=== PATIENT | male | born 1985 | race Caucasian/White ===

== ENCOUNTER 2018-05-18 16:05 | Emergency (ER) | payer OTHER ==
--- NOTE | 2018-05-18 17:23 | ED ---
General Adult HPI - General Chief complaint: Abdominal Pain Stated complaint: Chest Pain Source: patient Mode of arrival: ambulatory Limitations: no limitations - Related Data Home Medications Medication Instructions Recorded Confirmed No Known Home Medications 05/18/18 05/18/18 Allergies Allergy/AdvReac Type Severity Reaction Status Date / Time No Known Allergies Allergy Verified 05/18/18 17:01 Review of Systems ROS Statement: Those systems with pertinent positive or pertinent negative responses have been documented in the HPI. ROS Other: All systems not noted in ROS Statement are negative. Past Medical History Past Medical History: No Reported History History of Any Multi-Drug Resistant Organisms: None Reported Additional Past Surgical History / Comment(s): testicular torsion Past Psychological History: Anxiety, PTSD Smoking Status: Current every day smoker Past Alcohol Use History: Daily, Heavy Past Drug Use History: Marijuana General Exam Limitations: no limitations Course Vital Signs 05/18/18 05/18/18 16:15 16:29 Temperature 98.3 F Pulse Rate 103 H Pulse Rate [ 103 H [employer]endor ] Respiratory 18 20 Rate Blood Pressure 95/53 O2 Sat by Pulse 99 Oximetry Medical Decision Making - Medical Decision Making Dictation was produced using [employer] dictation software. please excuse any grammatical, word or spelling errors. Chief Complaint: 32-year-old male in no significant past medical history presents with abdominal pain 6 months. History of Present Illness: She is 32-year-old male presents with about abdominal pain 6 months. He states that his pain has acutely worsened over the last 2 days. Patient states that he's been evaluated with this same symptom in [place]. Patient was seen at the [facility] they're told that he had some inflammation around his gallbladder. Did not get any surgery. Patient denies any medical problems. Patient states his pain is worse after he eats not during eating. There is any constitutional symptoms. Patient states that he also expresses sharp The ROS documented in this emergency department record has been reviewed and confirmed by me. Those systems with pertinent positive or negative responses have been documented in the HPI. All other systems are other negative and/or noncontributory. PHYSICAL EXAM: General Impression: Alert and oriented x3, not in acute distress HEENT: Normocephalic atraumatic, extra-ocular movements intact, pupils equal and reactive to light bilaterally, mucous membranes moist. Cardiovascular: Heart regular rate and rhythm, S1&S2 audible, no murmurs, rubs or gallops Chest: Lungs clear to auscultation bilaterally, no rhonchi, no wheeze, no rales Abdomen: Bowel sounds present, abdomen soft, diffuse abdominal tenderness non- distended, no organomegaly Musculoskeletal: Pulses present and equal in all extremities, no peripheral edema Motor: Power 5/5 bilaterally, no focal deficits noted Neurological: CN II-XII grossly intact, no focal motor or sensory deficits noted Skin: Intact with no visualized rashes Psych: Normal affect and mood ED course: 32 yo male with diffuse abdominal tenderness. vital signs upon arrival are within acceptable limits. Laboratory evaluation obtained. CBC unremarkable. Metabolic panel shows sodium 136, AST of 92, rest of metabolic panel is unremarkable. Lipase 60. EKG was obtained. EKG interpretation: Ventricular rate 95, normal sinus rhythm, TN interval 140, Q holiness 96, QTC 437. No TN prolongation, no QTC prolongation, no ST or T-wave changes noted. . Overall, this EKG is unremarkable. Patient abated of his results. He is told that his CBC his metabolic panel is unremarkable. Patient also had an acute abdominal x-ray which was also unremarkable. Patient also had a normal chest x-ray. Discussed with patient that he is cleared for discharge. He did become aggressive towards me. He states that he just wants to leave he wants his IV out. An attempt was made to establish insurance preparations for him however he became impatient. Patient otherwise hemodynamically stable. Patient appeared comfortable prior to when he left. He wasn't showing any signs of acute distress. Patient eloped prior to definitive disposition and planning. - Lab Data Result diagrams: 05/18/18 17:13 05/18/18 17:13 Lab Results 05/18/18 05/18/18 Range/Units 17:13 17:13 WBC 6.6 (3.8-10.6) k/uL RBC 5.14 (4.30-5.90) m/uL Hgb 16.4 (13.0-17.5) gm/dL Hct 46.9 (39.0-53.0) % MCV 91.3 (80.0-100.0) fL MCH 31.9 (25.0-35.0) pg MCHC 34.9 (31.0-37.0) g/dL RDW 12.1 (11.5-15.5) % Plt Count 343 (150-450) k/uL Neutrophils % 60 % Lymphocytes % 31 % Monocytes % 5 % Eosinophils % 1 % Basophils % 1 % Neutrophils # 4.0 (1.3-7.7) k/uL Lymphocytes # 2.0 (1.0-4.8) k/uL Monocytes # 0.3 (0-1.0) k/uL Eosinophils # 0.1 (0-0.7) k/uL Basophils # 0.1 (0-0.2) k/uL Sodium 136 L (137-145) mmol/L Potassium 4.7 (3.5-5.1) mmol/L Chloride 100 (98-107) mmol/L Carbon Dioxide 26 (22-30) mmol/L Anion Gap 10 mmol/L BUN 17 (9-20) mg/dL Creatinine 0.88 (0.66-1.25) mg/dL Est GFR (CKD-EPI)AfAm >90 (>60 ml/min/1.73 sqM) Est GFR (CKD-EPI)NonAf >90 (>60 ml/min/1.73 sqM) Glucose 93 (74-99) mg/dL Calcium 9.3 (8.4-10.2) mg/dL Total Bilirubin 1.1 (0.2-1.3) mg/dL AST 92 H (17-59) U/L ALT 63 (21-72) U/L Alkaline Phosphatase 104 (38-126) U/L Total Protein 7.3 (6.3-8.2) g/dL Albumin 4.2 (3.5-5.0) g/dL Lipase 160 (23-300) U/L Disposition Clinical Impression: Abdominal pain Disposition: Left Against Medical Advice Condition: Good Instructions: Chest Pain (ED) Is patient prescribed a controlled substance at d/c from ED?: No Referrals: None,Stated [Primary Care Provider] - 1-2 days Time of Disposition: 19:32
--- NOTE | 2018-05-18 17:39 | XR ---
EXAMINATION TYPE: XR abdomen acute w cxr DATE OF EXAM: 05/18/2018 COMPARISON: NONE HISTORY: Chest pain abdominal pain TECHNIQUE: Chest x-ray with supine and upright abdomen FINDINGS: Heart and mediastinum are normal. Lungs are clear. Diaphragm is normal. Bony thorax appears normal. Bowel gas pattern is normal. There is no sign of intestinal obstruction or pneumoperitoneum. Fecal pa ttern is normal. I see no definite calcifications over the kidneys. IMPRESSION: Nonacute abdomen. Normal chest.
[2018-05-18 17:44] LABS: ALT 63 U/L (21-72); AST 92 U/L (17-59); Albumin 4.2 g/dL (3.5-5.0); Alkaline Phosphatase 104 U/L (38-126); Anion Gap 10 mmol/L; Blood Urea Nitrogen 17 mg/dL (9-20); Calcium 9.3 mg/dL (8.4-10.2); Carbon Dioxide 26 mmol/L (22-30); Chloride 100 mmol/L (98-107); Glucose 93 mg/dL (74-99); Lipase 160 U/L (23-300); Potassium 4.7 mmol/L (3.5-5.1); Sodium 136 mmol/L (137-145); Total Bilirubin 1.1 mg/dL (0.2-1.3); Total Protein 7.3 g/dL (6.3-8.2)
[2018-05-18 18:09] LABS: Basophils # (A) 0.1 k/uL (0-0.2); Basophils % (A) 1 %; Eosinophils # (A) 0.1 k/uL (0-0.7); Eosinophils % (A) 1 %; HCT 46.9 % (39.0-53.0); HGB 16.4 gm/dL (13.0-17.5); Lymphocytes % (A) 31 %; MCH 31.9 pg (25.0-35.0); MCHC 34.9 g/dL (31.0-37.0); MCV 91.3 fL (80.0-100.0); Mean Platelet Volume 6.3; Monocytes # (A) 0.3 k/uL (0-1.0); Monocytes % (A) 5 %; Neutrophils % (A) 60 %; Platelet Count 343 k/uL (150-450); RBC 5.14 m/uL (4.30-5.90); RDW 12.1 % (11.5-15.5); WBC 6.6 k/uL (3.8-10.6)
[2018-05-18 19:32] VITALS: BP 106/70; PULSE 98; RESP 18; TEMP 98.7
== END 2018-05-18 19:34 | disposition left against medical advice (07) ==
LOC: EC 16:05
DX: R10.9 Unspecified abdominal pain (principal); F17.200 Nicotine dependence, unspecified, uncomplicated
CPT/HCPCS: 36415; 74022; 80053; 83690; 85025; 93005; 99284

== ENCOUNTER 2019-10-29 14:04 | Emergency (ER) | payer OTHER ==
[2019-10-29] MEDS ORDERED: MORPHINE SULFATE 4 MG/ML SYRINGE IM STA (14:21)
--- NOTE | 2019-10-29 14:38 | XR ---
EXAMINATION TYPE: XR ankle complete LT, XR foot complete LT DATE OF EXAM: 10/29/2019 CLINICAL HISTORY: Pain after trampoline injury. TECHNIQUE: Frontal, lateral and oblique images of the left ankle and foot are obtained. COMPARISON: None. FINDINGS: [id number] soft tissue swelling over the lateral malleolus extending anteriorly. Seen best on lateral projection there is acute oblique minimally displaced fracture through lateral malle olus. Posterior medial malleoli are intact. Ankle mortise symmetry is preserved. There is no additional acute fracture or dislocation evident in the left foot. Small inferior calcane al spur. The joint spaces in the left foot are preserved. The Pedersen's toe is incidentally noted. Ov erlying soft tissue is unremarkable. IMPRESSION: There is is acute oblique minimally displaced fracture through the lateral malleolus wit h associated soft tissue swelling. (Initial encounter closed type posttraumatic fracture)
--- NOTE | 2019-10-29 15:17 | ED ---
Lower Extremity Injury HPI - General Chief Complaint: Extremity Injury, Lower Stated Complaint: lt leg injury Time Seen by Provider: 10/29/19 14:16 Source: patient Mode of arrival: wheelchair Limitations: no limitations - History of Present Illness Initial Comments: 34-year-old male presenting today for chief complaint of left ankle pain. Patient states she is attempting to do a back flip on a trampoline when he landed a back flip he states that he inverted his left ankle. Patient states his pain over the lateral aspect and swelling. Patient states it significantly increases with weightbearing or any range of motion. Patient states that his ankle feels lax. Patient denies any numbness tingling loss of sensation. Denies any pallor or coolness of the extremity. Patient denies any pain at the knee hip he denies injury to the head neck or back. Remaining review systems negative patient states injury occurred just prior to arrival. - Related Data Previous Rx's Medication Instructions Recorded HYDROcodone/APAP 5-325MG [[place] 1 tab PO Q6HR PRN 3 Days #12 tab 10/29/19 5-325] Allergies Allergy/AdvReac Type Severity Reaction Status Date / Time No Known Allergies Allergy Verified 10/29/19 14:16 Review of Systems ROS Statement: Those systems with pertinent positive or pertinent negative responses have been documented in the HPI. ROS Other: All systems not noted in ROS Statement are negative. Past Medical History Past Medical History: Hypertension History of Any Multi-Drug Resistant Organisms: None Reported Additional Past Surgical History / Comment(s): testicular torsion Past Psychological History: Anxiety, PTSD Smoking Status: Current every day smoker Past Alcohol Use History: Daily, Heavy Past Drug Use History: Marijuana General Exam - General Exam Comments Initial Comments: General: The patient is awake and alert, in no distress Eye: +3 mm pupils are equal, round and reactive to light, extra-ocular movements are intact. No nystagmus. There is normal conjunctiva bilaterally. No signs of icterus. Ears, nose, mouth and throat: There are moist mucous membranes and no oral lesions. Musculoskeletal: Upon inspection of the ankles bilaterally there is significant soft tissue swelling especially at the lateral malleolus of the left ankle. Patient has significant tenderness to palpation of the lateral malleolus. He refuses to fully range at the left ankle secondary to painful range of motion at the right ankle. As well as the left knee and hip. Patient is no tenderness to palpation over the proximal tibia or fibula. No tenderness to palpation over the forefoot/foot. Strength 5/5. Sensation intact of the knee/hip, refuses to fully strength test ankle secondary to pain but appears intact. Some mild laxity of ankle mortise noted. DP pulses equal bilaterally 2+. Capillary refill < 3 seconds. Neurological: A&O x 3. CN II-XII intact grossly, There are no obvious motor or sensory deficits. Coordination appears grossly intact. Speech is normal. Skin: Skin is warm and dry and no rashes or lesions are noted. Psychiatric: Cooperative, appropriate mood & affect, normal judgment. Limitations: no limitations Course Vital Signs 10/29/19 10/29/19 14:14 15:50 Temperature 97.5 F L 98.2 F Pulse Rate 87 84 Respiratory 18 16 Rate Blood Pressure 105/57 115/78 O2 Sat by Pulse 99 98 Oximetry Procedures - Orthopedic Splinting/Casting Injury #1 Side: left Lower Extremity Injury Location: ankle Lower Extremity Immobilizer: posterior splint, stirrup splint, synthetic pre- padded splint Additional Comments: Patient is neurovascularly intact both prior to and after splint placement capillary refill less than 2 seconds before and after able to wiggle toes before and after splint placement. Medical Decision Making - Medical Decision Making 34yo male presenting to the ER today for cc of left ankle pain after injury. XR reveals an oblique fracture isolated nondisplaced lateral malleolus. Patient is neurovascularly intact compartments are soft and compressible. No evidence of other injuries were noted. Patient was given pain medications in the emergency department discharged after discussing appropriate use and wrist associated opioids outpatient. I discussed the importance of nonweightbearing and follow- up with orthopedic surgery return parameters were discussed including any out of proportion pain increasing swelling or pallor noted of the toes. Patient verbalized understanding and was discharged appearing well after discussing case with Dr. Mock. Disposition Clinical Impression: Left fibular fracture, Severe sprain of left ankle Disposition: HOME SELF-CARE Condition: Good Instructions (If sedation given, give patient instructions): Ankle Fracture (ED), Ankle Sprain (ED) Additional Instructions: Please use medication as discussed. Please follow-up with orthopedic surgery in next 2-3 days, please do not weight bear and use crutches for ambulation. Rest, ice leg and elevate left leg. Please return to emergency room if the symptoms increase or worsen or for any other concerns. Prescriptions: HYDROcodone/APAP 5-325MG [[place] 5-325] 1 tab PO Q6HR PRN 3 Days #12 tab PRN Reason: Severe Pain Is patient prescribed a controlled substance at d/c from ED?: Yes When asked, does pt state using other controlled substances?: No If prescribed controlled substance>3 days was MAPS reviewed?: Prescribed <3 Days If opioid is for acute pain is fill amount 7 days or less?: Yes If Rx opioid, was Start Talking consent form obtained?: Yes Referrals: None,Stated [Primary Care Provider] - 1-2 days Juan Steinberg MD [STAFF PHYSICIAN] - 1-2 days Time of Disposition: 15:17
[2019-10-29 15:51] VITALS: BP 115/78; PULSE 84; RESP 16; TEMP 98.2
== END 2019-10-29 15:50 | disposition home or self-care (01) ==
LOC: EC 14:04
DX: S82.435A Nondisplaced oblique fracture of shaft of left fibula, initial encounter for closed fracture (principal); F17.200 Nicotine dependence, unspecified, uncomplicated; W09.8XXA Fall on or from other playground equipment, initial encounter; Y93.44 Activity, trampolining
CPT/HCPCS: 73610; 73630; 99283; 96372; 29515; J2270

== ENCOUNTER 2019-11-18 23:41 | Inpatient (IN) | payer OTHER ==
[2019-11-19] MEDS ORDERED: LORazepam 2 MG/ML INJ IV STA (00:25)
[2019-11-19] MEDS ORDERED: SODIUM CHLORIDE 0.9% 1,000 ML IV STA (00:25)
[2019-11-19 00:45] LABS: Basophils # (A) 0.1 k/uL (0-0.2); Basophils % (A) 1 %; Eosinophils # (A) 0.1 k/uL (0-0.7); Eosinophils % (A) 3 %; HCT 44.3 % (39.0-53.0); HGB 14.2 gm/dL (13.0-17.5); Lymphocytes # (A) 1.3 k/uL (1.0-4.8); Lymphocytes % (A) 30 %; MCH 32.1 pg (25.0-35.0); MCHC 32.1 g/dL (31.0-37.0); MCV 100.1 fL (80.0-100.0); Mean Platelet Volume 7.7; Monocytes # (A) 0.3 k/uL (0-1.0); Monocytes % (A) 6 %; Neutrophils # (A) 2.5 k/uL (1.3-7.7); Neutrophils % (A) 58 %; Platelet Count 141 k/uL (150-450); RBC 4.43 m/uL (4.30-5.90); RDW 12.7 % (11.5-15.5); WBC 4.3 k/uL (3.8-10.6)
[2019-11-19 00:55] LABS: Appearance,Urine Clear (Clear); Bilirubin,Urine Negative (Negative); Blood,Urine Negative (Negative); Color,Urine Light Yellow; Glucose,Urine (UA) Negative (Negative); Ketones,Urine Negative (Negative); Leukocyte Esterase,Urine Negative (Negative); Nitrite,Urine Negative (Negative); PH, Urine 6.5 (5.0-8.0); Protein,Urine Negative (Negative); Specific Gravity,Urine 1.003 (1.001-1.035); Urobilinogen,Urine <2.0 mg/dL (<2.0)
[2019-11-19 00:56] LABS: ALT 320 U/L (4-49); AST 643 U/L (17-59); African American GFR (CKD) >90 (>60 ml/min/1.73 sqM); Albumin 4.4 g/dL (3.5-5.0); Alkaline Phosphatase 113 U/L (38-126); Anion Gap 14 mmol/L; Blood Urea Nitrogen 9 mg/dL (9-20); Calcium 8.9 mg/dL (8.4-10.2); Carbon Dioxide 24 mmol/L (22-30); Chloride 103 mmol/L (98-107); Glucose 94 mg/dL (74-99); Magnesium 1.8 mg/dL (1.6-2.3); Non-African American GFR(CKD) >90 (>60 ml/min/1.73 sqM); Sodium 141 mmol/L (137-145); Total Bilirubin 0.9 mg/dL (0.2-1.3); Total Protein 6.9 g/dL (6.3-8.2)
[2019-11-19 01:10] LABS: Amphetamine Screen,Urine Not Detected (NotDetected); Barbiturate Screen,Urine Not Detected (NotDetected); Benzodiazepines Screen,Urine Not Detected (NotDetected); Cocaine Screen,Urine Not Detected (NotDetected); Methadone Screen, Urine Not Detected (NotDetected); Opiate Screen,Urine Not Detected (NotDetected); Oxycodone Screen, Urine Not Detected (NotDetected); Phencyclidine Screen,Urine Not Detected (NotDetected); Tricyclic Antidepressant,Urine Not Detected (NotDetected); Urn Cannabinoid Scrn Not Detected (NotDetected)
[2019-11-19 01:11] LABS: Alcohol 399 mg/dL
[2019-11-19] MEDS ORDERED: LORazepam 2 MG/ML INJ IV PRN ×3 (02:48)
[2019-11-19] MEDS ORDERED: ONDANSETRON 4 MG/2 ML VIAL IVP PRN (02:49)
[2019-11-19] MEDS ORDERED: NALOXONE 0.4 MG/ML 1 ML VIAL IV PRN (02:49)
[2019-11-19] MEDS ORDERED: SODIUM CHLORIDE 0.9% 1,000 ML IV SCH (03:00)
[2019-11-19] MEDS ORDERED: THIAMINE 100 MG/ML 2 ML VIAL IM ONE (03:00)
--- NOTE | 2019-11-19 04:09 | ED ---
Alcohol HPI - General Chief Complaint: Alcohol Stated Complaint: ETOH Time Seen by Provider: 11/18/19 23:52 Source: patient, EMS Mode of arrival: EMS Limitations: altered mental status (Appears intoxicated) - History of Present Illness Initial Comments: This patient is a 34-year-old man who states that he drinks between 1-2 fifths of alcohol per day. He presents because his family told them that he had a couple of seizures today. Patient states he has previously had withdrawal seizures if he stops drinking. The patient does not recall seizures himself. He states he does not feel like he had any injury. He does feel a little bit anxious and shaky. Denies other complaints MD Complaint: alcohol intoxication Last Drink: unknown Recent Trauma: No Associated Symptoms: seizure Treatments Prior to Arrival: none Chronic Alcohol Use: Yes - Related Data Previous Rx's Medication Instructions Recorded HYDROcodone/APAP 5-325MG [[place] 1 tab PO Q6HR PRN 3 Days #12 tab 10/29/19 5-325] Allergies Allergy/AdvReac Type Severity Reaction Status Date / Time No Known Allergies Allergy Verified 11/19/19 00:23 Review of Systems ROS Statement: Those systems with pertinent positive or pertinent negative responses have been documented in the HPI. ROS Other: All systems not noted in ROS Statement are negative. Limitations: ROS unobtainable due to patients medical condition (Appears intoxicated) Eyes: Denies: vision change Respiratory: Denies: cough, dyspnea Cardiovascular: Denies: chest pain Gastrointestinal: Denies: abdominal pain, vomiting, hematochezia Musculoskeletal: Denies: back pain Neurological: Denies: headache, weakness Past Medical History Past Medical History: Hypertension History of Any Multi-Drug Resistant Organisms: None Reported Additional Past Surgical History / Comment(s): testicular torsion Past Psychological History: Anxiety, PTSD Smoking Status: Current every day smoker Past Alcohol Use History: Daily, Heavy Past Drug Use History: Marijuana General Exam Limitations: no limitations General appearance: alert, in no apparent distress, appears intoxicated, other (Patient is slightly tremulous) Head exam: Present: atraumatic, normocephalic Eye exam: Present: normal appearance, PERRL, EOMI, nystagmus, periorbital swelling (Small left periorbital contusion. No bony tenderness or deformity). Absent: scleral icterus, conjunctival injection ENT exam: Present: mucous membranes dry Neck exam: Present: normal inspection, full ROM. Absent: tenderness Respiratory exam: Present: normal lung sounds bilaterally. Absent: respiratory distress, wheezes, rales, rhonchi, stridor, chest wall tenderness Cardiovascular Exam: Present: normal rhythm, tachycardia (Rate approximately 104 at my exam), normal heart sounds. Absent: systolic murmur, diastolic murmur, rubs, gallop GI/Abdominal exam: Present: soft. Absent: distended, tenderness, guarding, rebound, rigid, pulsatile mass Extremities exam: Present: normal inspection, normal capillary refill. Absent: pedal edema, calf tenderness Back exam: Present: normal inspection. Absent: CVA tenderness (R), CVA tender ness (L), vertebral tenderness Neurological exam: Present: alert, CN II-XII intact, other (Mild ataxia). Absent: oriented X3 (Patient is oriented to person and place but could not state the date.), motor sensory deficit Psychiatric exam: Present: normal affect Skin exam: Present: warm, dry, intact, normal color. Absent: rash Course Vital Signs 11/18/19 11/19/19 11/19/19 23:43 01:06 04:00 Temperature 97.8 F 97.9 F Pulse Rate 107 H 82 Respiratory 19 16 Rate Blood Pressure 144/115 97/54 101/82 O2 Sat by Pulse 93 L 95 Oximetry Medical Decision Making - Medical Decision Making This patient is a 34-year-old man who is a daily drinker presenting after he was reported to have had 2 seizures at home. The patient's alcohol level is 399, he is hypertensive and tachycardic with some tremulousness. Given that he appears to be an early DTs, will admit patients with Ativan protocol - Lab Data Result diagrams: 11/19/19 00:36 11/19/19 00:36 Lab Results 11/19/19 11/19/19 11/19/19 Range/Units 00:26 00:36 00:36 WBC 4.3 (3.8-10.6) k/uL RBC 4.43 (4.30-5.90) m/uL Hgb 14.2 (13.0-17.5) gm/dL Hct 44.3 (39.0-53.0) % MCV 100.1 H (80.0-100.0) fL MCH 32.1 (25.0-35.0) pg MCHC 32.1 (31.0-37.0) g/dL RDW 12.7 (11.5-15.5) % Plt Count 141 L (150-450) k/uL Neutrophils % 58 % Lymphocytes % 30 % Monocytes % 6 % Eosinophils % 3 % Basophils % 1 % Neutrophils # 2.5 (1.3-7.7) k/uL Lymphocytes # 1.3 (1.0-4.8) k/uL Monocytes # 0.3 (0-1.0) k/uL Eosinophils # 0.1 (0-0.7) k/uL Basophils # 0.1 (0-0.2) k/uL Sodium 141 (137-145) mmol/L Potassium 4.0 (3.5-5.1) mmol/L Chloride 103 (98-107) mmol/L Carbon Dioxide 24 (22-30) mmol/L Anion Gap 14 mmol/L BUN 9 (9-20) mg/dL Creatinine 0.79 (0.66-1.25) mg/dL Est GFR (CKD-EPI)AfAm >90 (>60 ml/min/1.73 sqM) Est GFR (CKD-EPI)NonAf >90 (>60 ml/min/1.73 sqM) Glucose 94 (74-99) mg/dL Calcium 8.9 (8.4-10.2) mg/dL Magnesium 1.8 (1.6-2.3) mg/dL Total Bilirubin 0.9 (0.2-1.3) mg/dL AST 643 H (17-59) U/L ALT 320 H (4-49) U/L Alkaline Phosphatase 113 (38-126) U/L Total Protein 6.9 (6.3-8.2) g/dL Albumin 4.4 (3.5-5.0) g/dL Urine Color Light Yellow Urine Appearance Clear (Clear) Urine pH 6.5 (5.0-8.0) Ur Specific [place] 1.003 (1.001-1.035) Urine Protein Negative (Negative) Urine Glucose (UA) Negative (Negative) Urine Ketones Negative (Negative) Urine Blood Negative (Negative) Urine Nitrite Negative (Negative) Urine Bilirubin Negative (Negative) Urine Urobilinogen <2.0 (<2.0) mg/dL Ur Leukocyte Esterase Negative (Negative) Urine Opiates Screen Not Detected (NotDetected) Ur Oxycodone Screen Not Detected (NotDetected) Urine Methadone Screen Not Detected (NotDetected) Ur Propoxyphene Screen Not Detected (NotDetected) Ur Barbiturates Screen Not Detected (NotDetected) U Tricyclic Antidepress Not Detected (NotDetected) Ur Phencyclidine Scrn Not Detected (NotDetected) Ur Amphetamines Screen Not Detected (NotDetected) U Methamphetamines Scrn Not Detected (NotDetected) U Benzodiazepines Scrn Not Detected (NotDetected) Urine Cocaine Screen Not Detected (NotDetected) U Marijuana (THC) Screen Not Detected (NotDetected) Serum Alcohol 399 H* mg/dL Disposition Clinical Impression: Alcoholic intoxication, Alcohol withdrawal syndrome, Alcoholic hepatitis Disposition: [facility] Condition: Serious Is patient prescribed a controlled substance at d/c from ED?: No
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
[2019-11-19 07:49] LABS: ALT 295 U/L (4-49); AST 531 U/L (17-59); African American GFR (CKD) >90 (>60 ml/min/1.73 sqM); Albumin 3.8 g/dL (3.5-5.0); Alkaline Phosphatase 89 U/L (38-126); Anion Gap 12 mmol/L; Blood Urea Nitrogen 9 mg/dL (9-20); Calcium 8.4 mg/dL (8.4-10.2); Carbon Dioxide 24 mmol/L (22-30); Chloride 104 mmol/L (98-107); Glucose 95 mg/dL (74-99); Non-African American GFR(CKD) >90 (>60 ml/min/1.73 sqM); Potassium 3.9 mmol/L (3.5-5.1); Sodium 140 mmol/L (137-145); Total Bilirubin 0.9 mg/dL (0.2-1.3); Total Protein 6.1 g/dL (6.3-8.2)
[2019-11-19 08:11] VITALS: BP 116/70; PULSE 109; RESP 18; TEMP 98.3
[2019-11-19] MEDS ORDERED: FAMOTIDINE 20 MG TAB PO SCH (09:00)
--- NOTE | 2019-11-19 14:05 | P.DS ---
Providers Date of admission: 11/19/19 02:49 Expected date of discharge: 11/19/19 Attending physician: Aysha Oliveros MD Consults: 11/19/19 04:54 Consult Physician Routine Consulting Provider: Hoang Harris Consult Reason/Comments: seizure Do you want consulting provider notified?: Yes, Notify in am Primary care physician: Stated None Hospital Course: Patient is a 34-year-old male with a PMH of alcohol abuse, PTSD, and hypertension who had presented to the ED after an episode of witnessed seizure. The patient had reported 2 episodes of seizures where he had bit his tongue and thereby decided to seek medical attention. He had reported 5 years of alcohol abuse with dependence. The patient was noted to have an alcohol level of 399 in the emergency room with abnormal LFTs. He was admitted for alcohol intoxication with seizure with neurology on consult. On 11/18 at 1:30 PM, notified by the RN that the patient wishes to leave AGAINST MEDICAL ADVICE. The patient was seen and evaluated at the bedside. Discussed in detail regarding the risks of leaving in light of his recent episode of seizure. The patient the risk of possible recurrent seizure, fall, head trauma, and possibly . The patient was alert and oriented and verbalized understanding of the risks and reported that he wishes to leave. The patient subsequently left AMA. Physical Examination General: Non-toxic, in no acute distress, appears older than stated age, normal weight HEENT: NC/AT, anicteric sclerae, moist conjunctiva, no lid-lag, PERRLA Cardiovascular: S1/S2 wnl, no murmurs, rubs, or gallops Lungs: Clear to auscultation, normal respiratory effort, no accessory muscle use Abdominal: Soft, non-tender, non-distended, no guarding, rebound, or rigidity Skin: Warm, dry Extremities: No edema or contractures, left ankle immobilizer Psychiatric: Alert and oriented to person, place and time, appropriate affect Neuro: CN II-XII grossly intact, Strength 5/5 in all 4 extremities, Speech intact, Sensation to light touch grossly intact throughout, normal gait, no outstretched hand tremor, no tongue fasciculations Discharge diagnosis: Alcohol intoxication, seizure, acute alcoholic hepatitis, alcohol dependence, PTSD A total of 35 minutes of time were spent preparing this complex discharge summary. Patient Condition at Discharge: Serious Plan - Discharge Summary New Discharge Prescriptions: No Action No Known Home Medications Discharge Medication List No Known Home Medications 11/19/19 [History] Follow up Appointment(s)/Referral(s): None,Stated [Primary Care Provider] - 1 Week Discharge Disposition: Left Against Medical Advice
[2019-11-19] MEDS ORDERED: THIAMINE 100 MG TAB PO SCH (17:30)
[2019-11-20 10:04] LABS: Hepatitis A Antibody IgM Non-Reactive (Non-Reactive); Hepatitis B Core IgM Non-Reactive (Non-Reactive); Hepatitis B Surface Antigen Non-Reactive (Non-Reactive); Hepatitis C IgG Antibody Non-Reactive (Non-Reactive)
== END 2019-11-19 13:55 | disposition left against medical advice (07) | DRG 894 ==
LOC: EC 23:41 → 4SSUR 11-19 02:49
PROVIDERS: ADMIT Internal Medicine; ATTEND Internal Medicine
DX: F10.229 Alcohol dependence with intoxication, unspecified (principal); I10 Essential (primary) hypertension; F43.10 Post-traumatic stress disorder, unspecified; F17.200 Nicotine dependence, unspecified, uncomplicated; R56.9 Unspecified convulsions; Y90.8 Blood alcohol level of 240 mg/100 ml or more; K70.10 Alcoholic hepatitis without ascites; Z11.59 Encounter for screening for other viral diseases; Z98.890 Other specified postprocedural states
CPT/HCPCS: 36415; 80053; 80074; 80306; 80320; 81003; 82075; 83735; 85025; 96361; 96372; 96374; 99285

== ENCOUNTER 2020-02-11 10:51 | Observation (INO) | payer OTHER ==
[2020-02-11] MEDS ORDERED: SODIUM CHLORIDE 0.9% 1,000 ML IV ONE ×2 (11:20→12:28)
--- NOTE | 2020-02-11 11:23 | ED ---
General Adult HPI - General Chief complaint: Psychiatric Symptoms Stated complaint: EPS eval Time Seen by Provider: 02/11/20 11:00 Source: patient, RN notes reviewed, old records reviewed Mode of arrival: ambulatory Limitations: no limitations - History of Present Illness Initial comments: This is a 34-year-old male who presents emergency department with past medical history significant for suicidal ideations in the past. Patient also still alcohol. Patient comes in today because his sister stated he was hanging suicidal. Patient states he is suicidal he does have a gun at his apartment and he is worried that he will take it. He states that he is upset and depressed about the fact that he has an inability to see his children because in [place] and he has issues because of custody with his ex. Patient denies any physical complaints today. Patient denies headache patient denies numbness weakness. Patient denies chest pain palpitations difficulty breathing first breath. Patient denies any nausea vomiting diarrhea. - Related Data Home Medications Medication Instructions Recorded Confirmed No Known Home Medications 11/19/19 11/19/19 Allergies Allergy/AdvReac Type Severity Reaction Status Date / Time No Known Allergies Allergy Verified 02/11/20 11:03 Review of Systems ROS Statement: Those systems with pertinent positive or pertinent negative responses have been documented in the HPI. ROS Other: All systems not noted in ROS Statement are negative. Past Medical History Past Medical History: Hypertension History of Any Multi-Drug Resistant Organisms: None Reported Additional Past Surgical History / Comment(s): testicular torsion Past Psychological History: Anxiety, PTSD Smoking Status: Current every day smoker Past Alcohol Use History: Daily, Heavy Past Drug Use History: Marijuana - Past Family History Family Family Medical History: No Reported History General Exam - General Exam Comments Initial Comments: GENERAL: Patient is well-developed and well-nourished. Patient is nontoxic and well- hydrated and is in no acute distress. Patient appears intoxicated ENT: Neck is soft and supple. No significant lymphadenopathy is noted. Oropharynx is clear. Moist mucous membranes. Neck has full range of motion without eliciting any pain. EYES: The sclera were anicteric and conjunctiva were pink and moist. Extraocular movements were intact and pupils were equal round and reactive to light. Eyelids were unremarkable. PULMONARY: Unlabored respirations. Good breath sounds bilaterally. No audible rales rhonchi or wheezing was noted. CARDIOVASCULAR: There is a regular rate and rhythm without any murmurs gallops or rubs. ABDOMEN: Soft and nontender with normal bowel sounds. SKIN: Skin is clear with no lesions or rashes and otherwise unremarkable. NEUROLOGIC: Patient is alert and oriented x3. Cranial nerves II through XII are grossly intact. Motor and sensory are also intact. Normal speech, volume and content. Symmetrical smile. MUSCULOSKELETAL: Normal extremities with adequate strength and full range of motion. No lower extremity swelling or edema. No calf tenderness. LYMPHATICS: No significant lymphadenopathy is noted PSYCHIATRIC: Patient states he is suicidal. Limitations: no limitations Course Vital Signs 02/11/20 10:59 Temperature 98.2 F Pulse Rate 109 H Respiratory 18 Rate Blood Pressure 147/86 O2 Sat by Pulse 98 Oximetry Medical Decision Making - Lab Data Result diagrams: 02/11/20 11:38 02/11/20 11:38 Lab Results 02/11/20 02/11/20 02/11/20 Range/Units 11:38 11:38 11:38 WBC 7.7 (3.8-10.6) k/uL RBC 5.32 (4.30-5.90) m/uL Hgb 16.9 (13.0-17.5) gm/dL Hct 51.7 (39.0-53.0) % MCV 97.2 (80.0-100.0) fL MCH 31.8 (25.0-35.0) pg MCHC 32.7 (31.0-37.0) g/dL RDW 12.5 (11.5-15.5) % Plt Count 408 (150-450) k/uL Neutrophils % 85 % Lymphocytes % 11 % Monocytes % 2 % Eosinophils % 1 % Basophils % 1 % Neutrophils # 6.5 (1.3-7.7) k/uL Lymphocytes # 0.9 L (1.0-4.8) k/uL Monocytes # 0.2 (0-1.0) k/uL Eosinophils # 0.0 (0-0.7) k/uL Basophils # 0.1 (0-0.2) k/uL Sodium 138 (137-145) mmol/L Potassium 4.6 (3.5-5.1) mmol/L Chloride 99 (98-107) mmol/L Carbon Dioxide 18 L (22-30) mmol/L Anion Gap 21 mmol/L BUN 16 (9-20) mg/dL Creatinine 0.83 (0.66-1.25) mg/dL Est GFR (CKD-EPI)AfAm >90 (>60 ml/min/1.73 sqM) Est GFR (CKD-EPI)NonAf >90 (>60 ml/min/1.73 sqM) Glucose 160 H (74-99) mg/dL Calcium 9.2 (8.4-10.2) mg/dL Total Bilirubin 0.8 (0.2-1.3) mg/dL AST 65 H (17-59) U/L ALT 42 (4-49) U/L Alkaline Phosphatase 112 (38-126) U/L Total Protein 7.8 (6.3-8.2) g/dL Albumin 4.9 (3.5-5.0) g/dL Urine Opiates Screen Not Detected (NotDetected) Ur Oxycodone Screen Not Detected (NotDetected) Urine Methadone Screen Not Detected (NotDetected) Ur Propoxyphene Screen Not Detected (NotDetected) Ur Barbiturates Screen Not Detected (NotDetected) U Tricyclic Antidepress Not Detected (NotDetected) Ur Phencyclidine Scrn Not Detected (NotDetected) Ur Amphetamines Screen Not Detected (NotDetected) U Methamphetamines Scrn Not Detected (NotDetected) U Benzodiazepines Scrn Not Detected (NotDetected) Urine Cocaine Screen Not Detected (NotDetected) U Marijuana (THC) Screen Detected H (NotDetected) Serum Alcohol 265 H* mg/dL Disposition Clinical Impression: Alcohol intoxication, Suicidal ideations Disposition: ADMITTED IP TO THIS HOSP Referrals: None,Stated [Primary Care Provider] - 1-2 days Time of Disposition: 12:27
[2020-02-11 11:53] LABS: Basophils # (A) 0.1 k/uL (0-0.2); Basophils % (A) 1 %; Eosinophils % (A) 1 %; HCT 51.7 % (39.0-53.0); HGB 16.9 gm/dL (13.0-17.5); Lymphocytes # (A) 0.9 k/uL (1.0-4.8); Lymphocytes % (A) 11 %; MCH 31.8 pg (25.0-35.0); MCHC 32.7 g/dL (31.0-37.0); MCV 97.2 fL (80.0-100.0); Mean Platelet Volume 6.8; Monocytes # (A) 0.2 k/uL (0-1.0); Monocytes % (A) 2 %; Neutrophils # (A) 6.5 k/uL (1.3-7.7); Neutrophils % (A) 85 %; Platelet Count 408 k/uL (150-450); RBC 5.32 m/uL (4.30-5.90); RDW 12.5 % (11.5-15.5); WBC 7.7 k/uL (3.8-10.6)
[2020-02-11 12:04] LABS: ALT 42 U/L (4-49); AST 65 U/L (17-59); African American GFR (CKD) >90 (>60 ml/min/1.73 sqM); Albumin 4.9 g/dL (3.5-5.0); Alkaline Phosphatase 112 U/L (38-126); Anion Gap 21 mmol/L; Blood Urea Nitrogen 16 mg/dL (9-20); Calcium 9.2 mg/dL (8.4-10.2); Carbon Dioxide 18 mmol/L (22-30); Chloride 99 mmol/L (98-107); Glucose 160 mg/dL (74-99); Non-African American GFR(CKD) >90 (>60 ml/min/1.73 sqM); Potassium 4.6 mmol/L (3.5-5.1); Sodium 138 mmol/L (137-145); Total Bilirubin 0.8 mg/dL (0.2-1.3); Total Protein 7.8 g/dL (6.3-8.2)
[2020-02-11 12:06] LABS: Alcohol 265 mg/dL; Amphetamine Screen,Urine Not Detected (NotDetected); Barbiturate Screen,Urine Not Detected (NotDetected); Benzodiazepines Screen,Urine Not Detected (NotDetected); Cocaine Screen,Urine Not Detected (NotDetected); Methadone Screen, Urine Not Detected (NotDetected); Opiate Screen,Urine Not Detected (NotDetected); Oxycodone Screen, Urine Not Detected (NotDetected); Phencyclidine Screen,Urine Not Detected (NotDetected); Tricyclic Antidepressant,Urine Not Detected (NotDetected); Urn Cannabinoid Scrn Detected (NotDetected)
[2020-02-11] MEDS ORDERED: LORazepam 2 MG/ML INJ IV PRN ×3 (12:29)
[2020-02-11] MEDS ORDERED: THIAMINE 100 MG/ML 2 ML VIAL IM STA (12:29)
[2020-02-11] MEDS: THIAMINE 100 MG TAB PO SCH (16:31)
--- NOTE | 2020-02-11 19:41 | P.HPIM ---
History of Present Illness H&P Date: 02/11/20 Chief Complaint: Suicidal ideation Patient is a 34-year-old male with a known history of hypertension currently not on any medications, anxiety/depression, PTSD and currently everyday smoker and heavy alcohol use and marijuana use presents to ER due to suicidal ideation. Raffi rios states that he is suicidal and does have a gun at his apartment and he is worried that he will use it. Patient states that he is upset and depressed about the fact that he is unable to see his children in [place] as he has issues of custody with his ex-. Patient does have past medical history of suicidal ideation in the past. Patient does drink on daily basis to fifth of alcohol. He does smoke and marijuana use. Currently denies any complaints of chest pain or shortness breath. No nausea vomiting abdominal pain or diarrhea. Denies any recent illnesses. Patient is not taking any medications at home. Lab data showed AST 65, ALT 42 and alk phos 112 UDS is positive for marijuana Serum alcohol level is 265 Patient was tachycardic on admission. Review of Systems Constitutional: Patient denies any fever or chills . No generalized weakness or weight loss. Abdomen: Patient denied nausea vomiting and diarrhea and abdominal pain. Cardiovascular: Patient denies any chest pain or short of breath no palpitations. Respiratory: patient denied any cough or sputum production. No shortness of breath Neurologic: Patient denied any numbness or tingling headache. Musculoskeletal: Patient denies any complaints of joint swelling or deformity. Skin: Negative Psychiatric: Depressed and suicidal Endocrine: No heat or cold intolerance. No recent weight gain. Genitourinary: No dysuria or hematuria. All other 14 point ROS negative except the above Past Medical History Past Medical History: Hypertension History of Any Multi-Drug Resistant Organisms: None Reported Additional Past Surgical History / Comment(s): testicular torsion Past Anesthesia/Blood Transfusion Reactions: No Reported Reaction Past Psychological History: Anxiety, Depression, PTSD Smoking Status: Current every day smoker Past Alcohol Use History: Abuse, Daily, Heavy Additional Past Alcohol Use History / Comment(s): STATES HE DRINKS 2 FIFTHS A DAY OF VODKA Past Drug Use History: Marijuana - Past Family History Family Family Medical History: No Reported History Medications and Allergies Home Medications Medication Instructions Recorded Confirmed Type No Known Home Medications 11/19/19 02/11/20 History Allergies Allergy/AdvReac Type Severity Reaction Status Date / Time No Known Allergies Allergy Verified 02/11/20 13:07 Physical Exam Vitals: Vital Signs Temp Pulse Pulse Resp BP BP Pulse Ox 02/11/20 13:30 98.2 F 105 H 16 147/83 98 02/11/20 12:48 98.8 F 87 12 135/95 95 02/11/20 10:59 98.2 F 109 H 18 147/86 98 Intake and Output 02/11/20 02/11/20 02/11/20 06:59 14:59 22:59 Intake Total 580 Balance 580 Intake: Oral 580 Other: Voiding Method Toilet Urinal Weight 77.111 kg PHYSICAL EXAMINATION: Patient is lying in the bed comfortably, no acute distress, awake alert and oriented.. HEENT: Normocephalic. Neck is supple. Pupils reactive. Nostrils clear. Oral cavity is moist. Ears reveal no drainage. Neck reveals no JVD, carotid bruits, or thyromegaly. CHEST EXAMINATION: Trachea is central. Symmetrical expansion. Lung wade clear to auscultation and percussion. CARDIAC: Normal S1, S2 with no gallops. No murmurs ABDOMEN: Soft. Bowel sounds normal. No organomegaly. No abdominal bruits. Extremities: reveal no edema. No clubbing or cyanosis Neurologically awake, alert, oriented x3 with well-coordinated movements. No f ocal deficits noted Skin: No rash or skin lesions. Psychiatric: Coperative. Anxious and depressed. Musculoskeletal: No joint swelling or deformity. Normal range of motion. Results CBC & Chem 7: 02/11/20 11:38 02/11/20 11:38 Labs: Abnormal Lab Results - Last 24 Hours (Table) 02/11/20 02/11/20 02/11/20 Range/Units 11:38 11:38 11:38 Lymphocytes # 0.9 L (1.0-4.8) k/uL Carbon Dioxide 18 L (22-30) mmol/L Glucose 160 H (74-99) mg/dL AST 65 H (17-59) U/L U Marijuana (THC) Screen Detected H (NotDetected) Serum Alcohol 265 H* mg/dL Thrombosis Risk Factor Assmnt - DVT/VTE Prophylaxis DVT/VTE Prophylaxis: Pharmacologic Prophylaxis ordered - Choose All That Apply Any of the Below Risk Factors Present?: Yes Each Factor Represents 1 point: Serious lung disease incl. pneumonia (< 1month) Other Risk Factors: No Other congenital or acquired thrombophilia - If yes, enter type in comment: No Thrombosis Risk Factor Assessment Total Risk Factor Score: 1 Thrombosis Risk Factor Assessment Level: Low Risk Assessment and Plan Assessment: Acute suicidal ideation with plan to use his gun. Acute alcohol intoxication Daily alcohol abuse Ongoing nicotine addiction Marijuana use Prior history of suicidal ideation in the past Anxiety/depression and PTSD Hypertension currently not on any medication at home DVT prophylaxis Plan: Patient will be continued on IV hydration with normal saline and continue to monitor for alcohol withdrawal symptoms. Continue with bedside sitter and psychiatry was consulted. Fall precautions and seizure precautions. Continue with thiamine and multivitamins and follow-up closely. Time with Patient: Greater than 30
[2020-02-11] MEDS: NICOTINE 21MG/24HR PATCH TRANSDERM SCH (19:58)
[2020-02-11] MEDS: SODIUM CHLORIDE 0.9% 1,000 ML IV SCH (20:07)
[2020-02-12] MEDS: SODIUM CHLORIDE 0.9% 1,000 ML IV SCH ×2 (08:32→20:35)
[2020-02-12] MEDS: THIAMINE 100 MG TAB PO SCH ×2 (08:32→17:20)
[2020-02-12] MEDS: NICOTINE 21MG/24HR PATCH TRANSDERM SCH (08:32)
--- NOTE | 2020-02-12 13:56 | P.CN ---
Psychiatric Consult - . Consult date: 02/12/20 Consult:: IDENTIFYING DATA: This patient is a 34-year-old male with significant history of hypertension, anxiety, depression, PTSD who presented with suicidal ideation in the context of alcohol use. HISTORY OF PRESENT ILLNESS: The patient presented to the hospital on 02/11/2020 after expressing suicidal ideation while intoxicated. Patient was brought to the emergency department accompanied by his sister after he has been expressing increasing thoughts of suicide and had a plan to shoot himself. Patient also has access to firearms. Patient expresses that for the last 10 months or so, he has been expressing worsening depression including decreased motivation, feeling overwhelmed, difficulty sleeping, and feeling helpless. He reports his primary stressor is his relationship with his daughters as he has been unable to be in c ontact with them due to a falling out with her mother. His daughters are currently living in [place]. He denies any prior attempts at suicide and is not endorsing any suicidal ideation or intention today. He denies any homicidal ideation, intention, or plan. He does report a significant history of PTSD due to his deployments in [place]. He currently does not endorse any significant symptoms of PTSD other than elevated anxiety and avoidance of social situations. Patient denies any auditory, visual hallucinations and denies any paranoia or delusions. Patients admits to using alcohol heavily. He reports that he has been drinking half a fifth of hard liquor per day. He does report prior treatment in rehab for alcohol use as well as a history of withdrawal symptoms including tremors and sweats. He denies any delirium tremens or seizures. He currently smokes 1 pack per day. He does not endorse any drug use. PAST PSYCHIATRIC HISTORY: Patient has a a history of depression, anxiety, alcohol use disorder and PTSD. Patient reports prior trials with Seroquel. He reports one prior psychiatric hospitalization in [place] 2 years ago for suicidal ideation again in the context of alcohol use. He is [facility] open with [facility]. Patient denies any history of suicide attempts in the past. PAST MEDICAL HISTORY: Hypertension. ALLERGIES: as per EMR. CHEMICAL DEPENDENCY HISTORY: as per HPI. FAMILY PSYCHIATRIC/SUBSTANCE USE HISTORY: denies SOCIAL HISTORY: Patient was honorably discharged by the [employer] on 09/03/2014. 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 He is currently living in [place] and is 40% service connected. He has 3 daughters ages 6, 10, and 11 living in [place] with their mother. He has his own property in [place] but occasionally stays with his sister and [id number]. MENTAL STATUS EXAM: General Appearance: Patient appears to be stated age is alert, pleasant, and cooperative. Patient appears to have fair hygiene and grooming wearing hospital gown with fair eye contact. Behavior: Patient is calmly lying in bed. Psychomotor activity slightly elevated and patient is fidgeting with his hands. Contact is intermittent. Speech: Patient's speech is fluent and nonpressured. Mood/Affect: Patient reports their mood is "very anxious", affect is congruent Suicidality/Homicidality: Patient denies having any suicidal or homicidal ideation intent or plan. Perceptions: Patient denies any visual hallucinations and denies any auditory hallucinations Though content/process: There is no evidence of any delusional thought content and thought process is linear and goal-directed. Memory and concentration: AOX3, grossly intact for the purposes of this session. Can spell "WORLD" backwards Judgment and insight: poor IMPRESSIONS: Major depressive disorder, recurrent, severe Anxiety disorder, unspecified Posttraumatic stress disorder Alcohol use disorder PLAN: -At this time patient DOES meet criteria for inpatient psychiatric admission. -Would recommend the following medication changes/additions: -No psychiatric medications at this time. We will likely initiate Zoloft or Effexor for management of depression/anxiety when patient is medically cleared. -Continue 1:1 sitter for safety -Cannot leave AMA at this time. Patient will need a petition and certification if attempting to leave AMA. -Discussed with the patient's sister with permission granted by the patient. She states that she will fill out a petition. She reports that this was also discussed with the patient's [facility] worker/[facility] liaison who also agrees that the patient would benefit from inpatient psychiatric hospitalization. -Will continue to follow along -When medically stable, patient is eligible for transfer to a psych bed when available. 02/12/20 13:48
--- NOTE | 2020-02-12 14:21 | P.PN ---
Subjective 34-year-old male with a known history of hypertension currently not on any medications, anxiety/depression, PTSD and currently everyday smoker and heavy alcohol use and marijuana use presents to ER due to suicidal ideation. Patient states that he is suicidal and does have a gun at his apartment and he is worried that he will use it. Patient states that he is upset and depressed about the fact that he is unable to see his children in [place] as he has issues of custody with his ex-. Patient does have past medical history of suicidal ideation in the past. Patient does drink on daily basis to fifth of alcohol. He does smoke and marijuana use. Currently denies any complaints of chest pain or shortness breath. No nausea vomiting abdominal pain or diarrhea. Denies any recent illnesses. Patient is not taking any medications at home. Lab data showed AST 65, ALT 42 and alk phos 112 UDS is positive for marijuana Serum alcohol level is 265 Patient was tachycardic on admission. 02/12/2020 Patient does drink about 1/5-2/5 of hard liquor every day, his last alcohol use was 2 days ago, there is a chance patient still had can have withdrawals although patient didn't receive any Ativan today. Patient wanted to go home but the psychiatric be recommended inpatient hospitalization and conditioning the patient aspirated and patient cannot leave AGAINST MEDICAL ADVICE patient evidently was suicidal on admission. Patient will be continued with one-on-one sitter. Patient most probably can go to psychiatric floor tomorrow Constitutional: Denied any fatigue denied any fever. Cardio vascular: denied any chest pain, palpitations Gastrointestinal denied any nausea vomiting Pulmonary: Denied any shortness of breath cough Neurologic denied any new focal deficits All inpatient medications were reviewed and appropriate changes in these medications as dictated in the interval history and assessment and plan. Objective - Vital Signs Vital signs: Vital Signs Temp 98.4 F 02/12/20 07:00 Pulse 89 02/12/20 08:00 Resp 16 02/12/20 08:00 BP 164/102 02/12/20 07:00 Pulse Ox 95 02/12/20 07:00 Intake & Output 02/11/20 02/12/20 02/12/20 18:59 06:59 18:59 Intake Total 580 Balance 580 Weight 77.111 kg Intake: Oral 580 Other: Voiding Method Toilet Toilet Toilet Urinal Urinal Urinal - Exam PHYSICAL EXAMINATION: GENERAL: The patient is alert and oriented x3, not in any acute distress. Well developed, well nourished. HEENT: Pupils are round and equally reacting to light. EOMI. No scleral icterus. No conjunctival pallor. Normocephalic, atraumatic. No pharyngeal erythema. No thyromegaly. CARDIOVASCULAR: S1 and S2 present. No murmurs, rubs, or gallops. PULMONARY: Chest is clear to auscultation, no wheezing or crackles. ABDOMEN: Soft, nontender, nondistended, normoactive bowel sounds. No palpable organomegaly. MUSCULOSKELETAL: No joint swelling or deformity. EXTREMITIES: No cyanosis, clubbing, or pedal edema. NEUROLOGICAL: Gross neurological examination did not reveal any focal deficits. SKIN: No rashes. - Labs CBC & Chem 7: 02/11/20 11:38 02/11/20 11:38 Assessment and Plan Plan: suicidal ideation with plan to use his gun. -alcohol intoxication -Alcohol withdrawals: Patient presently is not requiring any Ativan but it can have significant withdrawals by tonight or tomorrow morning if patient doesn't have any significant withdrawals will be cleared for discharge to psychiatric floor tomorrow patient will be continued on Ativan therapy protocol and IV fluids Daily alcohol abuse Ongoing nicotine addiction Marijuana use Prior history of suicidal ideation in the past Anxiety/depression and PTSD Hypertension currently not on any medication at home DVT prophylaxis
[2020-02-12] MEDS: FAMOTIDINE 20 MG TAB PO SCH (19:53)
[2020-02-13] MEDS: FAMOTIDINE 20 MG TAB PO SCH (08:37)
[2020-02-13] MEDS: THIAMINE 100 MG TAB PO SCH ×2 (08:37→17:01)
[2020-02-13] MEDS: NICOTINE 21MG/24HR PATCH TRANSDERM SCH (08:37)
[2020-02-13] MEDS: ENOXAPARIN 40 MG/0.4 ML SYRINGE SQ SCH (08:38)
--- NOTE | 2020-02-13 14:06 | P.DS ---
Providers Date of admission: 02/11/20 12:28 Attending physician: Jim Simon Consults: 02/11/20 12:28 Consult Physician Urgent Consulting Provider: Mich Tafoya Reason/Comments: Suicidal ideations Do you want consulting provider notified?: Yes Primary care physician: Stated None Hospital Course: 34-year-old male with a known history of hypertension currently not on any medications, anxiety/depression, PTSD and currently everyday smoker and heavy alcohol use and marijuana use presents to ER due to suicidal ideation. Patient states that he is suicidal and does have a gun at his apartment and he is worried that he will use it. Patient states that he is upset and depressed about the fact that he is unable to see his children in [place] as he has issues of custody with his ex-. Patient does have past medical history of suicidal ideation in the past. Patient does drink on daily basis to fifth of alcohol. He does smoke and marijuana use. Currently denies any complaints of chest pain or shortness breath. No nausea vomiting abdominal pain or diarrhea. Denies any recent illnesses. Patient is not taking any medications at home. Lab data showed AST 65, ALT 42 and alk phos 112 UDS is positive for marijuana Serum alcohol level is 265 Patient was tachycardic on admission. 02/12/2020 Patient does drink about 1/5-2/5 of hard liquor every day, his last alcohol use was 2 days ago, there is a chance patient still had can have withdrawals although patient didn't receive any Ativan today. Patient wanted to go home but the psychiatric be recommended inpatient hospitalization and conditioning the patient aspirated and patient cannot leave AGAINST MEDICAL ADVICE patient evidently was suicidal on admission. Patient will be continued with one-on-one sitter. Patient most probably can go to psychiatric floor tomorrow 02/13/2020 Patient didn't have any significant withdrawals since last night patient received Ativan only once even at that time his CIWA score was low. Patient is medically stable to be discharged to psychiatric floor. Patient has minimal withdrawals that can be managed on the psychiatric floor. Patient is well and really willing to go to psychiatric floor PHYSICAL EXAMINATION: GENERAL: The patient is alert and oriented x3, not in any acute distress. Well developed, well nourished. HEENT: Pupils are round and equally reacting to light. EOMI. No scleral icterus. No conjunctival pallor. Normocephalic, atraumatic. No pharyngeal erythema. No thyromegaly. CARDIOVASCULAR: S1 and S2 present. No murmurs, rubs, or gallops. PULMONARY: Chest is clear to auscultation, no wheezing or crackles. ABDOMEN: Soft, nontender, nondistended, normoactive bowel sounds. No palpable organomegaly. MUSCULOSKELETAL: No joint swelling or deformity. EXTREMITIES: No cyanosis, clubbing, or pedal edema. NEUROLOGICAL: Gross neurological examination did not reveal any focal deficits. SKIN: No rashes. Assessment and Plan Plan: suicidal ideation with plan to use his gun. -alcohol intoxication -Alcohol withdrawals: Received Ativan 1 time and last 12 hours Daily alcohol abuse Ongoing nicotine addiction Marijuana use Prior history of suicidal ideation in the past Anxiety/depression and PTSD Plan - Discharge Summary Discharge Rx Participant: No New Discharge Prescriptions: New Nicotine 21Mg/24Hr Patch [Habitrol] 1 patch TRANSDERM DAILY patch Thiamine [Vitamin B-1] 100 mg PO BID-W/MEALS tab Discharge Medication List Nicotine 21Mg/24Hr Patch [Habitrol] 1 patch TRANSDERM DAILY patch 02/13/20 [Rx] Thiamine [Vitamin B-1] 100 mg PO BID-W/MEALS tab 02/13/20 [Rx] Discharge Disposition: TRANSFER TO PSYCH HOSP/UNIT
[2020-02-13] MEDS: SODIUM CHLORIDE 0.9% 1,000 ML IV SCH (19:13)
[2020-02-14] MEDS: FAMOTIDINE 20 MG TAB PO SCH ×3 (01:19→21:17)
[2020-02-14] MEDS: SODIUM CHLORIDE 0.9% 1,000 ML IV SCH ×2 (01:19→16:40)
[2020-02-14] MEDS: THIAMINE 100 MG TAB PO SCH ×2 (10:18→17:54)
[2020-02-14] MEDS: NICOTINE 21MG/24HR PATCH TRANSDERM SCH (10:18)
[2020-02-14] MEDS: ENOXAPARIN 40 MG/0.4 ML SYRINGE SQ SCH (10:18)
--- NOTE | 2020-02-14 11:55 | P.DS ---
Providers Date of admission: 02/11/20 12:28 Attending physician: Jim Simon Consults: 02/11/20 12:28 Consult Physician Urgent Consulting Provider: Mich Tafoya Reason/Comments: Suicidal ideations Do you want consulting provider notified?: Yes Primary care physician: Stated None Hospital Course: 34-year-old male with a known history of hypertension currently not on any medications, anxiety/depression, PTSD and currently everyday smoker and heavy alcohol use and marijuana use presents to ER due to suicidal ideation. Patient states that he is suicidal and does have a gun at his apartment and he is worried that he will use it. Patient states that he is upset and depressed about the fact that he is unable to see his children in [place] as he has issues of custody with his ex-. Patient does have past medical history of suicidal ideation in the past. Patient does drink on daily basis to fifth of alcohol. He does smoke and marijuana use. Currently denies any complaints of chest pain or shortness breath. No nausea vomiting abdominal pain or diarrhea. Denies any recent illnesses. Patient is not taking any medications at home. Lab data showed AST 65, ALT 42 and alk phos 112 UDS is positive for marijuana Serum alcohol level is 265 Patient was tachycardic on admission. 02/12/2020 Patient does drink about 1/5-2/5 of hard liquor every day, his last alcohol use was 2 days ago, there is a chance patient still had can have withdrawals although patient didn't receive any Ativan today. Patient wanted to go home but the psychiatric be recommended inpatient hospitalization and conditioning the patient aspirated and patient cannot leave AGAINST MEDICAL ADVICE patient evidently was suicidal on admission. Patient will be continued with one-on-one sitter. Patient most probably can go to psychiatric floor tomorrow 02/13/2020 Patient didn't have any significant withdrawals since last night patient received Ativan only once even at that time his CIWA score was low. Patient is medically stable to be discharged to psychiatric floor. Patient has minimal withdrawals that can be managed on the psychiatric floor. Patient is well and really willing to go to psychiatric floor 02/14/2020 Patient doesn't have any withdrawals at this time patient is awaiting the disposition to psychiatric floor PHYSICAL EXAMINATION: GENERAL: The patient is alert and oriented x3, not in any acute distress. Well developed, well nourished. HEENT: Pupils are round and equally reacting to light. EOMI. No scleral icterus. No conjunctival pallor. Normocephalic, atraumatic. No pharyngeal erythema. No thyromegaly. CARDIOVASCULAR: S1 and S2 present. No murmurs, rubs, or gallops. PULMONARY: Chest is clear to auscultation, no wheezing or crackles. ABDOMEN: Soft, nontender, nondistended, normoactive bowel sounds. No palpable organomegaly. MUSCULOSKELETAL: No joint swelling or deformity. EXTREMITIES: No cyanosis, clubbing, or pedal edema. NEUROLOGICAL: Gross neurological examination did not reveal any focal deficits. SKIN: No rashes. Assessment and Plan Plan: suicidal ideation with plan to use his gun. -alcohol intoxication -Alcohol withdrawals: Patient was treated for these and no more withdrawals at this time Daily alcohol abuse Ongoing nicotine addiction Marijuana use Prior history of suicidal ideation in the past Anxiety/depression and PTSD Plan - Discharge Summary Discharge Rx Participant: No New Discharge Prescriptions: New Nicotine 21Mg/24Hr Patch [Habitrol] 1 patch TRANSDERM DAILY patch Thiamine [Vitamin B-1] 100 mg PO BID-W/MEALS tab Discharge Medication List Nicotine 21Mg/24Hr Patch [Habitrol] 1 patch TRANSDERM DAILY patch 02/13/20 [Rx] Thiamine [Vitamin B-1] 100 mg PO BID-W/MEALS tab 02/13/20 [Rx] Discharge Disposition: TRANSFER TO PSYCH HOSP/UNIT
[2020-02-15] MEDS: SODIUM CHLORIDE 0.9% 1,000 ML IV SCH ×2 (03:04→20:28)
[2020-02-15] MEDS: NICOTINE 21MG/24HR PATCH TRANSDERM SCH (08:53)
[2020-02-15] MEDS: THIAMINE 100 MG TAB PO SCH ×2 (08:53→17:39)
[2020-02-15] MEDS: FAMOTIDINE 20 MG TAB PO SCH ×2 (08:53→20:29)
--- NOTE | 2020-02-15 10:01 | P.DS ---
Providers Date of admission: 02/11/20 12:28 Attending physician: Jim Simon Consults: 02/11/20 12:28 Consult Physician Urgent Consulting Provider: Mich Tafoya Consult Reason/Comments: Suicidal ideations Do you want consulting provider notified?: Yes Primary care physician: Stated None Hospital Course: Patient was not discharged yesterday, awaiting disposition to psychiatric floor either her are intact [facility]. As patient ended up staying the hospital are did do see and examine the patient. PHYSICAL EXAMINATION: GENERAL: The patient is alert and oriented x3, not in any acute distress. Well developed, well nourished. HEENT: Pupils are round and equally reacting to light. EOMI. No scleral icterus. No conjunctival pallor. Normocephalic, atraumatic. No pharyngeal erythema. No th yromegaly. CARDIOVASCULAR: S1 and S2 present. No murmurs, rubs, or gallops. PULMONARY: Chest is clear to auscultation, no wheezing or crackles. ABDOMEN: Soft, nontender, nondistended, normoactive bowel sounds. No palpable organomegaly. MUSCULOSKELETAL: No joint swelling or deformity. EXTREMITIES: No cyanosis, clubbing, or pedal edema. NEUROLOGICAL: Gross neurological examination did not reveal any focal deficits. SKIN: No rashes. For rest of the hospital course and rest of the discharge please refer to my chest summary from yesterday Plan - Discharge Summary Discharge Rx Participant: No New Discharge Prescriptions: New Nicotine 21Mg/24Hr Patch [Habitrol] 1 patch TRANSDERM DAILY patch Thiamine [Vitamin B-1] 100 mg PO BID-W/MEALS tab Discharge Medication List Nicotine 21Mg/24Hr Patch [Habitrol] 1 patch TRANSDERM DAILY patch 02/13/20 [Rx] Thiamine [Vitamin B-1] 100 mg PO BID-W/MEALS tab 02/13/20 [Rx] Discharge Disposition: TRANSFER TO PSYCH HOSP/UNIT
[2020-02-15] MEDS: ENOXAPARIN 40 MG/0.4 ML SYRINGE SQ SCH (16:11)
[2020-02-16 02:56] VITALS: BP 158/114; PULSE 76; RESP 18; TEMP 98
== END 2020-02-16 04:48 ==
LOC: EC 10:51 → 4SSUR 12:28
PROVIDERS: ADMIT Internal Medicine; ATTEND Internal Medicine
DX: R45.851 Suicidal ideations (principal); F10.229 Alcohol dependence with intoxication, unspecified; F10.239 Alcohol dependence with withdrawal, unspecified; Y90.8 Blood alcohol level of 240 mg/100 ml or more; R00.0 Tachycardia, unspecified; Z20.828 Contact with and (suspected) exposure to other viral communicable diseases; F17.200 Nicotine dependence, unspecified, uncomplicated; I10 Essential (primary) hypertension; F32.9 Major depressive disorder, single episode, unspecified; N44.00 Torsion of testis, unspecified; F41.9 Anxiety disorder, unspecified; F43.10 Post-traumatic stress disorder, unspecified
CPT/HCPCS: 96376; 96372 ×2; 82075; 96361; 96374; 99285; 36415; 80053; 85025; 80306; 80320; G0378 ×6; U0003; S4990 ×5; J2060 ×2; J1650 ×2

== ENCOUNTER 2020-02-16 03:45 | Inpatient (IN) | payer OTHER, MEDICAID ==
[2020-02-16] MEDS ORDERED: MAG HYDROX/AL HYDROX/SIMETH 30 ML CUP PO PRN (05:35)
[2020-02-16] MEDS ORDERED: ZIPRASIDONE 20 MG VIAL IM PRN (05:35)
[2020-02-16] MEDS ORDERED: MAGNESIUM HYDROXIDE 2,400 MG/10 ML CUP PO PRN (05:35)
[2020-02-16] MEDS ORDERED: ACETAMINOPHEN TAB 325 MG TAB PO PRN (05:35)
[2020-02-16] MEDS ORDERED: LORazepam 2 MG/ML INJ IM PRN (05:38)
[2020-02-16] MEDS: LORazepam 1 MG TAB PO PRN ×2 (05:47→23:48)
--- NOTE | 2020-02-16 10:23 | P.HP ---
Psychiatric H&P - . H&P Date: 02/16/20 History & Physical: Allergies Allergy/AdvReac Type Severity Reaction Status Date / Time No Known Allergies Allergy Verified 02/11/20 13:07 Vital Signs Temp 98.7 F 02/16/20 06:45 Pulse 94 02/16/20 05:30 Resp 16 02/16/20 06:45 BP 134/89 02/16/20 06:45 Pulse Ox 98 02/16/20 06:45 Intake & Output 02/15/20 02/16/20 02/16/20 18:59 06:59 18:59 Weight 73.482 kg Laboratory Last Values Triglycerides 120 mg/dL (<150) 02/16/20 08:07 Cholesterol 207 mg/dL (<200) H 02/16/20 08:07 LDL Cholesterol, Calc 112 mg/dL (0-99) H 02/16/20 08:07 HDL Cholesterol 71 mg/dL (40-60) H 02/16/20 08:07 TSH 3.950 mIU/L (0.465-4.680) 02/16/20 08:07 02/16/20 10:17 IDENTIFYING DATA: Patient is a 34-year-old male with significant history of hypertension, anxiety, depression, PTSD who presented with suicidal ideation the context of alcohol use. HPI: Patient presented to the hospital on 02/11/2020 after exposing suicidal ideation while intoxicated. Patient was brought to the emergency department accompanied by sister after he has been expressing thoughts of suicide and had a plan to shoot himself. Patient does have access to firearms. Patient expresses that for the last 10 months, he has been expressing worsening depression including symptoms of decreased motivation, feeling overwhelmed, difficulty sleeping, and feeling helpless. Primary stressor would be his relationship with his daughters as he has been unable to contact them due to a falling out with their mother. His daughters are currently living in [place]. He denies any prior attempts at suicide and is not endorsing any suicidal ideation or intention today. He denies any homicidal ideation, intention, and/or plan. He does report significant history of PTSD due to deployment in [place]. He endorses mild symptoms of hypervigilance as well as nightmares. Patient admits to using alcohol heavily. He reports drinking a fifth of hard liquor per day. He does have history of withdrawal symptoms including tremors and sweats. He reports being in alcohol rehab one year ago. He denies any history of delirium tremens or seizures. He currently smokes 1 pack per day. He does not endorse any drug use aside from occasional marijuana. PAST PSYCHIATRIC HISTORY: Patient has been diagnosed with depression, anxiety, alcohol use disorder, and PTSD. He reports prior trials with Seroquel. One psychiatric hospitalization in [place] 2 years ago for suicidal ideation again in the context of alcohol use. He is currently open with [facility]. He denies any prior attempts at suicide. PMH: Hypertension ALLERGIES: as per EMR CHEMICAL DEPENDENCY HISTORY: as per HPI FAMILY PSYCHIATRIC/SUBSTANCE USE HISTORY: denies SOCIAL HISTORY: Patient was honorably discharged from the [employer] on 09/03/2014. 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 He is currently living in [place]. He is 40[facility]. His 3 daughters ages 6, 10, and 11 living in [place] with her mother. He owns property in [place] and occasionally stays with his sister and and [id number] in [facility]. MENTAL STATUS EXAM: General Appearance: Patient appears to be stated age is alert, directable, and attempts to cooperate. Patient appears to have fair hygiene and grooming. Behavior: Patient is seated without any agitated behavior. Normal psychomotor activity. Speech: Patient's speech is fluent and nonpressured. Mood/Affect: Patient reports their mood is depressed, affect is congruent and constricted. Suicidality/Homicidality: Patient denies having any homicidal ideation intent or plan. Denies any suicidal ideations intent or plan Perceptions: Patient denies any visual hallucinations and denies any auditory hallucinations Though content/process: There is no evidence of any delusional thought content and thought process is linear and goal-directed. Memory and concentration: AOX3, grossly intact for the purposes of this session. Can spell "WORLD" backwards Judgment and insight: Fair STRENGTHS/WEAKNESSES: strength is that patient is resilient, financially stable, and has a supportive family. Weakness is that patient has ongoing issues with alcohol use and poor coping skills INTELLECT: average IMPRESSIONS: Major depressive disorder, recurrent, severe Anxiety disorder, unspecified Posttraumatic stress disorder Alcohol use disorder PLAN: -Patient is admitted under voluntary status to [facility]HU for stabilization of psychiatric symptoms and safety. Patient signed adult voluntary form and medication consent and is placed in patient's chart. -Medications : Will start patient on Zoloft 25 mg by mouth daily for depression/anxiety/PTSD Prazosin 1 mg by mouth at bedtime for nightmares Naltrexone 50 mg by mouth daily for alcohol use disorder -Ativan and Geodon PRN for agitation/aggression -Patient was counselled on substance abuse and desired to cut back on use -Patient was informed of the risks, benefits and side effects of the medication and patient verbally consented to taking the medications. Patient signed med consent form and was placed in chart. -Internal Medicine consult to perform medical evaluation and physical. -NRT - nicotine patch -SW on board for discharge planning. Encourage patient to participate in groups to work on coping skills.
[2020-02-16] MEDS: FAMOTIDINE 20 MG TAB PO SCH ×2 (10:26→20:13)
[2020-02-16] MEDS: NICOTINE 21MG/24HR PATCH TRANSDERM SCH ×2 (10:26→20:37)
[2020-02-16] MEDS: THIAMINE 100 MG TAB PO SCH ×2 (10:26→20:13)
--- NOTE | 2020-02-16 14:52 | P.CONS ---
History of Present Illness - Reason for Consult Medical clearance - History of Present Illness Patient is a pleasant 34-year-old male came in after suicidal ideation and the patient is an alcoholic patient was treated for alcohol withdrawal subsequently transferred to psychiatric floor patient is clinically doing well and doing well did patient denied any fever chills nausea vomiting dysuria. Patient is not having any withdrawals at this time. Review of Systems REVIEW OF SYSTEMS: CONSTITUTIONAL: No fever, no malaise, no fatigue. HEENT: No recent visual problems or hearing problems. Denied any sore throat. CARDIOVASCULAR: No chest pain, orthopnea, PND, no palpitations, no syncope. PULMONARY: No shortness of breath, no cough, no hemoptysis. GASTROINTESTINAL: No diarrhea, no nausea, no vomiting, no abdominal pain. NEUROLOGICAL: No headaches, no weakness, no numbness. HEMATOLOGICAL: Denies any bleeding or petechiae. GENITOURINARY: Denies any burning micturition, frequency, or urgency. MUSCULOSKELETAL/RHEUMATOLOGICAL: Denies any joint pain, swelling, or any muscle pain. ENDOCRINE: Denies any polyuria or polydipsia. The rest of the 14-point review of systems is negative. Past Medical History Past Medical History: Hypertension History of Any Multi-Drug Resistant Organisms: None Reported Additional Past Surgical History / Comment(s): testicular torsion Past Anesthesia/Blood Transfusion Reactions: No Reported Reaction Past Psychological History: Anxiety, Depression, PTSD Smoking Status: Current every day smoker Past Alcohol Use History: Abuse, Daily, Heavy Additional Past Alcohol Use History / Comment(s): STATES HE DRINKS 2 FIFTHS A DAY OF VODKA Past Drug Use History: Marijuana - Past Family History Family Family Medical History: No Reported History Medications and Allergies Home Medications Medication Instructions Recorded Confirmed Type Nicotine 21Mg/24Hr Patch [Habitrol] 1 patch TRANSDERM DAILY patch 02/13/20 Rx Thiamine [Vitamin B-1] 100 mg PO BID-W/MEALS tab 02/13/20 Rx Allergies Allergy/AdvReac Type Severity Reaction Status Date / Time No Known Allergies Allergy Verified 02/11/20 13:07 Physical Exam Vitals: Vital Signs Temp Pulse Resp BP Pulse Ox 02/16/20 06:45 98.7 F 16 134/89 98 02/16/20 05:30 97.9 F 94 18 153/115 99 Intake and Output 02/15/20 02/16/20 02/16/20 22:59 06:59 14:59 Other: Weight 73.482 kg PHYSICAL EXAMINATION: GENERAL: The patient is alert and oriented x3, not in any acute distress. Well developed, well nourished. HEENT: Pupils are round and equally reacting to light. EOMI. No scleral icterus. No conjunctival pallor. Normocephalic, atraumatic. No pharyngeal erythema. No thyromegaly. CARDIOVASCULAR: S1 and S2 present. No murmurs, rubs, or gallops. PULMONARY: Chest is clear to auscultation, no wheezing or crackles. ABDOMEN: Soft, nontender, nondistended, normoactive bowel sounds. No palpable organomegaly. MUSCULOSKELETAL: No joint swelling or deformity. EXTREMITIES: No cyanosis, clubbing, or pedal edema. NEUROLOGICAL: Gross neurological examination did not reveal any focal deficits. SKIN: No rashes. Results Labs: Abnormal Lab Results - Last 24 Hours (Table) 02/16/20 Range/Units 08:07 Cholesterol 207 H (<200) mg/dL LDL Cholesterol, Calc 112 H (0-99) mg/dL HDL Cholesterol 71 H (40-60) mg/dL Assessment and Plan Plan: Major depression, PTSD: Pain management as per primary service -Alcohol abuse disorder and presently doesn't have any withdrawals patient is not requiring any Ativan at this time We will sign off at this time -
[2020-02-16 19:06] LABS: Hemoglobin A1C 4.6 % (4.0-6.0)
[2020-02-16] MEDS: PRAZOSIN 1 MG CAP PO SCH (20:13)
[2020-02-16] MEDS ORDERED: SERTRALINE 25 MG TAB PO SCH (21:00)
--- NOTE | 2020-02-17 08:25 | P.PN ---
Progress Note - Text Progress Note Date: 02/17/20 Interval history: Patient was seen wandering the hallways and was directable and agreeable to speak with creative writer. Patient reports that he is feeling well. He is denying any cravings for alcohol. At this time patient denies any suicidal or homicidal ideations intent or plan. Denies any Auditory or visual hallucinations. Patient denies any side effects from the medications and has been compliant with meds. Mental status exam: General Appearance: Patient appears to be stated age is alert, directable, and cooperative. Behavior: No agitated behavior. Patient is calm and directable Speech: Patient's speech is fluent and nonpressured. Mood/Affect: Mood is improving mildly, affect is congruent and constricted. Suicidality/Homicidality: Patient denies having any suicidal or homicidal ideation intent or plan. Perceptions: Patient denies any auditory or visual hallucinations. Though content/process: There is no evidence of any delusional thought content and thought process is linear and goal-directed. Memory and concentration: AOX3, grossly intact for the purposes of this session Judgment and insight: improving mildly Assessment/Plan: Continue with current diagnosis. Patient continues to meet criteria for inpatient psychiatric admission for symptom stabilization and safety. We'll increase Zoloft to 50 mg. We will continue current medication regimen otherwise. Monitor for medication compliance and for any psychotropic medication side effects. Will continue to monitor ongoing response to treatment. Encouraged participation in milieu.
[2020-02-17] MEDS: FAMOTIDINE 20 MG TAB PO SCH ×2 (09:24→17:00)
[2020-02-17] MEDS: THIAMINE 100 MG TAB PO SCH ×2 (09:24→17:00)
[2020-02-17] MEDS: NICOTINE 21MG/24HR PATCH TRANSDERM SCH (09:25)
[2020-02-17] MEDS: NALTREXONE HCL 50 MG TAB PO SCH (09:26)
[2020-02-17] MEDS: LORazepam 1 MG TAB PO PRN ×2 (09:26→20:42)
[2020-02-17] MEDS: SERTRALINE 50 MG TAB PO SCH (20:42)
[2020-02-17] MEDS: PRAZOSIN 1 MG CAP PO SCH (20:42)
[2020-02-18] MEDS: NICOTINE 21MG/24HR PATCH TRANSDERM SCH ×2 (08:40→21:06)
[2020-02-18] MEDS: NALTREXONE HCL 50 MG TAB PO SCH (08:40)
[2020-02-18] MEDS: THIAMINE 100 MG TAB PO SCH ×2 (08:40→18:37)
[2020-02-18] MEDS: FAMOTIDINE 20 MG TAB PO SCH ×2 (08:40→18:37)
--- NOTE | 2020-02-18 10:58 | P.PN ---
Progress Note - Text Progress Note Date: 02/18/20 Interval history: Patient was seen wandering the hallways and was directable and agreeable to speak with proposal lead writer. Patient reports that he is feeling well and less anxious and has been able to achieve good sleep. At this time patient denies any suicidal or homicidal ideations intent or plan. Denies any Auditory or visual hallucinations. Patient denies any side effects from the medications and has been compliant with meds. Mental status exam: General Appearance: Patient appears to be stated age is alert, directable, and cooperative. Behavior: No agitated behavior. Patient is calm and directable Speech: Patient's speech is fluent and nonpressured. Mood/Affect: Mood is improving mildly, affect is congruent and constricted. Suicidality/Homicidality: Patient denies having any suicidal or homicidal ideation intent or plan. Perceptions: Patient denies any auditory or visual hallucinations. Though content/process: There is no evidence of any delusional thought content and thought process is linear and goal-directed. Memory and concentration: AOX3, grossly intact for the purposes of this session Judgment and insight: improving mildly Assessment/Plan: Continue with current diagnosis. Patient continues to meet criteria for inpatient psychiatric admission for symptom stabilization and safety. Patient will be maintained on current psychotropic medication regimen. Will draw CMP monitor liver function since the addition of naltrexone. Monitor for medication compliance and for any psychotropic medication side effects. Will continue to monitor ongoing response to treatment. Encouraged participation in milieu.
[2020-02-18 11:29] VITALS: RESP 20; TEMP 97.9
[2020-02-18 11:53] LABS: ALT 27 U/L (4-49); AST 27 U/L (17-59); African American GFR (CKD) >90 (>60 ml/min/1.73 sqM); Albumin 4.2 g/dL (3.5-5.0); Alkaline Phosphatase 64 U/L (38-126); Anion Gap 4 mmol/L; Blood Urea Nitrogen 13 mg/dL (9-20); Calcium 9.4 mg/dL (8.4-10.2); Carbon Dioxide 27 mmol/L (22-30); Chloride 106 mmol/L (98-107); Glucose 107 mg/dL (74-99); Non-African American GFR(CKD) >90 (>60 ml/min/1.73 sqM); Potassium 4.4 mmol/L (3.5-5.1); Sodium 137 mmol/L (137-145); Total Bilirubin 0.8 mg/dL (0.2-1.3); Total Protein 6.8 g/dL (6.3-8.2)
[2020-02-18] MEDS: SERTRALINE 50 MG TAB PO SCH (21:06)
[2020-02-18] MEDS: PRAZOSIN 1 MG CAP PO SCH (21:06)
[2020-02-18] MEDS: LORazepam 1 MG TAB PO PRN (21:06)
[2020-02-19 08:53] VITALS: BP 139/93; PULSE 92
[2020-02-19] MEDS: NICOTINE 21MG/24HR PATCH TRANSDERM SCH (08:53)
[2020-02-19] MEDS: NALTREXONE HCL 50 MG TAB PO SCH (08:54)
[2020-02-19] MEDS: THIAMINE 100 MG TAB PO SCH (08:54)
[2020-02-19] MEDS: FAMOTIDINE 20 MG TAB PO SCH (08:54)
--- NOTE | 2020-02-19 08:56 | P.DS ---
Providers Date of admission: 02/16/20 05:12 Expected date of discharge: 02/19/20 Attending physician: Mich Tafoya MD Consults: 02/16/20 05:35 Consult Physician Routine Consulting Provider: [facility] Consult Reason/Comments: Medical management Do you want consulting provider notified?: Yes, Notify in am Primary care physician: Stated None - Discharge Diagnosis(es) (1) Major depressive disorder Current Visit: Yes Status: Acute Priority: High (2) Anxiety disorder, unspecified Current Visit: Yes Status: Chronic Priority: Medium (3) PTSD (post-traumatic stress disorder) Current Visit: Yes Status: Chronic Priority: Medium (4) Alcohol use disorder Current Visit: Yes Status: Acute Priority: Medium (5) Tobacco use Current Visit: Yes Status: Chronic Priority: Medium Hospital Course: Admission HPI: Patient is a 34-year-old male with significant history of hypertension, anxiety, depression, PTSD who presented with suicidal ideation the context of alcohol use. Patient presented to the hospital on 02/11/2020 after exposing suicidal ideation while intoxicated. Patient was brought to the emergency department accompanied by sister after he has been expressing thoughts of suicide and had a plan to shoot himself. Patient does have access to firearms. Patient expresses that for the last 10 months, he has been expressing worsening depression including symptoms of decreased motivation, feeling overwhelmed, difficulty sleeping, and feeling helpless. Primary stressor would be his relationship with his daughters as he has been unable to contact them due to a falling out with their mother. His daughters are currently living in [place]. He denies any prior attempts at suicide and is not endorsing any suicidal ideation or intention today. He denies any homicidal ideation, intention, and/or plan. He does report significant history of PTSD due to deployment in [place]. He endorses mild symptoms of hypervigilance as well as nightmares. Patient admits to using alcohol heavily. He reports drinking a fifth of hard liquor per day. He does have history of withdrawal symptoms including tremors and sweats. He reports being in alcohol rehab one year ago. He denies any history of delirium tremens or seizures. He currently smokes 1 pack per day. He does not endorse any drug use aside from occasional marijuana. Hospital course: Upon admission to the unit patient was initially accepting and depressed. Patient was however directable and agreeable to commence treatment. Patient got along well with other patients on the unit and followed unit protocol. Patient was compliant with the medications and denied any side effects throughout hospital course. Patient was started on Zoloft, prazosin, and naltrexone for management of major depressive disorder, PTSD, and alcohol use disorder. Patient spoke of his stressors and engaged in therapy both group and individual. Patient was also seen by medical team for history and physical exam. Monitoring of the patient's liver function was performed as naltrexone was started and was revealed to be within normal limits. Throughout the course of the hospitalization patient gradually improved with regards to mood, anxiety, and sleep and became future oriented with improved insight and judgment. On the day of discharge patient denied any suicidal or homicidal ideations intent or plan denied any auditory or visual hallucinations. Patient endorsed wanting to live for his daughters and his family. The patient denied any access to guns or weapons. He reports that his sister ensured that he would not have any access at this time. He will also be staying with his sister and her . Patient denied any paranoia and did not endorse any delusions. Patient does have a significant history of substance abuse however was counseled on abstaining from all substances including alcohol and marijuana. Patient was offered however declined inpatient substance-abuse rehab. Patient was also counseled on the medications and need for regular compliance and was encouraged to follow-up with their outpatient appointment for mental health and also for primary care. Prior to discharge a family meeting will be arranged by social work therapist to answer any questions and ensure safety upon discharge. Mental status exam: General Appearance: Patient appears to be stated age is alert, pleasant, and cooperative. Patient is in no acute distress and has fair hygiene and grooming Behavior: Patient is calmly seated without any agitated behavior. Speech: Patient's speech is fluent and nonpressured. Mood/Affect: Patient reports their mood is "much better", affect is congruent and euthymic. Suicidality/Homicidality: Patient denies having any suicidal or homicidal ideation intent or plan. Perceptions: Patient denies any auditory or visual hallucinations. Though content/process: There is no evidence of any delusional thought content and thought process is linear and goal-directed. more future oriented Memory and concentration: AOX3, grossly intact for the purposes of this session. Can spell "WORLD" backwards correctly. Judgment and insight: Improved with guarded prognosis Impression: Major depressive disorder, recurrent, severe Anxiety disorder, unspecified Posttraumatic stress disorder Alcohol use disorder Plan: -Continue with discharge today as patient has improved and stabilized psychiatrically and is not currently an imminent threat to himself and/or others. Patient will remain at chronically elevated risk for harm to self and/or others due to his PTSD and alcohol use. -Continue medications: Zoloft 50 mg by mouth at bedtime Prazosin 1 mg by mouth at bedtime Naltrexone 50 mg by mouth daily Nicotine transdermal patch -Patient was counseled on the need for medication compliance and appropriate follow-up at mental health and also primary care for medical issues. Patient verbalized understanding and agreed. -Social work to arrange for and conduct family meeting to ensure safety upon discharge and answer any questions/concerns. Social work also to arrange for patients follow up appointments with [facility] for psychiatric care along with follow up with primary care provider. -Patient counseled on abstaining from recreational drugs and marijuana and alcohol. Was informed/educated on the adverse effects on their physical and mental health. Patient verbally agreed and understood. Patient was offered substance abuse treatment however declined at this time. -Patient was instructed to return to the hospital or seek immediate medical care if their psychiatric or medical symptoms do worsen or reoccur. Vital Signs Temp 97.9 F 02/18/20 08:35 Pulse 92 02/19/20 08:52 Resp 20 02/18/20 08:35 BP 139/93 02/19/20 08:52 Pulse Ox 97 02/18/20 08:35 Intake & Output 02/18/20 02/19/20 02/19/20 18:59 06:59 18:59 Weight 74.9 kg Laboratory Results Sodium 137 mmol/L (137-145) 02/18/20 11:14 Potassium 4.4 mmol/L (3.5-5.1) 02/18/20 11:14 Chloride 106 mmol/L (98-107) 02/18/20 11:14 Carbon Dioxide 27 mmol/L (22-30) 02/18/20 11:14 Anion Gap 4 mmol/L 02/18/20 11:14 BUN 13 mg/dL (9-20) 02/18/20 11:14 Creatinine 0.82 mg/dL (0.66-1.25) 02/18/20 11:14 Est GFR (CKD-EPI)AfAm >90 (>60 ml/min/1.73 sqM) 02/18/20 11:14 Est GFR (CKD-EPI)NonAf >90 (>60 ml/min/1.73 sqM) 02/18/20 11:14 Glucose 107 mg/dL (74-99) H 02/18/20 11:[address] Glu mg/dL 85 02/16/20 08:07 Hemoglobin A1c 4.6 % (4.0-6.0) 02/16/20 08:07 Calcium 9.4 mg/dL (8.4-10.2) 02/18/20 11:14 Total Bilirubin 0.8 mg/dL (0.2-1.3) 02/18/20 11:14 AST 27 U/L (17-59) 02/18/20 11:14 ALT 27 U/L (4-49) 02/18/20 11:14 Alkaline Phosphatase 64 U/L (38-126) 02/18/20 11:14 Total Protein 6.8 g/dL (6.3-8.2) 02/18/20 11:14 Albumin 4.2 g/dL (3.5-5.0) 02/18/20 11:14 Triglycerides 120 mg/dL (<150) 02/16/20 08:07 Cholesterol 207 mg/dL (<200) H 02/16/20 08:07 LDL Cholesterol, Calc 112 mg/dL (0-99) H 02/16/20 08:07 HDL Cholesterol 71 mg/dL (40-60) H 02/16/20 08:07 TSH 3.950 mIU/L (0.465-4.680) 02/16/20 08:07 Allergies Allergy/AdvReac Type Severity Reaction Status Date / Time No Known Allergies Allergy Verified 02/11/20 13:07 \\ Patient Condition at Discharge: Stable Plan - Discharge Summary New Discharge Prescriptions: New Nicotine 21Mg/24Hr Patch [Habitrol] 1 patch TRANSDERM DAILY 30 Days patch Prazosin [Minipress] 1 mg PO HS 30 Days cap Naltrexone HCl [Revia] 50 mg PO DAILY 30 Days tab Sertraline [Zoloft] 50 mg PO HS 30 Days tab Discontinued Nicotine 21Mg/24Hr Patch [Habitrol] 1 patch TRANSDERM DAILY patch Thiamine [Vitamin B-1] 100 mg PO BID-W/MEALS tab Discharge Medication List Naltrexone HCl [Revia] 50 mg PO DAILY 30 Days tab 02/19/20 [Rx] Nicotine 21Mg/24Hr Patch [Habitrol] 1 patch TRANSDERM DAILY 30 Days patch 02/19/20 [Rx] Prazosin [Minipress] 1 mg PO HS 30 Days cap 02/19/20 [Rx] Sertraline [Zoloft] 50 mg PO HS 30 Days tab 02/19/20 [Rx] Patient Instructions/Handouts: Depression (DC), Post Traumatic Stress Disorder (DC), Generalized Anxiety Disorder (ED) Activity/Diet/Wound Care/Special Instructions: Activity and diet as tolerated. Avoid the use of street drugs and alcohol. Take all medications as prescribed. When you are in need of refills on your medications please contact your medical provider and/or outpatient psychiatrist to have this done. Please go to scheduled outpatient appointment for aftercare treatment. If symptoms return or become worse, call the crisis line at and/or go to the nearest emergency room for evaluation.
== END 2020-02-19 15:34 | disposition home or self-care (01) | DRG 885 ==
LOC: 3MHU 05:12
PROVIDERS: ADMIT Psychiatry & Neurology Psychiatry; ATTEND Psychiatry & Neurology Psychiatry
DX: F33.2 Major depressive disorder, recurrent severe without psychotic features (principal); R45.851 Suicidal ideations; F43.10 Post-traumatic stress disorder, unspecified; F10.20 Alcohol dependence, uncomplicated; F41.9 Anxiety disorder, unspecified; I10 Essential (primary) hypertension; F17.210 Nicotine dependence, cigarettes, uncomplicated; F12.90 Cannabis use, unspecified, uncomplicated; Z79.899 Other long term (current) drug therapy; Z87.438 Personal history of other diseases of male genital organs
CPT/HCPCS: 80053; 80061; 83036; 84443

== ENCOUNTER 2020-03-01 12:22 | Emergency (ER) | payer OTHER ==
[2020-03-01] MEDS ORDERED: LORazepam 2 MG/ML INJ IM STA ×2 (13:13→15:48)
--- NOTE | 2020-03-01 13:28 | ED ---
General Adult HPI - General Source: patient, EMS, RN notes reviewed Mode of arrival: EMS Limitations: altered mental status <Yaya Graves - Last Filed: 03/01/20 18:36> <Brant Man - Last Filed: 03/02/20 03:26> - General Chief complaint: Psychiatric Symptoms Stated complaint: Mental Health Time Seen by Provider: 03/01/20 12:53 - History of Present Illness Initial comments: 34-year-old male with a past medical history of anxiety, depression, PTSD presents to the emergency room for suicidal thoughts. Patient apparently called 911 today and told the police he had suicidal thoughts. The please brought him to the emergency room. Patient reports that he has had suicidal thoughts since 2014 however they have worsened recently. Patient reports that this is the result of losing the custody of his daughters.Patient has no other complaints at this time including shortness of breath, chest pain, abdominal pain, nausea or vomiting, headache, or visual changes. (Yaya Graves) - Related Data Home Medications Medication Instructions Recorded Confirmed Prazosin [Minipress] 5 mg PO HS 03/01/20 03/01/20 QUEtiapine [SEROquel] 100 mg PO HS 03/01/20 03/01/20 Sertraline [Zoloft] 100 mg PO HS 03/01/20 03/01/20 Previous Rx's Medication Instructions Recorded Naltrexone HCl [Revia] 50 mg PO DAILY 30 Days tab 02/19/20 Nicotine 21Mg/24Hr Patch [Habitrol] 1 patch TRANSDERM DAILY 30 Days 02/19/20 patch Allergies Allergy/AdvReac Type Severity Reaction Status Date / Time No Known Allergies Allergy Verified 03/01/20 14:54 Review of Systems ROS Other: All systems not noted in ROS Statement are negative. <Yaya Graves - Last Filed: 03/01/20 18:36> ROS Other: All systems not noted in ROS Statement are negative. <Brant Man - Last Filed: 03/02/20 03:26> ROS Statement: Those systems with pertinent positive or pertinent negative responses have been documented in the HPI. Past Medical History Past Medical History: Hypertension History of Any Multi-Drug Resistant Organisms: None Reported Additional Past Surgical History / Comment(s): testicular torsion Past Anesthesia/Blood Transfusion Reactions: No Reported Reaction Past Psychological History: Anxiety, Depression, PTSD Smoking Status: Current every day smoker Past Alcohol Use History: Abuse, Daily, Heavy Past Drug Use History: Marijuana - Past Family History Family Family Medical History: No Reported History <Yaya Graves - Last Filed: 03/01/20 18:36> General Exam Limitations: altered mental status <Yaya Graves - Last Filed: 03/01/20 18:36> Course <Brant Man - Last Filed: 03/02/20 03:26> Vital Signs 03/01/20 03/01/20 12:25 19:46 Temperature 97.6 F 98.5 F Pulse Rate 115 H 112 H Respiratory 18 18 Rate Blood Pressure 153/99 135/103 O2 Sat by Pulse 94 L 97 Oximetry - Reevaluation(s) Reevaluation #1: 03/02/20 03:25 medical record is reviewed 03/02/20 03:25 medically clear for psychiatric evaluation today (Brant Man) Procedures - Restraint - Face to Face Restraint Occurrence 1 Patient's Immediate Situation: Endangers self safety, Endangers others' safety, Endangers staff safety, Violent behavior Patient's Reaction to the Intervention: Uncooperative, Angry, Hostile, Belligerent, Aggressive, Combative Patient's Medical & Behavioral Condition: Awake, Alert, Suicidal thoughts Need to Continue or Terminate Restraint or Seclusion: Continue Face to Face Eval of Restraint Date: 03/01/20 Face to Face Eval of Restraint Time: 13:16 <Yaya Graves - Last Filed: 03/01/20 18:36> Medical Decision Making <Yaya Graves - Last Filed: 03/01/20 18:36> <Brant Man - Last Filed: 03/02/20 03:26> - Medical Decision Making Upon arrival patient's alcohol was found to be 0.37. Patient will be sober and cleared for evaluation at 1 AM. However during evaluation patient started to try to leave. He was petitioned by [employer]. Patient had to be restrained and sedated because he was threatening to leave with suicidal thoughts and was aggressive to staff. Care was signed out at [address] Randall (Yaya Graves) 4 male came in alcohol intoxication was seen in however psychiatry, patient is stable for discharge home to plan is contracted to (Brant Man) - Lab Data Lab Results 03/01/20 Range/Units 12:50 Urine Opiates Screen Not Detected (NotDetected) Ur Oxycodone Screen Not Detected (NotDetected) Urine Methadone Screen Not Detected (NotDetected) Ur Propoxyphene Screen Not Detected (NotDetected) Ur Barbiturates Screen Not Detected (NotDetected) U Tricyclic Antidepress Not Detected (NotDetected) Ur Phencyclidine Scrn Not Detected (NotDetected) Ur Amphetamines Screen Not Detected (NotDetected) U Methamphetamines Scrn Not Detected (NotDetected) U Benzodiazepines Scrn Not Detected (NotDetected) Urine Cocaine Screen Not Detected (NotDetected) U Marijuana (THC) Screen Not Detected (NotDetected) Disposition <Yaya Graves - Last Filed: 03/01/20 18:36> Is patient prescribed a controlled substance at d/c from ED?: No <Brant Man - Last Filed: 03/02/20 03:26> Clinical Impression: PTSD (post-traumatic stress disorder), Alcohol use disorder, Alcoholic intoxication Disposition: HOME SELF-CARE Condition: Fair Instructions (If sedation given, give patient instructions): Alcohol Intoxication (ED) Referrals: None,Stated [Primary Care Provider] - 1-2 days
[2020-03-01 15:24] LABS: Amphetamine Screen,Urine Not Detected (NotDetected); Barbiturate Screen,Urine Not Detected (NotDetected); Benzodiazepines Screen,Urine Not Detected (NotDetected); Cocaine Screen,Urine Not Detected (NotDetected); Methadone Screen, Urine Not Detected (NotDetected); Opiate Screen,Urine Not Detected (NotDetected); Oxycodone Screen, Urine Not Detected (NotDetected); Phencyclidine Screen,Urine Not Detected (NotDetected); Tricyclic Antidepressant,Urine Not Detected (NotDetected); Urn Cannabinoid Scrn Not Detected (NotDetected)
[2020-03-01] MEDS ORDERED: NICOTINE 21MG/24HR PATCH TRANSDERM STA (15:37)
[2020-03-02 03:57] VITALS: BP 147/97; PULSE 97; RESP 19; TEMP 98.1
== END 2020-03-02 04:05 | disposition home or self-care (01) ==
LOC: EC 12:22
DX: F10.129 Alcohol abuse with intoxication, unspecified (principal); F43.10 Post-traumatic stress disorder, unspecified; F41.9 Anxiety disorder, unspecified; F32.9 Major depressive disorder, single episode, unspecified; F17.200 Nicotine dependence, unspecified, uncomplicated; I10 Essential (primary) hypertension; Z79.899 Other long term (current) drug therapy; Y90.9 Presence of alcohol in blood, level not specified
CPT/HCPCS: 80306; 99285; 96372 ×2; S4990; J2060

== ENCOUNTER 2020-03-12 10:48 | Observation (INO) | payer OTHER ==
[2020-03-12] MEDS ORDERED: LORazepam 2 MG/ML INJ IV STA (11:31)
[2020-03-12] MEDS ORDERED: SODIUM CHLORIDE 0.9% 1,000 ML with MVI, ADULT NO.4 WITH VIT K 10 ML, THIAMINE 100 MG, F... IV ONE ×4 (11:31)
[2020-03-12] MEDS ORDERED: ZIPRASIDONE 20 MG VIAL IM STA (11:32)
[2020-03-12 12:14] LABS: Basophils % (A) 0 %; Eosinophils # (A) 0.1 k/uL (0-0.7); Eosinophils % (A) 1 %; HCT 52.8 % (39.0-53.0); HGB 17.3 gm/dL (13.0-17.5); Lymphocytes # (A) 2.4 k/uL (1.0-4.8); Lymphocytes % (A) 32 %; MCH 32.8 pg (25.0-35.0); MCHC 32.8 g/dL (31.0-37.0); MCV 100.1 fL (80.0-100.0); Mean Platelet Volume 6.7; Monocytes # (A) 0.4 k/uL (0-1.0); Monocytes % (A) 6 %; Neutrophils # (A) 4.5 k/uL (1.3-7.7); Neutrophils % (A) 59 %; Platelet Count 311 k/uL (150-450); RBC 5.27 m/uL (4.30-5.90); RDW 13.2 % (11.5-15.5); WBC 7.7 k/uL (3.8-10.6)
[2020-03-12 12:29] LABS: ALT 29 U/L (4-49); AST 53 U/L (17-59); African American GFR (CKD) >90 (>60 ml/min/1.73 sqM); Albumin 4.6 g/dL (3.5-5.0); Alkaline Phosphatase 131 U/L (38-126); Anion Gap 12 mmol/L; Blood Urea Nitrogen 10 mg/dL (9-20); Calcium 9.1 mg/dL (8.4-10.2); Carbon Dioxide 25 mmol/L (22-30); Chloride 105 mmol/L (98-107); Glucose 111 mg/dL (74-99); Non-African American GFR(CKD) >90 (>60 ml/min/1.73 sqM); Sodium 142 mmol/L (137-145); Total Bilirubin 0.5 mg/dL (0.2-1.3); Total Protein 7.6 g/dL (6.3-8.2)
--- NOTE | 2020-03-12 12:32 | ED ---
General Adult HPI - General Chief complaint: Psychiatric Symptoms Stated complaint: Mental Health ETOH Time Seen by Provider: 03/12/20 11:05 Source: patient, RN notes reviewed, old records reviewed Mode of arrival: wheelchair Limitations: no limitations - History of Present Illness Initial comments: This is a 34-year-old male who presents emergency Department stating that he suicidal. Patient states she's also been drinking heavily today. Patient's brother brought him into the emergency department to be evaluated for suicidal ideations. Aside from the patient would not answer any other questions because he was getting upset because he had taken into account. - Related Data Home Medications Medication Instructions Recorded Confirmed Prazosin [Minipress] 5 mg PO HS 03/01/20 03/01/20 QUEtiapine [SEROquel] 100 mg PO HS 03/01/20 03/01/20 Sertraline [Zoloft] 100 mg PO HS 03/01/20 03/01/20 Previous Rx's Medication Instructions Recorded Naltrexone HCl [Revia] 50 mg PO DAILY 30 Days tab 02/19/20 Nicotine 21Mg/24Hr Patch [Habitrol] 1 patch TRANSDERM DAILY 30 Days 02/19/20 patch Allergies Allergy/AdvReac Type Severity Reaction Status Date / Time No Known Allergies Allergy Verified 03/12/20 11:09 Review of Systems ROS Statement: Those systems with pertinent positive or pertinent negative responses have been documented in the HPI. ROS Other: All systems not noted in ROS Statement are negative. Past Medical History Past Medical History: Hypertension History of Any Multi-Drug Resistant Organisms: None Reported Additional Past Surgical History / Comment(s): testicular torsion Past Anesthesia/Blood Transfusion Reactions: No Reported Reaction Past Psychological History: Anxiety, Depression, PTSD Smoking Status: Current every day smoker Past Alcohol Use History: Abuse, Daily, Heavy Past Drug Use History: Marijuana - Past Family History Family Family Medical History: No Reported History General Exam - General Exam Comments Initial Comments: GENERAL: Patient is well-developed and well-nourished. Patient is nontoxic and well- hydrated and is in no acute distress. Patient does appear intoxicated ENT: Neck is soft and supple. No significant lymphadenopathy is noted. Oropharynx is clear. Moist mucous membranes. Neck has full range of motion without eliciting any pain. EYES: The sclera were anicteric and conjunctiva were pink and moist. Extraocular movements were intact and pupils were equal round and reactive to light. Eyelids were unremarkable. PULMONARY: Unlabored respirations. Good breath sounds bilaterally. No audible rales rhonchi or wheezing was noted. CARDIOVASCULAR: There is a regular rate and rhythm without any murmurs gallops or rubs. ABDOMEN: Soft and nontender with normal bowel sounds. SKIN: Skin is clear with no lesions or rashes and otherwise unremarkable. NEUROLOGIC: Patient is alert and oriented x3. Cranial nerves II through XII are grossly intact. Motor and sensory are also intact. Normal speech, volume and content. Symmetrical smile. MUSCULOSKELETAL: Normal extremities with adequate strength and full range of motion. LYMPHATICS: No significant lymphadenopathy is noted PSYCHIATRIC: Patient states he suicidal Limitations: no limitations Course Vital Signs 03/12/20 11:04 Temperature 98.2 F Pulse Rate 111 H Respiratory 18 Rate Blood Pressure 153/100 O2 Sat by Pulse 99 Oximetry Medical Decision Making - Medical Decision Making I spoke with Dr. coronel he agreed to admit the patient admitted the patient wrote admitting orders Patient had to get Ativan and Geodon because she was extremely aggressive with staff. Patient also got a banana bag at a rate of 250 an hour. Disposition Clinical Impression: Depression, Alcoholic intoxication, Suicidal ideation Disposition: ADMITTED IP TO THIS HOSP Referrals: None,Stated [Primary Care Provider] - 1-2 days Time of Disposition: 13:01
[2020-03-12 12:50] LABS: Alcohol 418 mg/dL
[2020-03-12 13:04] LABS: Amphetamine Screen,Urine Not Detected (NotDetected); Barbiturate Screen,Urine Not Detected (NotDetected); Benzodiazepines Screen,Urine Not Detected (NotDetected); Cocaine Screen,Urine Not Detected (NotDetected); Methadone Screen, Urine Not Detected (NotDetected); Opiate Screen,Urine Not Detected (NotDetected); Oxycodone Screen, Urine Not Detected (NotDetected); Phencyclidine Screen,Urine Not Detected (NotDetected); Tricyclic Antidepressant,Urine Not Detected (NotDetected); Urn Cannabinoid Scrn Detected (NotDetected)
[2020-03-12] MEDS ORDERED: SODIUM CHLORIDE 0.9% 1,000 ML IV ONE (13:06)
[2020-03-12] MEDS ORDERED: NICOTINE 14MG/24HR PATCH TRANSDERM STA (14:04)
[2020-03-12] MEDS ORDERED: THIAMINE 100 MG/ML 2 ML VIAL IM STA (16:04)
[2020-03-12] MEDS ORDERED: LORazepam 2 MG/ML INJ IV PRN (16:04)
[2020-03-12] MEDS: LORazepam 2 MG/ML INJ IV PRN (18:55)
--- NOTE | 2020-03-12 23:39 | P.HPIM ---
History of Present Illness This is a pleasant 34 years old male with past medical history of depression, PTSD. Also he has history of hypertension. Patient states he presents to the emergency room because of suicidal ideation and he was asking for help, patient denies plan or attempt. He looks drowsy due to alcohol intoxication, patient states he drinks 1-2 of 1/5 of liquor/vodka every day. Also he smokes about 1 pack per day or more, he says occasionally he smokes marijuana as well. He denies any chest pain or dyspnea or abdominal pain or nausea vomiting or hallucination currently History of present symptoms get worse after A service and left him last year Vitals and labs were reviewed and stable except for mildly elevated blood pressure Review of Systems CONSTITUTIONAL: No fever, no malaise, no fatigue. HEENT: No recent visual problems or hearing problems. Denied any sore throat. CARDIOVASCULAR: No orthopnea, PND, no palpitations, no syncope. PULMONARY: No shortness of breath, no cough, no hemoptysis. GASTROINTESTINAL: No diarrhea, no nausea, no vomiting, no abdominal pain. Normoactive bowel sounds. NEUROLOGICAL: No headaches, no weakness, no numbness. HEMATOLOGICAL: Denies any bleeding or petechiae. GENITOURINARY: Denies any burning micturition, frequency, or urgency. MUSCULOSKELETAL/RHEUMATOLOGICAL: Denies any joint pain, swelling, or any muscle pain. ENDOCRINE: Denies any polyuria or polydipsia. Past Medical History Past Medical History: Hypertension History of Any Multi-Drug Resistant Organisms: None Reported Additional Past Surgical History / Comment(s): testicular torsion Past Anesthesia/Blood Transfusion Reactions: No Reported Reaction Past Psychological History: Anxiety, Depression, PTSD Smoking Status: Current every day smoker Past Alcohol Use History: Abuse, Daily, Heavy Past Drug Use History: Marijuana - Past Family History Family Family Medical History: No Reported History Medications and Allergies Home Medications Medication Instructions Recorded Confirmed Type Naltrexone HCl [Revia] 50 mg PO DAILY 30 Days tab 02/19/20 03/12/20 Rx Nicotine 21Mg/24Hr Patch [Habitrol] 1 patch TRANSDERM DAILY 30 Days 02/19/20 03/12/20 Rx patch Prazosin [Minipress] 5 mg PO HS 03/01/20 03/12/20 History QUEtiapine [SEROquel] 100 mg PO HS 03/01/20 03/12/20 History Sertraline [Zoloft] 100 mg PO HS 03/01/20 03/12/20 History Allergies Allergy/AdvReac Type Severity Reaction Status Date / Time No Known Allergies Allergy Verified 03/12/20 12:37 Physical Exam Vitals: Vital Signs Temp Pulse Resp BP Pulse Ox 03/12/20 11:04 98.2 F 111 H 18 153/100 99 Intake and Output 03/12/20 03/12/20 03/12/20 06:59 14:59 22:59 Other: Weight 77.111 kg GENERAL: The patient is alert and oriented x3, not in any acute distress. Well developed, well nourished. HEENT: Pupils are round and equally reacting to light. EOMI. No scleral icterus. No conjunctival pallor. Normocephalic, atraumatic. No pharyngeal erythema. No thyromegaly. CARDIOVASCULAR: S1 and S2 present. No murmurs, rubs, or gallops. PULMONARY: Chest is clear to auscultation, no wheezing or crackles. ABDOMEN: Soft, nontender, nondistended, normoactive bowel sounds. No palpable organomegaly. MUSCULOSKELETAL: No joint swelling or deformity. EXTREMITIES: No cyanosis, clubbing, or pedal edema. NEUROLOGICAL: Gross neurological examination did not reveal any focal deficits. SKIN: No rashes. No petechiae Results CBC & Chem 7: 03/12/20 11:39 03/12/20 11:39 Labs: Abnormal Lab Results - Last 24 Hours (Table) 03/12/20 03/12/20 03/12/20 Range/Units 11:39 11:39 11:39 MCV 100.1 H (80.0-100.0) fL Glucose 111 H (74-99) mg/dL Alkaline Phosphatase 131 H (38-126) U/L U Marijuana (THC) Screen Detected H (NotDetected) Serum Alcohol 418 H* mg/dL Assessment and Plan Assessment: Severe depression with suicidal ideation Alcohol intoxication at-risk of alcohol withdrawal Alcohol abuse Nicotine dependence Hypertension Plan: This is a pleasant 34 years old male who presents with depression, suicidal ideation and alcohol intoxication. Continue with sitter at bedside, patient could not leave AMA total cleared by psychiatrist, psychiatric consult. Labs and medication were reviewed.. Continue same treatment. Continue with symptomatic treatment. Resume home medication. Monitor lytes and vitals. DVT and GI prophylaxis. Further recommendations depends on the clinical course of the patient DVT prophylaxis: Subcutaneous heparin GI Prophylaxis: Pepcid Prognosis is guarded
[2020-03-13] MEDS: THIAMINE 100 MG TAB PO SCH ×3 (01:12→18:58)
[2020-03-13] MEDS: NICOTINE 21MG/24HR PATCH TRANSDERM SCH ×2 (01:14→07:56)
[2020-03-13] MEDS: LORazepam 2 MG/ML INJ IV PRN ×3 (05:40→13:27)
[2020-03-13] MEDS ORDERED: FAMOTIDINE 20 MG/2 ML VIAL IV SCH (09:00)
[2020-03-13] MEDS ORDERED: HEPARIN SODIUM,PORCINE 5,000 UNIT/ML 1 ML VIAL SQ SCH (09:00)
--- NOTE | 2020-03-13 13:42 | P.CN ---
Psychiatric Consult - . Consult date: 03/13/20 Consult:: IDENTIFYING DATA: This patient is a 34-year-old male with significant history of hypertension, anxiety, depression, PTSD, and alcohol use disorder who presented to the emergency Department with suicidal ideation in the context of alcohol use. HISTORY OF PRESENT ILLNESS: The patient presented to the hospital on 03/12/2020 brought in by family after endorsing suicidal ideation in the context of alcohol use. Serum alcohol level in the emergency department is 418. Patient reports that he has been drinking alcohol after stepping out with her friends to celebrate. He states that while he was intoxicated he began feeling depressed and suicidal and that he is currently not suicidal or depressed. He does admit that he has been nonadherent with his medications since he was last discharged. He reports that he was taking his Zoloft and his prazosin but not as naltrexone. Collateral information was provided by the patient's sister with permission granted by the patient. She reports that the patient has been nonadherent with his medications and that he has been depressed. She also reports that when he is drunk that he would text suicidal statements to her phone. At this time, the patient is denying any suicidal or homicidal ideation, intention, and/or plan. He is not endorsing any auditory or visualizations. He denies any paranoia or other delusions. PAST PSYCHIATRIC HISTORY: Patient has been diagnosed with depression, anxiety, and alcohol use disorder and PTSD. He has had 2 psychiatric hospitalizations, most recently this past February, and 2 years ago in [place]. He is currently open with [facility]. Denies any prior attempts at suicide but has made multiple suicidal statements in the past. PAST MEDICAL HISTORY: Hypertension. ALLERGIES: as per EMR. CHEMICAL DEPENDENCY HISTORY: as per HPI. FAMILY PSYCHIATRIC/SUBSTANCE USE HISTORY: denies SOCIAL HISTORY: Patient was honorably discharged from the [employer] on 09/03/2014. 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 He is currently living in [place]. He is 40[facility]. He has 3 daughters ages 6, 10, and 11 living in [place] with their mother. He has significant support from his sister and [id number]. He occasionally stays with them but otherwise lives in his own home in [place]. MENTAL STATUS EXAM: General Appearance: Patient appears to be stated age is alert, pleasant, and cooperative. Patient appears to have fair hygiene and grooming wearing hospital gown with fair eye contact. Behavior: Patient is calmly lying in bed without any agitated behavior. Speech: Patient's speech is fluent and nonpressured. Mood/Affect: Patient reports their mood is "okay", affect is congruent, slightly anxious Suicidality/Homicidality: Patient denies having any suicidal or homicidal ideation intent or plan. Perceptions: Patient denies any visual hallucinations and denies any auditory hallucinations Though content/process: There is no evidence of any delusional thought content and thought process is linear and goal-directed. Memory and concentration: AOX3, grossly intact for the purposes of this session. Can spell "WORLD" backwards Judgment and insight: poor IMPRESSIONS: Depressive disorder, recurrent, severe Anxiety disorder, unspecified Posterior med at stress disorder Alcohol use disorder PLAN: -At this time patient DOES meet criteria for inpatient psychiatric admission. Patient as been petitioned by his [id number]. -Would recommend the following medication changes/additions: We will continue his home medications. -Cannot leave AMA at this time. Patient will need a petition and certification if attempting to leave AMA. -Will continue to follow along -When medically stable, patient is eligible for transfer to a psych bed when available. 03/13/20 13:32
[2020-03-13] MEDS ORDERED: PNEUMOCOCCAL VACC-PNEUMOVAX 23 25 MCG/0.5 ML VIAL IM ONE (14:34)
[2020-03-13] MEDS ORDERED: INFLUENZA VACCINE (6 MOS+) 60 MCG/0.5 ML SYRINGE IM ONE (14:34)
[2020-03-13] MEDS ORDERED: ZIPRASIDONE 20 MG VIAL IM PRN (16:31)
[2020-03-13] MEDS: LORazepam 1 MG TAB PO PRN (19:00)
[2020-03-13] MEDS ORDERED: ACETAMINOPHEN TAB 325 MG TAB PO PRN (19:25)
[2020-03-13] MEDS ORDERED: PRAZOSIN 1 MG CAP PO SCH (21:00)
[2020-03-13] MEDS ORDERED: FAMOTIDINE 20 MG TAB PO SCH (21:00)
[2020-03-13] MEDS ORDERED: QUEtiapine 100 MG TAB PO SCH (21:00)
[2020-03-13] MEDS ORDERED: SERTRALINE 100 MG TAB PO SCH (21:00)
--- NOTE | 2020-03-13 22:42 | P.DS ---
Providers Date of admission: 03/13/20 16:19 Attending physician: Mich Tafoya MD Consults: 03/12/20 13:06 Consult Physician Urgent Consulting Provider: Wilder Pena Consult Reason/Comments: H and P Do you want consulting provider notified?: Yes Primary care physician: Stated None Hospital Course: Diagnoses: Severe depression with suicidal ideation Alcohol intoxication at-risk of alcohol withdrawal Alcohol abuse Nicotine dependence Hypertension Hospital course:This is a pleasant 34 years old male with past medical history of depression, PTSD. Also he has history of hypertension. Patient states he presents to the emergency room because of suicidal ideation and he was asking for help, patient denies plan or attempt. He looks drowsy due to alcohol intoxication when I saw him yesterday, patient states he drinks 1 or 2 of 1/5 of liquor/vodka every day. Also he smokes about 1 pack per day or more, he says occasionally he smokes marijuana as well. He denies any chest pain or dyspnea or abdominal pain or nausea vomiting or hallucination currently. Today he was more awake and oriented and sober, he was denying suicidal ideation, however he was evaluated by psychiatrist and recommended the patient be admitted for inpatient mental health unit Patient is medically stable for transfer to psych unit Problems and management plan were discussed with the patient and he verbalized understanding and acceptance Patient was found stable and can be discharged to psych unit however he needs follow-up as an outpatient. Patient was instructed to follow up with PCP within one week and patient agrees Gen: patient is a AAOx3, no distress CVS: S1-S2, RRR, no murmur Lungs: B/L CTA, no wheezing Abdomen: soft, no distention, no tenderness, positive bowel sounds Extremity: no leg edema or induration Time spent more than 35 minutes Plan - Discharge Summary Discharge Rx Participant: No New Discharge Prescriptions: No Action RX: Nicotine 21Mg/24Hr Patch [Habitrol] 1 patch TRANSDERM DAILY 30 Days patch RX: Naltrexone HCl [Revia] 50 mg PO DAILY 30 Days tab Sertraline [Zoloft] 100 mg PO HS Prazosin [Minipress] 5 mg PO HS QUEtiapine [SEROquel] 100 mg PO HS Discharge Medication List RX: Naltrexone HCl [Revia] 50 mg PO DAILY 30 Days tab 02/19/20 [Rx] RX: Nicotine 21Mg/24Hr Patch [Habitrol] 1 patch TRANSDERM DAILY 30 Days patch 02/19/20 [Rx] Prazosin [Minipress] 5 mg PO HS 03/01/20 [History] QUEtiapine [SEROquel] 100 mg PO HS 03/01/20 [History] Sertraline [Zoloft] 100 mg PO HS 03/01/20 [History] Follow up Appointment(s)/Referral(s): None,Stated [Primary Care Provider] - 1-2 days
[2020-03-13] MEDS: PRAZOSIN 1 MG CAP PO SCH (23:28)
[2020-03-14] MEDS: LORazepam 1 MG TAB PO PRN ×3 (04:33→20:26)
[2020-03-14] MEDS: NICOTINE 21MG/24HR PATCH TRANSDERM SCH (10:12)
[2020-03-14] MEDS: SERTRALINE 100 MG TAB PO SCH (10:13)
[2020-03-14] MEDS: NALTREXONE HCL 50 MG TAB PO SCH (10:13)
[2020-03-14] MEDS: THIAMINE 100 MG TAB PO SCH ×2 (10:13→17:43)
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
[2020-03-14 11:18] LABS: Basophils % (A) 1 %; Eosinophils # (A) 0.1 k/uL (0-0.7); Eosinophils % (A) 1 %; HGB 16.9 gm/dL (13.0-17.5); Lymphocytes % (A) 17 %; MCH 32.4 pg (25.0-35.0); MCHC 32.5 g/dL (31.0-37.0); MCV 99.5 fL (80.0-100.0); Mean Platelet Volume 7.4; Monocytes # (A) 0.4 k/uL (0-1.0); Monocytes % (A) 7 %; Neutrophils # (A) 4.3 k/uL (1.3-7.7); Neutrophils % (A) 74 %; Platelet Count 267 k/uL (150-450); RBC 5.22 m/uL (4.30-5.90); RDW 13.1 % (11.5-15.5); WBC 5.8 k/uL (3.8-10.6)
[2020-03-14 11:20] LABS: ALT 24 U/L (4-49); AST 40 U/L (17-59); African American GFR (CKD) >90 (>60 ml/min/1.73 sqM); Albumin 4.5 g/dL (3.5-5.0); Alkaline Phosphatase 136 U/L (38-126); Anion Gap 9 mmol/L; Blood Urea Nitrogen 8 mg/dL (9-20); Calcium 9.9 mg/dL (8.4-10.2); Carbon Dioxide 25 mmol/L (22-30); Chloride 102 mmol/L (98-107); Cholesterol 207 mg/dL (<200); Glucose 99 mg/dL (74-99); Non-African American GFR(CKD) >90 (>60 ml/min/1.73 sqM); Potassium 4.4 mmol/L (3.5-5.1); Sodium 136 mmol/L (137-145); Total Protein 7.6 g/dL (6.3-8.2); Triglycerides 96 mg/dL (<150)
[2020-03-14 11:29] LABS: LDL Cholesterol,Calculated 78 mg/dL (0-99)
[2020-03-14 11:36] LABS: HDL Cholesterol 110 mg/dL (40-60)
[2020-03-14 15:46] LABS: Hemoglobin A1C 4.5 % (4.0-6.0)
[2020-03-14 16:02] VITALS: BMI 22.8
[2020-03-14] MEDS ORDERED: LORazepam 1 MG TAB PO STA (18:10)
[2020-03-14] MEDS: PRAZOSIN 1 MG CAP PO SCH (20:22)
[2020-03-14] MEDS ORDERED: QUEtiapine 50 MG TAB PO SCH (21:00)
--- NOTE | 2020-03-15 07:18 | P.CONS ---
History of Present Illness - History of Present Illness Hospital course:This is a pleasant 34 years old male with past medical history of depression, PTSD. Also he has history of hypertension. Patient states he presents to the emergency room because of suicidal ideation and he was asking for help, patient denies plan or attempt. There were reports that patient had PTSD from and also his noticed him about one year earlier. On the day of presentation patient was monitored for alcohol intoxication however He was more sober and awake and more interactive. At that time psychiatrist to evaluate him and patient was transferred to the mental health unit. Patient did not show overt signs and symptoms of alcohol withdrawal. Transfer. Currently patient looks his stable and the same, no specific complaints. He denies chest pain or dyspnea. No abdominal pain. No change in urine or bowel habits. No nausea vomiting. No fever Vitals and labs are reviewed Review of Systems Review of systems CONSTITUTIONAL: No fever, no malaise, no fatigue. HEENT: No recent visual problems or hearing problems. Denied any sore throat. CARDIOVASCULAR: No orthopnea, PND, no palpitations, no syncope. PULMONARY: No shortness of breath, no cough, no hemoptysis. GASTROINTESTINAL: No diarrhea, no nausea, no vomiting, no abdominal pain. Normoactive bowel sounds. NEUROLOGICAL: No headaches, no weakness, no numbness. HEMATOLOGICAL: Denies any bleeding or petechiae. GENITOURINARY: Denies any burning micturition, frequency, or urgency. MUSCULOSKELETAL/RHEUMATOLOGICAL: Denies any joint pain, swelling, or any muscle pain. ENDOCRINE: Denies any polyuria or polydipsia. Past Medical History Past Medical History: Hypertension Additional Past Medical History / Comment(s): ETOH abuse, past withdrawals- tremors/nausea History of Any Multi-Drug Resistant Organisms: None Reported Additional Past Surgical History / Comment(s): surgery for testicular torsion Past Anesthesia/Blood Transfusion Reactions: No Reported Reaction Smoking Status: Current every day smoker - Past Family History Mother Family Medical History: No Reported History Additional Family Medical History / Comment(s): Mother is healthy Father History Unknown: Yes Family Family Medical History: No Reported History Medications and Allergies Home Medications Medication Instructions Recorded Confirmed Type Naltrexone HCl [Revia] 50 mg PO DAILY 30 Days tab 02/19/20 03/12/20 Rx Nicotine 21Mg/24Hr Patch [Habitrol] 1 patch TRANSDERM DAILY 30 Days 10/12/20 11/03/20 Rx patch Prazosin [Minipress] 5 mg PO HS 03/01/20 03/12/20 History QUEtiapine [SEROquel] 100 mg PO HS 03/01/20 03/12/20 History Sertraline [Zoloft] 100 mg PO HS 03/01/20 03/12/20 History Allergies Allergy/AdvReac Type Severity Reaction Status Date / Time No Known Allergies Allergy Verified 03/12/20 12:37 Physical Exam Vitals: Vital Signs Temp Pulse Pulse Resp BP BP Pulse Ox 03/14/20 20:26 132 H 156/96 03/14/20 17:39 130 H 16 156/107 97 03/14/20 14:03 98.3 F 03/14/20 04:34 97.9 F 120 H 18 165/105 Intake and Output 03/14/20 03/14/20 03/14/20 06:59 14:59 22:59 Other: Weight 74.1 kg GENERAL: The patient is alert and oriented x3, not in any acute distress. Well developed, well nourished. HEENT: Pupils are round and equally reacting to light. EOMI. No scleral icterus. No conjunctival pallor. Normocephalic, atraumatic. No pharyngeal erythema. No thyromegaly. CARDIOVASCULAR: S1 and S2 present. No murmurs, rubs, or gallops. PULMONARY: Chest is clear to auscultation, no wheezing or crackles. ABDOMEN: Soft, nontender, nondistended, normoactive bowel sounds. No palpable organomegaly. MUSCULOSKELETAL: No joint swelling or deformity. EXTREMITIES: No cyanosis, clubbing, or pedal edema. NEUROLOGICAL: Gross neurological examination did not reveal any focal deficits. SKIN: No rashes. no petechiae. Results CBC & Chem 7: 03/14/20 10:32 03/14/20 10:32 Labs: Abnormal Lab Results - Last 24 Hours (Table) 03/14/20 Range/Units 10:32 Sodium 136 L (137-145) mmol/L BUN 8 L (9-20) mg/dL Alkaline Phosphatase 136 H (38-126) U/L Cholesterol 207 H (<200) mg/dL HDL Cholesterol 110 H (40-60) mg/dL Assessment and Plan Assessment: Assessment and plan Severe depression with suicidal ideation: Management as per psychiatrist primary team Alcohol intoxication at-risk of alcohol withdrawal, continue with CIWA protocol, thiamine Alcohol abuse: Patient is counseled Nicotine dependence, patient is counseled, continue with nicotine Hypertension: Continue with Minipress DVT prophylaxis: Low probability, no need for subcu heparin We recommend patient follow up with PCP in one week after discharge, patient was instructed with the same Thank you for consulting us and we will follow the patient on an as-needed basis. Please free to contact us for any further question
[2020-03-15] MEDS: NICOTINE 21MG/24HR PATCH TRANSDERM SCH ×2 (08:36→18:20)
[2020-03-15] MEDS: NALTREXONE HCL 50 MG TAB PO SCH (08:36)
[2020-03-15] MEDS: SERTRALINE 100 MG TAB PO SCH (08:36)
[2020-03-15] MEDS: THIAMINE 100 MG TAB PO SCH ×2 (08:36→18:17)
--- NOTE | 2020-03-15 09:47 | P.PN ---
Progress Note - Text Progress Note Date: 03/15/20 Interval History: Patient was seen in bed and was directable and agreeable to speak with keno writer / runner in the office. Patient reports that he is feeling tired. He otherwise states that he is doing okay. He is currently not reporting any suicidal or homicidal ideation, intention, and/or plan. He is not reporting any auditory or visual hallucinations. He denies any paranoia or delusions. He reports no significant side effects of his medications. He denies any alcohol cravings at this time. He does express strong desire to continue treatment. He expresses some concern about being able to adhere to treatment and therefore wants to ensure that he stays with mental health treatment and feels that by being admitted involuntarily this was the right decision. Mental Status Exam: General Appearance: Patient appears to be stated age is alert, directable, and cooperative. Behavior: Patient is calmly seated without any agitated behavior. Speech: Patient's speech is fluent and nonpressured. Mood/Affect: Mood is improving mildly, affect is congruent and constricted. Suicidality/Homicidality: Patient denies having any suicidal or homicidal ideation intent or plan. Perceptions: Patient denies any visual hallucinations and denies any auditory hallucinations Though content/process: There is no evidence of any delusional thought content and thought process is linear and goal-directed. Memory and concentration: AOX3, grossly intact for the purposes of this session Judgment and insight: Improving mildly Assessment Major depressive disorder, recurrent, severe Anxiety disorder, unspecified Posttraumatic stress disorder Alcohol use disorder Tobacco Use Disorder Plan: -Patient continues to meet criteria for inpatient psychiatric admission for symptom stabilization and safety. Patient is scheduled to meet with the securities attorney for deferral today. -Medications: Increase Zoloft to 150 mg by mouth daily for depression/anxiety/PTSD. We will gradually titrate over the weekend. Continue prazosin 5 mg by mouth at bedtime for PTSD related nightmares Increase Seroquel to 75 mg by mouth at bedtime for augmentation of antidepressants and insomnia. Continue naltrexone 50 mg by mouth daily for alcohol use disorder -Ativan and Geodon PRN for agitation/aggression - thiamine, MVM for etoh use -CIWA protocol with Ativan PRN for ETOH withdrawal -When necessary Ativan and Geodon for agitation/aggression. -NRT - nicotine patch -SW on board for discharge planning. Encouraged the patient to participate in milieu.
[2020-03-15] MEDS: LORazepam 1 MG TAB PO PRN (18:17)
[2020-03-15] MEDS: PRAZOSIN 1 MG CAP PO SCH (21:47)
[2020-03-15] MEDS: QUEtiapine 25 MG TAB PO SCH (21:47)
[2020-03-16] MEDS: NICOTINE 21MG/24HR PATCH TRANSDERM SCH (08:42)
[2020-03-16] MEDS: THIAMINE 100 MG TAB PO SCH ×2 (08:42→18:35)
[2020-03-16] MEDS: SERTRALINE 50 MG TAB PO SCH (08:42)
[2020-03-16] MEDS: NALTREXONE HCL 50 MG TAB PO SCH (08:42)
[2020-03-16] MEDS: LORazepam 1 MG TAB PO PRN (15:35)
[2020-03-16] MEDS ORDERED: LORazepam 2 MG/ML INJ IM ONE (18:50)
[2020-03-16] MEDS: QUEtiapine 25 MG TAB PO SCH (21:06)
[2020-03-16] MEDS: PRAZOSIN 1 MG CAP PO SCH (21:06)
--- NOTE | 2020-03-17 00:11 | PN ---
PROGRESS NOTE DATE OF SERVICE: 03/16/2020. CHIEF COMPLAINT: The patient was admitted in transfer from the medical floor where he had been admitted for an alcohol level of 418. He has long-term alcohol issues along with suicidal ideation. INTERVAL HISTORY: The patient has been doing fair. He had a quiet day yesterday. He comes out on the unit. He tends to keep to himself. He has a reserved manner. He did not attend any groups yesterday. He slept fairly well. Today, he has been up. He did attend 1 group today. Staff documented that he appeared drowsy. He needed redirections multiple times to participate in group activities. He was inconsistently redirectable. Overall, the patient says he is doing better. He feels his mood is improved and he has a somewhat better outlook. He is not reporting any thoughts of self-harm. He has continued to show alcohol withdrawal issues today. Vital signs at 9 pm include BP 149/104, pulse 114 and regular, temperature at 6:00 pm was 97.6. His last CIWA score today at 3:30 pm was 6, previous scores were lower. He received Ativan 2 mg IM at 6:50 pm. He tolerates his psychotropic medications. He seems to have a reasonable understanding of the treatment plan which includes Zoloft being increased today and tomorrow. MENTAL STATUS: Patient sat without restlessness. Eye contact was fair. Psychomotor activity slowed. He answered questions with brief responses. He did not say a lot. His affect was blunted. His mood reserved. He did not appear to be distress. There was no indication of thought disorder. He voiced no thoughts of harm. He was oriented and alert. ASSESSMENT: I will continue the current diagnosis and treatment plan. I will continue psychotropic medications the same. The patient is about at the point of being beyond the risk period for delirium tremens, though still his vital signs are showing indications of acute withdrawal. We will need to monitor closely over the next few days. The patient understands that he is anticipating getting on Vivitrol. I discussed that naltrexone he is on is essentially the same medication in a pill form. I discussed alcohol withdrawal issues. We reviewed the short-term risks of detox. I discussed time course of withdrawal. We will focus on stabilization and discharge planning. MMENOCH / LESTERN: [id number] / [facility]
[2020-03-17] MEDS: SERTRALINE 50 MG TAB PO SCH (08:33)
[2020-03-17] MEDS: SERTRALINE 100 MG TAB PO SCH (08:35)
[2020-03-17] MEDS: NICOTINE 21MG/24HR PATCH TRANSDERM SCH (08:35)
[2020-03-17] MEDS: THIAMINE 100 MG TAB PO SCH ×2 (08:35→18:55)
[2020-03-17] MEDS: NALTREXONE HCL 50 MG TAB PO SCH (08:35)
[2020-03-17] MEDS: LORazepam 1 MG TAB PO PRN ×2 (12:10→20:29)
--- NOTE | 2020-03-17 14:13 | PN ---
PROGRESS NOTE DATE OF SERVICE: 03/17/2020 CHIEF COMPLAINT: The patient was admitted in transfer from the medical floor where he had been admitted for an alcohol level of 418. He has long-term alcohol issues along with suicidal ideation. INTERVAL HISTORY: The patient has been doing fair. He had a quiet day yesterday. He attended groups. At times it seemed that he had some difficulty engaging in the activities. He says that he slept fairly well last night. Today he has been up. He is out in the day area. He attended a group this morning. Overall he says that things have been gradually improving. He feels he is managing early withdrawal issues as best he can anticipate. He said he has a better outlook. It is noted that he continues to are on an elevated pulse. Last evening at 9 pm his pulse was 114, at 6:30 pm yesterday it was 120, this morning it is 99. The rest of his vital signs are stable with blood pressure this morning of 127/71 and a temperature of 98.1. MENTAL STATUS: Patient gave fairly good eye contact. He was somewhat restless. He answered questions appropriately. His thoughts were clear. His affect was a little blunted. He had a pleasant manner. His mood was reserved, though not down or depressed. He did not appear to be significantly distressed. There was no indication of thought disorder. He voiced no thoughts of harm. Cognition was clear. ASSESSMENT: I will continue the current diagnosis and treatment plan. I will continue psychotropic medications the same. Patient appears to be making progress. We will monitor vital signs. His pulse has come down this morning. We will continue to manage early withdrawal issues. I provided him with a detailed sheet on ways to help manage withdrawal over the next few months. We discussed the time course of withdrawal. We will focus on stabilization and discharge planning. MMODL / IJN: [id number] /
[2020-03-17] MEDS: PRAZOSIN 1 MG CAP PO SCH (20:29)
[2020-03-17] MEDS: QUEtiapine 25 MG TAB PO SCH (20:29)
[2020-03-18 07:13] VITALS: RESP 18
[2020-03-18] MEDS: LORazepam 1 MG TAB PO PRN (08:27)
[2020-03-18] MEDS: NALTREXONE HCL 50 MG TAB PO SCH (08:27)
[2020-03-18] MEDS: NICOTINE 21MG/24HR PATCH TRANSDERM SCH (08:27)
[2020-03-18] MEDS: THIAMINE 100 MG TAB PO SCH (08:27)
[2020-03-18] MEDS: SERTRALINE 100 MG TAB PO SCH (08:27)
[2020-03-18 08:31] VITALS: BP 131/94; PULSE 124
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
[2020-03-18 13:44] VITALS: TEMP 98
== END 2020-03-18 16:27 | disposition home or self-care (01) ==
LOC: EC 10:48 → UNDOADMOB 13:06 → 6NMEDSUR 13:06 → UNDOADMOB 03-13 16:10 → 3MHU 03-13 16:10 → 6NMEDSUR 03-13 16:10 → UNDODISOB 03-13 16:18 → 3MHU 03-13 16:19
PROVIDERS: ADMIT Psychiatry & Neurology Psychiatry; ATTEND Psychiatry & Neurology Psychiatry
DX: F10.129 Alcohol abuse with intoxication, unspecified (principal); R45.851 Suicidal ideations; F43.10 Post-traumatic stress disorder, unspecified; F33.2 Major depressive disorder, recurrent severe without psychotic features; F41.9 Anxiety disorder, unspecified; I10 Essential (primary) hypertension; Z79.899 Other long term (current) drug therapy; Z91.14 Patient's other noncompliance with medication regimen; Z98.890 Other specified postprocedural states; F17.210 Nicotine dependence, cigarettes, uncomplicated
CPT/HCPCS: 96376 ×2; 96361 ×2; 96372 ×3; 96375 ×2; 82075; 96365; 96366; 99285; 36415; 80061; 80053 ×2; 84443; 85025 ×2; 80306; 80320; 83036; 90732; 90686; G0378 ×7; G0008; G0009; S4990 ×7; J2060 ×3; J1644; J3411; J3486

== ENCOUNTER 2020-04-26 21:27 | Inpatient (IN) | payer OTHER ==
--- NOTE | 2020-04-26 21:47 | ED ---
General Adult HPI - General Source: patient, family, police Mode of arrival: wheelchair Limitations: no limitations <Nathan Randall - Last Filed: 04/26/20 22:52> <Moy Macdonald - Last Filed: 04/27/20 00:04> - General Chief complaint: Psychiatric Symptoms Stated complaint: Mental Health Time Seen by Provider: 04/26/20 21:38 - History of Present Illness Initial comments: Dictation was produced using Live[employer] dictation software. please excuse any grammatical, word or spelling errors. This patient was cared for during a federal and state declared state of emergency secondary to Covid 19 Chief Complaint: 34-year-old male presents today with alcohol intoxication, posttraumatic stress disorder and depression anxiety and suicidal ideation. History of Present Illness: Patient is a 34-year-old male is past medical history of alcohol abuse. Patient is X and suffers from posterior back stress disorder secondary to . Patient is intoxicated. He is here with his cousin Guero who will petition patient. Patient is being depressed and is suicidal. Patient had significant amounts of alcohol today. Patient is refusing to provide history to me. Unable to obtain secondary to patient uncooperation PHYSICAL EXAM: General Impression: Alert and oriented x3, not in acute distress, inebriated HEENT: Normocephalic atraumatic, extra-ocular movements intact, pupils equal and reactive to light bilaterally, mucous membranes moist. Cardiovascular: Heart regular rate and rhythm Chest: Able to complete full sentences, no retractions, no tachypnea Abdomen: abdomen soft, non-tender, non-distended, no organomegaly Musculoskeletal: Pulses present and equal in all extremities, no peripheral edema Motor: no focal deficits noted Neurological: CN II-XII grossly intact, no focal motor or sensory deficits noted Skin: Intact with no visualized rashes ED course: 34-year-old male presents today with suicidal ideation acute intoxication. Vital signs upon arrival shows heart rate of 112, worse vital signs within acceptable limits. Patient is inebriated at bedside. His breath alcohol test is 330. Patient is signed out to Dr. Macdonald at 11 PM. More history was obtained from patient X a fifth of hard liquor daily. Patient has strong likelihood of having alcohol withdrawals. Alcohol withdrawal precautions ordered. (Nathan Randall) - Related Data Home Medications Medication Instructions Recorded Confirmed Cholecalciferol [Vitamin D3 (25 2,000 unit PO DAILY 04/26/20 04/26/20 Mcg = 1000 Iu)] Folic Acid 0.4 mg PO DAILY 04/26/20 04/26/20 Prazosin [Minipress] 5 mg PO HS 04/26/20 04/26/20 QUEtiapine [SEROquel] 75 mg PO HS 04/26/20 04/26/20 lisinopriL [Zestril] 20 mg PO DAILY 04/26/20 04/26/20 Previous Rx's Medication Instructions Recorded Naltrexone HCl [Revia] 50 mg PO DAILY 30 Days tab 03/18/20 Nicotine 21Mg/24Hr Patch [Habitrol] 1 patch TRANSDERM DAILY 30 Days 03/18/20 patch Sertraline [Zoloft] 200 mg PO DAILY 30 Days tab 03/18/20 Allergies Allergy/AdvReac Type Severity Reaction Status Date / Time No Known Allergies Allergy Verified 04/26/20 22:35 Review of Systems ROS Other: All systems not noted in ROS Statement are negative. <Nathan Randall - Last Filed: 04/26/20 22:52> ROS Other: All systems not noted in ROS Statement are negative. <Moy Macdonald - Last Filed: 04/27/20 00:04> ROS Statement: Those systems with pertinent positive or pertinent negative responses have been documented in the HPI. Past Medical History Past Medical History: Hypertension Additional Past Medical History / Comment(s): ETOH abuse, past withdrawals- tremors/nausea History of Any Multi-Drug Resistant Organisms: None Reported Additional Past Surgical History / Comment(s): surgery for testicular torsion Past Anesthesia/Blood Transfusion Reactions: No Reported Reaction Past Psychological History: Anxiety, Depression, PTSD Smoking Status: Current every day smoker Past Alcohol Use History: Abuse Past Drug Use History: None Reported - Past Family History Mother Family Medical History: No Reported History Additional Family Medical History / Comment(s): Mother is healthy Father History Unknown: Yes Family Family Medical History: No Reported History <Nathan Randall - Last Filed: 04/26/20 22:52> General Exam Limitations: no limitations <Nathan Randall - Last Filed: 04/26/20 22:52> Course Vital Signs 04/26/20 21:30 Temperature 98.6 F Pulse Rate 112 H Respiratory 18 Rate Blood Pressure 142/91 O2 Sat by Pulse 98 Oximetry Medical Decision Making - Lab Data Result diagrams: 04/26/20 22:28 04/26/20 22:28 <RaddominickMoy - Last Filed: 04/27/20 00:04> - Lab Data Lab Results 04/26/20 04/26/20 04/26/20 Range/Units 22:28 22:28 22:33 WBC 14.9 H (3.8-10.6) k/uL RBC 4.83 (4.30-5.90) m/uL Hgb 15.5 (13.0-17.5) gm/dL Hct 45.0 (39.0-53.0) % MCV 93.2 D (80.0-100.0) fL MCH 32.1 (25.0-35.0) pg MCHC 34.5 (31.0-37.0) g/dL RDW 12.9 (11.5-15.5) % Plt Count 206 (150-450) k/uL MPV 7.0 Neutrophils % 80 % Lymphocytes % 15 % Monocytes % 3 % Eosinophils % 1 % Basophils % 1 % Neutrophils # 11.9 H (1.3-7.7) k/uL Lymphocytes # 2.3 (1.0-4.8) k/uL Monocytes # 0.4 (0-1.0) k/uL Eosinophils # 0.1 (0-0.7) k/uL Basophils # 0.1 (0-0.2) k/uL Sodium 141 (137-145) mmol/L Potassium 4.0 (3.5-5.1) mmol/L Chloride 105 (98-107) mmol/L Carbon Dioxide 26 (22-30) mmol/L Anion Gap 10 mmol/L BUN 11 (9-20) mg/dL Creatinine 0.66 (0.66-1.25) mg/dL Est GFR (CKD-EPI)AfAm >90 (>60 ml/min/1.73 sqM) Est GFR (CKD-EPI)NonAf >90 (>60 ml/min/1.73 sqM) Glucose 99 (74-99) mg/dL Calcium 8.8 (8.4-10.2) mg/dL Magnesium 1.9 (1.6-2.3) mg/dL Serum Alcohol 421 H* mg/dL Coronavirus (PCR) Not Detected (Not Detectd) Disposition <Nathan Randall - Last Filed: 04/26/20 22:52> Is patient prescribed a controlled substance at d/c from ED?: No <Moy Macdonald - Last Filed: 04/27/20 00:04> Clinical Impression: Alcohol withdrawal syndrome, Mood disorder Disposition: ADMITTED IP TO THIS HOSP Condition: Fair Referrals: None,Stated [Primary Care Provider] - 1-2 days
[2020-04-26] MEDS ORDERED: LORazepam 2 MG/ML INJ IV PRN ×2 (22:22)
[2020-04-26] MEDS ORDERED: THIAMINE 100 MG/ML 2 ML VIAL IM STA (22:22)
[2020-04-26 22:44] LABS: Basophils # (A) 0.1 k/uL (0-0.2); Basophils % (A) 1 %; Eosinophils # (A) 0.1 k/uL (0-0.7); Eosinophils % (A) 1 %; HGB 15.5 gm/dL (13.0-17.5); Lymphocytes # (A) 2.3 k/uL (1.0-4.8); Lymphocytes % (A) 15 %; MCH 32.1 pg (25.0-35.0); MCHC 34.5 g/dL (31.0-37.0); Monocytes # (A) 0.4 k/uL (0-1.0); Monocytes % (A) 3 %; Neutrophils # (A) 11.9 k/uL (1.3-7.7); Neutrophils % (A) 80 %; Platelet Count 206 k/uL (150-450); RBC 4.83 m/uL (4.30-5.90); RDW 12.9 % (11.5-15.5); WBC 14.9 k/uL (3.8-10.6)
[2020-04-26 22:52] LABS: African American GFR (CKD) >90 (>60 ml/min/1.73 sqM); Anion Gap 10 mmol/L; Blood Urea Nitrogen 11 mg/dL (9-20); Calcium 8.8 mg/dL (8.4-10.2); Carbon Dioxide 26 mmol/L (22-30); Chloride 105 mmol/L (98-107); Glucose 99 mg/dL (74-99); Magnesium 1.9 mg/dL (1.6-2.3); Non-African American GFR(CKD) >90 (>60 ml/min/1.73 sqM); Sodium 141 mmol/L (137-145)
[2020-04-26 23:12] LABS: Alcohol 421 mg/dL
[2020-04-26 23:23] LABS: MCV 93.2 fL (80.0-100.0)
[2020-04-27] MEDS ORDERED: NALOXONE 0.4 MG/ML 1 ML VIAL IV PRN
[2020-04-27] MEDS ORDERED: ONDANSETRON 4 MG/2 ML VIAL IVP PRN
[2020-04-27] MEDS: SODIUM CHLORIDE 0.9% 1,000 ML IV SCH ×2 (02:27→23:45)
[2020-04-27] MEDS: THIAMINE 100 MG TAB PO SCH ×3 (02:27→17:02)
[2020-04-27] MEDS: NICOTINE 21MG/24HR PATCH TRANSDERM SCH (06:26)
[2020-04-27] MEDS: NALTREXONE HCL 50 MG TAB PO SCH (07:29)
[2020-04-27] MEDS: FAMOTIDINE 20 MG TAB PO SCH ×2 (07:29→21:50)
[2020-04-27] MEDS: SERTRALINE 100 MG TAB PO SCH (07:29)
[2020-04-27] MEDS: LORazepam 2 MG/ML INJ IV PRN ×3 (08:50→15:23)
[2020-04-27] MEDS ORDERED: lisinopriL 20 MG TAB PO SCH (09:00)
--- NOTE | 2020-04-27 10:35 | P.HPIM ---
History of Present Illness 34-year-old male came in with alcohol intoxication. Patient does have history of post traumatic stress disorder and depression, he denied any suicidal ideation to me apparently patient told the ER physician that he wants to go to sleep and never wanted to wake up because of which patient was started on a sitter and the psychiatry was consulted. His cousin petitioned him. Patient drinks about 2/5th of hard liquor every day patient in the past was admitted for the alcohol withdrawals. Patient is being monitored for alcohol withdrawals denied any abdominal pain and give me much of the history. Patient's last drink was yesterday and he had alcohol levels above 400. Past Medical History Past Medical History: Hypertension Additional Past Medical History / Comment(s): ETOH abuse, past withdrawals- tremors/nausea History of Any Multi-Drug Resistant Organisms: None Reported Additional Past Surgical History / Comment(s): surgery for testicular torsion Past Anesthesia/Blood Transfusion Reactions: No Reported Reaction Past Psychological History: Anxiety, Depression, PTSD Additional Psychological History / Comment(s): Pt resides alone. He is seen at [facility]. Pt states he has had increased depression and thoughts of suicide. Denies any suicidal plan. Has hx of suicidal plan involving shooting self with gun. Pt states he does not wish himself . Pt can drive. He is currently unemployed. Smoking Status: Current every day smoker Past Alcohol Use History: Abuse Additional Past Alcohol Use History / Comment(s): Pt drinks 2 fifths of vodka a day. He started smoking in 1999 and is a 1.5 ppd smoker. Past Drug Use History: None Reported Additional Drug Use History / Comment(s): Occasional marijuana use. - Past Family History Mother Family Medical History: No Reported History Additional Family Medical History / Comment(s): Mother is healthy Father History Unknown: Yes Family Family Medical History: No Reported History Medications and Allergies Home Medications Medication Instructions Recorded Confirmed Type Naltrexone HCl [Revia] 50 mg PO DAILY 30 Days tab 03/18/20 04/26/20 Rx Nicotine 21Mg/24Hr Patch [Habitrol] 1 patch TRANSDERM DAILY 30 Days 03/18/20 04/26/20 Rx patch Sertraline [Zoloft] 200 mg PO DAILY 30 Days tab 03/18/20 04/26/20 Rx Cholecalciferol [Vitamin D3 (25 2,000 unit PO DAILY 04/26/20 04/26/20 History Mcg = 1000 Iu)] Folic Acid 0.4 mg PO DAILY 04/26/20 04/26/20 History Prazosin [Minipress] 5 mg PO HS 04/26/20 04/26/20 History QUEtiapine [SEROquel] 75 mg PO HS 04/26/20 04/26/20 History lisinopriL [Zestril] 20 mg PO DAILY 04/26/20 04/26/20 History Allergies Allergy/AdvReac Type Severity Reaction Status Date / Time No Known Allergies Allergy Verified 04/26/20 22:35 Physical Exam Vitals: Vital Signs Temp Pulse Pulse Resp BP BP Pulse Ox 04/27/20 07:51 98.4 F 103 H 18 127/87 94 L 04/27/20 02:00 97.6 F 105 H 16 95/59 91 L 04/26/20 21:30 98.6 F 112 H 18 142/91 98 Intake and Output 04/26/20 04/27/20 04/27/20 22:59 06:59 14:59 Other: Weight 83.915 kg 83.915 kg PHYSICAL EXAMINATION: GENERAL: The patient is alert and oriented x3, not in any acute distress. Well developed, well nourished. HEENT: Pupils are round and equally reacting to light. EOMI. No scleral icterus. No conjunctival pallor. Normocephalic, atraumatic. No pharyngeal erythema. No thyromegaly. CARDIOVASCULAR: S1 and S2 present. No murmurs, rubs, or gallops. PULMONARY: Chest is clear to auscultation, no wheezing or crackles. ABDOMEN: Soft, nontender, nondistended, normoactive bowel sounds. No palpable organomegaly. MUSCULOSKELETAL: No joint swelling or deformity. EXTREMITIES: No cyanosis, clubbing, or pedal edema. NEUROLOGICAL: Gross neurological examination did not reveal any focal deficits. SKIN: No rashes. Results CBC & Chem 7: 04/26/20 22:28 04/26/20 22:28 Labs: Abnormal Lab Results - Last 24 Hours (Table) 04/26/20 04/26/20 Range/Units 22:28 22:28 WBC 14.9 H (3.8-10.6) k/uL Neutrophils # 11.9 H (1.3-7.7) k/uL Serum Alcohol 421 H* mg/dL Assessment and Plan Plan: -Alcohol intoxication: Patient is presently alert oriented 3 a week except for mild headache. -Alcohol withdrawal: Patient is on Ativan CIWA protocol which will be continued patient will need GI prophylaxis which we will do with the Pepcid -Depression and possible suicidal ideation: Patient the has a sitter in the psychiatry was consulted -PTSD patient was resumed on his home medication although may not be effective if he continues to drink alcohol -Tachycardia secondary to withdrawal patient will be treated with the metoprolol -Leukocytosis reactive without any evidence of infection -Hypertension: Patient is presently hypotensive hold off on his lisinopril and prazosin. -DVT prophylaxis with Lovenox
[2020-04-27 12:35] VITALS: BMI 25.7
[2020-04-27] MEDS ORDERED: PRAZOSIN 1 MG CAP PO SCH (21:00)
[2020-04-27] MEDS ORDERED: QUEtiapine 50 MG TAB PO SCH (21:00)
[2020-04-27] MEDS: METOPROLOL TARTRATE 25 MG TAB PO SCH (21:50)
[2020-04-28] MEDS: LORazepam 2 MG/ML INJ IV PRN (05:15)
[2020-04-28] MEDS: NICOTINE 21MG/24HR PATCH TRANSDERM SCH (05:15)
[2020-04-28] MEDS: NALTREXONE HCL 50 MG TAB PO SCH (08:23)
[2020-04-28] MEDS: METOPROLOL TARTRATE 25 MG TAB PO SCH (08:23)
[2020-04-28] MEDS: FAMOTIDINE 20 MG TAB PO SCH (08:23)
[2020-04-28] MEDS: SERTRALINE 100 MG TAB PO SCH (08:23)
[2020-04-28] MEDS: THIAMINE 100 MG TAB PO SCH (08:23)
[2020-04-28 08:30] VITALS: BP 144/89; PULSE 93; RESP 17; TEMP 97.7
[2020-04-28] MEDS ORDERED: ENOXAPARIN 40 MG/0.4 ML SYRINGE SQ SCH (09:00)
--- NOTE | 2020-04-28 10:04 | P.DS ---
Providers Date of admission: 04/27/20 00:00 Attending physician: Lucas Membreno Consults: 04/27/20 00:01 Consult Physician Routine Consulting Provider: Chirag Hess Consult Reason/Comments: Mood disorder. Alcohol dependence. Do you want consulting provider notified?: Yes Primary care physician: Stated None Hospital Course: 34-year-old male came in with alcohol intoxication. Patient does have history of post traumatic stress disorder and depression, he denied any suicidal ideation to me apparently patient told the ER physician that he wants to go to sleep and never wanted to wake up because of which patient was started on a sitter and the psychiatry was consulted. His cousin petitioned him. Patient drinks about 2/5th of hard liquor every day patient in the past was admitted for the alcohol withdrawals. Patient is being monitored for alcohol withdrawals denied any abdominal pain and give me much of the history. Patient's last drink was yesterday and he had alcohol levels above 400. 04/28/2020 Patient is clinically doing well received Ativan once patient doesn't believe he'll have withdrawals patient doesn't believe he will need any medications for withdrawals upon discharge patient is willing to quit alcohol. Patient blood pressure is better today started going up patient will be started back on Minipress. Because of tachycardia which I believe it is secondary to alcohol withdrawals patient was started on metoprolol patient will be discharged on metoprolol patient may need to be reevaluated as an outpatient for need of metoprolol. I will continue to hold her lisinopril. He may or may not need this medication patient need to check his blood sugars daily at home take it to PCP patient doesn't have a PCP patient will be referred to a primary care physician Dr. Nayak. PHYSICAL EXAMINATION: GENERAL: The patient is alert and oriented x3, not in any acute distress. Well developed, well nourished. HEENT: Pupils are round and equally reacting to light. EOMI. No scleral icterus. No conjunctival pallor. Normocephalic, atraumatic. No pharyngeal erythema. No thyromegaly. CARDIOVASCULAR: S1 and S2 present. No murmurs, rubs, or gallops. PULMONARY: Chest is clear to auscultation, no wheezing or crackles. ABDOMEN: Soft, nontender, nondistended, normoactive bowel sounds. No palpable organomegaly. MUSCULOSKELETAL: No joint swelling or deformity. EXTREMITIES: No cyanosis, clubbing, or pedal edema. NEUROLOGICAL: Gross neurological examination did not reveal any focal deficits. SKIN: No rashes. Assessment and Plan Plan: -Alcohol intoxication: Patient is presently alert oriented 3 a week except for mild headache. -Alcohol withdrawal: Patient is on Ativan CIWA protocol and withdrawals at this time -Depression and possible suicidal ideation: Patient was evaluated by psychiatry and patient was cleared from their perspective and will not require any inpatient psychiatric hospitalization -PTSD patient was resumed on his home medication although may not be effective if he continues to drink alcohol -Tachycardia secondary to withdrawal , patient is on metoprolol -Leukocytosis reactive without any evidence of infection -Hypertension: Patient Condition at Discharge: Fair Plan - Discharge Summary Discharge Rx Participant: Yes New Discharge Prescriptions: New Metoprolol Tartrate [Lopressor] 25 mg PO BID #30 tab Thiamine [Vitamin B-1] 100 mg PO BID-W/MEALS #30 tab Continue Nicotine 21Mg/24Hr Patch [Habitrol] 1 patch TRANSDERM DAILY 30 Days patch Sertraline [Zoloft] 200 mg PO DAILY 30 Days tab Naltrexone HCl [Revia] 50 mg PO DAILY 30 Days tab QUEtiapine [SEROquel] 75 mg PO HS Prazosin [Minipress] 5 mg PO HS Cholecalciferol [Vitamin D3 (25 Mcg = 1000 Iu)] 2,000 unit PO DAILY Folic Acid 0.4 mg PO DAILY #30 tab Discontinued lisinopriL [Zestril] 20 mg PO DAILY Discharge Medication List Naltrexone HCl [Revia] 50 mg PO DAILY 30 Days tab 03/18/20 [Rx] Nicotine 21Mg/24Hr Patch [Habitrol] 1 patch TRANSDERM DAILY 30 Days patch 03/18/20 [Rx] Sertraline [Zoloft] 200 mg PO DAILY 30 Days tab 03/18/20 [Rx] Cholecalciferol [Vitamin D3 (25 Mcg = 1000 Iu)] 2,000 unit PO DAILY 04/26/20 [History] Prazosin [Minipress] 5 mg PO HS 04/26/20 [History] QUEtiapine [SEROquel] 75 mg PO HS 04/26/20 [History] Folic Acid 0.4 mg PO DAILY #30 tab 04/28/20 [Rx] Metoprolol Tartrate [Lopressor] 25 mg PO BID #30 tab 04/28/20 [Rx] Thiamine [Vitamin B-1] 100 mg PO BID-W/MEALS #30 tab 04/28/20 [Rx] Follow up Appointment(s)/Referral(s): Jacquie Nayak MD [STAFF PHYSICIAN] - 1 Week (Office closed at time of discharge please call WednesdayApril 29 to set up a follow up appointment) Patient Instructions/Handouts: Alcohol Intoxication (DC), Abuse of Alcohol (DC), At-Risk Alcohol Use (DC), Alcohol Withdrawal (DC), Alcohol Use Disorder (DC) Discharge Disposition: HOME SELF-CARE
--- NOTE | 2020-04-28 11:19 | CONS ---
CONSULTATION DATE OF SERVICE: 04/27/2020 PURPOSE FOR CONSULTATION: Evaluate for depression suicidality in the midst of alcohol abuse. HISTORY OF PRESENT ILLNESS: Patient is a 34-year-old male. He lives alone. He presented to the ED intoxicated. A cousin did a petition stating the patient was depressed and making suicidal statements. He has a history of PTSD secondary to service in [place]. He also has a diagnosis of hypertension. His alcohol level on admission was 421. Medications that he takes at home include Seroquel 75 mg at bedtime, Zoloft 200 mg a day and Minipress 5 mg at bedtime. When in the ED, the patient made a statement that he wanted to go to sleep and never wake up. The patient provided history that he has had significant drinking issues in the last year. He said that prior to that, he described himself as a "social drinker." He was somewhat vague as to the reasons he started drinking excessively in the last year, though made reference to daughters who are in [place] and had been "taken away." It apparently was not the case that he lost custody and he did not beyond that, go into details. He lives by himself. He has a girlfriend and spends some time at her house. He is unemployed. He is on disability through the [employer] with PTSD and a history of traumatic brain injury. He had tours in [place] with the last being in 2011. He notes that alcohol use includes drinking 1 to 2/5 a day on a daily basis pretty much throughout the whole last year. He denies use of other street drugs or prescription addictive medications. He says that he may smoke marijuana 3-4 times a year. The patient denied hallucinations or delusional thoughts. He does have significant anxiety and panic symptoms. He will get some flashbacks to war experiences. When I talked to the patient, he acknowledged that he does get suicidal thinking when he his intoxicated. He said it is not something that happens all the time, but he has been aware of some of these thoughts before. He said that he will get thoughts that he would prefer to go to sleep and not wake up. He said he has never had any active thoughts of harming himself. He has not had any past history of self-abusive behavior. He notes that in the last year the longest period he has gone without drinking was for about 1 month that included going into substance use treatment. He went into [facility] for 2 week program about 1 month ago. He got out 2 weeks ago. He said that he continued to remain sober up until his drinking bout that led to his coming to the hospital. He believes that he may have drank 2/5 on the day of admission. When I asked about suicidal statements, he stated other than the sleep issue, he was not fully aware of any other things he may have said when he came to the hospital. He says he only has vague memories of the events that got him hospitalized. Today when I talked to him, he said he does not have suicide thoughts. He does not have any thoughts around the idea of going to sleep and not waking up. He is hopeful that he can find work. He does have some support services through the [place]. MENTAL STATUS EXAM: Patient was lying in bed with his head up. He gave fairly good eye contact. Psychomotor activity was a little restless. He answered questions appropriately. He did not say a lot. His responses were limited. His thoughts were clear and coherent. His affect constricted. His mood dysphoric. He was significantly distressed. There was no indication of thought disorder. He denied thoughts of harm to self or others. On cognitive exam, he was oriented and alert. ASSESSMENT: I will continue diagnosis of alcohol dependence and acute alcohol withdrawal. I had an extensive discussion with the patient regarding withdrawal issues. I will make an effort to contact the petitioner, who is a cousin in regard to safety issues. At this point, I would continue psychotropic medications the same including Zoloft 200 mg a day, Seroquel 75 mg a day and naltrexone which was started during his hospitalization at 50 mg a day. I briefly reviewed issues regarding Vivitrol, which the patient had some awareness of from his recent [facility] admission. I will continue to follow. MMODL / IJN: [id number] /
--- NOTE | 2020-04-28 11:25 | CONS ---
CONSULTATION DATE OF SERVICE: 04/28/2020 PURPOSE FOR CONSULTATION: Evaluate for depression and suicidality in the midst of alcohol abuse. INTERVAL HISTORY: The patient has been doing fair. He had a quiet day yesterday. After I saw him yesterday, we had the one on one sitter relieved. The patient had no problems in the evening time. The patient was hoping to be discharged yesterday but was in agreement with continuing the hospitalization until we clarified issues relating to the petition. I called the petitioner, though did not receive a call back. The patient slept fair last night unit. Unit staff indicates that the petitioner made contact with the unit today and indicated that he was withdrawing the petition. For the patient's part, he continues to have a fairly reasonable outlook. He denies any thoughts of harm. He is focused on making efforts to not relapse to drinking. We had an extensive discussion regarding relapse in the course of treating alcohol dependence issues. The patient does have support through [facility] and says he has a positive relationship with his counselor at [facility]. He also indicated he has an appointment tomorrow with the [facility] counselor. He says the counselor has provided him with a lot of support and guidance in dealing with alcohol issues as well as other matters as well. He denied any thoughts of self-harm today. When I saw him, he had clear thoughts. He still was a little restless, though overall seemed to be appropriate in his mood and function. He voiced fair understanding of issues he needs to deal with to get through early withdrawal and to work on a program of being completely free from alcohol use. ASSESSMENT: The patient is denying any thoughts of suicide. The petitioner withdrew the petition. The patient appears to be stable for outpatient for discharge from the hospital and outpatient followup. He has a followup appointment tomorrow with his therapist at [facility]. I provided him with a handout in regard to details of withdrawal issues which covers time course of withdrawal and range of things the patient can do himself to help manage early withdrawal. We discussed that the critical period of getting through withdrawal is the first 6 or 8 weeks. He likely is somewhere around day 21 in that time course given one day of relapse he had after months of being free of alcohol. I would continue naltrexone and his other psychotropic medications the same. MMODL / IJN: [id number] /
== END 2020-04-28 10:02 | disposition home or self-care (01) | DRG 897 ==
LOC: EC 21:27 → 4SSUR 04-27
PROVIDERS: ADMIT Hospitalist; ATTEND Hospitalist
DX: F10.229 Alcohol dependence with intoxication, unspecified (principal); R45.851 Suicidal ideations; F10.239 Alcohol dependence with withdrawal, unspecified; F43.10 Post-traumatic stress disorder, unspecified; F41.8 Other specified anxiety disorders; Z20.828 Contact with and (suspected) exposure to other viral communicable diseases; F17.200 Nicotine dependence, unspecified, uncomplicated; F12.90 Cannabis use, unspecified, uncomplicated; D72.829 Elevated white blood cell count, unspecified; I10 Essential (primary) hypertension; Y90.8 Blood alcohol level of 240 mg/100 ml or more; Z79.899 Other long term (current) drug therapy; Z87.820 Personal history of traumatic brain injury; Z56.0 Unemployment, unspecified; Z98.890 Other specified postprocedural states
CPT/HCPCS: 36415; 80048; 80320; 82075; 83735; 85025; 87635; 96372; 96374; 99285

== ENCOUNTER 2020-04-30 20:03 | Emergency (ER) | payer OTHER ==
[2020-04-30] MEDS ORDERED: LORazepam 1 MG TAB PO STA (22:28)
--- NOTE | 2020-04-30 22:37 | ED ---
Psych HPI - General Source: police Mode of arrival: ambulatory <Marie Crook - Last Filed: 04/30/20 22:34> <Devin [facility] - Last Filed: 05/01/20 10:57> - General Chief Complaint: Psychiatric Symptoms Stated Complaint: Mental Health Time Seen by Provider: 04/30/20 20:05 - History of Present Illness Initial Comments: The patient is a 34-year-old male history of alcohol abuse who presents to the emergency department on a pickup order. Patient states she is at home when the police attempted to breakdown a store. He doesn't know why they were there. Admits that he was drinking. Denies any drug use. He is not suicidal or homicidal. There is no domestic dispute. She was just recently hospitalized and discharged for alcohol withdrawal. 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 (Marie Crook) - Related Data Home Medications Medication Instructions Recorded Confirmed Cholecalciferol [Vitamin D3 (25 2,000 unit PO DAILY 04/26/20 04/30/20 Mcg = 1000 Iu)] Prazosin [Minipress] 5 mg PO HS 04/26/20 04/30/20 QUEtiapine [SEROquel] 75 mg PO HS 04/26/20 04/30/20 Previous Rx's Medication Instructions Recorded Naltrexone HCl [Revia] 50 mg PO DAILY 30 Days tab 03/18/20 Nicotine 21Mg/24Hr Patch [Habitrol] 1 patch TRANSDERM DAILY 30 Days 03/18/20 patch Sertraline [Zoloft] 200 mg PO DAILY 30 Days tab 03/18/20 Folic Acid 0.4 mg PO DAILY #30 tab 04/28/20 Metoprolol Tartrate [Lopressor] 25 mg PO BID #30 tab 04/28/20 Thiamine [Vitamin B-1] 100 mg PO BID-W/MEALS #30 tab 04/28/20 diazePAM [Valium] 5 mg PO Q8HR PRN 3 Days #9 tab 05/01/20 Allergies Allergy/AdvReac Type Severity Reaction Status Date / Time No Known Allergies Allergy Verified 04/30/20 20:09 Review of Systems ROS Other: All systems not noted in ROS Statement are negative. <Marie Crook - Last Filed: 04/30/20 22:34> ROS Other: All systems not noted in ROS Statement are negative. <Devin [facility] - Last Filed: 05/01/20 10:57> ROS Statement: Those systems with pertinent positive or pertinent negative responses have been documented in the HPI. Past Medical History Past Medical History: Hypertension Additional Past Medical History / Comment(s): ETOH abuse, past withdrawals- tremors/nausea History of Any Multi-Drug Resistant Organisms: None Reported Additional Past Surgical History / Comment(s): surgery for testicular torsion Past Anesthesia/Blood Transfusion Reactions: No Reported Reaction Past Psychological History: Anxiety, Depression, PTSD Smoking Status: Current every day smoker Past Alcohol Use History: Abuse Past Drug Use History: None Reported - Past Family History Mother Family Medical History: No Reported History Additional Family Medical History / Comment(s): Mother is healthy Father History Unknown: Yes Family Family Medical History: No Reported History <Marie Crook - Last Filed: 04/30/20 22:34> General Exam Limitations: no limitations <Marie Crook - Last Filed: 04/30/20 22:34> Course Vital Signs 04/30/20 05/01/20 05/01/20 20:05 02:00 06:55 Temperature 98.7 F 98.3 F 98.0 F Pulse Rate 156 H 99 105 H Respiratory 18 18 18 Rate Blood Pressure 138/98 147/79 155/84 O2 Sat by Pulse 97 95 97 Oximetry 05/01/20 05/01/20 05/01/20 08:00 09:00 10:00 Temperature Pulse Rate Respiratory 18 18 18 Rate Blood Pressure O2 Sat by Pulse Oximetry Medical Decision Making <Marie Crook - Last Filed: 04/30/20 22:34> <Devin [facility] - Last Filed: 05/01/20 10:57> - Medical Decision Making Upon arrival patient was placed into room 13. A thorough history and physical exam was performed. We do call [facility]. They state that the patient was picked up due to declining behavior at home. It was reported by his family that he has become more paranoid. Patient is intoxicated. Upon arrival the patient will be reevaluated and likely admitted (Marie Crook) Patient has been evaluated by EPS after he was sober. He is not suicidal, not homicidal. [place] to be safe for discharge. There was reassurance that the patient would follow up with [facility] as an outpatient. His brother is picking him up. Court order was revised to indicate that the patient can be discharged and will follow up as an outpatient. He is prescribed Valium to prevent alcohol withdrawal. No signs of DT (Devin [facility]) - Lab Data Lab Results 05/01/20 Range/Units 00:43 Urine Opiates Screen Not Detected (NotDetected) Ur Oxycodone Screen Not Detected (NotDetected) Urine Methadone Screen Not Detected (NotDetected) Ur Propoxyphene Screen Not Detected (NotDetected) Ur Barbiturates Screen Not Detected (NotDetected) U Tricyclic Antidepress Not Detected (NotDetected) Ur Phencyclidine Scrn Not Detected (NotDetected) Ur Amphetamines Screen Not Detected (NotDetected) U Methamphetamines Scrn Not Detected (NotDetected) U Benzodiazepines Scrn Detected H (NotDetected) Urine Cocaine Screen Not Detected (NotDetected) U Marijuana (THC) Screen Not Detected (NotDetected) Disposition <Marie Crook - Last Filed: 04/30/20 22:34> Is patient prescribed a controlled substance at d/c from ED?: No Time of Disposition: 10:56 <Devin [facility] - Last Filed: 05/01/20 10:57> Clinical Impression: Alcoholic intoxication Disposition: HOME SELF-CARE Condition: Fair Instructions (If sedation given, give patient instructions): Alcohol Intoxication (ED), Depression (DC), Depression (ED) Additional Instructions: These follow-up with [facility]. Prescriptions: diazePAM [Valium] 5 mg PO Q8HR PRN 3 Days #9 tab PRN Reason: Alcohol Withdrawal Referrals: None,Stated [Primary Care Provider] - 1-2 days Kary Roach MD [REFERRING] - 1-2 days
[2020-05-01] MEDS ORDERED: NICOTINE 21MG/24HR PATCH TRANSDERM STA (00:10)
[2020-05-01 00:15] VITALS: RESP 18
[2020-05-01 01:12] LABS: Amphetamine Screen,Urine Not Detected (NotDetected); Barbiturate Screen,Urine Not Detected (NotDetected); Benzodiazepines Screen,Urine Detected (NotDetected); Cocaine Screen,Urine Not Detected (NotDetected); Methadone Screen, Urine Not Detected (NotDetected); Opiate Screen,Urine Not Detected (NotDetected); Oxycodone Screen, Urine Not Detected (NotDetected); Phencyclidine Screen,Urine Not Detected (NotDetected); Tricyclic Antidepressant,Urine Not Detected (NotDetected); Urn Cannabinoid Scrn Not Detected (NotDetected)
[2020-05-01] MEDS ORDERED: LORazepam 1 MG TAB PO STA (03:15)
[2020-05-01] MEDS ORDERED: METOPROLOL TARTRATE 25 MG TAB PO STA (08:26)
[2020-05-01] MEDS ORDERED: diazePAM 5 MG TAB PO STA (10:09)
[2020-05-01 11:25] VITALS: BP 158/105; PULSE 87; TEMP 98.4
== END 2020-05-01 11:26 | disposition home or self-care (01) ==
LOC: EC 20:03
DX: F10.129 Alcohol abuse with intoxication, unspecified (principal); I10 Essential (primary) hypertension; F41.9 Anxiety disorder, unspecified; F32.9 Major depressive disorder, single episode, unspecified; F17.200 Nicotine dependence, unspecified, uncomplicated; Z79.899 Other long term (current) drug therapy; Y90.9 Presence of alcohol in blood, level not specified
CPT/HCPCS: 82075; 80306; 99284; S4990

== ENCOUNTER 2020-12-19 16:09 | Inpatient (IN) | payer MEDICAID, OTHER ==
[2020-12-19 16:45] LABS: Basophils % (A) 0 %; Eosinophils # (A) 0.1 k/uL (0-0.7); Eosinophils % (A) 1 %; HCT 39.3 % (39.0-53.0); HGB 15.7 gm/dL (13.0-17.5); Lymphocytes # (A) 1.7 k/uL (1.0-4.8); Lymphocytes % (A) 14 %; MCH 37.4 pg (25.0-35.0); MCV 93.7 fL (80.0-100.0); Monocytes # (A) 0.3 k/uL (0-1.0); Monocytes % (A) 2 %; Neutrophils # (A) 10.2 k/uL (1.3-7.7); Neutrophils % (A) 82 %; Platelet Count 250 k/uL (150-450); WBC 12.4 k/uL (3.8-10.6)
--- NOTE | 2020-12-19 16:58 | ED ---
General Adult HPI - General Chief complaint: Alcohol Stated complaint: Abdominal Pain Time Seen by Provider: 12/19/20 16:24 Source: patient Mode of arrival: ambulatory Limitations: no limitations - History of Present Illness Initial comments: Dictation was produced using [employer] dictation software. please excuse any grammatical, word or spelling errors. Chief Complaint: 35-year-old male presents to the emergency department for alcohol withdrawals History of Present Illness: She is a 35-year-old male he has past medical history of alcohol withdrawal. Patient states he drinks 2 fifths of alcohol daily. Last alcohol intake was this morning. Patient had 2 shots of liquor. Patient has had withdrawals in the past. He feels shaky. Patient also has some mild epigastric pain. Denies any nausea. No diarrhea. The ROS documented in this emergency department record has been reviewed and confirmed by me. Those systems with pertinent positive or negative responses have been documented in the HPI. All other systems are other negative and/or noncontributory. PHYSICAL EXAM: General Impression: Alert and oriented x3, tremulous, nondiaphoretic HEENT: Normocephalic atraumatic, extra-ocular movements intact, pupils equal and reactive to light bilaterally, mucous membranes moist. Cardiovascular: Heart regular rate and rhythm Chest: Able to complete full sentences, no retractions, no tachypnea Abdomen: abdomen soft, epigastric abdominal tenderness, non-distended, no organomegaly Musculoskeletal: Pulses present and equal in all extremities, no peripheral edema Motor: no focal deficits noted Neurological: CN II-XII grossly intact, no focal motor or sensory deficits noted Skin: Intact with no visualized rashes Psych: Normal affect and mood ED course: 31-year-old male presents to the emergency department for alcohol withdrawal. He also has epigastric abdominal pain. Vital signs upon arrival are within acceptable limits. Laboratory evaluation obtained. CBC is within acceptable limits. Metabolic panel shows sodium 128, there is mild anion gap acidosis likely alcoholic ketoacidosis. Magnesium 1.5, calcium is 8.1. Serum glucose 116. Case discussed with Dr. Solorio who is willing to accept patient care for admission. EKG interpretation: Ventricular rate 66, normal sinus showed, VT interval 120, QRS 102, QTc 442. No VT prolongation, no QTC prolongation, no ST or T-wave changes noted. Overall, this EKG is unremarkable Pending lipase and abdominal labs. Nonetheless patient started on fluids, CIWA protocol, patient ordered for variable dose Ativan. - Related Data Home Medications Medication Instructions Recorded Confirmed No Known Home Medications 12/19/20 12/19/20 Allergies Allergy/AdvReac Type Severity Reaction Status Date / Time No Known Allergies Allergy Verified 12/19/20 18:45 Review of Systems ROS Statement: Those systems with pertinent positive or pertinent negative responses have been documented in the HPI. ROS Other: All systems not noted in ROS Statement are negative. Past Medical History Past Medical History: Hypertension Additional Past Medical History / Comment(s): ETOH abuse, past withdrawals- tremors/nausea History of Any Multi-Drug Resistant Organisms: None Reported Additional Past Surgical History / Comment(s): surgery for testicular torsion Past Anesthesia/Blood Transfusion Reactions: No Reported Reaction Past Psychological History: Anxiety, Depression, PTSD Smoking Status: Current every day smoker Past Alcohol Use History: Abuse Past Drug Use History: Marijuana - Past Family History Mother Family Medical History: No Reported History Additional Family Medical History / Comment(s): Mother is healthy Father History Unknown: Yes Family Family Medical History: No Reported History General Exam Limitations: no limitations Course Vital Signs 12/19/20 16:19 Temperature 98 F Pulse Rate 99 Respiratory 18 Rate Blood Pressure 153/93 O2 Sat by Pulse 99 Oximetry Medical Decision Making - Lab Data Result diagrams: 12/19/20 16:28 12/19/20 16:28 Lab Results 12/19/20 12/19/20 12/19/20 Range/Units 16:28 16:28 16:28 WBC 12.4 H (3.8-10.6) k/uL RBC 4.20 L (4.30-5.90) m/uL Hgb 15.7 (13.0-17.5) gm/dL Hct 39.3 (39.0-53.0) % MCV 93.7 (80.0-100.0) fL MCH 37.4 H (25.0-35.0) pg MCHC 40.0 H (31.0-37.0) g/dL RDW 14.0 (11.5-15.5) % Plt Count 250 (150-450) k/uL MPV 7.0 Neutrophils % 82 % Lymphocytes % 14 % Monocytes % 2 % Eosinophils % 1 % Basophils % 0 % Neutrophils # 10.2 H (1.3-7.7) k/uL Lymphocytes # 1.7 (1.0-4.8) k/uL Monocytes # 0.3 (0-1.0) k/uL Eosinophils # 0.1 (0-0.7) k/uL Basophils # 0.0 (0-0.2) k/uL Sodium 128 L (137-145) mmol/L Potassium 5.0 (3.5-5.1) mmol/L Chloride 97 L (98-107) mmol/L Carbon Dioxide 19 L (22-30) mmol/L Anion Gap 12 mmol/L BUN 7 L (9-20) mg/dL Creatinine 0.80 (0.66-1.25) mg/dL Est GFR (CKD-EPI)AfAm >90 (>60 ml/min/1.73 sqM) Est GFR (CKD-EPI)NonAf >90 (>60 ml/min/1.73 sqM) Glucose 112 H (74-99) mg/dL Calcium 8.1 L (8.4-10.2) mg/dL Magnesium 1.5 L (1.6-2.3) mg/dL Lipase (23-300) U/L Serum Alcohol 116 mg/dL Disposition Clinical Impression: Alcohol withdrawal, Alcoholic ketoacidosis Disposition: ADMITTED IP TO THIS HOSP Condition: Fair Referrals: None,Stated [Primary Care Provider] - 1-2 days
[2020-12-19 17:00] LABS: African American GFR (CKD) >90 (>60 ml/min/1.73 sqM); Anion Gap 12 mmol/L; Blood Urea Nitrogen 7 mg/dL (9-20); Calcium 8.1 mg/dL (8.4-10.2); Carbon Dioxide 19 mmol/L (22-30); Chloride 97 mmol/L (98-107); Glucose 112 mg/dL (74-99); Magnesium 1.5 mg/dL (1.6-2.3); Non-African American GFR(CKD) >90 (>60 ml/min/1.73 sqM); Sodium 128 mmol/L (137-145)
[2020-12-19 17:10] LABS: Alcohol 116 mg/dL
[2020-12-19] MEDS ORDERED: THIAMINE 100 MG/ML 2 ML VIAL IM STA (18:05)
[2020-12-19] MEDS ORDERED: LORazepam 2 MG/ML INJ IV PRN (18:05)
[2020-12-19] MEDS: LORazepam 2 MG/ML INJ IV PRN (18:45)
[2020-12-19] MEDS: MAGNESIUM SULFATE-D5W PMX 1 GM in DEXTROSE/WATER 1 100ML.BAG IVPB SCH ×2 (18:50→19:54)
[2020-12-19] MEDS ORDERED: SODIUM CHLORIDE 0.9% 1,000 ML IV STA ×2 (19:36)
[2020-12-19 20:03] LABS: ALT 93 U/L (4-49); AST 120 U/L (17-59); Alkaline Phosphatase 145 U/L (38-126)
[2020-12-19] MEDS ORDERED: NALOXONE 0.4 MG/ML 1 ML VIAL IV PRN (21:33)
[2020-12-19] MEDS ORDERED: ONDANSETRON 4 MG/2 ML VIAL IVP STA (22:08)
[2020-12-19] MEDS: MORPHINE SULFATE 4 MG/ML SYRINGE IVP PRN (22:15)
--- NOTE | 2020-12-19 22:34 | CT ---
EXAMINATION TYPE: CT abdomen w con DATE OF EXAM: 12/19/2020 COMPARISON: None HISTORY: Abdominal pain, ETOH abuse. CT DLP: 636.9 mGycm Automated exposure control for dose reduction was used. CONTRAST: Performed with IV Contrast, patient injected with 100 mL of Isovue 300. Images obtained from the diaphragm to the iliac crests with IV contrast. Lung bases are clear. There is no pleural effusion. Heart size is normal. There is no pericardial eff usion. There is some mild fatty infiltration of the liver. Spleen and stomach appear intact. There is no pancreatic mass. Gallbladder appears normal. The stomach is intact. There is no adrenal mass. Kid neys show satisfactory contrast opacification. There is no hydronephrosis. Ureters are not dilated. T here is no retroperitoneal adenopathy. There is wall thickening and fat stranding around the descending duodenum. This measures up to 1.5 cm in thickness. There is some minimal small bowel mesenteric edema at the root of the mesentery. The lumbar vertebra have normal alignment. There is no compression fracture. Posterior elements are i ntact. There is no lumbar paraspinal mass. IMPRESSION: Wall thickening and inflammatory changes of the descending duodenum consistent with a nonspecific inf lammatory process. This is probably duodenitis. No free air. No dilated ducts. No pancreatic mass see n. Fatty infiltration of the liver.
--- NOTE | 2020-12-20 00:11 | P.HPIM ---
History of Present Illness H&P Date: 12/20/20 The patient is a 35-year-old male with a PMH of EtOH abuse and hypertension who presented to the emergency room with complaints of alcohol withdrawal. The patient reports that over the past few days, he has gradually been cutting down his alcohol intake as he wishes to get clean. He reports that he typically drinks 2 fifths of vodka daily, but has been gradually coming down and had only 2 shots this morning at 9 AM. He reports feeling shaky as though he is trying. He also reported epigastric abdominal pain, ongoing for the past 1-2 days, 5 out of 10 in intensity, aching in nature, nonradiating, with no clear alleviating or exacerbating features. He reports a prior history of alcohol withdrawals and having required Ativan infusions. He denied additional complaints. He denied chest discomfort, shortness of breath, fever, chills, cough, nausea, vomiting, diarrhea. In the emergency room, laboratory evaluation was remarkable for leukocytosis of 12.4, sodium 128, chloride 97, CO2 19, magnesium 1.5, AST 120, ALT 93, alk phos 145, and lipase unobtainable due to specimen being highly lipemic. CT abdomen with contrast revealed wall thickening and inflammatory changes of the descending duodenum consistent with nonspecific inflammatory process but otherwise unremarkable. Review of systems: Pertinent positives and negatives as discussed in HPI, a complete review of systems was performed and all other systems are negative. Physical examination: General: non toxic, no distress, appears at stated age, normal weight Derm: no unusual rashes/lesions no unusual ecchymoses, warm, dry Head: atraumatic, normocephalic, symmetric Eyes: EOMI, no lid lag, anicteric sclera, pupils equal round reactive to light ENT: Nose and ears atraumatic,thrush noted, no pharyngeal erythema Neck: No thyromegaly, no cervical lymphadenopathy, trachea midline, supple Mouth: no lip lesion, mucus membranes moist Cardiovascular: S1S2 reg, no murmur, positive posterior tibial pulse bilateral, no edema, capillary refill less than 2 seconds Lungs: CTA bilateral, no rhonchi, no rales , no accessory muscle use Abdominal: soft, mild epigastric tenderness to palpation, no guarding, no appreciable organomegaly, normal bowel sounds Ext: no gross muscle atrophy, muscle strength 5 out of 5 in all 4 extremities grossly, no contractures, Neuro: CN II-XI grossly intact, light touch intact all 4 extremities, mild outstretched hand tremor noted Psych: Alert, oriented, appropriate affect Assessment/plan EtOH abuse, impending withdrawal -[facility] protocol -Fall, aspiration, seizure precautions -Thiamine, multivitamin -IV fluids Epigastric abdominal pain, suspected pancreatitis -Continue with IV fluids -Obtain lipid panel and subsequent lipase -Pain control Leukocytosis with no signs of active infection at this time -Likely secondary to acute distress or Oral thrush -Nystatin orally Hyponatremia -Likely due to poor oral intake -Monitor for now Hypomagnesemia -Replace and monitor Abnormal LFTs -Likely due to EtOH abuse -Monitor for now DVT prophylaxis -Heparin subq The patient is admitted with an anticipated greater than 2 midnight stay for evaluation of EtOH abuse. CODE STATUS:Full Code Discussed with: Patient Anticipated discharge date: 2-[address]: Home Past Medical History Past Medical History: Hypertension Additional Past Medical History / Comment(s): ETOH abuse, past withdrawals-tremors/nausea History of Any Multi-Drug Resistant Organisms: None Reported Additional Past Surgical History / Comment(s): surgery for testicular torsion Past Anesthesia/Blood Transfusion Reactions: No Reported Reaction Past Psychological History: Anxiety, Depression, PTSD Smoking Status: Current every day smoker Past Alcohol Use History: Abuse Past Drug Use History: Marijuana - Past Family History Mother Family Medical History: No Reported History Additional Family Medical History / Comment(s): Mother is healthy Father History Unknown: Yes Family Family Medical History: No Reported History Medications and Allergies Home Medications Medication Instructions Recorded Confirmed Type No Known Home Medications 12/19/20 12/19/20 History Allergies Allergy/AdvReac Type Severity Reaction Status Date / Time No Known Allergies Allergy Verified 12/19/20 18:45 Physical Exam Vitals: Vital Signs Temp Pulse Resp BP Pulse Ox 12/19/20 21:09 100.5 F H 100 18 154/108 98 12/19/20 16:19 98 F 99 18 153/93 99 Intake and Output 12/19/20 12/19/20 12/19/20 06:59 14:59 22:59 Other: Weight 74.843 kg Results CBC & Chem 7: 12/19/20 16:28 12/19/20 16:28 Labs: Abnormal Lab Results - Last 24 Hours (Table) 12/19/20 12/19/20 12/19/20 Range/Units 16:28 16:28 19:13 WBC 12.4 H (3.8-10.6) k/uL RBC 4.20 L (4.30-5.90) m/uL MCH 37.4 H (25.0-35.0) pg MCHC 40.0 H (31.0-37.0) g/dL Neutrophils # 10.2 H (1.3-7.7) k/uL Sodium 128 L (137-145) mmol/L Chloride 97 L (98-107) mmol/L Carbon Dioxide 19 L (22-30) mmol/L BUN 7 L (9-20) mg/dL Glucose 112 H (74-99) mg/dL Calcium 8.1 L (8.4-10.2) mg/dL Magnesium 1.5 L (1.6-2.3) mg/dL AST 120 H (17-59) U/L ALT 93 H (4-49) U/L Alkaline Phosphatase 145 H (38-126) U/L
[2020-12-20] MEDS: LORazepam 2 MG/ML INJ IV PRN ×4 (00:43→19:52)
[2020-12-20] MEDS: SODIUM CHLORIDE 0.9% 1,000 ML IV SCH ×3 (00:46→07:23)
[2020-12-20] MEDS: MORPHINE SULFATE 4 MG/ML SYRINGE IVP PRN ×2 (05:09→21:30)
[2020-12-20 06:29] LABS: HGB 12.8 gm/dL (13.0-17.5); MCH 33.9 pg (25.0-35.0); MCHC 35.7 g/dL (31.0-37.0); MCV 95.2 fL (80.0-100.0); Mean Platelet Volume 7.8; Platelet Count 186 k/uL (150-450); RBC 3.78 m/uL (4.30-5.90); RDW 13.6 % (11.5-15.5); WBC 8.9 k/uL (3.8-10.6)
[2020-12-20 06:45] LABS: ALT 70 U/L (4-49); AST 85 U/L (17-59); African American GFR (CKD) >90 (>60 ml/min/1.73 sqM); Albumin 2.8 g/dL (3.5-5.0); Alkaline Phosphatase 143 U/L (38-126); Anion Gap 4 mmol/L; Blood Urea Nitrogen 3 mg/dL (9-20); Calcium 7.7 mg/dL (8.4-10.2); Carbon Dioxide 23 mmol/L (22-30); Chloride 101 mmol/L (98-107); Globulin 2.8 g/dL; Glucose 105 mg/dL (74-99); Lipase 234 U/L (23-300); Magnesium 1.7 mg/dL (1.6-2.3); Non-African American GFR(CKD) >90 (>60 ml/min/1.73 sqM); Sodium 128 mmol/L (137-145); Total Bilirubin 1.6 mg/dL (0.2-1.3); Total Protein 5.6 g/dL (6.3-8.2)
[2020-12-20] MEDS: THIAMINE 100 MG TAB PO SCH ×2 (07:15→17:24)
[2020-12-20] MEDS: HEPARIN SODIUM,PORCINE/PF 5,000 UNIT/0.5 ML SYRINGE SQ SCH ×2 (07:15→16:21)
[2020-12-20] MEDS: NYSTATIN 100,000 UNIT/ML SUSP 500,000 UNIT/5 ML CUP PO SCH ×3 (07:23→18:02)
[2020-12-20 10:58] LABS: Chol/HDL Ratio 8.35; Cholesterol 434 mg/dL (0-200); Triglycerides >1100.0 mg/dL (0.0-149.0)
[2020-12-20] MEDS ORDERED: PANTOPRAZOLE 40 MG/10 ML VIAL IVP SCH (11:30)
[2020-12-20] MEDS: diazePAM 5 MG TAB PO SCH ×2 (11:45→21:31)
[2020-12-20] MEDS: NICOTINE 21MG/24HR PATCH TRANSDERM SCH (11:45)
--- NOTE | 2020-12-20 12:55 | P.DS ---
Providers Date of admission: 12/19/20 21:33 Expected date of discharge: 12/20/20 Attending physician: Jessika Rose MD Primary care physician: Stated None Hospital Course: Patient is a 35-year-old male for history of alcohol abuse, hypertension, and prior alcohol withdrawal who presented emergency room secondary to alcohol withdrawal. In the ER he underwent an extensive evaluation. CT abdomen and pelvis showed duodenitis. Laboratory analysis was significant for white blood cell, 12.4, sodium 128, carbon dioxide 12, magnesium 1.5, AST 20, and ALT 93. He was started on IV fluids, CIWA protocol, and electrolyte replacements. He was admitted for further monitoring. Patient seen and examined at bedside. He is complaining of significant acid reflux and indigestion. He has been drinking 2/5 daily and not eating almost anything. He reports he has been drinking for one year but was due to start a job and is trying to get his life back together. He does not want to go to inpatient rehab at this time. He reports his headache is better, he continues to have some shaking, nausea, sensation of bugs crawling on his arm. He denies any auditory or visual hallucinations. He denies any chest pain or shortness of breath. General: Disheveled, ill-appearing, appears at stated age Derm: Multiple tattoos, warm, dry Head: atraumatic, normocephalic, symmetric Eyes: EOMI, no lid lag, anicteric sclera, conjunctival erythema Mouth: no lip lesion, mucus membranes moist Cardiovascular: S1S2 reg, no murmur, positive posterior tibial pulse bilateral, Lungs: CTA bilateral, no rhonchi, no rales , no accessory muscle use Abdominal: soft, tender to palpation epigastric, no guarding, no appreciable organomegaly Ext: no gross muscle atrophy, no edema, no contractures Neuro: CN II-XI grossly intact, no focal neuro deficits + tremor bilateral Psych: Alert, oriented, appropriate affect Alcohol withdrawal Alcohol abuse -CIWA protocol -Thiamine, folic acid, multivitamin -Fall and seizure precautions -IV fluids -With history of significant withdrawal and past start Valium Hyponatremia -Likely secondary to poor solute intake -Continue IV fluids -Continue encourage oral intake -Recheck at 5 PM and in a.m. Duodenitis doubt infectious Alcohol-induced gastritis -IV PPI -IV fluids -Pain control Thrush - nystatin swish and swallow Tobacco abuse -Cessation -Nicotine replacement Hypomagnesemia -Replace Mild alcoholic hepatitis -Metric discriminate function unable be calculated is no PT/INR available - Repeat LFTs in a.m. with PT PTT DVT prophylaxis: SCDs Discussed with:, Nursing, social work Anticipated discharge: 2-[address]: Home A total of 35 minutes was spent on the care of this complex patient more than 50% of the time was spent in counseling and care coordination. Patient Condition at Discharge: Fair Plan - Discharge Summary New Discharge Prescriptions: No Action No Known Home Medications Discharge Medication List No Known Home Medications 12/19/20 [History] Follow up Appointment(s)/Referral(s): None,Stated [Primary Care Provider] - 1-2 days
[2020-12-20] MEDS: FENOFIBRATE 160 MG TAB PO SCH (15:21)
[2020-12-20 18:04] LABS: African American GFR (CKD) >90 (>60 ml/min/1.73 sqM); Anion Gap 6 mmol/L; Blood Urea Nitrogen 2 mg/dL (9-20); Calcium 7.9 mg/dL (8.4-10.2); Carbon Dioxide 24 mmol/L (22-30); Chloride 99 mmol/L (98-107); Glucose 109 mg/dL (74-99); Non-African American GFR(CKD) >90 (>60 ml/min/1.73 sqM); Potassium 3.7 mmol/L (3.5-5.1); Sodium 129 mmol/L (137-145)
[2020-12-21] MEDS: SODIUM CHLORIDE 0.9% 1,000 ML IV SCH ×3 (01:03→13:49)
[2020-12-21] MEDS: NYSTATIN 100,000 UNIT/ML SUSP 500,000 UNIT/5 ML CUP PO SCH ×3 (01:03→13:49)
[2020-12-21] MEDS: HEPARIN SODIUM,PORCINE/PF 5,000 UNIT/0.5 ML SYRINGE SQ SCH ×2 (01:03→08:13)
[2020-12-21] MEDS: MORPHINE SULFATE 4 MG/ML SYRINGE IVP PRN (04:35)
[2020-12-21 06:15] LABS: HCT 35.9 % (39.0-53.0); HGB 12.3 gm/dL (13.0-17.5); MCH 33.5 pg (25.0-35.0); MCHC 34.3 g/dL (31.0-37.0); MCV 97.7 fL (80.0-100.0); Mean Platelet Volume 7.6; Platelet Count 169 k/uL (150-450); RBC 3.68 m/uL (4.30-5.90); RDW 14.5 % (11.5-15.5); WBC 7.8 k/uL (3.8-10.6)
[2020-12-21 06:24] LABS: Prothrombin Time 11.1 sec (9.0-12.0)
[2020-12-21] MEDS ORDERED: PANTOPRAZOLE 40 MG TABLET PO SCH (07:30)
[2020-12-21] MEDS: FENOFIBRATE 160 MG TAB PO SCH (08:13)
[2020-12-21] MEDS: diazePAM 5 MG TAB PO SCH (08:13)
[2020-12-21] MEDS: THIAMINE 100 MG TAB PO SCH (08:13)
[2020-12-21] MEDS: NICOTINE 21MG/24HR PATCH TRANSDERM SCH (08:14)
[2020-12-21] MEDS ORDERED: FOLIC ACID 1 MG TAB PO SCH (09:00)
[2020-12-21 09:53] LABS: ALT 61 U/L (10-49); AST 69 U/L (14-35); African American GFR (CKD) 134.1 (60.0-200.0); Albumin/Globulin Ratio 1.35 (1.60-3.17); Alkaline Phosphatase 157 U/L (41-126); Blood Urea Nitrogen <5.0 mg/dL (9.0-27.0); Calcium 7.8 mg/dL (8.7-10.3); Carbon Dioxide 26.1 mmol/L (21.6-31.8); Chloride 101 mmol/L (96-109); Globulin 2.3 g/dL (1.6-3.3); Glucose 103 mg/dL (70-110); Lipase 44 U/L (14-60); Non-African American GFR(CKD) 115.7 (60.0-200.0); Potassium 3.5 mmol/L (3.5-5.5); Sodium 135 mmol/L (135-145); Total Bilirubin 1.1 mg/dL (0.2-1.2); Total Protein 5.4 g/dL (6.2-8.2)
[2020-12-21] MEDS ORDERED: MORPHINE SULFATE 2 MG/ML SYRINGE IVP PRN (10:48)
[2020-12-21 12:16] VITALS: BP 134/91; PULSE 91; RESP 17; TEMP 98.6
--- NOTE | 2020-12-21 14:45 | P.PN ---
Subjective Progress Note Date: 12/21/20 Principal diagnosis: CC: abdominal pain Patient is a 35-year-old male for history of alcohol abuse, hypertension, and prior alcohol withdrawal who presented emergency room secondary to alcohol withdrawal. In the ER he underwent an extensive evaluation. CT abdomen and pelvis showed duodenitis. Laboratory analysis was significant for white blood cell, 12.4, sodium 128, carbon dioxide 12, magnesium 1.5, AST 20, and ALT 93. He was started on IV fluids, CIWA protocol, and electrolyte replacements. He was admitted for further monitoring. Patient states that he still having abdominal pain on the right side. Patient had Valium this morning. He states that he has mild hand tremors. He denies any hallucinations or diaphoresis. Patient had a total of 2 mg of IV Ativan in the past 24 hours. Objective - Vital Signs Vital signs: Vital Signs Temp 98.6 F 12/21/20 12:15 Pulse 91 12/21/20 12:15 Resp 17 12/21/20 12:15 BP 134/91 12/21/20 12:15 Pulse Ox 96 12/21/20 12:15 Intake & Output 12/20/20 12/21/20 12/21/20 18:59 06:59 18:59 Intake Total 2420 300 240 Balance 2420 300 240 Intake: Intake, IV Titration 1560 Amount Sodium Chloride 0.9% 1, 1560 000 ml @ 130 mls/hr IV . [id number] [facility] Rx#:[id number] Oral 860 300 240 Other: Voiding Method Toilet Toilet Urinal Urinal # Voids 3 2 - Exam General examination - Alert and Oriented 3 in NAD Heart - + S1S2 no murmurs Lungs - Clear to auscultation Abdomen tenderness to palpate on the right side +ve BS Extremities - No edema, mild hand tremors [employer] - Moving all 4 extremities spontaneously Psych - Calm and cooperative - Labs CBC & Chem 7: 12/21/20 05:46 12/21/20 05:46 Labs: Abnormal Lab Results - Last 24 Hours (Table) 12/20/20 12/21/20 12/21/20 Range/Units 17:10 05:46 05:46 RBC 3.68 L (4.30-5.90) m/uL Hgb 12.3 L (13.0-17.5) gm/dL Hct 35.9 L (39.0-53.0) % Sodium 129 L (137-145) mmol/L BUN 2 L <5.0 L (9-20) mg/dL Glucose 109 H (74-99) mg/dL Calcium 7.9 L 7.8 L (8.4-10.2) mg/dL AST 69 H (14-35) U/L ALT 61 H (10-49) U/L Alkaline Phosphatase 157 H (41-126) U/L Total Protein 5.4 L (6.2-8.2) g/dL Albumin 3.10 L (3.80-4.90) g/dL Albumin/Globulin Ratio 1.35 L (1.60-3.17) g/dL Assessment and Plan Assessment: #Alcohol withdrawal #Alcohol abuse -[facility] protocol -Thiamine, folic acid, multivitamin -Fall and seizure precautions -IV fluids -DC Valium #Hyponatremia -resolved with fluids #Duodenitis doubt infectious Alcohol-induced gastritis -IV PPI -IV fluids -Pain control #Thrush - nystatin swish and swallow #Tobacco abuse -Cessation -Nicotine replacement #Hypomagnesemia -Replaced #Mild alcoholic hepatitis -LFT are stable DVT prophylaxis: SCDs Discussed with:, Nursing, social work Anticipated discharge: [address]: Home A total of 35 minutes was spent on the care of this complex patient more than 50% of the time was spent in counseling and care coordination. #Lactic acidosis -Normalized with fluids Chronic conditions: DVT/PE -Continue with home meds DVT prophylaxis -Coumadin CODE STATUS: Full code Discussed with: patient Anticipated discharge date: 2-[address]: Home
--- NOTE | 2020-12-21 15:00 | P.DS ---
Providers Date of admission: 12/19/20 21:33 Expected date of discharge: 12/21/20 Attending physician: Jessika Rose MD Primary care physician: Stated None Hospital Course: Discharge Diagnosis: #Alcohol withdrawal #Alcohol abuse #Hyponatremia: resolved #Duodenitis doubt infectious Alcohol-induced gastritis #Thrush: DC on nystatin #Tobacco abuse #Hypomagnesemia #Mild alcoholic hepatitis -LFT are stable #Lactic acidosis -Normalized with fluids Hospital Course: Patient is a 35-year-old male for history of alcohol abuse, hypertension, and prior alcohol withdrawal who presented emergency room secondary to alcohol withdrawal. In the ER he underwent an extensive evaluation. CT abdomen and pelvis showed duodenitis. Laboratory analysis was significant for white blood cell, 12.4, sodium 128, carbon dioxide 12, magnesium 1.5, AST 20, and ALT 93. He was started on IV fluids, CIWA protocol, and electrolyte replacements. He was admitted for further monitoring. On the day of discharge in the morning patient was complaining of abdominal pain. However later in the afternoon patient reported that his abdominal pain was better and he wanted to go home. Patient does not want help regarding his alcohol abuse. He refused inpatient rehab. I do not see any point in detoxing the patient. Patient currently not in withdrawal. He is stable for discharge. Patient was counseled on alcohol cessation. Please see progress note for physical exam A total of [32] minutes of time were spent preparing this complex discharge summary . Patient Condition at Discharge: Fair Plan - Discharge Summary New Discharge Prescriptions: New Nystatin 100,000 Unit/ml Susp [Mycostatin Oral Susp] 500,000 unit PO QID 7 Days ml Pantoprazole [Protonix] 40 mg PO AC-BRKFST #30 tablet. Discharge Medication List Nystatin 100,000 Unit/ml Susp [Mycostatin Oral Susp] 500,000 unit PO QID 7 Days ml 12/21/20 [Rx] Pantoprazole [Protonix] 40 mg PO AC-BRKFST #30 tablet. 12/21/20 [Rx] Follow up Appointment(s)/Referral(s): None,Stated [Primary Care Provider] - 1-2 days Discharge Disposition: HOME SELF-CARE
== END 2020-12-21 15:20 | disposition home or self-care (01) | DRG 439 ==
LOC: EC 16:09 → 5NMEDONC 21:33
PROVIDERS: ADMIT Internal Medicine; ATTEND Internal Medicine
PROC: HZ2ZZZZ Detoxification Services for Substance Abuse Treatment (ICD-10-PCS; principal; 2020-12-19)
DX: K85.20 Alcohol induced acute pancreatitis without necrosis or infection (principal); B37.0 Candidal stomatitis; E87.1 Hypo-osmolality and hyponatremia; E87.2 Acidosis; F10.239 Alcohol dependence with withdrawal, unspecified; D72.829 Elevated white blood cell count, unspecified; E83.42 Hypomagnesemia; F17.210 Nicotine dependence, cigarettes, uncomplicated; F32.9 Major depressive disorder, single episode, unspecified; F43.10 Post-traumatic stress disorder, unspecified; I10 Essential (primary) hypertension; K21.9 Gastro-esophageal reflux disease without esophagitis; K29.20 Alcoholic gastritis without bleeding; K29.80 Duodenitis without bleeding; K70.10 Alcoholic hepatitis without ascites; Z71.6 Tobacco abuse counseling; Y90.5 Blood alcohol level of 100-119 mg/100 ml
CPT/HCPCS: 36415; 74160; 80048; 80053; 80061; 80320; 83690; 83721; 83735; 84075; 84450; 84460; 85025; 85027; 85610; 93005; 96361; 96365; 96366; 96372; 96375; 99285

== ENCOUNTER 2020-12-29 14:29 | Inpatient (IN) | payer OTHER ==
--- NOTE | 2020-12-29 15:45 | ED ---
General Adult HPI - General Chief complaint: Psychiatric Symptoms Stated complaint: alcohol withdrawal, suicidal Time Seen by Provider: 12/29/20 15:21 Source: patient, RN notes reviewed Mode of arrival: ambulatory Limitations: no limitations - History of Present Illness Initial comments: 35-year-old male with a past medical history of alcohol abuse, hypertension presents to the emergency room for suicidal thoughts. Patient reports that since he got out of the [employer] in 2014 he has had suicidal thoughts. States that his brothers talked to him today and really wanted him to get help. Patient states he does have a plan of suicide using a gun however his family is currently keeping his guns locked up. Patient states he has been prescribed medications for depression before but they do not help. Patient states he was drinking alcohol today. States he usually drinks about 2 fifths of liquor per day. States he usually cannot get sober because he starts to withdrawal. States he has had seizures before. Patient has no other complaints at this time including shortness of breath, chest pain, abdominal pain, nausea or vomiting, headache, or visual changes. - Related Data Home Medications Medication Instructions Recorded Confirmed Nystatin 100,000 Unit/ml Susp 500,000 unit PO DIRECTED 12/29/20 12/29/20 [Mycostatin Oral Susp] Previous Rx's Medication Instructions Recorded Pantoprazole [Protonix] 40 mg PO AC-BRKFST #30 tablet. 12/21/20 Allergies Allergy/AdvReac Type Severity Reaction Status Date / Time No Known Allergies Allergy Verified 12/29/20 15:56 Review of Systems ROS Statement: Those systems with pertinent positive or pertinent negative responses have been documented in the HPI. ROS Other: All systems not noted in ROS Statement are negative. Past Medical History Past Medical History: Hypertension Additional Past Medical History / Comment(s): ETOH abuse, past withdrawals-joleen mors/nausea History of Any Multi-Drug Resistant Organisms: None Reported Additional Past Surgical History / Comment(s): surgery for testicular torsion Past Anesthesia/Blood Transfusion Reactions: No Reported Reaction Past Psychological History: Anxiety, Depression, PTSD Smoking Status: Current every day smoker Past Alcohol Use History: Abuse Past Drug Use History: Marijuana - Past Family History Mother Family Medical History: No Reported History Additional Family Medical History / Comment(s): Mother is healthy Father History Unknown: Yes Family Family Medical History: No Reported History General Exam Limitations: no limitations General appearance: alert Head exam: Present: atraumatic Eye exam: Present: normal appearance, PERRL, EOMI. Absent: scleral icterus ENT exam: Present: normal exam, mucous membranes moist Neck exam: Present: normal inspection, full ROM. Absent: tenderness Respiratory exam: Present: normal lung sounds bilaterally. Absent: respiratory distress, wheezes Cardiovascular Exam: Present: regular rate, normal rhythm, normal heart sounds GI/Abdominal exam: Present: soft, normal bowel sounds. Absent: distended, tenderness Neurological exam: Present: alert Course Vital Signs 12/29/20 12/29/20 12/29/20 14:53 15:57 16:00 Temperature 98.8 F Pulse Rate 117 H Respiratory 19 18 18 Rate Blood Pressure 139/86 O2 Sat by Pulse 97 Oximetry 12/29/20 12/29/20 17:00 18:00 Temperature Pulse Rate Respiratory 18 18 Rate Blood Pressure O2 Sat by Pulse Oximetry Medical Decision Making - Medical Decision Making Vitals are stable. Patient initially tachycardic likely secondary to anxiety given he is tearful and anxious in exam room. Laboratory evaluation is unremarkable aside from a significantly elevated serum alcohol of 373. At this time patient will be admitted for consultation with psychiatry. Case discussed with Dr. Cheney who does accept admission - Lab Data Result diagrams: 12/29/20 16:51 12/29/20 16:51 Lab Results 12/29/20 12/29/20 12/29/20 Range/Units 15:46 16:51 16:51 WBC 3.5 L (3.8-10.6) k/uL RBC 4.16 L (4.30-5.90) m/uL Hgb 14.0 (13.0-17.5) gm/dL Hct 40.6 (39.0-53.0) % MCV 97.7 (80.0-100.0) fL MCH 33.7 (25.0-35.0) pg MCHC 34.5 (31.0-37.0) g/dL RDW 15.0 (11.5-15.5) % Plt Count 389 D (150-450) k/uL MPV 6.6 Neutrophils % 41 % Lymphocytes % 48 % Monocytes % 6 % Eosinophils % 1 % Basophils % 1 % Neutrophils # 1.4 (1.3-7.7) k/uL Lymphocytes # 1.7 (1.0-4.8) k/uL Monocytes # 0.2 (0-1.0) k/uL Eosinophils # 0.1 (0-0.7) k/uL Basophils # 0.0 (0-0.2) k/uL Sodium 142 (137-145) mmol/L Potassium 4.4 (3.5-5.1) mmol/L Chloride 108 H (98-107) mmol/L Carbon Dioxide 26 (22-30) mmol/L Anion Gap 8 mmol/L BUN 2 L (9-20) mg/dL Creatinine 0.95 (0.66-1.25) mg/dL Est GFR (CKD-EPI)AfAm >90 (>60 ml/min/1.73 sqM) Est GFR (CKD-EPI)NonAf >90 (>60 ml/min/1.73 sqM) Glucose 105 H (74-99) mg/dL Calcium 8.7 (8.4-10.2) mg/dL Magnesium 2.1 (1.6-2.3) mg/dL Total Bilirubin 0.4 (0.2-1.3) mg/dL AST 75 H (17-59) U/L ALT 54 H (4-49) U/L Alkaline Phosphatase 194 H (38-126) U/L Total Protein 6.7 (6.3-8.2) g/dL Albumin 3.6 (3.5-5.0) g/dL Urine Opiates Screen Not Detected (NotDetected) Ur Oxycodone Screen Not Detected (NotDetected) Urine Methadone Screen Not Detected (NotDetected) Ur Propoxyphene Screen Not Detected (NotDetected) Ur Barbiturates Screen Not Detected (NotDetected) U Tricyclic Antidepress Not Detected (NotDetected) Ur Phencyclidine Scrn Not Detected (NotDetected) Ur Amphetamines Screen Not Detected (NotDetected) U Methamphetamines Scrn Not Detected (NotDetected) U Benzodiazepines Scrn Detected H (NotDetected) Urine Cocaine Screen Not Detected (NotDetected) U Marijuana (THC) Screen Detected H (NotDetected) Serum Alcohol 373 H* mg/dL Disposition Clinical Impression: Acute alcohol intoxication, Suicidal ideation Disposition: ADMITTED IP TO THIS HOSP Is patient prescribed a controlled substance at d/c from ED?: No Referrals: None,Stated [Primary Care Provider] - 1-2 days Time of Disposition: 18:13
[2020-12-29] MEDS ORDERED: LORazepam 2 MG/ML INJ IV STA (16:44)
[2020-12-29 17:19] LABS: Amphetamine Screen,Urine Not Detected (NotDetected); Barbiturate Screen,Urine Not Detected (NotDetected); Benzodiazepines Screen,Urine Detected (NotDetected); Cocaine Screen,Urine Not Detected (NotDetected); Methadone Screen, Urine Not Detected (NotDetected); Opiate Screen,Urine Not Detected (NotDetected); Oxycodone Screen, Urine Not Detected (NotDetected); Phencyclidine Screen,Urine Not Detected (NotDetected); Tricyclic Antidepressant,Urine Not Detected (NotDetected); Urn Cannabinoid Scrn Detected (NotDetected)
[2020-12-29 17:22] LABS: Basophils % (A) 1 %; Eosinophils # (A) 0.1 k/uL (0-0.7); Eosinophils % (A) 1 %; HCT 40.6 % (39.0-53.0); Lymphocytes # (A) 1.7 k/uL (1.0-4.8); Lymphocytes % (A) 48 %; MCH 33.7 pg (25.0-35.0); MCHC 34.5 g/dL (31.0-37.0); MCV 97.7 fL (80.0-100.0); Mean Platelet Volume 6.6; Monocytes # (A) 0.2 k/uL (0-1.0); Monocytes % (A) 6 %; Neutrophils # (A) 1.4 k/uL (1.3-7.7); Neutrophils % (A) 41 %; RBC 4.16 m/uL (4.30-5.90); WBC 3.5 k/uL (3.8-10.6)
[2020-12-29 17:29] LABS: ALT 54 U/L (4-49); AST 75 U/L (17-59); African American GFR (CKD) >90 (>60 ml/min/1.73 sqM); Albumin 3.6 g/dL (3.5-5.0); Alkaline Phosphatase 194 U/L (38-126); Anion Gap 8 mmol/L; Blood Urea Nitrogen 2 mg/dL (9-20); Calcium 8.7 mg/dL (8.4-10.2); Carbon Dioxide 26 mmol/L (22-30); Chloride 108 mmol/L (98-107); Glucose 105 mg/dL (74-99); Magnesium 2.1 mg/dL (1.6-2.3); Non-African American GFR(CKD) >90 (>60 ml/min/1.73 sqM); Platelet Count 389 k/uL (150-450); Potassium 4.4 mmol/L (3.5-5.1); Sodium 142 mmol/L (137-145); Total Bilirubin 0.4 mg/dL (0.2-1.3); Total Protein 6.7 g/dL (6.3-8.2)
[2020-12-29 17:49] LABS: Alcohol 373 mg/dL
[2020-12-29] MEDS ORDERED: NALOXONE 0.4 MG/ML 1 ML VIAL IV PRN (18:13)
[2020-12-29] MEDS ORDERED: THIAMINE 100 MG/ML 2 ML VIAL IM STA (18:19)
[2020-12-29] MEDS ORDERED: LORazepam 2 MG/ML INJ IV PRN (18:19)
[2020-12-29] MEDS: SODIUM CHLORIDE 0.9% 1,000 ML IV SCH (19:27)
[2020-12-29] MEDS: LORazepam 2 MG/ML INJ IV PRN ×2 (19:33→22:38)
[2020-12-30] MEDS: LORazepam 2 MG/ML INJ IV PRN ×9 (00:52→23:54)
[2020-12-30] MEDS: PANTOPRAZOLE 40 MG TABLET PO SCH (07:47)
[2020-12-30] MEDS: THIAMINE 100 MG TAB PO SCH ×2 (07:47→18:16)
[2020-12-30] MEDS: NYSTATIN 100,000 UNIT/ML SUSP 500,000 UNIT/5 ML CUP PO SCH ×5 (11:48→22:19)
[2020-12-30] MEDS: NICOTINE 21MG/24HR PATCH TRANSDERM SCH (11:48)
--- NOTE | 2020-12-30 13:53 | P.CN ---
Psychiatric Consult - . Consult date: 12/30/20 Consult:: 12/30/20 13:52 IDENTIFYING DATA: This patient is a 35-year-old male with significant history of anxiety, depression, PTSD, and alcohol use disorder who presented to the emergency department with suicidal ideation in the context of heavy alcohol use. HISTORY OF PRESENT ILLNESS: The patient presented to the hospital on 12/29/20, brought in by his [id number] for psychiatric evaluation. The patient has been reportedly drinking heavily and endorsing worsening depression including a plan to shoot himself the gun. The patient was [place] [facility]. The patient reports that since he was last discharged, he was not adherent with his prescribed medication regimen or followed up with his appropriate outpatient follow-up appointments. The patient states that he has been increasingly depressed and has been drinking heavily since he was discharged. He reports that he has been drinking up to 2/5 of liquor per day but has cut back to about a pint of hard liquor per day. In regards to his depressive symptoms, the patient does endorse poor appetite, difficulty sleeping, low mood, suicidal ideation, anhedonia, and hopelessness and helplessness. The patient continues to report that his mood is particularly worse because of his inability to see his daughters down in [place]. He states that he most recently found out that he will be a father to twins. He is currently not reporting any auditory or visual hallucinations. He reports no paranoia or other delusions. He denies any significant history of bipolar disorder. No increased goal-directed behavior, impulsivity, excessive energy, or grandiosity. The patient does report a history of posttraumatic stress disorder and states that he occasionally does experience nightmares. He denies any hypervigilance or arousal symptoms. PAST PSYCHIATRIC HISTORY: Patient has a a history of depression, anxiety, alcohol use disorder. The patient was last admitted onto [facility] in March 2020 and was discharged on a regimen of naltrexone, prazosin, seroquel and zoloft. He has also had 2 other psychiatric admissions onto [facility] within the month prior to that admission. He reports that he has not had any outpatient follow-up. He reports multiple threats of suicide but denies any attempts. PAST MEDICAL HISTORY: Past Medical History: Hypertension Additional Past Medical History / Comment(s): ETOH abuse, past withdrawals- tremors/nausea History of Any Multi-Drug Resistant Organisms: None Reported Additional Past Surgical History / Comment(s): surgery for testicular torsion Past Anesthesia/Blood Transfusion Reactions: No Reported Reaction Past Psychological History: Anxiety, Depression, PTSD Smoking Status: Current every day smoker Past Alcohol Use History: Abuse Past Drug Use History: Marijuana ALLERGIES: NO KNOWN DRUG ALLERGIES CHEMICAL DEPENDENCY HISTORY: Patient has been drinking up to 2/5 of liquor per day but states that he cut back to 1 pint of liquor per day. He does report a significant history of withdrawal symptoms including seizures. He states the longest he has ever been sober was for 2 weeks. He reports that he has been to alcohol rehabilitation approximately 2 years ago. He smokes one pack per day. He admits to marijuana use. EtOH level on presentation to the emergency department was 373. FAMILY PSYCHIATRIC/SUBSTANCE USE HISTORY: Denies SOCIAL HISTORY: The patient was honorably discharged from the [employer] on 09/03/2014. 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 He is currently living in [place]. The patient's sister and [id number] are also in town. He is 40% service [facility]. He has 3 daughters living in [place] with her mother with whom he does not have any contact with. He reports that he has [address] on the way (twins). MENTAL STATUS EXAM: General Appearance: Patient appears to be stated age is alert, pleasant, and cooperative. Patient appears to have poor hygiene and grooming wearing hospital gown with poor eye contact. Behavior: Psychomotor activity is elevated. Patient is constant fidgeting. Mood/Affect: Patient reports their mood is "depressed", affect is congruent and blunted. Suicidality/Homicidality: Patient endorses suicidal ideation but no homicidal ideation, intention, and/or plan. Perceptions: Patient denies any visual hallucinations and denies any auditory hallucinations Though content/process: There is no evidence of any delusional thought content and thought process is linear and goal-directed. Memory and concentration: AOX3, grossly intact for the purposes of this session. Can spell "WORLD" backwards Judgment and insight: Poor Vital Signs Temp 98.8 F 12/29/20 14:53 Pulse 94 12/30/20 05:30 Resp 16 12/30/20 05:30 BP 127/86 12/30/20 05:30 Pulse Ox 96 12/30/20 05:30 Intake & Output 12/29/20 12/30/20 12/30/20 18:59 06:59 18:59 Weight 74.843 kg Laboratory Results - Last 24 Hours 12/29/20 12/29/20 12/29/20 15:46 16:51 16:51 WBC 3.5 L RBC 4.16 L Hgb 14.0 Hct 40.6 MCV 97.7 MCH 33.7 MCHC 34.5 RDW 15.0 Plt Count 389 D MPV 6.6 Neutrophils % 41 Lymphocytes % 48 Monocytes % 6 Eosinophils % 1 Basophils % 1 Neutrophils # 1.4 Lymphocytes # 1.7 Monocytes # 0.2 Eosinophils # 0.1 Basophils # 0.0 Sodium 142 Potassium 4.4 Chloride 108 H Carbon Dioxide 26 Anion Gap 8 BUN 2 L Creatinine 0.95 Est GFR (CKD-EPI)AfAm >90 Est GFR (CKD-EPI)NonAf >90 Glucose 105 H Calcium 8.7 Magnesium 2.1 Total Bilirubin 0.4 AST 75 H ALT 54 H Alkaline Phosphatase 194 H Total Protein 6.7 Albumin 3.6 Urine Opiates Screen Not Detected Ur Oxycodone Screen Not Detected Urine Methadone Screen Not Detected Ur Propoxyphene Screen Not Detected Ur Barbiturates Screen Not Detected U Tricyclic Antidepress Not Detected Ur Phencyclidine Scrn Not Detected Ur Amphetamines Screen Not Detected U Methamphetamines Scrn Not Detected U Benzodiazepines Scrn Detected H Urine Cocaine Screen Not Detected U Marijuana (THC) Screen Detected H Serum Alcohol 373 H* IMPRESSIONS: Major depressive disorder, recurrent, severe, with anxious features Posttraumatic stress disorder Alcohol use disorder Nicotine dependence Cannabis use PLAN: -At this time patient DOES meet criteria for inpatient psychiatric admission. The patient has verbalized numerous threats of suicide and is currently endorsing significant symptoms of depression that is currently affecting his ability to complete his ADLs such as feeing himself or taking care of his hyg iene. -Would recommend the following medication changes/additions: Restart Prazosin at 2 mg at bedtime for PTSD-related nightmares Restart Zoloft 50 mg daily for Depression/Anxiety/PTSD Consider restart of naltrexone. -CIWA protocol with ativan PRN. -Continue 1:1 sitter for safety -Cannot leave AMA at this time. Patient will need a petition and certification if attempting to leave AMA. -When medically stable, patient is eligible for transfer to a psych bed when available. -Psychiatry will sign off at this point, please contact with any questions. 12/30/20 13:52
[2020-12-30] MEDS: SODIUM CHLORIDE 0.9% 1,000 ML IV SCH ×3 (15:45→23:55)
[2020-12-30] MEDS: PRAZOSIN 1 MG CAP PO SCH (20:40)
--- NOTE | 2020-12-30 23:57 | P.HPIM ---
History of Present Illness H&P Date: 12/30/20 Chief Complaint: Alcohol intoxication and suicidal ideation Mr. Gibson is a 35-year-old male with a past medical history of anxiety, depression, PTSD, alcohol abuse disorder admitted to the hospital for acute alcohol intoxication with suicidal ideation. Patient is currently in the ER with a sitter at bedside. Patient states that he is a heavy drinker and he dri nks 2/5 pints of alcohol a day. So he was drinking yesterday and in that moment he said he was depressed and had a plan to shoot himself with a gun. Patient has significant psychiatric history of anxiety depression and PTSD. As the patient has worsening depression, his alcohol intake also increased. Patient denies having any chest pain or palpitations. No cough or difficulty breathing. No abdominal pain nausea vomiting or diarrhea. He denies having any dysuria or hematuria. Patient denies having any headache, blurring of vision, neck pain or weakness of his extremities. In the ER patient had vitals of temperature 98.8, heart rate 110, respiratory 19, blood pressure 139/86, saturating 97% on room air. He had labs done showing white count of 3.5, hemoglobin 14, platelets 389. Sodium 142, potassium 4.4, chloride 108, bicarb 26, BUN 2, creatinine 0.95. AST 75, ALT 54, alkaline ph osphatase 194. UDS positive for benzodiazepines and marijuana and alcohol level of 373. Review of Systems REVIEW OF SYSTEMS: CONSTITUTIONAL: No fever, no malaise, no fatigue. HEENT: No headache, no neck stiffness, no blurring of vision CARDIOVASCULAR: No chest pain, no palpitations PULMONARY: No cough or difficulty in breathing GASTROINTESTINAL: No Abdominal pain nausea vomiting or diarrhea NEUROLOGICAL: No weakness of extremities HEMATOLOGICAL: Denies any bleeding or petechiae. GENITOURINARY: Denies any burning micturition, frequency, or urgency. MUSCULOSKELETAL/RHEUMATOLOGICAL: Denies any joint pain, swelling, or any muscle pain. ENDOCRINE: Denies polyuria polydipsia or heat or cold intolerance The rest of the 14-point review of systems is negative. Past Medical History Past Medical History: Hypertension Additional Past Medical History / Comment(s): ETOH abuse, past withdrawals- tremors/nausea History of Any Multi-Drug Resistant Organisms: None Reported Additional Past Surgical History / Comment(s): surgery for testicular torsion Past Anesthesia/Blood Transfusion Reactions: No Reported Reaction Past Psychological History: Anxiety, Depression, PTSD Smoking Status: Current every day smoker Past Alcohol Use History: Abuse Past Drug Use History: Marijuana - Past Family History Mother Family Medical History: No Reported History Additional Family Medical History / Comment(s): Mother is healthy Father History Unknown: Yes Family Family Medical History: No Reported History Medications and Allergies Home Medications Medication Instructions Recorded Confirmed Type Pantoprazole [Protonix] 40 mg PO RAINE-ELADIOKFSTyrone #30 tablet. 12/21/20 12/29/20 Rx Nystatin 100,000 Unit/ml Susp 500,000 unit PO DIRECTED 12/29/20 12/29/20 History [Mycostatin Oral Susp] Allergies Allergy/AdvReac Type Severity Reaction Status Date / Time No Known Allergies Allergy Verified 12/29/20 15:56 Physical Exam Vitals: Vital Signs Temp Pulse Resp BP Pulse Ox 12/30/20 15:38 98.2 F 94 18 161/99 98 12/30/20 05:30 94 16 127/86 96 12/29/20 18:00 18 PHYSICAL EXAMINATION: GENERAL: Dishelved look, Mild tremors HEENT: Pupils are round and equally reacting to light. EOMI. No scleral icterus. No conjunctival pallor. CARDIOVASCULAR: S1 and S2 present. No murmurs, rubs, or gallops. PULMONARY: Bilateral breath sounds positive. No wheeze or crackles.. ABDOMEN: Soft,non -tender, normal bowel sounds. No guarding or rigidity. MUSCULOSKELETAL: No joint swelling or deformity. EXTREMITIES: No edema NEUROLOGICAL: Gross neurological examination did not reveal any focal deficits. SKIN:No rash Results CBC & Chem 7: 12/29/20 16:51 12/29/20 16:51 Labs: Abnormal Lab Results - Last 24 Hours (Table) 12/29/20 12/29/20 Range/Units 16:51 16:51 WBC 3.5 L (3.8-10.6) k/uL RBC 4.16 L (4.30-5.90) m/uL Chloride 108 H (98-107) mmol/L BUN 2 L (9-20) mg/dL Glucose 105 H (74-99) mg/dL AST 75 H (17-59) U/L ALT 54 H (4-49) U/L Alkaline Phosphatase 194 H (38-126) U/L Serum Alcohol 373 H* mg/dL Assessment and Plan Assessment: ASSESSMENT Acute alcohol intoxication Depression with suicidal ideation Transaminitis secondary to alcohol intake UDS positive for benzos and marijuana History of anxiety and depression PTSD History of surgery for testicular torsion Alcohol dependence Nicotine dependence PLAN; patient is currently having a sitter at bedside with suicidal precautions. As he has significant of alcohol intake, patient was placed on CIWA protocol. DT precautions in place. Psychiatric evaluation ongoing. Continue with Protonix for GI prophylaxis. Further recommendations to follow depending on the progress of the patient.
[2020-12-31] MEDS: LORazepam 2 MG/ML INJ IV PRN ×6 (03:45→22:00)
[2020-12-31] MEDS: THIAMINE 100 MG TAB PO SCH ×2 (07:51→17:02)
[2020-12-31] MEDS: SERTRALINE 50 MG TAB PO SCH (07:51)
[2020-12-31] MEDS: PANTOPRAZOLE 40 MG TABLET PO SCH (07:51)
[2020-12-31] MEDS: NICOTINE 21MG/24HR PATCH TRANSDERM SCH (07:51)
[2020-12-31] MEDS: NYSTATIN 100,000 UNIT/ML SUSP 500,000 UNIT/5 ML CUP PO SCH ×4 (07:52→20:07)
[2020-12-31 10:59] VITALS: BMI 23.0
[2020-12-31] MEDS: cloNIDine HCL 0.1 MG TAB PO PRN (14:19)
[2020-12-31 16:11] LABS: Basophils % (A) 0 %; Eosinophils # (A) 0.1 k/uL (0-0.7); Eosinophils % (A) 1 %; HCT 36.5 % (39.0-53.0); HGB 12.5 gm/dL (13.0-17.5); Lymphocytes # (A) 0.8 k/uL (1.0-4.8); Lymphocytes % (A) 16 %; MCH 33.5 pg (25.0-35.0); MCHC 34.3 g/dL (31.0-37.0); MCV 97.7 fL (80.0-100.0); Mean Platelet Volume 7.6; Monocytes # (A) 0.2 k/uL (0-1.0); Monocytes % (A) 3 %; Neutrophils # (A) 3.9 k/uL (1.3-7.7); Neutrophils % (A) 78 %; Platelet Count 328 k/uL (150-450); RBC 3.74 m/uL (4.30-5.90); RDW 14.8 % (11.5-15.5)
[2020-12-31 16:23] LABS: ALT 45 U/L (4-49); AST 72 U/L (17-59); African American GFR (CKD) >90 (>60 ml/min/1.73 sqM); Albumin 3.2 g/dL (3.5-5.0); Albumin/Globulin Ratio 1.1; Alkaline Phosphatase 191 U/L (38-126); Anion Gap 5 mmol/L; Blood Urea Nitrogen 5 mg/dL (9-20); Calcium 8.8 mg/dL (8.4-10.2); Carbon Dioxide 22 mmol/L (22-30); Chloride 104 mmol/L (98-107); Glucose 117 mg/dL (74-99); Non-African American GFR(CKD) >90 (>60 ml/min/1.73 sqM); Sodium 131 mmol/L (137-145); Total Protein 6.2 g/dL (6.3-8.2)
[2020-12-31] MEDS: PRAZOSIN 1 MG CAP PO SCH (20:07)
--- NOTE | 2020-12-31 23:07 | P.PN ---
Subjective Progress Note Date: 12/31/20 Principal diagnosis: Alcohol Intoxication Mr. Gibson is a 35-year-old male with a past medical history of anxiety, depression, PTSD, alcohol abuse disorder admitted to the hospital for acute alcohol intoxication with suicidal ideation. Patient is currently in the ER with a sitter at bedside. Patient states that he is a heavy drinker and he drinks 2/5 pints of alcohol a day. So he was drinking yesterday and in that moment he said he was depressed and had a plan to shoot himself with a gun. Patient has significant psychiatric history of anxiety depression and PTSD. As the patient has worsening depression, his alcohol intake also increased. Patient denies having any chest pain or palpitations. No cough or difficulty breathing. No abdominal pain nausea vomiting or diarrhea. He denies having any dysuria or hematuria. Patient denies having any headache, blurring of vision, neck pain or weakness of his extremities. In the ER patient had vitals of temperature 98.8, heart rate 110, respiratory 19, blood pressure 139/86, saturating 97% on room air. He had labs done showing white count of 3.5, hemoglobin 14, platelets 389. Sodium 142, potassium 4.4, chloride 108, bicarb 26, BUN 2, creatinine 0.95. AST 75, ALT 54, alkaline phosphatase 194. UDS positive for benzodiazepines and marijuana and alcohol level of 373. On 12/31/2020 -patient is sitting up in the bed comfortably appears to be no acute distress. He is watching the television. Sitter at the bedside. Patient denies having any active complaints. Patient's blood pressure is high-157/112. Patient denies having any chest pain or palpitations. He denies having any difficulty in breathing no abdominal pain nausea vomiting or diarrhea. No dysuria or hematuria. He has a temperature of 98.1, heart rate 80s 200s, saturating at 96% on room air. Reviewing the patient's labs-white count of 5, hemoglobin 12.5. Sodium 131, potassium 4, chloride 104, bicarb 22, BUN 5, creatinine 0.78. AST 72, ALT 45. Patient's medications have been reviewed. Objective - Vital Signs Vital signs: Vital Signs Temp 98.4 F 12/31/20 12:36 Pulse 87 12/31/20 12:36 Resp 20 12/31/20 12:36 BP 157/112 12/31/20 12:36 Pulse Ox 97 12/31/20 12:36 Intake & Output 12/30/20 12/31/20 12/31/20 18:59 06:59 18:59 Intake Total 950 Balance 950 Weight 74.843 kg 74.843 kg Intake: Intake, IV Titration 450 Amount Sodium Chloride 0.9% 1, 450 000 ml @ 75 mls/hr IV . [id number] KANA Rx#:[id number] Oral 500 Other: Voiding Method Toilet Toilet # Voids 2 - Exam PHYSICAL EXAMINATION: GENERAL: no acute distress HEENT: Pupils are round and equally reacting to light. EOMI. No scleral icterus. No conjunctival pallor. CARDIOVASCULAR: S1 and S2 present. No murmurs, rubs, or gallops. PULMONARY: Bilateral breath sounds positive. No wheeze or crackles.. ABDOMEN: Soft,non -tender, normal bowel sounds. No guarding or rigidity. MUSCULOSKELETAL: No joint swelling or deformity. EXTREMITIES: No edema NEUROLOGICAL: Gross neurological examination did not reveal any focal deficits. SKIN:No rash - Labs CBC & Chem 7: 12/31/20 15:55 12/31/20 15:55 Assessment and Plan Assessment: ASSESSMENT Acute alcohol intoxication Depression with suicidal ideation Transaminitis secondary to alcohol intake UDS positive for benzos and marijuana History of anxiety and depression PTSD History of surgery for testicular torsion Alcohol dependence Nicotine dependence PLAN; patient is currently having a sitter at bedside with suicidal precautions. Patient is on CIWA protocol, receiving Ativan frequently. His blood pressure running on the higher side, clonidine has been started. Will check TSH. Cont inue with Protonix for GI prophylaxis. Further recommendations to follow depending on the progress of the patient.
[2021-01-01] MEDS: LORazepam 2 MG/ML INJ IV PRN ×4 (02:49→20:42)
[2021-01-01] MEDS: SODIUM CHLORIDE 0.9% 1,000 ML IV SCH ×2 (03:04→12:39)
[2021-01-01] MEDS: NYSTATIN 100,000 UNIT/ML SUSP 500,000 UNIT/5 ML CUP PO SCH ×4 (07:43→20:43)
[2021-01-01] MEDS: THIAMINE 100 MG TAB PO SCH ×2 (07:43→18:23)
[2021-01-01] MEDS: PANTOPRAZOLE 40 MG TABLET PO SCH (07:43)
[2021-01-01] MEDS: SERTRALINE 50 MG TAB PO SCH (07:43)
[2021-01-01] MEDS: NICOTINE 21MG/24HR PATCH TRANSDERM SCH (07:43)
[2021-01-01] MEDS: cloNIDine HCL 0.1 MG TAB PO PRN (12:39)
--- NOTE | 2021-01-01 13:23 | P.DS ---
Providers Date of admission: 12/31/20 09:27 Expected date of discharge: 01/01/21 Attending physician: Lucas Membreno Consults: 12/29/20 18:14 Consult Physician Routine Consulting Provider: Luke Barnes Consult Reason/Comments: suicidal ideation, depression Do you want consulting provider notified?: Yes 12/30/20 02:41 Consult Physician Stat Consulting Provider: Bruno Lozano Consult Reason/Comments: psych eval/suicidal Do you want consulting provider notified?: Yes Primary care physician: Stated None Hospital Course: Final diagnosis Acute alcohol intoxication Depression with suicidal ideation Transaminitis secondary to alcohol intake UDS positive for benzos and marijuana History of anxiety and depression PTSD History of surgery for testicular torsion Alcohol dependence Nicotine dependence Full code Discharge disposition Patient is being transferred in a stable condition with guarded prognosis to 3 . inpatient psychiatric unit. Patient will follow-up with his primary care provider upon discharge. Total time taken is greater than 35 minutes. Hospital course Alcohol Intoxication Mr. Gibson is a 35-year-old male with a past medical history of anxiety, depression, PTSD, alcohol abuse disorder admitted to the hospital for acute alcohol intoxication with suicidal ideation. Patient is currently in the ER with a sitter at bedside. Patient states that he is a heavy drinker and he drinks 2/5 pints of alcohol a day. So he was drinking yesterday and in that moment he said he was depressed and had a plan to shoot himself with a gun. Patient has significant psychiatric history of anxiety depression and PTSD. As the patient has worsening depression, his alcohol intake also increased. Patient denies having any chest pain or palpitations. No cough or difficulty breathing. No abdominal pain nausea vomiting or diarrhea. He denies having any dysuria or hematuria. Patient denies having any headache, blurring of vision, neck pain or weakness of his extremities. In the ER patient had vitals of temperature 98.8, heart rate 110, respiratory 19, blood pressure 139/86, saturating 97% on room air. He had labs done showing white count of 3.5, hemoglobin 14, platelets 389. Sodium 142, potassium 4.4, chloride 108, bicarb 26, BUN 2, creatinine 0.95. AST 75, ALT 54, alkaline phosphatase 194. UDS positive for benzodiazepines and marijuana and alcohol level of 373. On 12/31/2020 -patient is sitting up in the bed comfortably appears to be no acute distress. He is watching the television. Sitter at the bedside. Patient denies having any active complaints. Patient's blood pressure is high-157/112. Patient denies having any chest pain or palpitations. He denies having any difficulty in breathing no abdominal pain nausea vomiting or diarrhea. No dysuria or hematuria. He has a temperature of 98.1, heart rate 80s 200s, saturating at 96% on room air. Reviewing the patient's labs-white count of 5, hemoglobin 12.5. Sodium 131, potassium 4, chloride 104, bicarb 22, BUN 5, creatinine 0.78. AST 72, ALT 45. 01/01/2021 Patient is seen and evaluated in follow-up anticipating being discharged and discussed with the patient about being transferred to inpatient psych for further evaluation and they would determine if he meets discharge criteria after evaluation. Patient states he is tolerating diet with no reports of nausea or vomiting, patient denies any suicidal ideation at this time and does continue with a sitter at the bedside. Blood pressure more under control today and will continue with Catapres as needed and patient has been started on Minipress along with antidepressant. Patient states he is urinating with no difficulties and denies any abdominal discomfort. Currently no reports of chest pain, shortness of breath, or palpitations. Patient is afebrile. No reports of nausea or vomiting and patient is tolerating diet. Guarded prognosis. Patient is medically stable and clear for transfer to inpatient psychiatric unit. On exam vital signs are stable. Cardio S1, S2 are muffled. Respiratory shows diminished breath sounds at the bases with no wheezing or rhonchi noted. Abdomen is soft and nontender. Nervous system shows no focal deficits. Please refer to medication reconciliation sheet for a list of medications. Patient Condition at Discharge: Stable Plan - Discharge Summary Discharge Rx Participant: Yes New Discharge Prescriptions: New Nicotine 21Mg/24Hr Patch [Habitrol] 1 patch TRANSDERM DAILY patch Prazosin [Minipress] 2 mg PO HS cap Sertraline [Zoloft] 50 mg PO DAILY tab cloNIDine HCL [Catapres] 0.1 mg PO Q4HR PRN tab PRN Reason: Hypertension Thiamine [Vitamin B-1] 100 mg PO BID-W/MEALS tab Continue Nystatin 100,000 Unit/ml Susp [Mycostatin Oral Susp] 500,000 unit PO DIRECTED Pantoprazole [Protonix] 40 mg PO AC-BRKFST #30 tablet. Discharge Medication List Pantoprazole [Protonix] 40 mg PO AC-BRKFST #30 tablet. 12/21/20 [Rx] Nystatin 100,000 Unit/ml Susp [Mycostatin Oral Susp] 500,000 unit PO DIRECTED 12/29/20 [History] Nicotine 21Mg/24Hr Patch [Habitrol] 1 patch TRANSDERM DAILY patch 01/01/21 [Rx] Prazosin [Minipress] 2 mg PO HS cap 01/01/21 [Rx] Sertraline [Zoloft] 50 mg PO DAILY tab 01/01/21 [Rx] Thiamine [Vitamin B-1] 100 mg PO BID-W/MEALS tab 01/01/21 [Rx] cloNIDine HCL [Catapres] 0.1 mg PO Q4HR PRN tab 01/01/21 [Rx] Follow up Appointment(s)/Referral(s): None,Stated [Primary Care Provider] - 1-2 days Patient Instructions/Handouts: How to Stop Smoking (DC), Abuse of Alcohol (DC) Activity/Diet/Wound Care/Special Instructions: Patient is stable and medically clear for transfer to inpatient psychiatric unit for further evaluation Discharge Disposition: TRANSFER TO PSYCH HOSP/UNIT
[2021-01-01] MEDS: PRAZOSIN 1 MG CAP PO SCH (20:42)
[2021-01-02] MEDS: SODIUM CHLORIDE 0.9% 1,000 ML IV SCH (03:06)
[2021-01-02] MEDS: LORazepam 2 MG/ML INJ IV PRN ×4 (03:10→23:44)
[2021-01-02] MEDS: PANTOPRAZOLE 40 MG TABLET PO SCH (07:53)
[2021-01-02] MEDS: THIAMINE 100 MG TAB PO SCH ×2 (07:53→17:52)
[2021-01-02] MEDS: SERTRALINE 50 MG TAB PO SCH (07:53)
[2021-01-02] MEDS: NICOTINE 21MG/24HR PATCH TRANSDERM SCH (07:54)
[2021-01-02] MEDS: NYSTATIN 100,000 UNIT/ML SUSP 500,000 UNIT/5 ML CUP PO SCH ×4 (07:54→20:50)
--- NOTE | 2021-01-02 08:37 | P.PN ---
Subjective Progress Note Date: 01/01/21 Alcohol Intoxication Mr. Gibson is a 35-year-old male with a past medical history of anxiety, depression, PTSD, alcohol abuse disorder admitted to the hospital for acute alcohol intoxication with suicidal ideation. Patient is currently in the ER with a sitter at bedside. Patient states that he is a heavy drinker and he drinks 2/5 pints of alcohol a day. So he was drinking yesterday and in that mom ent he said he was depressed and had a plan to shoot himself with a gun. Patient has significant psychiatric history of anxiety depression and PTSD. As the patient has worsening depression, his alcohol intake also increased. Patient denies having any chest pain or palpitations. No cough or difficulty breathing. No abdominal pain nausea vomiting or diarrhea. He denies having any dysuria or hematuria. Patient denies having any headache, blurring of vision, neck pain or weakness of his extremities. In the ER patient had vitals of temperature 98.8, heart rate 110, respiratory 19, blood pressure 139/86, saturating 97% on room air. He had labs done showing white count of 3.5, hemoglobin 14, platelets 389. Sodium 142, potassium 4.4, chloride 108, bicarb 26, BUN 2, creatinine 0.95. AST 75, ALT 54, alkaline phosphatase 194. UDS positive for benzodiazepines and marijuana and alcohol lev el of 373. On 12/31/2020 -patient is sitting up in the bed comfortably appears to be no acute distress. He is watching the television. Sitter at the bedside. Patient denies having any active complaints. Patient's blood pressure is high-157/112. Patient denies having any chest pain or palpitations. He denies having any difficulty in breathing no abdominal pain nausea vomiting or diarrhea. No dysuria or hematuria. He has a temperature of 98.1, heart rate 80s 200s, saturating at 96% on room air. Reviewing the patient's labs-white count of 5, hemoglobin 12.5. Sodium 131, potassium 4, chloride 104, bicarb 22, BUN 5, creatinine 0.78. AST 72, ALT 45. 01/01/2021 Patient is seen in follow-up with the suicide sitter at the bedside maintained on CIWA protocol and being closely monitored. Patient states he feels much better is alert and oriented 3 and awaiting evaluation from EPS as patient is supposed to be going to inpatient psych for further evaluation. Patient currently denies any suicidal thoughts or wanting to harm himself or others. Patient is calm and cooperative with no reports from sitter at the bedside. Was notified patient has [place] benefits and will need to be placed at a [place] approved psychiatric facility. Requested reconsult from psych to reevaluate the patient as he does not have a petition and cert and is currently sober. Denying any suicidal ideation and requesting to go home. No reports of chest pain, shortness of breath, or palpitations. Patient is tolerating diet with no reports of nausea or vomiting noted. Patient is afebrile. Blood pressure bett er controlled on Catapres as needed and will continue to monitor closely. Social work following and looking into [place] accepted facilities for psychiatric inpatient. Review of systems: Constitutional: No reports of fatigue, fever, or chills Cardiovascular: No reports of chest pain or palpitations Respiratory: No reports of shortness of breath or cough GI: No reports of nausea, vomiting, or diarrhea : No reports of dysuria or retention Neurovascular: No reports of weakness or numbness All medications have been reviewed Objective - Vital Signs Vital signs: Vital Signs Temp 97.7 F 01/01/21 04:36 Pulse 104 H 01/01/21 07:47 Resp 16 01/01/21 04:36 BP 128/92 01/01/21 04:36 Pulse Ox 98 01/01/21 04:36 Intake & Output 12/31/20 01/01/21 01/01/21 18:59 06:59 18:59 Intake Total 1620 Balance 1620 Weight 74.843 kg Intake: Intake, IV Titration 900 Amount Sodium Chloride 0.9% 1, 900 000 ml @ 75 mls/hr IV . [id number] [facility] Rx#:[id number] Oral 720 Other: Voiding Method Toilet Toilet Toilet # Voids 5 1 - Exam GENERAL: no acute distress, awake, alert and oriented 3, thin built, well- nourished. HEENT: Pupils are round and equally reacting to light. EOMI. No scleral icterus. No conjunctival pallor. CARDIOVASCULAR: S1 and S2 present. No murmurs, rubs, or gallops. PULMONARY: Bilateral breath sounds positive. No wheeze or crackles.. ABDOMEN: Soft, non-tender, normal bowel sounds. No guarding or rigidity. MUSCULOSKELETAL: No joint swelling or deformity. EXTREMITIES: No edema NEUROLOGICAL: Gross neurological examination did not reveal any focal deficits. SKIN:No rash - Labs CBC & Chem 7: 12/31/20 15:55 12/31/20 15:55 Labs: Abnormal Lab Results - Last 24 Hours (Table) 12/31/20 12/31/20 Range/Units 15:55 15:55 RBC 3.74 L (4.30-5.90) m/uL Hgb 12.5 L (13.0-17.5) gm/dL Hct 36.5 L (39.0-53.0) % Lymphocytes # 0.8 L (1.0-4.8) k/uL Sodium 131 L (137-145) mmol/L BUN 5 L (9-20) mg/dL Glucose 117 H (74-99) mg/dL AST 72 H (17-59) U/L Alkaline Phosphatase 191 H (38-126) U/L Total Protein 6.2 L (6.3-8.2) g/dL Albumin 3.2 L (3.5-5.0) g/dL Assessment and Plan Assessment: Acute alcohol intoxication Depression with suicidal ideation Transaminitis secondary to alcohol intake UDS positive for benzos and marijuana History of anxiety and depression PTSD History of surgery for testicular torsion Alcohol dependence Nicotine dependence Full code Plan: Recommend continue with sitter at the bedside until reevaluation from psychiatry. Patient currently alert and oriented 3 denying any suicidal thoughts or thoughts of harming himself or others. Patient is continued on CIWA protocol and will continue to monitor for any acute signs of withdrawal. Social work following and awaiting evaluation from psychiatry to discuss further treatment plan moving forward looking for a [place] facility for inpatient psychiatric evaluation. Will continue to monitor closely. Further recommen dations to follow depending on the clinical course the patient.
--- NOTE | 2021-01-02 15:06 | P.PN ---
Subjective Progress Note Date: 01/02/21 Alcohol Intoxication Mr. Gibson is a 35-year-old male with a past medical history of anxiety, depression, PTSD, alcohol abuse disorder admitted to the hospital for acute alcohol intoxication with suicidal ideation. Patient is currently in the ER with a sitter at bedside. Patient states that he is a heavy drinker and he drinks 2/5 pints of alcohol a day. So he was drinking yesterday and in that mom ent he said he was depressed and had a plan to shoot himself with a gun. Patient has significant psychiatric history of anxiety depression and PTSD. As the patient has worsening depression, his alcohol intake also increased. Patient denies having any chest pain or palpitations. No cough or difficulty breathing. No abdominal pain nausea vomiting or diarrhea. He denies having any dysuria or hematuria. Patient denies having any headache, blurring of vision, neck pain or weakness of his extremities. In the ER patient had vitals of temperature 98.8, heart rate 110, respiratory 19, blood pressure 139/86, saturating 97% on room air. He had labs done showing white count of 3.5, hemoglobin 14, platelets 389. Sodium 142, potassium 4.4, chloride 108, bicarb 26, BUN 2, creatinine 0.95. AST 75, ALT 54, alkaline phosphatase 194. UDS positive for benzodiazepines and marijuana and alcohol lev el of 373. On 12/31/2020 -patient is sitting up in the bed comfortably appears to be no acute distress. He is watching the television. Sitter at the bedside. Patient denies having any active complaints. Patient's blood pressure is high-157/112. Patient denies having any chest pain or palpitations. He denies having any difficulty in breathing no abdominal pain nausea vomiting or diarrhea. No dysuria or hematuria. He has a temperature of 98.1, heart rate 80s 200s, saturating at 96% on room air. Reviewing the patient's labs-white count of 5, hemoglobin 12.5. Sodium 131, potassium 4, chloride 104, bicarb 22, BUN 5, creatinine 0.78. AST 72, ALT 45. 01/01/2021 Patient is seen in follow-up with the suicide sitter at the bedside maintained on CIWA protocol and being closely monitored. Patient states he feels much better is alert and oriented 3 and awaiting evaluation from EPS as patient is supposed to be going to inpatient psych for further evaluation. Patient currently denies any suicidal thoughts or wanting to harm himself or others. Patient is calm and cooperative with no reports from sitter at the bedside. Was notified patient has [place] benefits and will need to be placed at a [place] approved psychiatric facility. Requested reconsult from psych to reevaluate the patient as he does not have a petition and cert and is currently sober. Denying any suicidal ideation and requesting to go home. No reports of chest pain, shortness of breath, or palpitations. Patient is tolerating diet with no reports of nausea or vomiting noted. Patient is afebrile. Blood pressure bett er controlled on Catapres as needed and will continue to monitor closely. Social work following and looking into [place] accepted facilities for psychiatric inpatient. 01/02/2021 Patient seen and evaluated in follow-up with no acute overnight issues. Continue to monitor with [facility] protocol for alcohol withdrawal and has only had one dose of Ativan since yesterday. Patient to be reevaluated by psychiatry and continues with suicide sitter at the bedside. Patient is alert and oriented 3 and cooperative with staff with no reports of suicidal ideation noted. Will continue with suicide sitter at the bedside for now until evaluated by psychiatry. Per nursing staff psychiatry will evaluate the patient in the morning. Patient did have IV fluids and will discontinue as patient is tolerating diet with no reports of nausea or vomiting noted. Vital signs are stable. Review of systems: Constitutional: No reports of fatigue, fever, or chills Cardiovascular: No reports of chest pain or palpitations Respiratory: No reports of shortness of breath or cough GI: No reports of nausea, vomiting, or diarrhea : No reports of dysuria or retention Neurovascular: No reports of weakness or numbness All medications have been reviewed Objective - Vital Signs Vital signs: Vital Signs Temp 97.9 F 01/02/21 04:48 Pulse 96 01/02/21 08:00 Resp 20 01/02/21 08:00 BP 125/88 01/02/21 04:48 Pulse Ox 96 01/02/21 04:48 Intake & Output 01/01/21 01/02/21 01/02/21 18:59 06:59 18:59 Intake Total 400 Balance 400 Intake: Oral 400 Other: Voiding Method Toilet Toilet Toilet # Voids 2 1 - Exam GENERAL: no acute distress, awake, alert and oriented 3, thin built, well- nourished. HEENT: Pupils are round and equally reacting to light. EOMI. No scleral icterus. No conjunctival pallor. CARDIOVASCULAR: S1 and S2 present. No murmurs, rubs, or gallops. PULMONARY: Bilateral breath sounds positive. No wheeze or crackles.. ABDOMEN: Soft, non-tender, normal bowel sounds. No guarding or rigidity. MUSCULOSKELETAL: No joint swelling or deformity. EXTREMITIES: No edema NEUROLOGICAL: Gross neurological examination did not reveal any focal deficits. SKIN:No rash - Labs CBC & Chem 7: 12/31/20 15:55 12/31/20 15:55 Assessment and Plan Assessment: Acute alcohol intoxication Depression with suicidal ideation Transaminitis secondary to alcohol intake UDS positive for benzos and marijuana History of anxiety and depression PTSD History of surgery for testicular torsion Alcohol dependence Nicotine dependence Full code Plan: Recommend continue with sitter at the bedside until reevaluation from psychiatry. Patient is alert and oriented 3 denying any suicidal thoughts or thoughts of harming himself or others. Patient is calm and cooperative with staff with no acute overnight issues noted. Patient is continued on CIWA protocol and will continue to monitor for any acute signs of withdrawal. Social work following and awaiting evaluation from psychiatry to discuss further treatment plan moving forward [place] for a [place] facility for inpatient psychiatric [place]. Will continue to monitor closely. Further recommendations to follow depending on the clinical course the patient.
[2021-01-02] MEDS: PRAZOSIN 1 MG CAP PO SCH (20:49)
[2021-01-03] MEDS: LORazepam 2 MG/ML INJ IV PRN (04:35)
[2021-01-03 04:57] VITALS: BP 135/93; PULSE 102; RESP 20; TEMP 97.8
[2021-01-03] MEDS: NICOTINE 21MG/24HR PATCH TRANSDERM SCH (07:34)
[2021-01-03] MEDS: SERTRALINE 50 MG TAB PO SCH (07:34)
[2021-01-03] MEDS: THIAMINE 100 MG TAB PO SCH (07:35)
[2021-01-03] MEDS: PANTOPRAZOLE 40 MG TABLET PO SCH (07:35)
[2021-01-03] MEDS: NYSTATIN 100,000 UNIT/ML SUSP 500,000 UNIT/5 ML CUP PO SCH (07:36)
--- NOTE | 2021-01-03 10:00 | P.PN ---
Progress Note - Text Progress Note Date: 01/03/21 Interval History: Patient was seen resting in bed without any agitation. The patient reports that he is feeling better. He is denying any suicidal or homicidal ideation, intention, and/or plan. He is denying any auditory or visual hallucinations. He is not endorsing any significant symptoms of depression at this time. The patient expresses future orientation, stating that he is excited for his girlfriend and for his two unborn children to move from [place] to here. He expresses he has significant support from her and friends in the area. He expresses that he will follow-up and take his medications. He denies any access to firearms or any weapons. He expresses a strong desire to quit alcohol. We discussed at length safety planning and the patient was counseled on his alcohol use. He is agreeable to outpatient follow-up for both substance abuse and for mental health. Mental Status Exam: General Appearance: Patient appears to be stated age is alert, directable, and cooperative. Improved hygiene and grooming. Multiple tattoos. Behavior: Patient is calmly seated without any agitated behavior. Psychomotor activity is normal. Speech: Patient's speech is fluent and nonpressured. Spontaneous, with normal rate, tone, volume and fluency. Mood/Affect: Mood is described as "I'm doing much better." Affect is reflective, euthymic, with appropriate range. Suicidality/Homicidality: Patient denies having any suicidal or homicidal ideation intent or plan. Perceptions: Patient denies any visual hallucinations and denies any auditory hallucinations Though content/process: There is no evidence of any delusional thought content and thought process is linear and goal-directed. Memory and concentration: AOX3, grossly intact for the purposes of this session Judgment and insight: Improved but guarded. Vital Signs Temp 97.8 F 01/03/21 04:56 Pulse 102 H 01/03/21 04:56 Resp 20 01/03/21 04:56 BP 135/93 01/03/21 04:56 Pulse Ox 95 01/03/21 04:56 Intake & Output 01/02/21 01/03/21 01/03/21 18:59 06:59 18:59 Intake Total 600 200 Balance 600 200 Weight 74.843 kg Intake: Intake, IV Titration 600 Amount Sodium Chloride 0.9% 1, 600 000 ml @ 75 mls/hr IV . [id number] [facility] Rx#:[id number] Oral 200 Other: Voiding Method Toilet Toilet # Voids 1 Assessment Major Depressive Disorder Alcohol Use Disorder Posttraumatic Stress Disorder Plan: PLAN: -At this time patient DOES NOT meet criteria for inpatient psychiatric admission. Risk factors include history of suicidal gesturing behaviors and heavy alcohol abuse. Protective factors include: Patient is future and family- oriented and is willing to safety plan. -Recommend Social Work to Safety plan with patient and coordinate with family. -Recommend outpatient follow-up for psychiatry and substance abuse. -Would recommend the following medication changes/additions: Continue Prazosin at 2 mg at bedtime for PTSD-related nightmares Increase Zoloft to 100 mg daily for Depression/Anxiety/PTSD Start Naltrexone 50 mg daily for alcohol use disorder -Psychiatry will sign off at this point, please contact with any questions.
[2021-01-04] MEDS ORDERED: SERTRALINE 100 MG TAB PO SCH (09:00)
[2021-01-04] MEDS ORDERED: NALTREXONE HCL 50 MG TAB PO SCH (09:00)
--- NOTE | 2021-01-06 09:23 | P.DS ---
Providers Date of admission: 12/31/20 09:27 Expected date of discharge: 01/01/21 Attending physician: Lucas Membreno Consults: 12/29/20 18:14 Consult Physician Routine Consulting Provider: Luke Barnes Consult Reason/Comments: suicidal ideation, depression Do you want consulting provider notified?: Yes 12/30/20 02:41 Consult Physician Stat Consulting Provider: Bruno Lozano Consult Reason/Comments: psych eval/suicidal Do you want consulting provider notified?: Yes 01/01/21 14:36 Consult Physician Urgent Consulting Provider: Bruno Lozano Consult Reason/Comments: psychiatric clearance/ denies any SI or HI Do you want consulting provider notified?: Yes Primary care physician: Stated None Hospital Course: Final diagnosis Acute alcohol intoxication Depression with suicidal ideation Transaminitis secondary to alcohol intake UDS positive for benzos and marijuana History of anxiety and depression PTSD History of surgery for testicular torsion Alcohol dependence Nicotine dependence Full code Discharge disposition Patient is being discharged in a stable condition with guarded prognosis to home. Patient will follow-up with Dr. Pike in the outpatient setting upon discharge. Patient also instructed to follow-up with community mental health in information along with appointment was provided. Total time taken is greater than 35 minutes. Hospital Course Alcohol Intoxication Mr. Gibson is a 35-year-old male with a past medical history of anxiety, depression, PTSD, alcohol abuse disorder admitted to the hospital for acute alcohol intoxication with suicidal ideation. Patient is currently in the ER with a sitter at bedside. Patient states that he is a heavy drinker and he drinks 2/5 pints of alcohol a day. So he was drinking yesterday and in that moment he said he was depressed and had a plan to shoot himself with a gun. Patient has significant psychiatric history of anxiety depression and PTSD. As the patient has worsening depression, his alcohol intake also increased. Patient denies having any chest pain or palpitations. No cough or difficulty breathing. No abdominal pain nausea vomiting or diarrhea. He denies having any dysuria or hematuria. Patient denies having any headache, blurring of vision, neck pain or weakness of his extremities. In the ER patient had vitals of temperature 98.8, heart rate 110, respiratory 19, blood pressure 139/86, saturating 97% on room air. He had labs done showing white count of 3.5, hemoglobin 14, platelets 389. Sodium 142, potassium 4.4, chloride 108, bicarb 26, BUN 2, creatinine 0.95. AST 75, ALT 54, alkaline phosphatase 194. UDS positive for benzodiazepines and marijuana and alcohol level of 373. On 12/31/2020 -patient is sitting up in the bed comfortably appears to be no acute distress. He is watching the television. Sitter at the bedside. Patient denies having any active complaints. Patient's blood pressure is high-157/112. Patient denies having any chest pain or palpitations. He denies having any difficulty in breathing no abdominal pain nausea vomiting or diarrhea. No dysuria or hematuria. He has a temperature of 98.1, heart rate 80s 200s, saturating at 96% on room air. Reviewing the patient's labs-white count of 5, hemoglobin 12.5. Sodium 131, potassium 4, chloride 104, bicarb 22, BUN 5, creatinine 0.78. AST 72, ALT 45. 01/01/2021 Patient is seen in follow-up with the suicide sitter at the bedside maintained on CIWA protocol and being closely monitored. Patient states he feels much better is alert and oriented 3 and awaiting evaluation from EPS as patient is supposed to be going to inpatient psych for further evaluation. Patient currently denies any suicidal thoughts or wanting to harm himself or others. Patient is calm and cooperative with no reports from sitter at the bedside. Was notified patient has [place] benefits and will need to be placed at a [place] approved psychiatric facility. Requested reconsult from psych to reevaluate the patient as he does not have a petition and cert and is currently sober. Denying any suicidal ideation and requesting to go home. No reports of chest pain, shortness of breath, or palpitations. Patient is tolerating diet with no reports of nausea or vomiting noted. Patient is afebrile. Blood pressure better controlled on Catapres as needed and will continue to monitor closely. Social work following and looking into [place] accepted facilities for psychiatric inpatient. 01/02/2021 Patient seen and evaluated in follow-up with no acute overnight issues. Continue to monitor with CIWA protocol for alcohol withdrawal and has only had one dose of Ativan since yesterday. Patient to be reevaluated by psychiatry and continues with suicide sitter at the bedside. Patient is alert and oriented 3 and cooperative with staff with no reports of suicidal ideation noted. Will continue with suicide sitter at the bedside for now until evaluated by psychiatry. Per nursing staff psychiatry will evaluate the patient in the morning. Patient did have IV fluids and will discontinue as patient is tolerating diet with no reports of nausea or vomiting noted. Vital signs are stable. 01/03/2021 Patient seen and evaluated in follow-up this morning and has been reevaluated by psychiatry who is clear for discharge with close outpatient follow-up with community mental health and social work provided resources along with contacting them to initiate services. Referral was also placed an appointment was made for Dr. Pike to initial establishment with primary care provider as patient does not currently have one. Patient will continue on Minipress along with ReVia and Zoloft along with vitamin supplements and will need to follow-up in the outpatient setting. Patient verbalized understanding. Patient denies any thoughts of suicidal ideation or thoughts of harming himself or others. Instructed and encouraged patient to avoid alcohol intake. Currently no reports of chest pain, shortness of breath, or palpitations. Patient is afebrile. No reports of nausea or vomiting and patient is tolerating diet. Patient will be discharged home today. On exam vital signs are stable. Cardio S1, S2 are muffled. Respiratory system shows diminished breath sounds at the bases with no wheezing or rhonchi noted. Abdomen is soft and nontender. Nervous system shows no focal deficits. Please refer to medication reconciliation sheet for a list of medications. Patient Condition at Discharge: Stable Plan - Discharge Summary Discharge Rx Participant: Yes New Discharge Prescriptions: New Prazosin [Minipress] 2 mg PO HS cap Naltrexone HCl [Revia] 50 mg PO DAILY 30 Days #30 tab Sertraline [Zoloft] 100 mg PO DAILY 30 Days #30 tab LORazepam [Ativan] 1 mg PO BID #6 tab Prazosin [Minipress] 2 mg PO HS 30 Days #60 capsule Thiamine [Vitamin B-1] 100 mg PO BID 30 Days #60 tablet Continue Nystatin 100,000 Unit/ml Susp [Mycostatin Oral Susp] 500,000 unit PO DIRECTED Discontinued Pantoprazole [Protonix] 40 mg PO AC-BRKFST #30 tablet.dr Discharge Medication List Nystatin 100,000 Unit/ml Susp [Mycostatin Oral Susp] 500,000 unit PO DIRECTED 12/29/20 [History] Prazosin [Minipress] 2 mg PO HS cap 01/01/21 [Rx] LORazepam [Ativan] 1 mg PO BID #6 tab 01/03/21 [Rx] Naltrexone HCl [Revia] 50 mg PO DAILY 30 Days #30 tab 01/03/21 [Rx] Prazosin [Minipress] 2 mg PO HS 30 Days #60 capsule 01/03/21 [Rx] Sertraline [Zoloft] 100 mg PO DAILY 30 Days #30 tab 01/03/21 [Rx] Thiamine [Vitamin B-1] 100 mg PO BID 30 Days #60 tablet 01/03/21 [Rx] Follow up Appointment(s)/Referral(s): Nano Pike MD [REFERRING] - 01/06/21 10:00 am (Appointment will be with VITO Kumar) Patient Instructions/Handouts: Prazosin (By mouth), Lorazepam (By mouth), Thiamine (By mouth), Sertraline (By mouth), Naltrexone (By mouth), How to Stop Smoking (DC), Abuse of Alcohol (DC), At-Risk Alcohol Use (DC), Alcohol Withdrawal (DC), Help Prevent Suicide (DC), Alcohol Dependence (DC), Suicide Prevention (DC) Activity/Diet/Wound Care/Special Instructions: Activity Limited until follow-up Follow-up with primary care provider upon discharge Follow-up with community mental health for continued counseling and outpatient resources Avoid alcohol intake Continue current diet Discharge Disposition: HOME SELF-CARE
== END 2021-01-03 11:52 | disposition home or self-care (01) | DRG 897 ==
LOC: EC 14:29 → 5NMEDONC 18:04 → OBSVTOIN 12-31 09:27
PROVIDERS: ADMIT Hospitalist; ATTEND Hospitalist
DX: F10.239 Alcohol dependence with withdrawal, unspecified (principal); R45.851 Suicidal ideations; F33.2 Major depressive disorder, recurrent severe without psychotic features; F10.229 Alcohol dependence with intoxication, unspecified; F41.9 Anxiety disorder, unspecified; F43.10 Post-traumatic stress disorder, unspecified; R74.01 Elevation of levels of liver transaminase levels; I10 Essential (primary) hypertension; Y90.8 Blood alcohol level of 240 mg/100 ml or more; F17.210 Nicotine dependence, cigarettes, uncomplicated; Z71.6 Tobacco abuse counseling; Z79.899 Other long term (current) drug therapy; Z87.438 Personal history of other diseases of male genital organs; Z98.890 Other specified postprocedural states
CPT/HCPCS: 36415; 80053; 80306; 80320; 82075; 83735; 84443; 85025; 96372; 96374; 96376; 99285

== ENCOUNTER 2022-01-26 14:00 | Observation (INO) | payer OTHER ==
[2022-01-26] MEDS ORDERED: SODIUM CHLORIDE 0.9% 1,000 ML IV STA (14:49)
[2022-01-26] MEDS ORDERED: ONDANSETRON 4 MG/2 ML VIAL IVP STA (14:50)
[2022-01-26 15:14] LABS: Appearance,Urine Clear (Clear); Basophils % (A) 1 %; Bilirubin,Urine Negative (Negative); Blood,Urine Negative (Negative); Color,Urine Colorless; Eosinophils % (A) 1 %; Glucose,Urine (UA) Negative (Negative); HCT 42.8 % (39.0-53.0); HGB 14.8 gm/dL (13.0-17.5); Ketones,Urine Negative (Negative); Leukocyte Esterase,Urine Negative (Negative); Lymphocytes # (A) 1.7 k/uL (1.0-4.8); Lymphocytes % (A) 52 %; MCH 32.5 pg (25.0-35.0); MCHC 34.5 g/dL (31.0-37.0); MCV 94.2 fL (80.0-100.0); Monocytes # (A) 0.2 k/uL (0-1.0); Monocytes % (A) 5 %; Neutrophils # (A) 1.3 k/uL (1.3-7.7); Neutrophils % (A) 39 %; Nitrite,Urine Negative (Negative); Platelet Count 285 k/uL (150-450); Protein,Urine Negative (Negative); RBC 4.54 m/uL (4.30-5.90); Specific Gravity,Urine 1.004 (1.001-1.035); Urobilinogen,Urine <2.0 mg/dL (<2.0); WBC 3.3 k/uL (3.8-10.6)
[2022-01-26 15:26] LABS: ALT 30 U/L (4-49); AST 57 U/L (17-59); African American GFR (CKD) >90 (>60 ml/min/1.73 sqM); Albumin 4.2 g/dL (3.5-5.0); Alkaline Phosphatase 113 U/L (38-126); Anion Gap 15 mmol/L; Blood Urea Nitrogen 6 mg/dL (9-20); Calcium 8.6 mg/dL (8.4-10.2); Carbon Dioxide 22 mmol/L (22-30); Chloride 104 mmol/L (98-107); Glucose 107 mg/dL (74-99); Lipase 222 U/L (23-300); Magnesium 1.9 mg/dL (1.6-2.3); Non-African American GFR(CKD) >90 (>60 ml/min/1.73 sqM); Potassium 3.9 mmol/L (3.5-5.1); Sodium 141 mmol/L (137-145); Total Bilirubin 0.8 mg/dL (0.2-1.3)
[2022-01-26 15:27] LABS: Amphetamine Screen,Urine Not Detected (NotDetected); Barbiturate Screen,Urine Not Detected (NotDetected); Benzodiazepines Screen,Urine Not Detected (NotDetected); Cocaine Screen,Urine Not Detected (NotDetected); Methadone Screen, Urine Not Detected (NotDetected); Opiate Screen,Urine Not Detected (NotDetected); Oxycodone Screen, Urine Not Detected (NotDetected); Phencyclidine Screen,Urine Not Detected (NotDetected); Tricyclic Antidepressant,Urine Not Detected (NotDetected); Urn Cannabinoid Scrn Not Detected (NotDetected)
[2022-01-26] MEDS ORDERED: chlordiazePOXIDE 25 MG CAP PO PRN ×4 (15:32)
[2022-01-26 15:36] LABS: Alcohol 318 mg/dL
--- NOTE | 2022-01-26 16:16 | ED ---
Alcohol HPI - General Chief Complaint: Alcohol Stated Complaint: ETOH withdrawl Source: patient, EMS Mode of arrival: ambulatory Limitations: no limitations - History of Present Illness Initial Comments: 36-year-old male with past history of alcohol abuse, hypertension presents to the emergency department reporting alcohol withdrawals. States he drinks a gallon of vodka a day. Patient drank a fifth last night. Last drink was around 2 AM. He began feeling shaky, nauseated with generalized body pain, dizziness, blurred vision and therefore called an ambulance. He does have history of alcohol withdrawal seizures however denies current seizure activity. Patient has been hospitalized before for alcohol withdrawal. He admits he is depressed and suicidal. Denies having a plan. No other alleviating, precipitating or modifying factors - Related Data Home Medications Medication Instructions Recorded Confirmed Nystatin 100,000 Unit/ml Susp 500,000 unit PO DIRECTED 12/29/20 12/29/20 [Mycostatin Oral Susp] Previous Rx's Medication Instructions Recorded Prazosin [Minipress] 2 mg PO HS cap 01/01/21 LORazepam [Ativan] 1 mg PO BID #6 tab 01/03/21 Naltrexone HCl [Revia] 50 mg PO DAILY 30 Days #30 tab 01/03/21 Prazosin [Minipress] 2 mg PO HS 30 Days #60 capsule 01/03/21 Sertraline [Zoloft] 100 mg PO DAILY 30 Days #30 tab 01/03/21 Thiamine [Vitamin B-1] 100 mg PO BID 30 Days #60 tablet 01/03/21 Allergies Allergy/AdvReac Type Severity Reaction Status Date / Time No Known Allergies Allergy Verified 01/26/22 16:22 Review of Systems ROS Statement: Those systems with pertinent positive or pertinent negative responses have been documented in the HPI. ROS Other: All systems not noted in ROS Statement are negative. Past Medical History Past Medical History: Hypertension Additional Past Medical History / Comment(s): ETOH abuse, past withdrawals- tremors/nausea History of Any Multi-Drug Resistant Organisms: None Reported Additional Past Surgical History / Comment(s): surgery for testicular torsion Past Anesthesia/Blood Transfusion Reactions: No Reported Reaction Past Psychological History: Anxiety, Depression, PTSD Smoking Status: Current every day smoker Past Alcohol Use History: Abuse Past Drug Use History: None Reported - Past Family History Mother Family Medical History: No Reported History Additional Family Medical History / Comment(s): Mother is healthy Father History Unknown: Yes Family Family Medical History: No Reported History General Exam Limitations: no limitations Course Vital Signs 01/26/22 01/26/22 14:06 15:50 Temperature 98.5 F Pulse Rate 112 H 91 Respiratory 20 18 Rate Blood Pressure 143/108 132/91 O2 Sat by Pulse 98 100 Oximetry Medical Decision Making - Medical Decision Making Upon arrival patient was placed into room 18. Temperature history of physical exam is performed. Laboratory studies are obtained patient is intoxicated with a level of 318. Patient will be admitted for alcohol intoxication pending sobriety with psychiatric evaluation after that. Patient was agreeable to this plan. Placed on Librium withdrawal protocol and admitted to the floor in stable condition - Lab Data Result diagrams: 01/26/22 15:08 01/26/22 15:08 Lab Results 01/26/22 01/26/22 01/26/22 Range/Units 15:08 15:08 15:08 WBC 3.3 L (3.8-10.6) k/uL RBC 4.54 (4.30-5.90) m/uL Hgb 14.8 (13.0-17.5) gm/dL Hct 42.8 (39.0-53.0) % MCV 94.2 (80.0-100.0) fL MCH 32.5 (25.0-35.0) pg MCHC 34.5 (31.0-37.0) g/dL RDW 14.0 (11.5-15.5) % Plt Count 285 (150-450) k/uL MPV 7.0 Neutrophils % 39 % Lymphocytes % 52 % Monocytes % 5 % Eosinophils % 1 % Basophils % 1 % Neutrophils # 1.3 (1.3-7.7) k/uL Lymphocytes # 1.7 (1.0-4.8) k/uL Monocytes # 0.2 (0-1.0) k/uL Eosinophils # 0.0 (0-0.7) k/uL Basophils # 0.0 (0-0.2) k/uL Sodium 141 (137-145) mmol/L Potassium 3.9 (3.5-5.1) mmol/L Chloride 104 (98-107) mmol/L Carbon Dioxide 22 (22-30) mmol/L Anion Gap 15 mmol/L BUN 6 L (9-20) mg/dL Creatinine 0.79 (0.66-1.25) mg/dL Est GFR (CKD-EPI)AfAm >90 (>60 ml/min/1.73 sqM) Est GFR (CKD-EPI)NonAf >90 (>60 ml/min/1.73 sqM) Glucose 107 H (74-99) mg/dL Calcium 8.6 (8.4-10.2) mg/dL Magnesium 1.9 (1.6-2.3) mg/dL Total Bilirubin 0.8 (0.2-1.3) mg/dL AST 57 (17-59) U/L ALT 30 (4-49) U/L Alkaline Phosphatase 113 (38-126) U/L Total Protein 7.0 (6.3-8.2) g/dL Albumin 4.2 (3.5-5.0) g/dL Lipase 222 (23-300) U/L Urine Color Colorless Urine Appearance Clear (Clear) Urine pH 6.0 (5.0-8.0) Ur Specific [place] 1.004 (1.001-1.035) Urine Protein Negative (Negative) Urine Glucose (UA) Negative (Negative) Urine Ketones Negative (Negative) Urine Blood Negative (Negative) Urine Nitrite Negative (Negative) Urine Bilirubin Negative (Negative) Urine Urobilinogen <2.0 (<2.0) mg/dL Ur Leukocyte Esterase Negative (Negative) Urine Opiates Screen Not Detected (NotDetected) Ur Oxycodone Screen Not Detected (NotDetected) Urine Methadone Screen Not Detected (NotDetected) Ur Propoxyphene Screen Not Detected (NotDetected) Ur Barbiturates Screen Not Detected (NotDetected) U Tricyclic Antidepress Not Detected (NotDetected) Ur Phencyclidine Scrn Not Detected (NotDetected) Ur Amphetamines Screen Not Detected (NotDetected) U Methamphetamines Scrn Not Detected (NotDetected) U Benzodiazepines Scrn Not Detected (NotDetected) Urine Cocaine Screen Not Detected (NotDetected) U Marijuana (THC) Screen Not Detected (NotDetected) Serum Alcohol 318 H* mg/dL Disposition Clinical Impression: Alcoholic intoxication, Depression Disposition: ADMITTED IP TO THIS [facility] Condition: Stable Is patient prescribed a controlled substance at d/c from ED?: No Referrals: [facility],Clinic [Primary Care Provider] - 1-2 days Time of Disposition: 16:16 Decision to Admit Reason: Admit from EC Decision Date: 01/26/22 Decision Time: 16:16
[2022-01-26] MEDS ORDERED: NALOXONE 0.4 MG/ML 1 ML VIAL IV PRN (16:17)
--- NOTE | 2022-01-26 16:27 | P.HPIM ---
History of Present Illness H&P Date: 01/26/22 History of Presenting Illness: Patient is a 36-year-old male with a past medical history of alcohol abuse, hypertension, PTSD, anxiety, depression, and nicotine dependence. Patient reports drinking a gallon of vodka daily for the past 4 years and states that he would like some assistance with detox and would like to go into an outpatient program. Patient states that he has a history of alcohol withdrawal seizures and knows that he cannot get through this on his own. He reported his last drink of alcohol was patcher bowling ball around 2 AM and that he began feeling shaky, nauseous, and having generalized body aches and pains. In addition to withdrawing, patient also reports that he has been very depressed and has been having thoughts of suicide but denies having a current plan. Pt denies having any visual, auditory, or tactile hallucinations and denies homicidal ideations. He denies having any headache, lightheadedness, dizziness, chest pain, palpitations, shortness of breath, cough or congestion, or experiencing any numbness/tingling/weakness/swelling in his extremities. Patient denies any recent falls or injuries. He denies any drug use. Patient underwent full evaluation in the emergency department. He was found to have a blood alcohol level of 318. CBC revealing leukopenia with WBC count of 3.3. CMP unremarkable. Urinalysis negative for infection. Urine drug screen negative. Review of systems: Pertinent positives and negatives as discussed in HPI, a complete review of systems was performed and all other systems are negative. Physical exam: Vital signs reviewed and stable. General: Nontoxic, no distress and appears stated age. Derm: Skin warm and dry, normal coloration for ethnicity. Head: Atraumatic, normocephalic and symmetric. Eyes: EOMs intact, no lid lag, and anicteric sclera Mouth: no lip lesions, mucus membranes moist Cardiovascular: Tachycardic rate and regular rhythm with normal S1S2, no murmur, positive posterior tibial pulses bilaterally, and cap refill < 2 seconds. Lungs: Respirations even, regular, and unlabored on room air. Lungs CTA bilaterally, no rhonchi, no rales, no wheezing, and no accessory muscle usage. Abdominal: soft, nontender to palpation, no guarding, no appreciable organomegaly Ext: ROM intact. No gross muscle atrophy, no edema, no contractures Neuro: Speech clear, face symmetrical and CN II-XII grossly intact with no noted focal neuro deficits, tremors present.. Psych: Alert and oriented to person, place, time, and situation. Appropriate and pleasant affect. Assessment and Plan of Care: Alcohol intoxication an active alcoholic -[facility] Protocol with symptom triggered medication management with Librium -Continuous IV fluid hydration. -Thiamine 100 mg twice a day -Multivitamin daily -Folate 1 mg daily -Seizure, fall, aspiration, and elopement precautions in place. -Urine drug screen -Continued close monitoring of electrolytes and replace as needed. -Telemetry monitoring. -Neuro checks Suicidal ideations -Suicide precautions in place him to be maintained. -Consult to psychiatry. Hypertension -Monitor vital signs and continue daily medication regimen. Nicotine dependence -Encourage smoking cessation. -Nicotine patch The patient is admitted with an anticipated less than 2 midnight stay for evaluation of alcohol intoxication CODE STATUS: Full code DVT prophylaxis: Lovenox Discussed with: Patient and RN Anticipated discharge date: Clinical course to determine Anticipated discharge place: Home A total of 43 minutes was spent on the care of this complex patient more than 50% of the time was spent in counseling and care coordination. Past Medical History Past Medical History: Hypertension Additional Past Medical History / Comment(s): ETOH abuse, past withdrawals- tremors/nausea History of Any Multi-Drug Resistant Organisms: None Reported Additional Past Surgical History / Comment(s): surgery for testicular torsion Past Anesthesia/Blood Transfusion Reactions: No Reported Reaction Past Psychological History: Anxiety, Depression, PTSD Smoking Status: Current every day smoker Past Alcohol Use History: Abuse Past Drug Use History: None Reported - Past Family History Mother Family Medical History: No Reported History Additional Family Medical History / Comment(s): Mother is healthy Father History Unknown: Yes Family Family Medical History: No Reported History Medications and Allergies Home Medications Medication Instructions Recorded Confirmed Type Baclofen [Lioresal] 10 mg PO Q8H PRN 01/26/22 01/26/22 History Cyanocobalamin (Vitamin B-12) 1,000 mcg PO DAILY 01/26/22 01/26/22 History [Vitamin B-12] Escitalopram [Lexapro] 5 mg PO TID 01/26/22 01/26/22 History Multivitamins, Thera [Multivitamin 1 tab PO DAILY 01/26/22 01/26/22 History (formulary)] Prazosin HCl [Minipress] 2 mg PO HS 01/26/22 01/26/22 History RX: Gabapentin 600 mg PO TID 01/26/22 01/26/22 History RX: Melatonin 6 mg PO HS 01/26/22 01/26/22 History RX: Nicotine 21Mg/24Hr Patch 1 patch TOPICAL DAILY 01/26/22 01/26/22 History [Habitrol] RX: Thiamine [Vitamin B-1] 100 mg PO DAILY 01/26/22 01/26/22 History RX: hydroCHLOROthiazide 25 mg PO DAILY 01/26/22 01/26/22 History amLODIPine [Norvasc] 2.5 mg PO DAILY 01/26/22 01/26/22 History hydrOXYzine HCL [Atarax] 50 mg PO Q6H PRN 01/26/22 01/26/22 History Allergies Allergy/AdvReac Type Severity Reaction Status Date / Time No Known Allergies Allergy Verified 01/26/22 16:22 Physical Exam Vitals: Vital Signs Temp Pulse Resp BP Pulse Ox 01/26/22 15:50 91 18 132/91 100 01/26/22 14:06 98.5 F 112 H 20 143/108 98 Intake and Output 01/26/22 01/26/22 01/26/22 06:59 14:59 22:59 Other: Weight 77.111 kg Results CBC & Chem 7: 01/26/22 15:08 01/26/22 15:08 Labs: Abnormal Lab Results - Last 24 Hours (Table) 01/26/22 01/26/22 Range/Units 15:08 15:08 WBC 3.3 L (3.8-10.6) k/uL BUN 6 L (9-20) mg/dL Glucose 107 H (74-99) mg/dL Serum Alcohol 318 H* mg/dL
[2022-01-26] MEDS: LACTATED RINGERS 1,000 ML IV SCH (20:22)
[2022-01-26] MEDS ORDERED: PRAZOSIN 1 MG CAP PO SCH (21:00)
[2022-01-27] MEDS: ESCITALOPRAM 5 MG TAB PO SCH ×2 (00:39→07:20)
[2022-01-27] MEDS: LACTATED RINGERS 1,000 ML IV SCH ×2 (01:01→08:54)
[2022-01-27 02:33] VITALS: RESP 16
[2022-01-27] MEDS ORDERED: amLODIPine 2.5 MG TAB PO SCH (09:00)
[2022-01-27] MEDS ORDERED: NICOTINE 21MG/24HR PATCH TRANSDERM SCH (09:00)
[2022-01-27] MEDS ORDERED: THIAMINE 100 MG TAB PO SCH (09:00)
[2022-01-27] MEDS ORDERED: hydroCHLOROthiazide 25 MG TAB PO SCH (09:00)
[2022-01-27] MEDS ORDERED: ENOXAPARIN 40 MG/0.4 ML SYRINGE SQ SCH (09:00)
[2022-01-27] MEDS ORDERED: MULTIVITAMINS, THERA 1 EACH TAB PO SCH (09:00)
[2022-01-27] MEDS ORDERED: FOLIC ACID 1 MG TAB PO SCH (09:00)
[2022-01-27 09:13] VITALS: BP 133/85; PULSE 98; TEMP 98.4
[2022-01-27] MEDS ORDERED: LORazepam 1 MG/0.5 ML VIAL IV PRN ×3 (10:11)
--- NOTE | 2022-01-27 10:14 | P.PN ---
Subjective Progress Note Date: 01/27/22 Hospital course: Patient is a 36-year-old male with a past medical history of alcohol abuse, hypertension, PTSD, anxiety, depression, and nicotine dependence. Patient reports drinking a gallon of vodka daily for the past 4 years and states that he would like some assistance with detox and would like to go into an outpatient program. Patient states that he has a history of alcohol withdrawal seizures and knows that he cannot get through this on his own. 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 In addition to withdrawing, patient also reports that he has been very depressed and has been having thoughts of suicide but denies having a current plan. Pt denies having any visual, auditory, or tactile hallucinations and denies homicidal ideations. He denies having any headache, lightheadedness, dizziness, chest pain, palpitations, shortness of breath, cough or congestion, or experiencing any numbness/tingling/weakness/swelling in his extremities. Patient denies any recent falls or injuries. He denies any drug use. Patient underwent full evaluation in the emergency department. He was found to have a blood alcohol level of 318. CBC revealing leukopenia with WBC count of 3.3. CMP unremarkable. Urinalysis negative for infection. Urine drug screen negative. Pt admitted under our services with consult to psychiatry. Physical exam: Pt's CIWA was score is 9. Pt actively withdrawing and has not received any medication since last night. Patient taken off of Librium and placed on Ativan at this time and RN notified of need to complete CIWA score and medicate patient. Awaiting psychiatry to evaluate, pt reports he was feeling depressed but currently denies any suicidal or homicidal ideations. . Patient has noted tremors and tachycardia. Vital signs reviewed and stable. General: Nontoxic, no distress and appears stated age. Derm: Skin warm and dry, normal coloration for ethnicity. Head: Atraumatic, normocephalic and symmetric. Eyes: EOMs intact, no lid lag, and anicteric sclera Mouth: no lip lesions, mucus membranes moist Cardiovascular: Tachycardic rate and regular rhythm with normal S1S2, no murmur, positive posterior tibial pulses bilaterally, and cap refill < 2 seconds. Lungs: Respirations even, regular, and unlabored on room air. Lungs CTA bilaterally, no rhonchi, no rales, no wheezing, and no accessory muscle usage. Abdominal: soft, nontender to palpation, no guarding, no appreciable organomegaly Ext: ROM intact. No gross muscle atrophy, no edema, no contractures Neuro: Speech clear, face symmetrical and CN II-XII grossly intact with no noted focal neuro deficits, tremors present.. Psych: Alert and oriented to person, place, time, and situation. Appropriate and pleasant affect. Assessment and Plan of Care: Alcohol intoxication an active alcoholic -WA Protocol with symptom triggered medication management with Ativan. -Continuous IV fluid hydration. -Thiamine 100 mg twice a day -Multivitamin daily -Folate 1 mg daily -Seizure, fall, aspiration, and elopement precautions in place. -Urine drug screen -Continued close monitoring of electrolytes and replace as needed. -Telemetry monitoring. -Neuro checks Suicidal ideations -Suicide precautions in place him to be maintained. -Consult to psychiatry. Hypertension -Monitor vital signs and continue daily medication regimen. Nicotine dependence -Encourage smoking cessation. -Nicotine patch CODE STATUS: Full code DVT prophylaxis: Lovenox Discussed with: Patient and RN Anticipated discharge date: Clinical course to determine Anticipated discharge place: Home A total of 35 minutes was spent on the care of this complex patient more than 50 % of the time was spent in counseling and care coordination. Objective - Vital Signs Vital signs: Vital Signs Temp 98.4 F 01/27/22 08:00 Pulse 98 01/27/22 08:00 Resp 16 01/27/22 08:00 BP 133/85 01/27/22 08:00 Pulse Ox 97 01/27/22 08:00 FiO2 Intake & Output 01/26/22 01/27/22 01/27/22 18:59 06:59 18:59 Intake Total 1500 Balance 1500 Weight 77.111 kg 77.111 kg Intake: Intake, IV Titration 1000 Amount Lactated Ringers 1,000 ml 1000 @ 125 mls/hr IV .Q8H [facility] Rx#:[id number] Oral 500 Other: Voiding Method Toilet # Voids 2 - Labs CBC & Chem 7: 01/27/22 07:06 01/27/22 07:06 Labs: Abnormal Lab Results - Last 24 Hours (Table) 01/26/22 01/26/22 Range/Units 15:08 15:08 WBC 3.3 L (3.8-10.6) k/uL BUN 6 L (9-20) mg/dL Glucose 107 H (74-99) mg/dL Serum Alcohol 318 H* mg/dL
[2022-01-27 10:20] LABS: Basophils # (A) 0.02 X 10*3/uL (0.00-0.10); Basophils % (A) 0.7 %; Eosinophils # (A) 0.06 X 10*3/uL (0.04-0.35); HCT 31.4 % (39.6-50.0); HGB 11.1 g/dL (13.0-17.0); Immature Grans, Automated 0 %; Lymphocytes % (A) 50.3 %; MCH 32.3 pg (27.0-32.0); MCHC 35.4 g/dL (32.0-37.0); MCV 91.3 fL (80.0-97.0); Mean Platelet Volume 9.5 fL (9.5-12.2); Monocytes # (A) 0.29 X 10*3/uL (0.20-1.00); Monocytes % (A) 9.7 %; NRBC Per 100 WBC 0 /100 WBCS (0.0-0.0); Neutrophils # (A) 1.11 X 10*3/uL (1.80-7.70); Neutrophils % (A) 37.3 %; Platelet Count 184 X 10*3/uL (140-440); RBC 3.44 X 10*6/uL (4.40-5.60); RDW 13.5 % (11.5-14.5); WBC 2.98 X 10*3/uL (4.50-10.00)
[2022-01-27 10:45] LABS: African American GFR (CKD) 140.7 (60.0-200.0); Anion Gap 8.9 mmol/L (10.00-18.00); BUN/Creat Ratio 7.01 Ratio (12.00-20.00); Blood Urea Nitrogen 4.9 mg/dL (9.0-27.0); Calcium 8.2 mg/dL (8.7-10.3); Carbon Dioxide 25.8 mmol/L (20.0-27.5); Magnesium 1.7 mg/dL (1.5-2.4); Non-African American GFR(CKD) 121.4 (60.0-200.0); Potassium 4.1 mmol/L (3.5-5.5)
--- NOTE | 2022-01-27 12:04 | P.CN ---
Psychiatric Consult - . Consult date: 01/27/22 Consult:: 01/27/22 12:03 IDENTIFYING DATA: This patient is a 36-year-old male with significant history of anxiety, depression, PTSD, and alcohol use disorder who presented to the emergency department with suicidal ideation in the context of heavy alcohol use. HISTORY OF PRESENT ILLNESS: The patient presented to the hospital on 01/26/2022, brought into the emergency department by EMS with concerns for alcohol wi thdrawal. The patient has been drinking approximately half a gallon per day for the past week with his last drink being approximately around 2 AM yesterday morning. The patient reported that he began feeling shaky, nauseated, and dizzy and therefore called an ambulance took him to the hospital. He reported suicidal ideation and depression and psychiatry was consulted for further evaluation. Upon evaluation on the medical floor, the patient is currently reporting that he is now sober and is vehemently denying any suicidal or homicidal ideation, intention, and/or plan. He reports no prior attempts at suicide. He denies any suicide attempt during this episode of acute alcohol intoxication. He reports that it was his idea to call for an ambulance and ordered to take him in the hospital that he may live. He reports recent stressors including recently moving back to the [facility] after staying in [place] with a girlfriend. He states that they just broke up recently and that he moved back to this area approximately 2 weeks ago. He states that prior to his relapse into alcohol use, he was almost a year sober. He is currently not reporting any significant symptoms of depression aside from low appetite which she attributes to his heavy alcohol use. He is not reporting any issues regarding sleep, any hopelessness, helplessness, issues with hygiene and grooming, or anhedonia. He does report future and goal orientation with [facility] The patient has been admitted to our psychiatric unit twice before for similar presentation. He however is vehemently denying the need for inpatient psychiatric admission and is currently not petitioned and certified. He is in agreement that his primary issue is his alcohol use disorder in light to pursue further treatment regarding this in the [facility] setting [facility]. The patient does report that he has significant support from his family, especially his sister and his [id number]. He is currently staying with his uncle Serafin. He reports no access to firearms or other weapons. 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 PAST PSYCHIATRIC HISTORY: Patient has a history of depression, anxiety, alcohol use disorder. He was last seen on our psychiatric unit in March 2020. Currently his home medications include Lexapro 5 mg by mouth 3 times a day, gabapentin 600 by mouth 3 times a day, and prazosin 2 mg by mouth at bedtime. He has previously trialed naltrexone. [facility]. Patient denies any history of suicide attempts in the past. PAST MEDICAL HISTORY: Past Medical History: Hypertension Additional Past Medical History / Comment(s): ETOH abuse, past withdrawals- tremors/nausea History of Any Multi-Drug Resistant Organisms: None Reported Additional Past Surgical History / Comment(s): surgery for testicular torsion Past Anesthesia/Blood Transfusion Reactions: No Reported Reaction Past Psychological History: Anxiety, Depression, PTSD Smoking Status: Current every day smoker Past Alcohol Use History: Abuse Past Drug Use History: None Reported ALLERGIES: NO KNOWN DRUG ALLERGIES CHEMICAL DEPENDENCY HISTORY: Patient reports that he is been drinking half a gallon of liquor per day for the past week. He does report a significant history of withdrawal symptoms and states that he began drinking even more because he was experiencing tremors and was concerned about the withdrawal seizures. He does report a history of seizures in the past secondary to his alcohol use disorder. He reports that the longest he has ever been sober was for a year prior to this recent relapse 2 weeks ago. He has been to alcohol rehabilitation approximately 3 years ago. He smokes one pack per day. He reports rare marijuana use. He denies any illicit drug use. FAMILY PSYCHIATRIC/SUBSTANCE USE HISTORY: No reported family psychiatric h istory. SOCIAL HISTORY: The patient was honorably discharged from the [employer] on 09/03/2014. 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 He is currently living in [place] with his uncle Serafin. The patient's sister and [id number] are also in town. He is 40% service connected through [facility]. He reports having 5 children. MENTAL STATUS EXAM: General Appearance: Patient appears to be stated age is alert, pleasant, and cooperative. Patient appears to have fair hygiene and grooming wearing hospital gown with fair eye contact. Ho and tattoos. Behavior: Patient is calmly lying in bed without any agitated behavior. Patient laughs and smiles appropriately. Speech: Patient's speech is fluent and nonpressured. Mood/Affect: Patient reports their mood is "feeling better", affect is congruent and with full range of affect. Suicidality/Homicidality: Patient is vehemently denying any suicidal or homicidal ideation, intention, and/or plan. Perceptions: Patient denies any visual hallucinations and denies any auditory hallucinations Though content/process: There is no evidence of any delusional thought content and thought process is linear and goal-directed. Memory and concentration: AOX3, grossly intact for the purposes of this session. Can spell "WORLD" backwards Judgment and insight: Fair Vital Signs Temp 98.4 F 01/27/22 08:00 Pulse 98 01/27/22 08:00 Resp 16 01/27/22 08:00 BP 133/85 01/27/22 08:00 Pulse Ox 97 01/27/22 08:00 FiO2 Intake & Output 01/26/22 01/27/22 01/27/22 18:59 06:59 18:59 Intake Total 1500 Balance 1500 Weight 77.111 kg 77.111 kg Intake: Intake, IV Titration 1000 Amount Lactated Ringers 1,000 ml 1000 @ 125 mls/hr IV .Q8H [facility] Rx#:[id number] Oral 500 Other: Voiding Method Toilet # Voids 2 Laboratory Results - Last 24 Hours 01/26/22 01/26/22 01/26/22 15:08 15:08 15:08 WBC 3.3 L RBC 4.54 Hgb 14.8 Hct 42.8 MCV 94.2 MCH 32.5 MCHC 34.5 RDW 14.0 Plt Count 285 MPV 7.0 Immature Gran % (Auto) Absolute Nucleated RBC Neutrophils % 39 Lymphocytes % 52 Monocytes % 5 Eosinophils % 1 Basophils % 1 Immature Gran # Neutrophils # 1.3 Lymphocytes # 1.7 Monocytes # 0.2 Eosinophils # 0.0 Basophils # 0.0 NRBC/100 WBC Diff Sodium 141 Potassium 3.9 Chloride 104 Carbon Dioxide 22 Anion Gap 15 BUN 6 L Creatinine 0.79 Est GFR (CKD-EPI)AfAm >90 Est GFR (CKD-EPI)NonAf >90 BUN/Creatinine Ratio Glucose 107 H Calcium 8.6 Magnesium 1.9 Total Bilirubin 0.8 AST 57 ALT 30 Alkaline Phosphatase 113 Total Protein 7.0 Albumin 4.2 Lipase 222 Urine Color Colorless Urine Appearance Clear Urine pH 6.0 Ur Specific [place] 1.004 Urine Protein Negative Urine Glucose (UA) Negative Urine Ketones Negative Urine Blood Negative Urine Nitrite Negative Urine Bilirubin Negative Urine Urobilinogen <2.0 Ur Leukocyte Esterase Negative Urine Opiates Screen Not Detected Ur Oxycodone Screen Not Detected Urine Methadone Screen Not Detected Ur Propoxyphene Screen Not Detected Ur Barbiturates Screen Not Detected U Tricyclic Antidepress Not Detected Ur Phencyclidine Scrn Not Detected Ur Amphetamines Screen Not Detected U Methamphetamines Scrn Not Detected U Benzodiazepines Scrn Not Detected Urine Cocaine Screen Not Detected U Marijuana (THC) Screen Not Detected Serum Alcohol 318 H* 01/27/22 01/27/22 07:06 07:06 WBC 2.98 L RBC 3.44 L Hgb 11.1 L Hct 31.4 L MCV 91.3 MCH 32.3 H MCHC 35.4 RDW 13.5 Plt Count 184 MPV 9.5 Immature Gran % (Auto) 0 Absolute Nucleated RBC 0 Neutrophils % 37.3 Lymphocytes % 50.3 Monocytes % 9.7 Eosinophils % 2.0 Basophils % 0.7 Immature Gran # 0 Neutrophils # 1.11 L Lymphocytes # 1.50 Monocytes # 0.29 Eosinophils # 0.06 Basophils # 0.02 NRBC/100 WBC Diff 0 Sodium 136 Potassium 4.1 Chloride 102 Carbon Dioxide 25.8 Anion Gap 8.90 L BUN 4.9 L Creatinine 0.7 Est GFR (CKD-EPI)AfAm 140.7 Est GFR (CKD-EPI)NonAf 121.4 BUN/Creatinine Ratio 7.01 L Glucose 95 Calcium 8.2 L Magnesium 1.7 Total Bilirubin AST ALT Alkaline Phosphatase Total Protein Albumin Lipase Urine Color Urine Appearance Urine pH Ur Specific [place] Urine Protein Urine Glucose (UA) Urine Ketones Urine Blood Urine Nitrite Urine Bilirubin Urine Urobilinogen Ur Leukocyte Esterase Urine Opiates Screen Ur Oxycodone Screen Urine Methadone Screen Ur Propoxyphene Screen Ur Barbiturates Screen U Tricyclic Antidepress Ur Phencyclidine Scrn Ur Amphetamines Screen U Methamphetamines Scrn U Benzodiazepines Scrn Urine Cocaine Screen U Marijuana (THC) Screen Serum Alcohol IMPRESSIONS: Alcohol use disorder Major depressive disorder, recurrent, moderate, likely exacerbated by alcohol use Posttraumatic stress disorder Nicotine dependence Cannabis use PLAN: -Continue your medical management for alcohol withdrawal -At this time patient DOES NOT meet criteria for inpatient psychiatric admission. The patient has numerous protective factors including a supportive family, future and goal orientation, duty to his children, and no access to firearms or weapons. He does have modifiable risk factors including his alcohol use disorder. He does not have any prior attempts at suicide. -Delirium precautions recommended with patient including - avoiding use of narcotics and [employer] sedatives, limit anticholinergic medications when possible, frequent re-orientation, minimize use of restraints, open window shades during the day and close them at night -Would recommend the following medication changes/additions: No medication changes will be recommended at this time. The patient would consider starting naltrexone for alcohol cessation however it will be recommended that this occurs in the outpatient setting while his liver recovers. -Discontinue one-to-one sitter -Patient was offered the option for inpatient substance abuse rehabilitation however declined. -Recommend outpatient psychiatric follow-up and outpatient substance abuse counseling services -Psychiatry will sign off at this point, please contact with any questions. 01/27/22 12:04
--- NOTE | 2022-01-27 13:41 | P.DS ---
Providers Date of admission: 01/26/22 16:16 Expected date of discharge: 01/27/22 Attending physician: Anna Villa MD Consults: 01/26/22 16:17 Consult Physician Urgent Consulting Provider: Mich Tafoya Consult Reason/Comments: depression Do you want consulting provider notified?: Already Contacted Primary care physician: [facility] Hospital Course: Discharge Diagnosis: Alcohol intoxication an active alcoholic. Patient is clinically sober and alert and oriented 4. It was strongly advised that he stay in the hospital for alcohol detox and transfer to an inpatient drug and alcohol rehabilitation program such as [facility] upon discharge, however at this time pt was declining any and all assistance and very adamant about being discharged home. Suicidal ideations, patient cleared from psychiatry once clinically sober as patient denying having any suicidal ideations at this time. Major depressive disorder Posttraumatic stress disorder Hypertension. Monitor vital signs and continue daily medication regimen. Nicotine dependence. Recommend smoking cessation. Nicotine patch Hospital Course: Patient is a 36-year-old male with a past medical history of alcohol abuse, hypertension, PTSD, anxiety, depression, and nicotine dependence. Patient reports drinking a gallon of vodka daily for the past 4 years and states that he would like some assistance with detox and would like to go into an outpatient program. Patient states that he has a history of alcohol withdrawal seizures and knows that he cannot get through this on his own. 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 In addition to withdrawing, patient also reports that he has been very depressed and has been having thoughts of suicide but denies having a current plan. Pt denies having any visual, auditory, or tactile hallucinations and denies homicidal ideations. He denies having any headache, lightheadedness, dizziness, chest pain, palpitations, shortness of breath, cough or congestion, or experiencing any numbness/tingling/weakness/swelling in his extremities. Patient denies any recent falls or injuries. He denies any drug use. Patient underwent full evaluation in the emergency department. He was found to have a blood alcohol level of 318. CBC revealing leukopenia with WBC count of 3.3. CMP unremarkable. Urinalysis negative for infection. Urine drug screen negative. Pt admitted under our services with consult to psychiatry. Patient was seen and evaluated by psychiatry after becoming clinically sober. Patient denying having any suicidal or homicidal ideations. It was strongly advised that he stay in the hospital for alcohol detox and transfer to an inpatient drug and alcohol rehabilitation program such as [facility] upon discharge, however at this time pt was declining any and all assistance and very adamant about being discharged home. Physical exam: Vital signs reviewed and stable. General: Nontoxic, no distress and appears stated age. Derm: Skin warm and dry, normal coloration for ethnicity. Head: Atraumatic, normocephalic and symmetric. Eyes: EOMs intact, no lid lag, and anicteric sclera Mouth: no lip lesions, mucus membranes moist Cardiovascular: Tachycardic rate and regular rhythm with normal S1S2, no murmur, positive posterior tibial pulses bilaterally, and cap refill < 2 seconds. Lungs: Respirations even, regular, and unlabored on room air. Lungs CTA bilaterally, no rhonchi, no rales, no wheezing, and no accessory muscle usage. Abdominal: soft, nontender to palpation, no guarding, no appreciable organomegaly Ext: ROM intact. No gross muscle atrophy, no edema, no contractures Neuro: Speech clear, face symmetrical and CN II-XII grossly intact with no noted focal neuro deficits, tremors present.. Psych: Alert and oriented to person, place, time, and situation. Appropriate and pleasant affect. A total of 35 minutes of time were spent preparing this complex discharge summary. Pt was discharged on 01/27/22 at 1:28 PM. Lupillo De Leon NP rendered care for this patient independently, reviewed the findings and plan as documented in the note above. I did not physically speak with or examine the patient on this date. Patient Condition at Discharge: Stable Plan - Discharge Summary Discharge Rx Participant: No New Discharge Prescriptions: Continue Nicotine 21Mg/24Hr Patch [Habitrol] 1 patch TOPICAL DAILY Multivitamins, Thera [Multivitamin (formulary)] 1 tab PO DAILY Cyanocobalamin (Vitamin B-12) [Vitamin B-12] 1,000 mcg PO DAILY Melatonin 6 mg PO HS Thiamine [Vitamin B-1] 100 mg PO DAILY Gabapentin 600 mg PO TID hydroCHLOROthiazide 25 mg PO DAILY amLODIPine [Norvasc] 2.5 mg PO DAILY Prazosin HCl [Minipress] 2 mg PO HS hydrOXYzine HCL [Atarax] 50 mg PO Q6H PRN PRN Reason: ANXIETY/ITCHING/NAUSEA Escitalopram [Lexapro] 5 mg PO TID Baclofen [Lioresal] 10 mg PO Q8H PRN PRN Reason: Muscle Spasm Discharge Medication List Baclofen [Lioresal] 10 mg PO Q8H PRN 01/26/22 [History] Cyanocobalamin (Vitamin B-12) [Vitamin B-12] 1,000 mcg PO DAILY 01/26/22 [History] Escitalopram [Lexapro] 5 mg PO TID 01/26/22 [History] Gabapentin 600 mg PO TID 01/26/22 [History] Melatonin 6 mg PO HS 01/26/22 [History] Multivitamins, Thera [Multivitamin (formulary)] 1 tab PO DAILY 01/26/22 [History] Nicotine 21Mg/24Hr Patch [Habitrol] 1 patch TOPICAL DAILY 01/26/22 [History] Prazosin HCl [Minipress] 2 mg PO HS 01/26/22 [History] Thiamine [Vitamin B-1] 100 mg PO DAILY 01/26/22 [History] amLODIPine [Norvasc] 2.5 mg PO DAILY 01/26/22 [History] hydrOXYzine HCL [Atarax] 50 mg PO Q6H PRN 01/26/22 [History] hydroCHLOROthiazide 25 mg PO DAILY 01/26/22 [History] Follow up Appointment(s)/Referral(s): [facility],Clinic [Primary Care Provider] - 1-2 days Patient Instructions/Handouts: Depression (DC), Abuse of Alcohol (DC), Alcohol Use Disorder (DC) Activity/Diet/Wound Care/Special Instructions: Activity: As tolerated. Take breaks as needed. Diet: Regular diet Special Instructions: Take all of your medications as directed and remember to keep all of your doctor's appointments and follow-up as needed. It is strongly advised that you stay in the hospital for alcohol detox and transfer to an inpatient drug and alcohol rehabilitation program upon discharge, however at this time you are declining assistance and very adamant about being discharged home so discharge orders were placed per your request. Strongly advised to refrain from all alcohol use. Thank you for allowing us to participate in your care, it was truly a pleasure having you for our patient!!! Discharge Disposition: HOME SELF-CARE
== END 2022-01-27 14:01 | disposition home or self-care (01) ==
LOC: EC 14:00 → 4SSUR 16:16
PROVIDERS: ADMIT Family Medicine; ATTEND Family Medicine
DX: F10.229 Alcohol dependence with intoxication, unspecified (principal); F10.239 Alcohol dependence with withdrawal, unspecified; F33.1 Major depressive disorder, recurrent, moderate; R45.851 Suicidal ideations; I10 Essential (primary) hypertension; F43.10 Post-traumatic stress disorder, unspecified; F41.9 Anxiety disorder, unspecified; Y90.8 Blood alcohol level of 240 mg/100 ml or more; D72.819 Decreased white blood cell count, unspecified; F17.210 Nicotine dependence, cigarettes, uncomplicated; Z79.899 Other long term (current) drug therapy; Z98.890 Other specified postprocedural states; Z71.6 Tobacco abuse counseling
CPT/HCPCS: 96361 ×2; 96372; 96375; 96374; 99285; 36415; 80053; 80048; 83690; 83735 ×2; 85025 ×2; 81003; 80306; 80320; G0378 ×2; S4990; J2060; J2405; J1650

== ENCOUNTER 2022-01-29 13:55 | Observation (INO) | payer OTHER ==
--- NOTE | 2022-01-29 14:08 | ED ---
Seizure HPI - General Stated Complaint: Seizure Time Seen by Provider: 01/29/22 13:55 Source: patient, family, EMS, RN notes reviewed Mode of arrival: EMS - History of Present Illness Initial Comments: 36-year-old male with a history of alcoholism and post medic stress disorder who is brought in by EMS today because of a seizure lasting about 30 seconds patient normally drinks about 1 gallon of vodka per day he does admit to drinking about three quarters of a gallon last night he was try to get into rehab. His sister who lives with him heard a thump and found him on the floor he did strike his head on the floor. He complains only of left-sided head pain and some neck discomfort. He does have depression and suicidal thoughts. He is petitioned by his sister. Patient does not complain of any other complaints of pain anywhere else in his body no fevers chills nausea vomiting sweats this time. She had a history of seizures with alcohol withdrawal in the past. MD Complaint: seizure - Related Data Home Medications Medication Instructions Recorded Confirmed Baclofen [Lioresal] 10 mg PO Q8H PRN 01/26/22 01/26/22 Cyanocobalamin (Vitamin B-12) 1,000 mcg PO DAILY 01/26/22 01/26/22 [Vitamin B-12] Escitalopram [Lexapro] 5 mg PO TID 01/26/22 01/26/22 Gabapentin 600 mg PO TID 01/26/22 01/26/22 Melatonin 6 mg PO HS 01/26/22 01/26/22 Multivitamins, Thera [Multivitamin 1 tab PO DAILY 01/26/22 01/26/22 (formulary)] Nicotine 21Mg/24Hr Patch [Habitrol] 1 patch TOPICAL DAILY 01/26/22 01/26/22 Prazosin HCl [Minipress] 2 mg PO HS 01/26/22 01/26/22 Thiamine [Vitamin B-1] 100 mg PO DAILY 01/26/22 01/26/22 amLODIPine [Norvasc] 2.5 mg PO DAILY 01/26/22 01/26/22 hydrOXYzine HCL [Atarax] 50 mg PO Q6H PRN 01/26/22 01/26/22 hydroCHLOROthiazide 25 mg PO DAILY 01/26/22 01/26/22 Allergies Allergy/AdvReac Type Severity Reaction Status Date / Time No Known Allergies Allergy Verified 01/29/22 14:08 Review of Systems ROS Statement: Those systems with pertinent positive or pertinent negative responses have been documented in the HPI. ROS Other: All systems not noted in ROS Statement are negative. Past Medical History Past Medical History: Hypertension Additional Past Medical History / Comment(s): ETOH abuse, past withdrawals-tremors/nausea History of Any Multi-Drug Resistant Organisms: None Reported Additional Past Surgical History / Comment(s): surgery for testicular torsion Past Anesthesia/Blood Transfusion Reactions: No Reported Reaction Past Psychological History: Anxiety, Depression, PTSD Additional Psychological History / Comment(s): Pt resides alone. He is seen at [facility]. Pt states he has had increased depression and thoughts of suicide. Has hx of suicidal plan involving shooting self with gun. Pt states he does not wish himself . Pt can drive. He is currently unemployed. Smoking Status: Current every day smoker Past Alcohol Use History: Abuse Additional Past Alcohol Use History / Comment(s): Pt drinks 2 fifths of vodka a day. He started smoking in 1999 and is a 1.5 ppd smoker. Past Drug Use History: None Reported Additional Drug Use History / Comment(s): Occasional marijuana use. - Past Family History Mother Family Medical History: No Reported History Additional Family Medical History / Comment(s): Mother is healthy Father History Unknown: Yes Family Family Medical History: No Reported History General Exam - General Exam Comments Initial Comments: This is a well-developed well-nourished awake alert but lethargic male with a [place] Coma Scale of 15 Limitations: no limitations General appearance: alert, lethargic Head exam: Present: normocephalic, other (Tenderness palpation along the right temporal scalp no step-off or crepitation a slight amount of edema noted.) Eye exam: Present: normal appearance, PERRL, EOMI. Absent: scleral icterus, conjunctival injection, periorbital swelling ENT exam: Present: mucous membranes dry Neck exam: Present: normal inspection, tenderness, other (Mild paraspinous tenderness no surgery or bruits) Respiratory exam: Present: normal lung sounds bilaterally. Absent: respiratory distress, wheezes, rales, rhonchi, stridor Cardiovascular Exam: Present: regular rate, normal rhythm, normal heart sounds. Absent: systolic murmur, diastolic murmur, rubs, gallop, clicks GI/Abdominal exam: Present: soft, normal bowel sounds. Absent: distended, tenderness, guarding, rebound, rigid Extremities exam: Present: normal inspection, full ROM, normal capillary refill. Absent: tenderness, pedal edema, joint swelling, calf tenderness Back exam: Present: normal inspection Neurological exam: Present: alert, oriented X3, CN II-XII intact Psychiatric exam: Present: depressed, flat affect, suicidal ideation Skin exam: Present: warm, dry, intact, normal color. Absent: rash Course Vital Signs 01/29/22 01/29/22 14:02 16:02 Temperature 97.4 F L Pulse Rate 95 95 Respiratory 18 18 Rate Blood Pressure 141/81 126/94 O2 Sat by Pulse 100 98 Oximetry Medical Decision Making - Medical Decision Making The patient does have elevated lactic acid likely on the basis of viral depletion as he has no infectious processes that are identifiable. Patient also has alcohol intoxication 316 alcohol level. Patient be admitted I did discuss this with him and his family. he'll be admitted to Dr. Kay - Lab Data Result diagrams: 01/29/22 14:34 01/29/22 14:34 Lab Results 01/29/22 01/29/22 01/29/22 Range/Units 14:34 14:34 14:34 WBC 5.2 (3.8-10.6) k/uL RBC 4.66 (4.30-5.90) m/uL Hgb 15.0 (13.0-17.5) gm/dL Hct 45.0 (39.0-53.0) % MCV 96.5 (80.0-100.0) fL MCH 32.1 (25.0-35.0) pg MCHC 33.3 (31.0-37.0) g/dL RDW 13.8 (11.5-15.5) % Plt Count 220 (150-450) k/uL MPV 7.3 Neutrophils % 61 % Lymphocytes % 32 % Monocytes % 3 % Eosinophils % 1 % Basophils % 1 % Neutrophils # 3.2 (1.3-7.7) k/uL Lymphocytes # 1.7 (1.0-4.8) k/uL Monocytes # 0.2 (0-1.0) k/uL Eosinophils # 0.1 (0-0.7) k/uL Basophils # 0.0 (0-0.2) k/uL PT (9.0-12.0) sec INR (<1.2) APTT (22.0-30.0) sec Sodium 144 (137-145) mmol/L Potassium 4.1 (3.5-5.1) mmol/L Chloride 105 (98-107) mmol/L Carbon Dioxide 23 (22-30) mmol/L Anion Gap 16 mmol/L BUN 12 (9-20) mg/dL Creatinine 0.85 (0.66-1.25) mg/dL Est GFR (CKD-EPI)AfAm >90 (>60 ml/min/1.73 sqM) Est GFR (CKD-EPI)NonAf >90 (>60 ml/min/1.73 sqM) Glucose 90 (74-99) mg/dL Plasma Lactic Acid Braeden 2.7 H* (0.7-2.0) mmol/L Calcium 8.5 (8.4-10.2) mg/dL Magnesium 1.8 (1.6-2.3) mg/dL Total Bilirubin 0.6 (0.2-1.3) mg/dL AST 52 (17-59) U/L ALT 38 (4-49) U/L Alkaline Phosphatase 130 H (38-126) U/L Ammonia 41 H (<30) umol/L Creatine Kinase 158 (55-170) U/L Troponin I (0.000-0.034) ng/mL Total Protein 7.4 (6.3-8.2) g/dL Albumin 4.5 (3.5-5.0) g/dL Lipase 221 (23-300) U/L Urine Opiates Screen (NotDetected) Ur Oxycodone Screen (NotDetected) Urine Methadone Screen (NotDetected) Ur Propoxyphene Screen (NotDetected) Ur Barbiturates Screen (NotDetected) U Tricyclic Antidepress (NotDetected) Ur Phencyclidine Scrn (NotDetected) Ur Amphetamines Screen (NotDetected) U Methamphetamines Scrn (NotDetected) U Benzodiazepines Scrn (NotDetected) Urine Cocaine Screen (NotDetected) U Marijuana (THC) Screen (NotDetected) Serum Alcohol 316 H* mg/dL Coronavirus (PCR) (Not Detectd) 01/29/22 01/29/22 01/29/22 Range/Units 14:34 14:34 15:17 WBC (3.8-10.6) k/uL RBC (4.30-5.90) m/uL Hgb (13.0-17.5) gm/dL Hct (39.0-53.0) % MCV (80.0-100.0) fL MCH (25.0-35.0) pg MCHC (31.0-37.0) g/dL RDW (11.5-15.5) % Plt Count (150-450) k/uL MPV Neutrophils % % Lymphocytes % % Monocytes % % Eosinophils % % Basophils % % Neutrophils # (1.3-7.7) k/uL Lymphocytes # (1.0-4.8) k/uL Monocytes # (0-1.0) k/uL Eosinophils # (0-0.7) k/uL Basophils # (0-0.2) k/uL PT 14.7 H (9.0-12.0) sec INR 1.4 H (<1.2) APTT 24.2 (22.0-30.0) sec Sodium (137-145) mmol/L Potassium (3.5-5.1) mmol/L Chloride (98-107) mmol/L Carbon Dioxide (22-30) mmol/L Anion Gap mmol/L BUN (9-20) mg/dL Creatinine (0.66-1.25) mg/dL Est GFR (CKD-EPI)AfAm (>60 ml/min/1.73 sqM) Est GFR (CKD-EPI)NonAf (>60 ml/min/1.73 sqM) Glucose (74-99) mg/dL Plasma Lactic Acid Braeden (0.7-2.0) mmol/L Calcium (8.4-10.2) mg/dL Magnesium (1.6-2.3) mg/dL Total Bilirubin (0.2-1.3) mg/dL AST (17-59) U/L ALT (4-49) U/L Alkaline Phosphatase (38-126) U/L Ammonia (<30) umol/L Creatine Kinase (55-170) U/L Troponin I <0.012 (0.000-0.034) ng/mL Total Protein (6.3-8.2) g/dL Albumin (3.5-5.0) g/dL Lipase (23-300) U/L Urine Opiates Screen (NotDetected) Ur Oxycodone Screen (NotDetected) Urine Methadone Screen (NotDetected) Ur Propoxyphene Screen (NotDetected) Ur Barbiturates Screen (NotDetected) U Tricyclic Antidepress (NotDetected) Ur Phencyclidine Scrn (NotDetected) Ur Amphetamines Screen (NotDetected) U Methamphetamines Scrn (NotDetected) U Benzodiazepines Scrn (NotDetected) Urine Cocaine Screen (NotDetected) U Marijuana (THC) Screen (NotDetected) Serum Alcohol mg/dL Coronavirus (PCR) Not Detected (Not Detectd) 01/29/22 Range/Units 16:02 WBC (3.8-10.6) k/uL RBC (4.30-5.90) m/uL Hgb (13.0-17.5) gm/dL Hct (39.0-53.0) % MCV (80.0-100.0) fL MCH (25.0-35.0) pg MCHC (31.0-37.0) g/dL RDW (11.5-15.5) % Plt Count (150-450) k/uL MPV Neutrophils % % Lymphocytes % % Monocytes % % Eosinophils % % Basophils % % Neutrophils # (1.3-7.7) k/uL Lymphocytes # (1.0-4.8) k/uL Monocytes # (0-1.0) k/uL Eosinophils # (0-0.7) k/uL Basophils # (0-0.2) k/uL PT (9.0-12.0) sec INR (<1.2) APTT (22.0-30.0) sec Sodium (137-145) mmol/L Potassium (3.5-5.1) mmol/L Chloride (98-107) mmol/L Carbon Dioxide (22-30) mmol/L Anion Gap mmol/L BUN (9-20) mg/dL Creatinine (0.66-1.25) mg/dL Est GFR (CKD-EPI)AfAm (>60 ml/min/1.73 sqM) Est GFR (CKD-EPI)NonAf (>60 ml/min/1.73 sqM) Glucose (74-99) mg/dL Plasma Lactic Acid Braeden (0.7-2.0) mmol/L Calcium (8.4-10.2) mg/dL Magnesium (1.6-2.3) mg/dL Total Bilirubin (0.2-1.3) mg/dL AST (17-59) U/L ALT (4-49) U/L Alkaline Phosphatase (38-126) U/L Ammonia (<30) umol/L Creatine Kinase (55-170) U/L Troponin I (0.000-0.034) ng/mL Total Protein (6.3-8.2) g/dL Albumin (3.5-5.0) g/dL Lipase (23-300) U/L Urine Opiates Screen Not Detected (NotDetected) Ur Oxycodone Screen Not Detected (NotDetected) Urine Methadone Screen Not Detected (NotDetected) Ur Propoxyphene Screen Not Detected (NotDetected) Ur Barbiturates Screen Not Detected (NotDetected) U Tricyclic Antidepress Not Detected (NotDetected) Ur Phencyclidine Scrn Not Detected (NotDetected) Ur Amphetamines Screen Not Detected (NotDetected) U Methamphetamines Scrn Not Detected (NotDetected) U Benzodiazepines Scrn Detected H (NotDetected) Urine Cocaine Screen Not Detected (NotDetected) U Marijuana (THC) Screen Not Detected (NotDetected) Serum Alcohol mg/dL Coronavirus (PCR) (Not Detectd) - Radiology Data Radiology results: report reviewed (Imaging reviewed as well as report no acute findings), image reviewed Disposition Clinical Impression: Alcohol intoxication, Depression, Suicidal ideations Disposition: ADMITTED IP TO THIS HOSP Condition: Stable Referrals: [facility],Clinic [Primary Care Provider] - 1-2 days Decision Date: 01/29/22 Decision Time: 16:30
[2022-01-29] MEDS ORDERED: LORazepam 2 MG/ML INJ IV STA ×2 (14:10→17:00)
[2022-01-29 14:47] LABS: Basophils % (A) 1 %; Eosinophils # (A) 0.1 k/uL (0-0.7); Eosinophils % (A) 1 %; Lymphocytes # (A) 1.7 k/uL (1.0-4.8); Lymphocytes % (A) 32 %; MCH 32.1 pg (25.0-35.0); MCHC 33.3 g/dL (31.0-37.0); MCV 96.5 fL (80.0-100.0); Mean Platelet Volume 7.3; Monocytes # (A) 0.2 k/uL (0-1.0); Monocytes % (A) 3 %; Neutrophils # (A) 3.2 k/uL (1.3-7.7); Neutrophils % (A) 61 %; Platelet Count 220 k/uL (150-450); RBC 4.66 m/uL (4.30-5.90); RDW 13.8 % (11.5-15.5); WBC 5.2 k/uL (3.8-10.6)
[2022-01-29 14:59] LABS: INR 1.4 (<1.2); Partial Thromboplastin Time 24.2 sec (22.0-30.0); Prothrombin Time 14.7 sec (9.0-12.0)
--- NOTE | 2022-01-29 15:00 | XR ---
EXAMINATION TYPE: XR chest 2V DATE OF EXAM: 01/29/2022 COMPARISON: NONE HISTORY: Seizure, chest pain TECHNIQUE: Frontal and lateral views of the chest are obtained. FINDINGS: There is no focal air space opacity, pleural effusion, or pneumothorax seen. The cardiac silhouette size is within normal limits. There are overlying leads. The osseous structures are intac t. IMPRESSION: No acute cardiopulmonary process.
[2022-01-29 15:05] LABS: ALT 38 U/L (4-49); AST 52 U/L (17-59); African American GFR (CKD) >90 (>60 ml/min/1.73 sqM); Albumin 4.5 g/dL (3.5-5.0); Alkaline Phosphatase 130 U/L (38-126); Anion Gap 16 mmol/L; Blood Urea Nitrogen 12 mg/dL (9-20); Calcium 8.5 mg/dL (8.4-10.2); Carbon Dioxide 23 mmol/L (22-30); Chloride 105 mmol/L (98-107); Creatine Kinase 158 U/L (55-170); Glucose 90 mg/dL (74-99); Lipase 221 U/L (23-300); Magnesium 1.8 mg/dL (1.6-2.3); Non-African American GFR(CKD) >90 (>60 ml/min/1.73 sqM); Potassium 4.1 mmol/L (3.5-5.1); Sodium 144 mmol/L (137-145); Total Bilirubin 0.6 mg/dL (0.2-1.3); Total Protein 7.4 g/dL (6.3-8.2)
[2022-01-29 15:12] LABS: Lactic Acid, Venous 2.7 mmol/L (0.7-2.0)
[2022-01-29 15:19] LABS: Alcohol 316 mg/dL
--- NOTE | 2022-01-29 15:35 | CT ---
EXAMINATION TYPE: CT brain cspine wo con CT DLP: 1422.8 mGycm, Automated exposure control for dose reduction was used. DATE OF EXAM: 01/29/2022 3:29 PM COMPARISON: None. CLINICAL INDICATION:Male, 36 years old with history of Fall; Seizure, fall TECHNIQUE: Brain: Multiple axial CT images of the brain were obtained without IV contrast. Cspine: Axial CT images from the skull base to the inferior aspect of T2 we obtained without intraven ous contrast. Coronal and sagittal reformatted images were also reviewed. FINDINGS: Brain: Extra-axial spaces: No abnormal extra-axial fluid collections. Ventricular system: Within normal limits Cerebral parenchyma: No acute intraparenchymal hemorrhage or mass effect. The bell-white junction is well differentiated. Cerebellum: Unremarkable. Mass effect: No evidence of midline shift. Intracranial vasculature: unremarkable Soft tissues: Normal. Calvarium/osseous structures: No depressed skull fracture. Paranasal sinuses and mastoid air cells: Clear. Visualized orbits: Orbital contents are intact. Cervical spine: Fracture: None. Osseous structures: Unremarkable Vertebral alignment: Within normal limits. Spinal canal/Neural Foramina: No evidence of significant spinal canal narrowing. No evidence for sign ificant neural foraminal stenosis. Neck soft tissues: Prevertebral soft tissues are within normal limits. Other: The airway is patent. The lung apices are clear. IMPRESSION: 1. No acute intracranial process. 2. No evidence of cervical spine fracture.
[2022-01-29 16:22] LABS: Amphetamine Screen,Urine Not Detected (NotDetected); Barbiturate Screen,Urine Not Detected (NotDetected); Benzodiazepines Screen,Urine Detected (NotDetected); Cocaine Screen,Urine Not Detected (NotDetected); Methadone Screen, Urine Not Detected (NotDetected); Opiate Screen,Urine Not Detected (NotDetected); Oxycodone Screen, Urine Not Detected (NotDetected); Phencyclidine Screen,Urine Not Detected (NotDetected); Tricyclic Antidepressant,Urine Not Detected (NotDetected); Urn Cannabinoid Scrn Not Detected (NotDetected)
[2022-01-29] MEDS ORDERED: SODIUM CHLORIDE 0.9% 1,000 ML IV ONE (16:30)
[2022-01-29] MEDS ORDERED: ACETAMINOPHEN TAB 325 MG TAB PO PRN (17:04)
[2022-01-29] MEDS ORDERED: NALOXONE 0.4 MG/ML 1 ML VIAL IV PRN (17:04)
--- NOTE | 2022-01-29 17:04 | ED ---
Medical Decision Making - Lab Data Result diagrams: 01/29/22 14:34 01/29/22 14:34 Lab Results 01/29/22 01/29/22 01/29/22 Range/Units 14:34 14:34 14:34 WBC 5.2 (3.8-10.6) k/uL RBC 4.66 (4.30-5.90) m/uL Hgb 15.0 (13.0-17.5) gm/dL Hct 45.0 (39.0-53.0) % MCV 96.5 (80.0-100.0) fL MCH 32.1 (25.0-35.0) pg MCHC 33.3 (31.0-37.0) g/dL RDW 13.8 (11.5-15.5) % Plt Count 220 (150-450) k/uL MPV 7.3 Neutrophils % 61 % Lymphocytes % 32 % Monocytes % 3 % Eosinophils % 1 % Basophils % 1 % Neutrophils # 3.2 (1.3-7.7) k/uL Lymphocytes # 1.7 (1.0-4.8) k/uL Monocytes # 0.2 (0-1.0) k/uL Eosinophils # 0.1 (0-0.7) k/uL Basophils # 0.0 (0-0.2) k/uL PT (9.0-12.0) sec INR (<1.2) APTT (22.0-30.0) sec Sodium 144 (137-145) mmol/L Potassium 4.1 (3.5-5.1) mmol/L Chloride 105 (98-107) mmol/L Carbon Dioxide 23 (22-30) mmol/L Anion Gap 16 mmol/L BUN 12 (9-20) mg/dL Creatinine 0.85 (0.66-1.25) mg/dL Est GFR (CKD-EPI)AfAm >90 (>60 ml/min/1.73 sqM) Est GFR (CKD-EPI)NonAf >90 (>60 ml/min/1.73 sqM) Glucose 90 (74-99) mg/dL Plasma Lactic Acid Braeden 2.7 H* (0.7-2.0) mmol/L Calcium 8.5 (8.4-10.2) mg/dL Magnesium 1.8 (1.6-2.3) mg/dL Total Bilirubin 0.6 (0.2-1.3) mg/dL AST 52 (17-59) U/L ALT 38 (4-49) U/L Alkaline Phosphatase 130 H (38-126) U/L Ammonia 41 H (<30) umol/L Creatine Kinase 158 (55-170) U/L Troponin I (0.000-0.034) ng/mL Total Protein 7.4 (6.3-8.2) g/dL Albumin 4.5 (3.5-5.0) g/dL Lipase 221 (23-300) U/L Urine Opiates Screen (NotDetected) Ur Oxycodone Screen (NotDetected) Urine Methadone Screen (NotDetected) Ur Propoxyphene Screen (NotDetected) Ur Barbiturates Screen (NotDetected) U Tricyclic Antidepress (NotDetected) Ur Phencyclidine Scrn (NotDetected) Ur Amphetamines Screen (NotDetected) U Methamphetamines Scrn (NotDetected) U Benzodiazepines Scrn (NotDetected) Urine Cocaine Screen (NotDetected) U Marijuana (THC) Screen (NotDetected) Serum Alcohol 316 H* mg/dL Coronavirus (PCR) (Not Detectd) 01/29/22 01/29/22 01/29/22 Range/Units 14:34 14:34 15:17 WBC (3.8-10.6) k/uL RBC (4.30-5.90) m/uL Hgb (13.0-17.5) gm/dL Hct (39.0-53.0) % MCV (80.0-100.0) fL MCH (25.0-35.0) pg MCHC (31.0-37.0) g/dL RDW (11.5-15.5) % Plt Count (150-450) k/uL MPV Neutrophils % % Lymphocytes % % Monocytes % % Eosinophils % % Basophils % % Neutrophils # (1.3-7.7) k/uL Lymphocytes # (1.0-4.8) k/uL Monocytes # (0-1.0) k/uL Eosinophils # (0-0.7) k/uL Basophils # (0-0.2) k/uL PT 14.7 H (9.0-12.0) sec INR 1.4 H (<1.2) APTT 24.2 (22.0-30.0) sec Sodium (137-145) mmol/L Potassium (3.5-5.1) mmol/L Chloride (98-107) mmol/L Carbon Dioxide (22-30) mmol/L Anion Gap mmol/L BUN (9-20) mg/dL Creatinine (0.66-1.25) mg/dL Est GFR (CKD-EPI)AfAm (>60 ml/min/1.73 sqM) Est GFR (CKD-EPI)NonAf (>60 ml/min/1.73 sqM) Glucose (74-99) mg/dL Plasma Lactic Acid Braeden (0.7-2.0) mmol/L Calcium (8.4-10.2) mg/dL Magnesium (1.6-2.3) mg/dL Total Bilirubin (0.2-1.3) mg/dL AST (17-59) U/L ALT (4-49) U/L Alkaline Phosphatase (38-126) U/L Ammonia (<30) umol/L Creatine Kinase (55-170) U/L Troponin I <0.012 (0.000-0.034) ng/mL Total Protein (6.3-8.2) g/dL Albumin (3.5-5.0) g/dL Lipase (23-300) U/L Urine Opiates Screen (NotDetected) Ur Oxycodone Screen (NotDetected) Urine Methadone Screen (NotDetected) Ur Propoxyphene Screen (NotDetected) Ur Barbiturates Screen (NotDetected) U Tricyclic Antidepress (NotDetected) Ur Phencyclidine Scrn (NotDetected) Ur Amphetamines Screen (NotDetected) U Methamphetamines Scrn (NotDetected) U Benzodiazepines Scrn (NotDetected) Urine Cocaine Screen (NotDetected) U Marijuana (THC) Screen (NotDetected) Serum Alcohol mg/dL Coronavirus (PCR) Not Detected (Not Detectd) 01/29/22 Range/Units 16:02 WBC (3.8-10.6) k/uL RBC (4.30-5.90) m/uL Hgb (13.0-17.5) gm/dL Hct (39.0-53.0) % MCV (80.0-100.0) fL MCH (25.0-35.0) pg MCHC (31.0-37.0) g/dL RDW (11.5-15.5) % Plt Count (150-450) k/uL MPV Neutrophils % % Lymphocytes % % Monocytes % % Eosinophils % % Basophils % % Neutrophils # (1.3-7.7) k/uL Lymphocytes # (1.0-4.8) k/uL Monocytes # (0-1.0) k/uL Eosinophils # (0-0.7) k/uL Basophils # (0-0.2) k/uL PT (9.0-12.0) sec INR (<1.2) APTT (22.0-30.0) sec Sodium (137-145) mmol/L Potassium (3.5-5.1) mmol/L Chloride (98-107) mmol/L Carbon Dioxide (22-30) mmol/L Anion Gap mmol/L BUN (9-20) mg/dL Creatinine (0.66-1.25) mg/dL Est GFR (CKD-EPI)AfAm (>60 ml/min/1.73 sqM) Est GFR (CKD-EPI)NonAf (>60 ml/min/1.73 sqM) Glucose (74-99) mg/dL Plasma Lactic Acid Braeden (0.7-2.0) mmol/L Calcium (8.4-10.2) mg/dL Magnesium (1.6-2.3) mg/dL Total Bilirubin (0.2-1.3) mg/dL AST (17-59) U/L ALT (4-49) U/L Alkaline Phosphatase (38-126) U/L Ammonia (<30) umol/L Creatine Kinase (55-170) U/L Troponin I (0.000-0.034) ng/mL Total Protein (6.3-8.2) g/dL Albumin (3.5-5.0) g/dL Lipase (23-300) U/L Urine Opiates Screen Not Detected (NotDetected) Ur Oxycodone Screen Not Detected (NotDetected) Urine Methadone Screen Not Detected (NotDetected) Ur Propoxyphene Screen Not Detected (NotDetected) Ur Barbiturates Screen Not Detected (NotDetected) U Tricyclic Antidepress Not Detected (NotDetected) Ur Phencyclidine Scrn Not Detected (NotDetected) Ur Amphetamines Screen Not Detected (NotDetected) U Methamphetamines Scrn Not Detected (NotDetected) U Benzodiazepines Scrn Detected H (NotDetected) Urine Cocaine Screen Not Detected (NotDetected) U Marijuana (THC) Screen Not Detected (NotDetected) Serum Alcohol mg/dL Coronavirus (PCR) (Not Detectd) Disposition Clinical Impression: Alcohol intoxication, Depression, Suicidal ideations, Seizure, Scalp contusion Disposition: ADMITTED IP TO THIS [facility] Condition: Stable Referrals: [facility],Clinic [Primary Care Provider] - 1-2 days
[2022-01-29] MEDS ORDERED: THIAMINE 100 MG/ML 2 ML VIAL IM STA (17:07)
[2022-01-29] MEDS ORDERED: LORazepam 2 MG/ML INJ IV PRN ×2 (17:07)
[2022-01-29] MEDS: SODIUM CHLORIDE 0.9% 1,000 ML IV SCH (17:15)
[2022-01-29] MEDS: THIAMINE 100 MG TAB PO SCH (17:51)
[2022-01-29] MEDS ORDERED: ONDANSETRON 4 MG/2 ML VIAL IVP PRN (18:14)
[2022-01-29] MEDS ORDERED: hydrOXYzine HCL 25 MG TAB PO PRN (18:19)
[2022-01-29] MEDS ORDERED: LACTULOSE 20 GM/30 ML CUP PO ONE (18:22)
--- NOTE | 2022-01-29 18:26 | P.HPIM ---
History of Present Illness H&P Date: 01/29/22 A is a 36-year-old male who presents to [facility] for acute onset seizure. Patient has a past medical history of hypertension PTSD anxiety depression seizure tobacco dependence and alcohol dependence. Patient's last drink was last night where he drank half a gallon of vodka. Patient states that this morning he got up to get something to eat and fell to the floor. He did not know he was having a grand mal seizure, this was witnessed by his family. As a result, patient was brought in for further evaluation. Patient currently admits to having a headache and epigastric pain status post fall. Patient also admits to some nausea. Patient denies fever, chills, vomiting, diarrhea, abdominal pain, shortness of breath, or constipation. When asked why this keeps happening patient states he lost daughter and he is unable to cope with it. Patient uses alcohol as a coping mechanism. Patient has not sought help from a counselor or psychiatrist. However, patient is open seeing one now. Review of Systems A 14 point review systems was assessed patient was only positive for those described in HPI. Past Medical History Past Medical History: Hypertension Additional Past Medical History / Comment(s): ETOH abuse, past withdrawals- tremors/nausea History of Any Multi-Drug Resistant Organisms: None Reported Additional Past Surgical History / Comment(s): surgery for testicular torsion Past Anesthesia/Blood Transfusion Reactions: No Reported Reaction Past Psychological History: Anxiety, Depression, PTSD Additional Psychological History / Comment(s): Pt resides alone. He is seen at [facility]. Pt states he has had increased depression and thoughts of suicide. Has hx of suicidal plan involving shooting self with gun. Pt states he does not wish himself . Pt can drive. He is currently unemployed. Smoking Status: Current every day smoker Past Alcohol Use History: Abuse Additional Past Alcohol Use History / Comment(s): Pt drinks 2 fifths of vodka a day. He started smoking in 1999 and is a 1.5 ppd smoker. Past Drug Use History: None Reported Additional Drug Use History / Comment(s): Occasional marijuana use. - Past Family History Mother Family Medical History: No Reported History Additional Family Medical History / Comment(s): Mother is healthy Father History Unknown: Yes Family Family Medical History: No Reported History Medications and Allergies Home Medications Medication Instructions Recorded Confirmed Type Baclofen [Lioresal] 10 mg PO Q8H PRN 01/26/22 01/29/22 History Cyanocobalamin (Vitamin B-12) 1,000 mcg PO DAILY 01/26/22 01/29/22 History [Vitamin B-12] Escitalopram [Lexapro] 5 mg PO TID 01/26/22 01/29/22 History Gabapentin 600 mg PO TID 01/26/22 01/29/22 History Melatonin 6 mg PO HS 01/26/22 01/29/22 History Multivitamins, Thera [Multivitamin 1 tab PO DAILY 01/26/22 01/29/22 History (formulary)] Nicotine 21Mg/24Hr Patch [Habitrol] 1 patch TRANSDERM DAILY 01/26/22 01/29/22 History Prazosin HCl [Minipress] 2 mg PO HS 01/26/22 01/29/22 History Thiamine [Vitamin B-1] 100 mg PO DAILY 01/26/22 01/29/22 History amLODIPine [Norvasc] 2.5 mg PO DAILY 01/26/22 01/29/22 History hydrOXYzine HCL [Atarax] 50 mg PO Q6H PRN 01/26/22 01/29/22 History hydroCHLOROthiazide 25 mg PO DAILY 01/26/22 01/29/22 History Allergies Allergy/AdvReac Type Severity Reaction Status Date / Time No Known Allergies Allergy Verified 01/29/22 17:42 Physical Exam Osteopathic Statement: *. No significant issues noted on an osteopathic structural exam other than those noted in the History and Physical/Consult. Vitals: Vital Signs Temp Pulse Resp BP Pulse Ox 01/29/22 17:50 88 18 97 01/29/22 16:02 95 18 126/94 98 01/29/22 14:02 97.4 F L 95 18 141/81 100 Intake and Output 01/29/22 01/29/22 01/29/22 06:59 14:59 22:59 Other: Weight 77.111 kg General: [non toxic], [no distress], [appears at stated age] Derm: [warm], [dry] Head: [atraumatic], [normocephalic], [symmetric] Eyes: [EOMI], [no lid lag], [anicteric sclera] Mouth: [no lip lesion], [mucus membranes moist] Cardiovascular: [S1S2 reg], [no murmur], [positive posterior tibial pulse bilateral], Lungs: [CTA bilateral], [no rhonchi, no rales] , [no accessory muscle use] Abdominal: [soft], [ nontender to palpation], [no guarding], [no appreciable organomegaly] Ext: [no gross muscle atrophy], [no edema], [no contractures] Neuro: [ CN II-XI grossly intact], [no focal neuro deficits] Psych: [Alert], [oriented], [appropriate affect] Results CBC & Chem 7: 01/29/22 14:34 01/29/22 14:34 Labs: Abnormal Lab Results - Last 24 Hours (Table) 01/29/22 01/29/22 01/29/22 Range/Units 14:34 14:34 14:34 PT 14.7 H (9.0-12.0) sec INR 1.4 H (<1.2) Plasma Lactic Acid Braeden 2.7 H* (0.7-2.0) mmol/L Alkaline Phosphatase 130 H (38-126) U/L Ammonia 41 H (<30) umol/L U Benzodiazepines Scrn (NotDetected) Serum Alcohol 316 H* mg/dL 01/29/22 Range/Units 16:02 PT (9.0-12.0) sec INR (<1.2) Plasma Lactic Acid Braeden (0.7-2.0) mmol/L Alkaline Phosphatase (38-126) U/L Ammonia (<30) umol/L U Benzodiazepines Scrn Detected H (NotDetected) Serum Alcohol mg/dL Thrombosis Risk Factor Assmnt - DVT/VTE Prophylaxis DVT/VTE Prophylaxis: Mechanical Prophylaxis ordered Assessment and Plan Assessment: 1. Seizure likely due to alcohol withdrawal Seizure precautions [facility] protocol for impending DTs consult neurology 2. PTSD with history of anxiety and depression Suicide precautions Resume home medications Consult psychiatry 3. Hypertension Resume home medications 4. elevated ammonia lactulose ordered Recheck in a.m. 5. GI DVT prophylaxis 6. A.m. labs Disposition: Home Anticipated length of stay will be greater than 2 midnight stay Patient is a full code Greater than 35 minutes spent coordinating care, documenting, and counseling patient Time with Patient: Greater than 30
[2022-01-29] MEDS: CYANOCOBALAMIN 500 MCG TAB PO SCH (18:52)
[2022-01-29] MEDS: amLODIPine 2.5 MG TAB PO SCH (18:58)
[2022-01-29] MEDS: MULTIVITAMINS, THERA 1 EACH TAB PO SCH (18:58)
[2022-01-29] MEDS: NICOTINE 21MG/24HR PATCH TRANSDERM SCH (18:58)
[2022-01-29] MEDS: MELATONIN 3 MG TABLET PO SCH (22:18)
[2022-01-29] MEDS: GABAPENTIN 300 MG CAP PO SCH (22:24)
[2022-01-29] MEDS: PRAZOSIN 1 MG CAP PO SCH ×2 (22:24→22:26)
[2022-01-29] MEDS: PANTOPRAZOLE 40 MG/10 ML VIAL IVP SCH (22:24)
[2022-01-29] MEDS: ESCITALOPRAM 5 MG TAB PO SCH (22:29)
[2022-01-29] MEDS: LORazepam 2 MG/ML INJ IV PRN (23:26)
[2022-01-30] MEDS: SODIUM CHLORIDE 0.9% 1,000 ML IV SCH ×3 (02:41→16:46)
[2022-01-30] MEDS: LORazepam 2 MG/ML INJ IV PRN (05:00)
[2022-01-30 06:25] LABS: Alcohol 101 mg/dL
[2022-01-30 07:26] LABS: ALT 29 U/L (4-49); AST 45 U/L (17-59); African American GFR (CKD) >90 (>60 ml/min/1.73 sqM); Albumin/Globulin Ratio 1.3; Alkaline Phosphatase 91 U/L (38-126); Anion Gap 9 mmol/L; Blood Urea Nitrogen 12 mg/dL (9-20); Calcium 7.8 mg/dL (8.4-10.2); Carbon Dioxide 21 mmol/L (22-30); Chloride 105 mmol/L (98-107); Globulin 2.4 g/dL; Glucose 85 mg/dL (74-99); Non-African American GFR(CKD) >90 (>60 ml/min/1.73 sqM); Potassium 4.7 mmol/L (3.5-5.1); Sodium 135 mmol/L (137-145); Total Bilirubin 0.3 mg/dL (0.2-1.3); Total Protein 5.4 g/dL (6.3-8.2)
[2022-01-30] MEDS: THIAMINE 100 MG TAB PO SCH ×2 (07:52→16:46)
[2022-01-30] MEDS: NICOTINE 21MG/24HR PATCH TRANSDERM SCH (08:23)
[2022-01-30] MEDS: PANTOPRAZOLE 40 MG/10 ML VIAL IVP SCH ×2 (08:23→20:08)
[2022-01-30] MEDS: ESCITALOPRAM 5 MG TAB PO SCH ×3 (08:23→22:41)
[2022-01-30] MEDS: amLODIPine 2.5 MG TAB PO SCH (08:23)
[2022-01-30] MEDS: MULTIVITAMINS, THERA 1 EACH TAB PO SCH (08:34)
[2022-01-30] MEDS: CYANOCOBALAMIN 500 MCG TAB PO SCH (08:34)
[2022-01-30] MEDS: GABAPENTIN 300 MG CAP PO SCH ×3 (08:35→20:08)
[2022-01-30 09:11] LABS: Basophils # (A) 0.04 X 10*3/uL (0.00-0.10); Eosinophils % (A) 2.6 %; HCT 33.3 % (39.6-50.0); HGB 11.6 g/dL (13.0-17.0); Immature Grans, Automated 0.3 %; Lymphocytes % (A) 51.5 %; MCH 32.3 pg (27.0-32.0); MCHC 34.8 g/dL (32.0-37.0); MCV 92.8 fL (80.0-97.0); Mean Platelet Volume 9.3 fL (9.5-12.2); Monocytes # (A) 0.24 X 10*3/uL (0.20-1.00); Monocytes % (A) 6.2 %; NRBC Per 100 WBC 0 /100 WBCS (0.0-0.0); Neutrophils # (A) 1.49 X 10*3/uL (1.80-7.70); Neutrophils % (A) 38.4 %; Platelet Count 175 X 10*3/uL (140-440); RBC 3.59 X 10*6/uL (4.40-5.60); RDW 13.6 % (11.5-14.5); WBC 3.88 X 10*3/uL (4.50-10.00)
[2022-01-30 11:44] LABS: Appearance,Urine Clear (Clear); Bilirubin,Urine Negative (Negative); Blood,Urine Negative (Negative); Color,Urine Light Yellow; Glucose,Urine (UA) Negative (Negative); Ketones,Urine Negative (Negative); Leukocyte Esterase,Urine Negative (Negative); Nitrite,Urine Negative (Negative); Protein,Urine Negative (Negative); Specific Gravity,Urine 1.014 (1.001-1.035); Urobilinogen,Urine <2.0 mg/dL (<2.0)
--- NOTE | 2022-01-30 12:47 | P.CN ---
Psychiatric Consult - . Consult date: 01/30/22 Consult:: 01/30/22 12:46 IDENTIFYING DATA: This patient is a 36-year-old male with significant history of anxiety, depression, PTSD, and alcohol use disorder who presented to the emergency department with suicidal ideation in the context of heavy alcohol use. HISTORY OF PRESENT ILLNESS: The patient presented to the hospital on 01/29/2022, brought into the emergency department by EMS after experiencing a grand mal seizure. EMS was notified by the patient's sister who found him on the floor. In the emergency department, the patient did endorse significant depression and suicidal thoughts. He is also petitioned by his sister for mental health treatment. The patient was recently in the hospital on 01/26/2022 and was managed for alcohol withdrawal at that time as well. He was discharged with the plan to go to rehab in the outpatient setting. However after expressing a seizure, the patient is now reporting a desire to go to inpatient substance abuse rehabilitation. He does continue to endorse significant depressive symptoms including increased feelings of guilt, decreased appetite, and occasional suicidal ideation. He does report that he has been drinking up to a gallon of vodka per day. He states that when he is intoxicated, he is suicidal and very depressed. He is in agreement to come onto the psychiatric unit for further psychiatric treatment for management of depression and anxiety. From his last psychiatric evaluation on 01/27/2022: "The patient has been admitted to our psychiatric unit twice before for similar presentation. He however is vehemently denying the need for inpatient psychiatric admission and is currently not petitioned and certified. He is in agreement that his primary issue is his alcohol use disorder in light to pursue [facility] regarding [facility]. The patient does report that he has significant support from his family, especially his sister and his [id number]. He is currently staying with his uncle Serafin. He reports no access to firearms or other weapons. 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 Patient has a history of depression, anxiety, alcohol use disorder. He was last seen on our psychiatric unit in March 2020. Currently his home medications include Lexapro 5 mg by mouth 3 times a day, gabapentin 600 by mouth 3 times a day, and prazosin 2 mg by mouth at bedtime. He has previously trialed naltrexone. [facility]. Patient denies any history of suicide attempts in the past. PAST MEDICAL HISTORY: Past Medical History: Hypertension Additional Past Medical History / Comment(s): ETOH abuse, past withdrawals-tremors/nausea History of Any Multi-Drug Resistant Organisms: None Reported Additional Past Surgical History / Comment(s): surgery for testicular torsion Past Anesthesia/Blood Transfusion Reactions: No Reported Reaction Past Psychological History: Anxiety, Depression, PTSD Additional Psychological History / Comment(s): Pt resides alone. He is seen at [facility]. Pt states he has had increased depression and thoughts of suicide. Has hx of suicidal plan involving shooting self with gun. Pt states he does not wish himself . Pt can drive. He is currently unemployed. Smoking Status: Current every day smoker Past Alcohol Use History: Abuse Additional Past Alcohol Use History / Comment(s): Pt drinks 2 fifths of vodka a day. He started smoking in 1999 and is a 1.5 ppd smoker. Past Drug Use History: None Reported Additional Drug Use History / Comment(s): Occasional marijuana use. ALLERGIES: NO KNOWN DRUG ALLERGIES CHEMICAL DEPENDENCY HISTORY: Unchanged from last evaluation. Patient reports that he is been drinking a gallon of liquor per day for the past week. He does report a significant history of withdrawal symptoms and states that he began drinking even more because he was experiencing tremors and was concerned about the withdrawal seizures. He does report a history of seizures in the past secondary to his alcohol use disorder. He reports that the longest he has ever been sober was for a year prior to this recent relapse 2 weeks ago. He has been to alcohol rehabilitation approximately 3 years ago. He smokes one pack per day. He reports rare marijuana use. He denies any illicit drug use. FAMILY PSYCHIATRIC/SUBSTANCE USE HISTORY: No reported family psychiatric history. SOCIAL HISTORY: The patient was honorably discharged from the [employer] on 09/03/2014. 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 He is currently living in [place] with his uncle Serafin. The patient's sister and budzcjf-do-hoe a re also in town. He is 40% service connected through [facility]. He reports having 5 children. MENTAL STATUS EXAM: General Appearance: Patient appears to be stated age is alert, pleasant, and cooperative. Patient appears to have fair hygiene and grooming wearing hospital gown with fair eye contact. Ho and tattoos. Behavior: Patient is calmly lying in bed without any agitated behavior. More wi thdrawn. Speech: Patient's speech is fluent and nonpressured. Mood/Affect: Patient reports their mood is "pretty depressed", affect is congruent and withdrawn. Suicidality/Homicidality: Patient is vehemently denying any suicidal or homicidal ideation, intention, and/or plan. Perceptions: Patient denies any visual hallucinations and denies any auditory hallucinations Though content/process: There is no evidence of any delusional thought content and thought process is linear and goal-directed. Memory and concentration: AOX3, grossly intact for the purposes of this session. Can spell "WORLD" backwards Judgment and insight: Fair IMPRESSIONS: Alcohol use disorder Major depressive disorder, recurrent, severe, likely exacerbated by alcohol use Posttraumatic stress disorder Nicotine dependence Cannabis use PLAN: -Continue your medical management for alcohol withdrawal -At this time patient DOES meet criteria for inpatient psychiatric admission. The patient is currently endorsing suicidal ideation and depression and wishes to sign himself voluntarily on the psychiatric unit with plans to go to inpatient substance rehabilitation after stabilization of his mood. -Recommend the following medication changes/additions: No medication changes will be recommended at this time. We will adjust medications when the patient is admitted onto the psychiatric unit. -One-to-one sitter for suicide precautions -Recommend inpatient psychiatric treatment. Once medically stable, recommend transfer to our psychiatric unit pending bed availability. -Psychiatry will sign off at this point, please contact with any questions. Vital Signs Temp 98.8 F 01/30/22 08:19 Pulse 78 01/30/22 08:19 Resp 16 01/30/22 11:49 BP 133/88 01/30/22 08:19 Pulse Ox 99 01/30/22 08:19 FiO2 Intake & Output 01/29/22 01/30/22 01/30/22 18:59 06:59 18:59 Weight 77.111 kg Laboratory Results WBC 3.88 X 10*3/uL (4.50-10.00) L 01/30/22 05:45 RBC 3.59 X 10*6/uL (4.40-5.60) L 01/30/22 05:45 Hgb 11.6 g/dL (13.0-17.0) L 01/30/22 05:45 Hct 33.3 % (39.6-50.0) L 01/30/22 05:45 MCV 92.8 fL (80.0-97.0) 01/30/22 05:45 MCH 32.3 pg (27.0-32.0) H 01/30/22 05:45 MCHC 34.8 g/dL (32.0-37.0) 01/30/22 05:45 RDW 13.6 % (11.5-14.5) 01/30/22 05:45 Plt Count 175 X 10*3/uL (140-440) 01/30/22 05:45 MPV 9.3 fL (9.5-12.2) L 01/30/22 05:45 Immature Gran % (Auto) 0.3 % 01/30/22 05:45 Absolute Nucleated RBC 0 X 10*3/uL (0.00-0.00) 01/30/22 05:45 Neutrophils % 38.4 % 01/30/22 05:45 Lymphocytes % 51.5 % 01/30/22 05:45 Monocytes % 6.2 % 01/30/22 05:45 Eosinophils % 2.6 % 01/30/22 05:45 Basophils % 1.0 % 01/30/22 05:45 Immature Gran # 0.01 X 10*3/uL (0.00-0.04) 01/30/22 05:45 Neutrophils # 1.49 X 10*3/uL (1.80-7.70) L 01/30/22 05:45 Lymphocytes # 2.00 X 10*3/uL (0.90-5.00) 01/30/22 05:45 Monocytes # 0.24 X 10*3/uL (0.20-1.00) 01/30/22 05:45 Eosinophils # 0.10 X 10*3/uL (0.04-0.35) 01/30/22 05:45 Basophils # 0.04 X 10*3/uL (0.00-0.10) 01/30/22 05:45 NRBC/100 WBC Diff 0 /100 WBCS (0.0-0.0) 01/30/22 05:45 PT 14.7 sec (9.0-12.0) H 01/29/22 14:34 INR 1.4 (<1.2) H 01/29/22 14:34 APTT 24.2 sec (22.0-30.0) 01/29/22 14:34 Sodium 135 mmol/L (137-145) L 01/30/22 05:45 Potassium 4.7 mmol/L (3.5-5.1) 01/30/22 05:45 Chloride 105 mmol/L (98-107) 01/30/22 05:45 Carbon Dioxide 21 mmol/L (22-30) L 01/30/22 05:45 Anion Gap 9 mmol/L 01/30/22 05:45 BUN 12 mg/dL (9-20) 01/30/22 05:45 Creatinine 0.70 mg/dL (0.66-1.25) 01/30/22 05:45 Est GFR (CKD-EPI)AfAm >90 (>60 ml/min/1.73 sqM) 01/30/22 05:45 Est GFR (CKD-EPI)NonAf >90 (>60 ml/min/1.73 sqM) 01/30/22 05:45 Glucose 85 mg/dL (74-99) 01/30/22 05:45 Lactic Ac Sepsis Rflx Y 01/29/22 15:12 Plasma Lactic Acid Braeden 1.9 mmol/L (0.7-2.0) 01/29/22 19:44 Calcium 7.8 mg/dL (8.4-10.2) L 01/30/22 05:45 Magnesium 1.8 mg/dL (1.6-2.3) 01/29/22 14:34 Total Bilirubin 0.3 mg/dL (0.2-1.3) 01/30/22 05:45 AST 45 U/L (17-59) 01/30/22 05:45 ALT 29 U/L (4-49) 01/30/22 05:45 Alkaline Phosphatase 91 U/L (38-126) 01/30/22 05:45 Ammonia 17 umol/L (<30) 01/30/22 05:45 Creatine Kinase 158 U/L (55-170) 01/29/22 14:34 Troponin I <0.012 ng/mL (0.000-0.034) 01/29/22 14:34 Total Protein 5.4 g/dL (6.3-8.2) L 01/30/22 05:45 Albumin 3.0 g/dL (3.5-5.0) L 01/30/22 05:45 Globulin 2.4 g/dL 01/30/22 05:45 Albumin/Globulin Ratio 1.3 01/30/22 05:45 Lipase 221 U/L (23-300) 01/29/22 14:34 Vitamin B12 634.0 pg/mL (200.0-944.0) 01/30/22 05:45 Vitamin D 25-Hydroxy 12.4 ng/mL (30.0-100.0) L 01/30/22 05:45 TSH 1.070 mIU/L (0.465-4.680) 01/30/22 05:45 Urine Color Light Yellow 01/30/22 10:16 Urine Appearance Clear (Clear) 01/30/22 10:16 Urine pH 5.0 (5.0-8.0) 01/30/22 10:16 Ur Specific [place] 1.014 (1.001-1.035) 01/30/22 10:16 Urine Protein Negative (Negative) 01/30/22 10:16 Urine Glucose (UA) Negative (Negative) 01/30/22 10:16 Urine Ketones Negative (Negative) 01/30/22 10:16 Urine Blood Negative (Negative) 01/30/22 10:16 Urine Nitrite Negative (Negative) 01/30/22 10:16 Urine Bilirubin Negative (Negative) 01/30/22 10:16 Urine Urobilinogen <2.0 mg/dL (<2.0) 01/30/22 10:16 Ur Leukocyte Esterase Negative (Negative) 01/30/22 10:16 Urine Opiates Screen Not Detected (NotDetected) 01/29/22 16:02 Ur Oxycodone Screen Not Detected (NotDetected) 01/29/22 16:02 Urine Methadone Screen Not Detected (NotDetected) 01/29/22 16:02 Ur Propoxyphene Screen Not Detected (NotDetected) 01/29/22 16:02 Ur Barbiturates Screen Not Detected (NotDetected) 01/29/22 16:02 U Tricyclic Antidepress Not Detected (NotDetected) 01/29/22 16:02 Ur Phencyclidine Scrn Not Detected (NotDetected) 01/29/22 16:02 Ur Amphetamines Screen Not Detected (NotDetected) 01/29/22 16:02 U Methamphetamines Scrn Not Detected (NotDetected) 01/29/22 16:02 U Benzodiazepines Scrn Detected (NotDetected) H 01/29/22 16:02 Urine Cocaine Screen Not Detected (NotDetected) 01/29/22 16:02 U Marijuana (THC) Screen Not Detected (NotDetected) 01/29/22 16:02 Serum Alcohol 101 mg/dL 01/30/22 05:45 Coronavirus (PCR) Not Detected (Not Detectd) 01/29/22 15:17 Allergies Allergy/AdvReac Type Severity Reaction Status Date / Time No Known Allergies Allergy Verified 01/29/22 17:42 01/30/22 12:47
[2022-01-30] MEDS ORDERED: LORazepam 1 MG/0.5 ML VIAL IV PRN (14:42)
[2022-01-30] MEDS: LORazepam 1 MG/0.5 ML VIAL IV PRN ×3 (14:48→20:13)
--- NOTE | 2022-01-30 16:03 | P.PN ---
Subjective Patient seen and examined at bedside. Patient denies chest pain shortness of breath nausea vomiting fevers or chills. Patient has a one-to-one sitter due to suicidal ideation. Patient has not had any seizure activity since being admitted. Objective - Vital Signs Vital signs: Vital Signs Temp 97.9 F 01/30/22 13:38 Pulse 94 01/30/22 13:38 Resp 18 01/30/22 13:38 BP 164/109 01/30/22 13:38 Pulse Ox 98 01/30/22 13:38 FiO2 Intake & Output 01/29/22 01/30/22 01/30/22 18:59 06:59 18:59 Weight 77.111 kg - Exam General: [non toxic], [no distress], [appears at stated age] Derm: [warm], [dry] Head: [atraumatic], [normocephalic], [symmetric] Eyes: [EOMI], [no lid lag], [anicteric sclera] Mouth: [no lip lesion], [mucus membranes moist] Cardiovascular: [S1S2 reg], [no murmur], [positive posterior tibial pulse bilateral], Lungs: [CTA bilateral], [no rhonchi, no rales] , [no accessory muscle use] Abdominal: [soft], [ nontender to palpation], [no guarding], [no appreciable organomegaly] Ext: [no gross muscle atrophy], [no edema], [no contractures] Neuro: [ CN II-XI grossly intact], [no focal neuro deficits] Psych: [Alert], [oriented], [appropriate affect] - Labs CBC & Chem 7: 01/30/22 05:45 01/30/22 05:45 Labs: Abnormal Lab Results - Last 24 Hours (Table) 01/29/22 01/30/22 01/30/22 Range/Units 16:02 05:45 05:45 WBC 3.88 L (4.50-10.00) X 10*3/uL RBC 3.59 L (4.40-5.60) X 10*6/uL Hgb 11.6 L (13.0-17.0) g/dL Hct 33.3 L (39.6-50.0) % MCH 32.3 H (27.0-32.0) pg MPV 9.3 L (9.5-12.2) fL Neutrophils # 1.49 L (1.80-7.70) X 10*3/uL Sodium 135 L (137-145) mmol/L Carbon Dioxide 21 L (22-30) mmol/L Calcium 7.8 L (8.4-10.2) mg/dL Total Protein 5.4 L (6.3-8.2) g/dL Albumin 3.0 L (3.5-5.0) g/dL Vitamin D 25-Hydroxy 12.4 L (30.0-100.0) ng/mL U Benzodiazepines Scrn Detected H (NotDetected) Assessment and Plan Assessment: 1. Seizure likely due to alcohol withdrawal Seizure precautions [facility] protocol for impending DTs neurology RECS are pending 2. PTSD with history of anxiety and depression Suicide precautions Resume home medications Transfer to inpatient psych once medically stable 3. Hypertension Resume home medications 4. elevated ammonia lactulose ordered Recheck in a.m. 5. GI DVT prophylaxis 6. A.m. labs Disposition: Inpatient rehab Anticipated length of stay will be greater than 2 midnight stay Patient is a full code
[2022-01-30] MEDS: MELATONIN 3 MG TABLET PO SCH (20:07)
[2022-01-30] MEDS: PRAZOSIN 1 MG CAP PO SCH (20:10)
--- NOTE | 2022-01-30 22:36 | P.CNNES ---
History of Present Illness Consult date: 01/30/22 Requesting physician: Neymar Peters Reason for Consult: Seizure History of Present Illness: Patient is a 36-year-old male came to the hospital by ambulance yesterday at 1:55 PM for a seizure. As per EMS flow sheet, when they arrived, family were on the location stated the patient had severe PTSD and abuses alcohol. They have been trying to seek treatment but the rehab center they contacted will not take him because he is a . Family stated that they heard the patient fall and they checked on him, he was seizing. They stated it lasted for about 30 seconds. He had mentioned that he has not drank today but drank half a gallon of liquor last night. Family mentioned that the patient has been making suic idal threats and has access to guns. When asked the patient stated "he wants to every day". The patient's sister stated she was going to follow the EMS and repetition him. Initially patient was compliant but once he got into the back of the ambulance, he became very anxious and angry and stated he wasn't going to go. He jumped out of the ambulance and presented to the garage. The patient's mother and sister went in with him to talk. It was decided the sister would ride with him in the ambulance and he agreed. He was still very anxious. His blood pressure at the scene was 143/98 pulse rate 101, respiration 14, saturation 94%. Patient's blood test shows normal CBC, PTT is 24.2 INR 1.4. Chem-7 is normal, lactate was 2.7. Hepatic panel normal. Ammonia 41. Troponin negative. Urine drug screen positive for benzodiazepine and blood alcohol level was 316. Coronal virus negative. Repeat blood alcohol level early this morning was 101. B12 634, vitamin D 12.4 TSH is normal. UA negative. Computed tomography scan of head showed no acute intracranial process. CT of the cervical spine showed no evidence of spinal fracture. I personally reviewed CT head, agree with the findings. EKG shows normal sinus rhythm. Patient at present is sitting comfortably in the bed. He states that the reason he came here because was seizure. He states he was at mother's home, and fell and had a seizure. He tells me that he had a seizure 3 years ago which was related to alcohol withdrawal. Besides these 2, he never had any seizure. He smokes one pack per day for last 15 years, does not do any marijuana or drug use. He states that he has been drinking 1 gallon of water, daily for last 3 years. Patient admits to having history of concussion in 2006 and 2008. He states his brother also has seizure disorder. Review of Systems Constitutional: Denies chills, Denies fever Eyes: denies blurred vision, denies pain Ears, nose, mouth and throat: Denies headache, Denies sore throat Cardiovascular: Denies chest pain, Denies shortness of breath Respiratory: Denies cough Past Medical History Past Medical History: Hypertension Additional Past Medical History / Comment(s): ETOH abuse, past withdrawals- tremors/nausea History of Any Multi-Drug Resistant Organisms: None Reported Additional Past Surgical History / Comment(s): surgery for testicular torsion Past Anesthesia/Blood Transfusion Reactions: No Reported Reaction Past Psychological History: Anxiety, Depression, PTSD Additional Psychological History / Comment(s): Pt resides alone. He is seen at [facility]. Pt states he has had increased depression and thoughts of suicide. Has hx of suicidal plan involving shooting self with gun. Pt states he does not wish himself . Pt can drive. He is currently unemployed. Smoking Status: Current every day smoker Past Alcohol Use History: Abuse Additional Past Alcohol Use History / Comment(s): Pt drinks 2 fifths of vodka a day. He started smoking in 1999 and is a 1.5 ppd smoker. Past Drug Use History: None Reported Additional Drug Use History / Comment(s): Occasional marijuana use. - Past Family History Mother Family Medical History: No Reported History Additional Family Medical History / Comment(s): Mother is healthy Father History Unknown: Yes Family Family Medical History: No Reported History Medications and Allergies Home Medications Medication Instructions Recorded Confirmed Type Baclofen [Lioresal] 10 mg PO Q8H PRN 01/26/22 01/29/22 History Cyanocobalamin (Vitamin B-12) 1,000 mcg PO DAILY 01/26/22 01/29/22 History [Vitamin B-12] Escitalopram [Lexapro] 5 mg PO TID 01/26/22 01/29/22 History Gabapentin 600 mg PO TID 01/26/22 01/29/22 History Melatonin 6 mg PO HS 01/26/22 01/29/22 History Multivitamins, Thera [Multivitamin 1 tab PO DAILY 01/26/22 01/29/22 History (formulary)] Nicotine 21Mg/24Hr Patch [Habitrol] 1 patch TRANSDERM DAILY 01/26/22 01/29/22 History Prazosin HCl [Minipress] 2 mg PO HS 01/26/22 01/29/22 History Thiamine [Vitamin B-1] 100 mg PO DAILY 01/26/22 01/29/22 History amLODIPine [Norvasc] 2.5 mg PO DAILY 01/26/22 01/29/22 History hydrOXYzine HCL [Atarax] 50 mg PO Q6H PRN 01/26/22 01/29/22 History hydroCHLOROthiazide 25 mg PO DAILY 01/26/22 01/29/22 History Allergies Allergy/AdvReac Type Severity Reaction Status Date / Time No Known Allergies Allergy Verified 01/29/22 17:42 Physical Examination - Vital Signs Vital Signs: Vital Signs Temp Pulse Pulse Resp BP BP Pulse Ox 01/30/22 22:00 97.9 F 84 16 139/90 97 01/30/22 18:00 98.7 F 87 18 158/104 99 01/30/22 13:38 97.9 F 94 18 164/109 98 01/30/22 11:49 16 01/30/22 10:40 16 01/30/22 09:37 16 01/30/22 08:19 98.8 F 78 16 133/88 99 01/30/22 07:33 86 16 01/30/22 04:52 97.6 F 75 19 133/95 98 Intake and Output 01/30/22 01/30/22 01/30/22 06:59 14:59 22:59 Intake Total 260 Balance 260 Intake: Intake, IV Titration 260 Amount Sodium Chloride 0.9% 1, 260 000 ml @ 130 mls/hr IV . Q7H42M [facility] Rx#:[id number] Patient is a young male, in no distress. Patient is alert awake oriented to time place and person. Speech and language functions are normal. Patient can name and repeat very well. No aphasia or dysarthria. Attention, concentration and fund of knowledge is adequate. On cranial nerve examination, pupils are equal, round and reacting to light, visual wade are full on confrontation, with no neglect on double simultaneous stimulation. Extraocular muscles are intact with no nystagmus. Face is symmetric, tongue protrudes to the midline. Palatal elevation and sensation normal, hearing and shoulder shrug normal, facial sensation normal. On muscle strength testing, there is no pronator drift and the strength is normal in arms and legs distally and proximally. Deep tendon reflexes are symmetric 1+ to 2+ all over and plantars downgoing. Sensory to touch is equal with no neglect on double simultaneous stimulation. Cerebellar function showed no ataxia for [id number] testing. No d ysdiadochokinesia. No ataxia for [id number] testing on either side. Tone and bulk of muscles normal. Gait deferred.. On general examination, there is no carotid bruit or murmur, S1-S2 audible. Chest is clear on consultation. Abdomen is soft nontender. No organomegaly, bowel sounds present. Peripheral pulses are present. No edema. Results - Laboratory Findings CBC and BMP: 01/30/22 05:45 01/30/22 05:45 Abnormal Lab Findings: Abnormal Labs 01/29/22 01/29/22 01/29/22 14:34 14:34 14:34 WBC RBC Hgb Hct MCH MPV Neutrophils # PT 14.7 H INR 1.4 H Sodium Carbon Dioxide Plasma Lactic Acid Braeden 2.7 H* Calcium Alkaline Phosphatase 130 H Ammonia 41 H Total Protein Albumin Vitamin D 25-Hydroxy U Benzodiazepines Scrn Serum Alcohol 316 H* 01/29/22 01/30/22 01/30/22 16:02 05:45 05:45 WBC 3.88 L RBC 3.59 L Hgb 11.6 L Hct 33.3 L MCH 32.3 H MPV 9.3 L Neutrophils # 1.49 L PT INR Sodium 135 L Carbon Dioxide 21 L Plasma Lactic Acid Braeden Calcium 7.8 L Alkaline Phosphatase Ammonia Total Protein 5.4 L Albumin 3.0 L Vitamin D 25-Hydroxy 12.4 L U Benzodiazepines Scrn Detected H Serum Alcohol Assessment and Plan Assessment: * Seizure, likely due to alcohol intoxication. Patient had a seizure 3 years ago as well, which was related to alcohol withdrawal. * Chronic alcoholism * Tobacco use * History of anxiety, depression, PTSD * Suicidal thoughts, psychiatrist on board. Plan: * Patient's seizures is probably due to alcohol intoxication. * No indication for antiepileptic medication. * Patient counseled about abstinence from alcoholism. * Patient informed of [place] state law of not driving unless seizure free for 6 months, climbing ladders, operating dangerous machinery or unsupervised swimming. * May consider EEG as an outpatient. * Watch for DTs. Continue thiamine 100 mg daily, patient on CIWA * No other workup indicated. Neurologically clear.
[2022-01-31] MEDS: SODIUM CHLORIDE 0.9% 1,000 ML IV SCH ×3 (02:08→17:33)
[2022-01-31] MEDS: LORazepam 1 MG/0.5 ML VIAL IV PRN ×6 (02:21→19:51)
[2022-01-31] MEDS: CYANOCOBALAMIN 500 MCG TAB PO SCH (09:36)
[2022-01-31] MEDS: NICOTINE 21MG/24HR PATCH TRANSDERM SCH (09:36)
[2022-01-31] MEDS: ESCITALOPRAM 5 MG TAB PO SCH ×3 (09:36→19:52)
[2022-01-31] MEDS: MULTIVITAMINS, THERA 1 EACH TAB PO SCH (09:36)
[2022-01-31] MEDS: GABAPENTIN 300 MG CAP PO SCH ×3 (09:36→19:53)
[2022-01-31] MEDS: amLODIPine 2.5 MG TAB PO SCH (09:37)
[2022-01-31] MEDS: PANTOPRAZOLE 40 MG/10 ML VIAL IVP SCH ×2 (09:37→19:54)
[2022-01-31] MEDS: THIAMINE 100 MG TAB PO SCH ×2 (09:37→17:49)
--- NOTE | 2022-01-31 11:45 | P.DS ---
Providers Date of admission: 01/29/22 17:04 Expected date of discharge: 01/31/22 Attending physician: Mirian Kay MD Consults: 01/29/22 17:04 Consult Physician Routine Consulting Provider: Mcih Tafoya Consult Reason/Comments: Depression, suicidal ideation Do you want consulting provider notified?: Yes 01/29/22 18:14 Consult Physician Routine Consulting Provider: Hoang Harris Consult Reason/Comments: seizure Do you want consulting provider notified?: Yes 01/30/22 15:57 Consult Physician Routine Consulting Provider: Hoang Harris Consult Reason/Comments: seizure Do you want consulting provider notified?: Yes Primary care physician: [facility] Clinic - Discharge Diagnosis(es) (1) Alcoholic intoxication Current Visit: Yes Status: Acute Hospital Course: Discharge diagnosis: Seizure likely due to alcohol withdrawal PTSD with history of anxiety and depression Hypertension Elevated ammonia Hospital course: A is a 36-year-old male who presents to [facility] for acute onset seizure. Patient has a past medical history of hypertension PTSD anxiety depression seizure tobacco dependence and alcohol dependence. Patient's last drink was 2 days ago where he drank half a gallon of vodka. Patient states that this morning he got up to get something to eat and fell to the floor. He did not know he was having a grand mal seizure, this was witnessed by his family. As a result, patient was brought in for further evaluation. Patient currently admits to having a headache and epigastric pain status post fall. Patient also admits to some nausea. Patient denies fever, chills, vomiting, diarrhea, abdominal pain, shortness of breath, or constipation. When asked why this keeps happening patient states he lost daughter and he is unable to cope with it. Patient uses alcohol as a coping mechanism. Patient has not sought help from a counselor or psychiatrist. The patient was started on CiWa protocol and evaluated by by neurology service and seizure was attributed to alcohol withdrawal. He is being clear medically to go to inpatient psych and will be transferred to [facility] inpatient psych unit. Physical exam: General: [non toxic], [no distress], [appears at stated age] Derm: [warm], [dry] Head: [atraumatic], [normocephalic], [symmetric] Eyes: [EOMI], [no lid lag], [anicteric sclera] Mouth: [no lip lesion], [mucus membranes moist] Cardiovascular: [S1S2 reg], [no murmur], [positive posterior tibial pulse bilateral], Lungs: [CTA bilateral], [no rhonchi, no rales] , [no accessory muscle use] Abdominal: [soft], [ nontender to palpation], [no guarding], [no appreciable organomegaly] Ext: [no gross muscle atrophy], [no edema], [no contractures] Neuro: [ CN II-XI grossly intact], [no focal neuro deficits] Psych: [Alert], [oriented], [appropriate affect] Patient Condition at Discharge: Stable Plan - Discharge Summary New Discharge Prescriptions: New Acetaminophen Tab [Tylenol] 650 mg PO Q6HR PRN tab PRN Reason: Mild Pain Or Fever > 100.5 Thiamine [Vitamin B-1] 100 mg PO BID-W/MEALS tab Continue Nicotine 21Mg/24Hr Patch [Habitrol] 1 patch TRANSDERM DAILY Multivitamins, Thera [Multivitamin (formulary)] 1 tab PO DAILY Cyanocobalamin (Vitamin B-12) [Vitamin B-12] 1,000 mcg PO DAILY Melatonin 6 mg PO HS Gabapentin 600 mg PO TID hydroCHLOROthiazide 25 mg PO DAILY amLODIPine [Norvasc] 2.5 mg PO DAILY Prazosin HCl [Minipress] 2 mg PO HS hydrOXYzine HCL [Atarax] 50 mg PO Q6H PRN PRN Reason: ANXIETY/ITCHING/NAUSEA Escitalopram [Lexapro] 5 mg PO TID Baclofen [Lioresal] 10 mg PO Q8H PRN PRN Reason: Muscle Spasm Discontinued Thiamine [Vitamin B-1] 100 mg PO DAILY Discharge Medication List Baclofen [Lioresal] 10 mg PO Q8H PRN 01/26/22 [History] Cyanocobalamin (Vitamin B-12) [Vitamin B-12] 1,000 mcg PO DAILY 01/26/22 [History] Escitalopram [Lexapro] 5 mg PO TID 01/26/22 [History] Gabapentin 600 mg PO TID 01/26/22 [History] Melatonin 6 mg PO HS 01/26/22 [History] Multivitamins, Thera [Multivitamin (formulary)] 1 tab PO DAILY 01/26/22 [History] Nicotine 21Mg/24Hr Patch [Habitrol] 1 patch TRANSDERM DAILY 01/26/22 [History] Prazosin HCl [Minipress] 2 mg PO HS 01/26/22 [History] amLODIPine [Norvasc] 2.5 mg PO DAILY 01/26/22 [History] hydrOXYzine HCL [Atarax] 50 mg PO Q6H PRN 01/26/22 [History] hydroCHLOROthiazide 25 mg PO DAILY 01/26/22 [History] Acetaminophen Tab [Tylenol] 650 mg PO Q6HR PRN tab 01/31/22 [Rx] Thiamine [Vitamin B-1] 100 mg PO BID-W/MEALS tab 01/31/22 [Rx] Follow up Appointment(s)/Referral(s): [facility],Clinic [Primary Care Provider] - 1-2 days Discharge Disposition: TRANSFER TO PSYCH HOSP/UNIT
[2022-01-31 14:51] VITALS: BMI 23.7
[2022-01-31] MEDS: MELATONIN 3 MG TABLET PO SCH (19:53)
[2022-01-31] MEDS: PRAZOSIN 1 MG CAP PO SCH (19:53)
[2022-02-01] MEDS: LORazepam 1 MG/0.5 ML VIAL IV PRN ×5 (01:26→19:42)
[2022-02-01] MEDS: SODIUM CHLORIDE 0.9% 1,000 ML IV SCH ×2 (02:48→10:54)
[2022-02-01 06:30] LABS: Basophils % (A) 1 %; Eosinophils # (A) 0.1 k/uL (0-0.7); Eosinophils % (A) 3 %; HCT 39.4 % (39.0-53.0); HGB 12.8 gm/dL (13.0-17.5); Lymphocytes # (A) 1.2 k/uL (1.0-4.8); Lymphocytes % (A) 36 %; MCH 31.9 pg (25.0-35.0); MCHC 32.5 g/dL (31.0-37.0); MCV 98.1 fL (80.0-100.0); Mean Platelet Volume 7.7; Monocytes # (A) 0.2 k/uL (0-1.0); Monocytes % (A) 7 %; Neutrophils # (A) 1.7 k/uL (1.3-7.7); Neutrophils % (A) 53 %; Platelet Count 183 k/uL (150-450); RBC 4.02 m/uL (4.30-5.90); RDW 13.9 % (11.5-15.5); WBC 3.3 k/uL (3.8-10.6)
[2022-02-01 06:46] LABS: ALT 29 U/L (4-49); AST 38 U/L (17-59); African American GFR (CKD) >90 (>60 ml/min/1.73 sqM); Albumin 3.6 g/dL (3.5-5.0); Albumin/Globulin Ratio 1.4; Alkaline Phosphatase 101 U/L (38-126); Anion Gap 9 mmol/L; Blood Urea Nitrogen 6 mg/dL (9-20); Calcium 8.5 mg/dL (8.4-10.2); Carbon Dioxide 25 mmol/L (22-30); Chloride 101 mmol/L (98-107); Globulin 2.5 g/dL; Glucose 106 mg/dL (74-99); Non-African American GFR(CKD) >90 (>60 ml/min/1.73 sqM); Sodium 135 mmol/L (137-145); Total Bilirubin 0.9 mg/dL (0.2-1.3); Total Protein 6.1 g/dL (6.3-8.2)
[2022-02-01] MEDS: NICOTINE 21MG/24HR PATCH TRANSDERM SCH (08:56)
[2022-02-01] MEDS: amLODIPine 2.5 MG TAB PO SCH (08:56)
[2022-02-01] MEDS: ESCITALOPRAM 5 MG TAB PO SCH ×3 (08:56→21:33)
[2022-02-01] MEDS: THIAMINE 100 MG TAB PO SCH ×2 (08:56→16:50)
[2022-02-01] MEDS: GABAPENTIN 300 MG CAP PO SCH ×3 (08:57→21:33)
[2022-02-01] MEDS: PANTOPRAZOLE 40 MG/10 ML VIAL IVP SCH ×2 (08:57→19:39)
[2022-02-01] MEDS: CYANOCOBALAMIN 500 MCG TAB PO SCH (08:57)
[2022-02-01] MEDS: MULTIVITAMINS, THERA 1 EACH TAB PO SCH (08:57)
--- NOTE | 2022-02-01 13:52 | P.PN ---
Subjective Progress Note Date: 02/01/22 The patient was seen at bedside, no acute events overnight. He was supposed to go to the [facility] for inpatient psych but his stay was denied and currently they are working on the re-determination. Objective - Vital Signs Vital signs: Vital Signs Temp 98.2 F 02/01/22 11:14 Pulse 98 02/01/22 11:14 Resp 18 02/01/22 11:14 BP 144/99 02/01/22 11:14 Pulse Ox 97 02/01/22 04:42 FiO2 Intake & Output 01/31/22 02/01/22 02/01/22 18:59 06:59 18:59 Intake Total 1560 Balance 1560 Weight 77.111 kg Intake: Intake, IV Titration 1560 Amount Sodium Chloride 0.9% 1, 1560 000 ml @ 130 mls/hr IV . Q7H42M [facility] Rx#:[id number] Other: Voiding Method Toilet Toilet # Voids 3 - Exam General: [non toxic], [no distress], [appears at stated age] Derm: [warm], [dry] Head: [atraumatic], [normocephalic], [symmetric] Eyes: [EOMI], [no lid lag], [anicteric sclera] Mouth: [no lip lesion], [mucus membranes moist] Cardiovascular: [S1S2 reg], [no murmur], [positive posterior tibial pulse bilateral], Lungs: [CTA bilateral], [no rhonchi, no rales] , [no accessory muscle use] Abdominal: [soft], [ nontender to palpation], [no guarding], [no appreciable organomegaly] Ext: [no gross muscle atrophy], [no edema], [no contractures] Neuro: [ CN II-XI grossly intact], [no focal neuro deficits] Psych: [Alert], [oriented], [appropriate affect] - Labs CBC & Chem 7: 02/01/22 06:19 02/01/22 06:19 Labs: Abnormal Lab Results - Last 24 Hours (Table) 02/01/22 02/01/22 Range/Units 06:19 06:19 WBC 3.3 L (3.8-10.6) k/uL RBC 4.02 L (4.30-5.90) m/uL Hgb 12.8 L (13.0-17.5) gm/dL Sodium 135 L (137-145) mmol/L BUN 6 L (9-20) mg/dL Glucose 106 H (74-99) mg/dL Total Protein 6.1 L (6.3-8.2) g/dL Assessment and Plan Assessment: 1. Seizure likely due to alcohol withdrawal Seizure precautions [facility] protocol for impending DTs Neurology cleared the patient for transfer 2. PTSD with history of anxiety and depression Suicide precautions Resume home medications Transfer to inpatient psych once medically stable 3. Hypertension Resume home medications 4. elevated ammonia, resolved lactulose ordered 5. GI DVT prophylaxis Disposition: Inpatient psych Anticipated length of stay will be greater than 2 midnight stay, currently the patient is pending transfer to inpatient psych unit in [facility], history was denied and its currently being considered for any determination. Patient is a full code (1) Alcoholic intoxication Current Visit: Yes Status: Acute Code(s): F10.929 - ALCOHOL USE, UNSPECIFIED WITH INTOXICATION, UNSPECIFIED SNOMED Code(s): 21969134
[2022-02-01] MEDS: PRAZOSIN 1 MG CAP PO SCH (21:33)
[2022-02-01] MEDS: MELATONIN 3 MG TABLET PO SCH (21:33)
[2022-02-02] MEDS: LORazepam 1 MG/0.5 ML VIAL IV PRN ×4 (00:21→19:27)
[2022-02-02] MEDS: NICOTINE 21MG/24HR PATCH TRANSDERM SCH (08:48)
[2022-02-02] MEDS: ESCITALOPRAM 5 MG TAB PO SCH (08:48)
[2022-02-02] MEDS: MULTIVITAMINS, THERA 1 EACH TAB PO SCH (08:48)
[2022-02-02] MEDS: PANTOPRAZOLE 40 MG/10 ML VIAL IVP SCH ×2 (08:48→21:31)
[2022-02-02] MEDS: amLODIPine 2.5 MG TAB PO SCH (08:48)
[2022-02-02] MEDS: CYANOCOBALAMIN 500 MCG TAB PO SCH (08:48)
[2022-02-02] MEDS: GABAPENTIN 300 MG CAP PO SCH ×3 (08:48→21:31)
[2022-02-02] MEDS: THIAMINE 100 MG TAB PO SCH ×2 (08:49→16:18)
--- NOTE | 2022-02-02 13:25 | P.PN ---
Progress Note - Text Progress Note Date: 02/02/22 Interval History: Patient was seen resting in bed and was directable and agreeable to speak with public relations writer in his room., The patient is not reporting any suicidal or homicidal ideation. However does admit he has been making many mistakes lately and "messing up." This is in regards to his heavy alcohol use and subsequent suicidal ideation that accompanies his intoxication. He has had numerous presentations to this hospital for this. He has been petitioned by his sister for mental health treatment. He does agree to go inpatient but expresses a desire to be admitted to rather than go to the [place]. Mental Status Exam: General Appearance: Patient appears to be stated age is alert, directable, and cooperative. Behavior: Patient is calmly seated without any agitated behavior. Speech: Patient's speech is fluent and nonpressured. Mood/Affect: Mood is improving mildly, affect is congruent and constricted. Suicidality/Homicidality: Patient denies having any suicidal or homicidal ideation intent or plan. Perceptions: Patient denies any visual hallucinations and denies any auditory hallucinations Though content/process: There is no evidence of any delusional thought content and thought process is linear and goal-directed. Memory and concentration: AOX3, grossly intact for the purposes of this session Judgment and insight: Improving mildly Vital Signs Temp 98.0 F 02/02/22 11:26 Pulse 98 02/02/22 11:26 Resp 18 02/02/22 11:26 BP 132/95 02/02/22 11:26 Pulse Ox 98 02/02/22 11:26 FiO2 Intake & Output 02/01/22 02/02/22 02/02/22 18:59 06:59 18:59 Intake Total 500 Balance 500 Intake: Oral 500 Other: Voiding Method Toilet Toilet # Voids 3 Laboratory Results - Last 24 Hours 02/02/22 11:43 Coronavirus (PCR) Not Detected Assessment Alcohol use disorder Major depressive disorder, recurrent, severe, likely exacerbated by alcohol use Posttraumatic stress disorder Nicotine dependence Cannabis use Plan: -At this time patient DOES meet criteria for inpatient psychiatric admission. The patient has been petitioned. He expresses a desire for admission to [facility]. We will look into having EPS to see if we can accomodate. -Recommend the following medication changes/additions: Change Lexapro to 20 mg by mouth daily for depression/anxiety -One-to-one sitter for suicide precautions -Recommend inpatient psychiatric treatment. Once medically stable, recommend transfer to our psychiatric unit pending bed availability. -Cannot leave AMA at this time. Patient will need a petition and certification if attempting to leave AMA. -Will continue to follow along
--- NOTE | 2022-02-02 15:32 | P.PN ---
Subjective Patient seen and examined at bedside. Patient is eager to go home. However patient is a tension for inpatient psych. Patient denies chest pain shortness of breath nausea vomiting fevers or chills. Objective - Vital Signs Vital signs: Vital Signs Temp 98.0 F 02/02/22 11:26 Pulse 98 02/02/22 11:26 Resp 18 02/02/22 11:26 BP 132/95 02/02/22 11:26 Pulse Ox 98 02/02/22 11:26 FiO2 Intake & Output 02/01/22 02/02/22 02/02/22 18:59 06:59 18:59 Intake Total 500 Balance 500 Intake: Oral 500 Other: Voiding Method Toilet Toilet # Voids 3 - Exam General: [non toxic], [no distress], [appears at stated age] Derm: [warm], [dry] Head: [atraumatic], [normocephalic], [symmetric] Eyes: [EOMI], [no lid lag], [anicteric sclera] Mouth: [no lip lesion], [mucus membranes moist] Cardiovascular: [S1S2 reg], [no murmur], [positive posterior tibial pulse bilateral], Lungs: [CTA bilateral], [no rhonchi, no rales] , [no accessory muscle use] Abdominal: [soft], [ nontender to palpation], [no guarding], [no appreciable organomegaly] Ext: [no gross muscle atrophy], [no edema], [no contractures] Neuro: [ CN II-XI grossly intact], [no focal neuro deficits] Psych: [Alert], [oriented], [appropriate affect] - Labs CBC & Chem 7: 02/01/22 06:19 02/01/22 06:19 Assessment and Plan Assessment: 1. Seizure likely due to alcohol withdrawal Seizure precautions [facility] protocol for impending DTs neurology RECS are pending 2. PTSD with history of anxiety and depression Suicide precautions Resume home medications Transfer to inpatient psych once insurance Verification is determined VT persists [facility] inpatient psych 3. Hypertension Resume home medications 4. elevated ammonia lactulose ordered Recheck in a.m. 5. GI DVT prophylaxis 6. A.m. labs [facility]position: [facility] inpatient [facility] awaiting insurance verification Anticipated length of stay will be greater than 2 midnight stay Patient is a full code
[2022-02-02] MEDS: MELATONIN 3 MG TABLET PO SCH (21:31)
[2022-02-02] MEDS: PRAZOSIN 1 MG CAP PO SCH (21:32)
[2022-02-03] MEDS: LORazepam 1 MG/0.5 ML VIAL IV PRN ×3 (01:30→08:40)
[2022-02-03] MEDS: NICOTINE 21MG/24HR PATCH TRANSDERM SCH (08:32)
[2022-02-03] MEDS: MULTIVITAMINS, THERA 1 EACH TAB PO SCH (08:33)
[2022-02-03] MEDS: GABAPENTIN 300 MG CAP PO SCH (08:33)
[2022-02-03] MEDS: CYANOCOBALAMIN 500 MCG TAB PO SCH (08:33)
[2022-02-03] MEDS: THIAMINE 100 MG TAB PO SCH (08:33)
[2022-02-03] MEDS: PANTOPRAZOLE 40 MG/10 ML VIAL IVP SCH (08:33)
[2022-02-03] MEDS: amLODIPine 2.5 MG TAB PO SCH (08:35)
[2022-02-03] MEDS ORDERED: ESCITALOPRAM 20 MG TAB PO SCH (09:00)
[2022-02-03 09:34] LABS: Basophils # (A) 0.02 X 10*3/uL (0.00-0.10); Basophils % (A) 0.4 %; Eosinophils # (A) 0.13 X 10*3/uL (0.04-0.35); Eosinophils % (A) 2.6 %; HCT 39.3 % (39.6-50.0); HGB 12.8 g/dL (13.0-17.0); Immature Grans, Automated 0.4 %; Lymphocytes # (A) 1.76 X 10*3/uL (0.90-5.00); Lymphocytes % (A) 35.6 %; MCHC 32.6 g/dL (32.0-37.0); MCV 98.3 fL (80.0-97.0); Mean Platelet Volume 10.4 fL (9.5-12.2); Monocytes # (A) 0.38 X 10*3/uL (0.20-1.00); Monocytes % (A) 7.7 %; NRBC Per 100 WBC 0 /100 WBCS (0.0-0.0); Neutrophils # (A) 2.63 X 10*3/uL (1.80-7.70); Neutrophils % (A) 53.3 %; Platelet Count 201 X 10*3/uL (140-440); RDW 13.9 % (11.5-14.5); WBC 4.94 X 10*3/uL (4.50-10.00)
[2022-02-03 10:07] LABS: African American GFR (CKD) 133.2 (60.0-200.0); Albumin/Globulin Ratio 1.6 (1.60-3.17); Anion Gap 10.5 mmol/L (10.00-18.00); BUN/Creat Ratio 12.63 Ratio (12.00-20.00); Blood Urea Nitrogen 10.1 mg/dL (9.0-27.0); Calcium 9.2 mg/dL (8.7-10.3); Carbon Dioxide 25.5 mmol/L (20.0-27.5); Globulin 2.5 g/dL (1.6-3.3); Non-African American GFR(CKD) 114.9 (60.0-200.0); Potassium 4.3 mmol/L (3.5-5.5); Total Bilirubin 0.4 mg/dL (0.30-1.20); Total Protein 6.5 g/dL (6.2-8.2)
[2022-02-03 12:09] VITALS: BP 121/77; PULSE 84; RESP 18; TEMP 98.6
--- NOTE | 2022-02-03 13:26 | P.PN ---
Progress Note - Text Progress Note Date: 02/03/22 Interval History: Patient was seen resting in bed and was directable and agreeable to speak with ad copy writer in his room. Currently, the patient is not reporting any suicidal or homicidal ideation, intention, and/or plan. He is not reporting any auditory or visual hallucinations. He is denying any paranoia or other delusions. He is future and goal-oriented. The patient desires to attend rehab whether inpatient or outpatient for his alcohol use disorder. Currently, his insurance covers the stay for mental [facility] treatment [facility] and he would have to pay out of pocket for mental health treatment on our unit. He expresses a strong desire not to go to the [facility]. He reports that he has no access to firearms or other weapons and that his family will be there to watch over him. As the patient no longer meets criteria for continued inpatient psychiatric hospitalization, he is cleared for discharge. Mental Status Exam: General Appearance: Patient appears to be stated age is alert, directable, and cooperative. Behavior: Patient is calmly seated without any agitated behavior. Speech: Patient's speech is fluent and nonpressured. Mood/Affect: Mood is "doing pretty good," affect is congruent and constricted. Suicidality/Homicidality: Patient denies having any suicidal or homicidal ideation intent or plan. Perceptions: Patient denies any visual hallucinations and denies any auditory hallucinations Though content/process: There is no evidence of any delusional thought content and thought process is linear and goal-directed. Memory and concentration: AOX3, grossly intact for the purposes of this session Judgment and insight: Fair Vital Signs Temp 98.6 F 02/03/22 11:33 Pulse 84 02/03/22 11:33 Resp 18 02/03/22 11:33 BP 121/77 02/03/22 11:33 Pulse Ox 98 02/03/22 11:33 FiO2 Intake & Output 02/02/22 02/03/22 02/03/22 18:59 06:59 18:59 Intake Total 500 Balance 500 Intake: Oral 500 Other: Voiding Method Toilet Toilet # Voids 3 Laboratory Results - Last 24 Hours 01/30/22 02/03/22 02/03/22 05:45 06:17 06:17 WBC 4.94 RBC 4.00 L Hgb 12.8 L Hct 39.3 L MCV 98.3 H MCH 32.0 MCHC 32.6 RDW 13.9 Plt Count 201 MPV 10.4 Immature Gran % (Auto) 0.4 Absolute Nucleated RBC 0 Neutrophils % 53.3 Lymphocytes % 35.6 Monocytes % 7.7 Eosinophils % 2.6 Basophils % 0.4 Immature Gran # 0.02 Neutrophils # 2.63 Lymphocytes # 1.76 Monocytes # 0.38 Eosinophils # 0.13 Basophils # 0.02 NRBC/100 WBC Diff 0 Sodium 136 Potassium 4.3 Chloride 100 Carbon Dioxide 25.5 Anion Gap 10.50 BUN 10.1 Creatinine 0.8 Est GFR (CKD-EPI)AfAm 133.2 Est GFR (CKD-EPI)NonAf 114.9 BUN/Creatinine Ratio 12.63 Glucose 104 Calcium 9.2 Total Bilirubin 0.40 AST 25 ALT 26 Alkaline Phosphatase 94 Total Protein 6.5 Albumin 4.0 Globulin 2.5 Albumin/Globulin Ratio 1.60 RBC Folate 679 Assessment Alcohol use disorder Major depressive disorder, recurrent, severe, likely exacerbated by alcohol use Posttraumatic stress disorder Nicotine dependence Cannabis use Plan: -At this time patient DOES NOT meet criteria for inpatient psychiatric hospitalization. He is not reporting any suicidal or homicidal ideation for the past 72 H. He has been adherent with his medications and cooperative with staff. Primary diagnosis is alcohol use disorder. It is recommended he attend rehab. A negative certificate has been filled out as the patient was petitioned and certified. -Recommend the following medication changes/additions: No medication recommendations at this time. Discharge on current regimen of Gabapentin 600 TID, Lexapro 20 Daily, Prazosin 2 mg HS, and Melatonin 6 mg HS. -Discontinue 1:1 sitter. -Recommend outpatient psychiatry follow-up. -Recommend SW consult to set up aftercare appointments for alcohol use disorder and mental health.
--- NOTE | 2022-02-03 17:33 | P.DS ---
Providers Date of admission: 01/29/22 17:04 Expected date of discharge: 02/03/22 Attending physician: Mirian Kay MD Consults: 01/29/22 17:04 Consult Physician Routine Consulting Provider: Mich Tafoya Consult Reason/Comments: Depression, suicidal ideation Do you want consulting provider notified?: Yes 01/29/22 18:14 Consult Physician Routine Consulting Provider: Hoang Harris Consult Reason/Comments: seizure Do you want consulting provider notified?: Yes 01/30/22 15:57 Consult Physician Routine Consulting Provider: Hoang Harris Consult Reason/Comments: seizure Do you want consulting provider notified?: Yes Primary care physician: [facility] Hospital Course: Discharge Diagnosis: Seizure likely secondary on Carbatrol PTSD with history of anxiety and depression Hypertension Elevated ammonia Hospital Course: 36-year-old male initially presented with acute onset seizure. He has significant history of alcohol dependence. Patient was started on CIWA protocol while he was inpatient. Neurology was consulted, seizure was likely secondary to alcohol withdrawal. No need for antiepileptic. He was also seen by inpatient psych and was recommended to seek rehab facility once out of the hospital. On the day of discharge patient didn't receive Ativan 1 mg 2. However this was secondary to anxiety, not related to alcohol withdrawal. Patient will be seen primary care and will set up to go to alcohol rehab. Patient seen and examined at bedside. Vital signs reviewed and stable. General: nontoxic, no distress, appears at stated age Derm: warm, dry Head: atraumatic, normocephalic, symmetric Eyes: EOMI, no lid lag, anicteric sclera Mouth: no lip lesion, mucus membranes moist Cardiovascular: S1S2 reg, no murmur Lungs: CTA bilateral, no rhonchi, no rales , no accessory muscle use Abdominal: soft, nontender to palpation, no guarding, no appreciable organomegaly Ext: no gross muscle atrophy, no edema, no contractures Neuro: CN II-XI grossly intact, no focal neuro deficits Psych: Alert, oriented, appropriate affect A total of 33 minutes of time were spent preparing this complex discharge summary. Patient was discharged on 02/03/22 at 14:35. Patient Condition at Discharge: Stable Plan - Discharge Summary New Discharge Prescriptions: New Acetaminophen Tab [Tylenol] 650 mg PO Q6HR PRN tab PRN Reason: Mild Pain Or Fever > 100.5 Thiamine [Vitamin B-1] 100 mg PO BID-W/MEALS tab Continue Nicotine 21Mg/24Hr Patch [Habitrol] 1 patch TRANSDERM DAILY Multivitamins, Thera [Multivitamin (formulary)] 1 tab PO DAILY Cyanocobalamin (Vitamin B-12) [Vitamin B-12] 1,000 mcg PO DAILY Melatonin 6 mg PO HS Gabapentin 600 mg PO TID hydroCHLOROthiazide 25 mg PO DAILY amLODIPine [Norvasc] 2.5 mg PO DAILY Prazosin HCl [Minipress] 2 mg PO HS hydrOXYzine HCL [Atarax] 50 mg PO Q6H PRN PRN Reason: ANXIETY/ITCHING/NAUSEA Baclofen [Lioresal] 10 mg PO Q8H PRN PRN Reason: Muscle Spasm Changed Escitalopram [Lexapro] 20 mg PO DAILY #0 Discontinued Thiamine [Vitamin B-1] 100 mg PO DAILY Discharge Medication List Baclofen [Lioresal] 10 mg PO Q8H PRN 01/26/22 [History] Cyanocobalamin (Vitamin B-12) [Vitamin B-12] 1,000 mcg PO DAILY 01/26/22 [History] Gabapentin 600 mg PO TID 01/26/22 [History] Melatonin 6 mg PO HS 01/26/22 [History] Multivitamins, Thera [Multivitamin (formulary)] 1 tab PO DAILY 01/26/22 [H istory] Nicotine 21Mg/24Hr Patch [Habitrol] 1 patch TRANSDERM DAILY 01/26/22 [History] Prazosin HCl [Minipress] 2 mg PO HS 01/26/22 [History] amLODIPine [Norvasc] 2.5 mg PO DAILY 01/26/22 [History] hydrOXYzine HCL [Atarax] 50 mg PO Q6H PRN 01/26/22 [History] hydroCHLOROthiazide 25 mg PO DAILY 01/26/22 [History] Acetaminophen Tab [Tylenol] 650 mg PO Q6HR PRN tab 01/31/22 [Rx] Thiamine [Vitamin B-1] 100 mg PO BID-W/MEALS tab 01/31/22 [Rx] Escitalopram [Lexapro] 20 mg PO DAILY #0 02/03/22 [Rx] Follow up Appointment(s)/Referral(s): [facility],Clinic [Primary Care Provider] - 1-2 days Activity/Diet/Wound Care/Special Instructions: Please see PCP as soon as possible to set up outpatient rehab. Discharge/Stand Alone Forms: [facility], Who Do I Call?, Outpatient Counseling, In Substance Abuse Facilities Discharge Disposition: HOME SELF-CARE
[2022-02-07] MEDS: LORazepam 1 MG/0.5 ML VIAL IV PRN (09:05)
== END 2022-02-03 15:00 | disposition home or self-care (01) ==
LOC: EC 13:55 → 5NMEDONC 17:04
PROVIDERS: ADMIT Internal Medicine; ATTEND Internal Medicine
DX: R56.9 Unspecified convulsions (principal); F10.220 Alcohol dependence with intoxication, uncomplicated; S00.03XA Contusion of scalp, initial encounter; I10 Essential (primary) hypertension; F43.10 Post-traumatic stress disorder, unspecified; F12.90 Cannabis use, unspecified, uncomplicated; F41.9 Anxiety disorder, unspecified; R79.89 Other specified abnormal findings of blood chemistry; F33.2 Major depressive disorder, recurrent severe without psychotic features; F17.200 Nicotine dependence, unspecified, uncomplicated; Z79.899 Other long term (current) drug therapy; Z56.0 Unemployment, unspecified; Z82.0 Family history of epilepsy and other diseases of the nervous system; Z20.822 Contact with and (suspected) exposure to COVID-19; W18.30XA Fall on same level, unspecified, initial encounter; Y90.8 Blood alcohol level of 240 mg/100 ml or more
CPT/HCPCS: 96376 ×6; 96361 ×3; 96375 ×2; 96372; 96374; 99285; 36415; 93005; 82747; 80053 ×4; 84443; 82607; 82140 ×2; 82550; 83605; 83690; 83735; 84484; 85025 ×4; 85610; 85730; 81003; 82306; 80306; 80320 ×2; 87635 ×3; 71046; 72125; 70450; G0378 ×6; S4990 ×6; J2060 ×6; J3411; J2405; C9113 ×6

== ENCOUNTER 2022-02-09 13:44 | Observation (INO) | payer OTHER ==
[2022-02-09] MEDS ORDERED: SODIUM CHLORIDE 0.9% 1,000 ML IV STA (14:05)
--- NOTE | 2022-02-09 14:40 | ED ---
General Adult HPI - General Chief complaint: Chest Pain Stated complaint: Alcohol withdrawal,chest pain Time Seen by Provider: 02/09/22 14:04 Source: patient, RN notes reviewed, old records reviewed Mode of arrival: ambulatory Limitations: no limitations - History of Present Illness Initial comments: 36-year-old male presenting with alcohol intoxication, left upper chest pain. Patient admits to drinking alcohol excessively including upwards of a gallon of vodka daily. He developed some chest pain and is seeking medical evaluation. He denies substernal chest pain or vomiting. No fever. No cough. No dyspnea. The pain is left upper chest pain. - Related Data Home Medications Medication Instructions Recorded Confirmed Baclofen [Lioresal] 10 mg PO Q8H PRN 01/26/22 01/29/22 Cyanocobalamin (Vitamin B-12) 1,000 mcg PO DAILY 01/26/22 01/29/22 [Vitamin B-12] Gabapentin 600 mg PO TID 01/26/22 01/29/22 Melatonin 6 mg PO HS 01/26/22 01/29/22 Multivitamins, Thera [Multivitamin 1 tab PO DAILY 01/26/22 01/29/22 (formulary)] Nicotine 21Mg/24Hr Patch [Habitrol] 1 patch TRANSDERM DAILY 01/26/22 01/29/22 Prazosin HCl [Minipress] 2 mg PO HS 01/26/22 01/29/22 amLODIPine [Norvasc] 2.5 mg PO DAILY 01/26/22 01/29/22 hydrOXYzine HCL [Atarax] 50 mg PO Q6H PRN 01/26/22 01/29/22 hydroCHLOROthiazide 25 mg PO DAILY 01/26/22 01/29/22 Previous Rx's Medication Instructions Recorded Acetaminophen Tab [Tylenol] 650 mg PO Q6HR PRN tab 01/31/22 Thiamine [Vitamin B-1] 100 mg PO BID-W/MEALS tab 01/31/22 Escitalopram [Lexapro] 20 mg PO DAILY #0 02/03/22 Allergies Allergy/AdvReac Type Severity Reaction Status Date / Time No Known Allergies Allergy Verified 01/29/22 17:42 Review of Systems ROS Statement: Those systems with pertinent positive or pertinent negative responses have been documented in the HPI. ROS Other: All systems not noted in ROS Statement are negative. Past Medical History Past Medical History: Hypertension Additional Past Medical History / Comment(s): ETOH abuse, past withdrawals- tremors/nausea. traumatic brain injury History of Any Multi-Drug Resistant Organisms: None Reported Additional Past Surgical History / Comment(s): surgery for testicular torsion Past Anesthesia/Blood Transfusion Reactions: No Reported Reaction Past Psychological History: Anxiety, Depression, PTSD Smoking Status: Current every day smoker Past Alcohol Use History: Abuse Past Drug Use History: None Reported - Past Family History Mother Family Medical History: No Reported History Additional Family Medical History / Comment(s): Mother is healthy Father History Unknown: Yes Family Family Medical History: No Reported History General Exam Limitations: no limitations General appearance: alert, in no apparent distress, appears intoxicated Head exam: Present: atraumatic, normocephalic Eye exam: Present: normal appearance, PERRL ENT exam: Present: mucous membranes dry Neck exam: Present: normal inspection. Absent: tenderness, meningismus Respiratory exam: Present: normal lung sounds bilaterally. Absent: respiratory distress, wheezes Cardiovascular Exam: Present: normal rhythm, tachycardia GI/Abdominal exam: Present: soft. Absent: distended, tenderness, guarding Extremities exam: Present: normal inspection, normal capillary refill. Absent: calf tenderness Neurological exam: Present: alert, oriented X3, CN II-XII intact. Absent: motor sensory deficit Psychiatric exam: Present: depressed, flat affect Skin exam: Present: warm, dry, intact Course Vital Signs 02/09/22 13:57 Temperature 98 F Pulse Rate 110 H Respiratory 20 Rate Blood Pressure 142/88 O2 Sat by Pulse 99 Oximetry EKG Findings - EKG Comments: EKG Findings:: EKG: Sinus tachycardia rate of 104, W[place] interval 148 QRS duration 95, QTC 400, no ST segment elevation. Medical Decision Making - Medical Decision Making 36-year-old male presenting with alcohol intoxication, history of alcohol withdrawal seizures. He had complained of chest pain this was atypical. EKG c hest x-ray and laboratory testing unremarkable. Serum alcohol is 256. He will be admitted with withdrawal precautions awaiting sobriety and reevaluation. Case discussed with [facility]. - Lab Data Result diagrams: 02/09/22 14:28 02/09/22 14:28 Lab Results 02/09/22 02/09/22 02/09/22 Range/Units 14:28 14:28 14:28 WBC 4.9 (3.8-10.6) k/uL RBC 4.83 (4.30-5.90) m/uL Hgb 15.7 (13.0-17.5) gm/dL Hct 46.9 (39.0-53.0) % MCV 97.2 (80.0-100.0) fL MCH 32.5 (25.0-35.0) pg MCHC 33.5 (31.0-37.0) g/dL RDW 13.7 (11.5-15.5) % Plt Count 336 (150-450) k/uL MPV 7.0 Neutrophils % 61 % Lymphocytes % 31 % Monocytes % 5 % Eosinophils % 1 % Basophils % 1 % Neutrophils # 3.0 (1.3-7.7) k/uL Lymphocytes # 1.5 (1.0-4.8) k/uL Monocytes # 0.2 (0-1.0) k/uL Eosinophils # 0.0 (0-0.7) k/uL Basophils # 0.0 (0-0.2) k/uL PT 12.4 H (9.0-12.0) sec INR 1.2 H (<1.2) APTT 23.3 (22.0-30.0) sec Sodium 141 (137-145) mmol/L Potassium 3.7 (3.5-5.1) mmol/L Chloride 100 (98-107) mmol/L Carbon Dioxide 26 (22-30) mmol/L Anion Gap 15 mmol/L BUN 10 (9-20) mg/dL Creatinine 0.82 (0.66-1.25) mg/dL Est GFR (CKD-EPI)AfAm >90 (>60 ml/min/1.73 sqM) Est GFR (CKD-EPI)NonAf >90 (>60 ml/min/1.73 sqM) Glucose 93 (74-99) mg/dL Calcium 9.1 (8.4-10.2) mg/dL Magnesium 1.9 (1.6-2.3) mg/dL Total Bilirubin 0.8 (0.2-1.3) mg/dL AST 44 (17-59) U/L ALT 30 (4-49) U/L Alkaline Phosphatase 136 H (38-126) U/L Troponin I (0.000-0.034) ng/mL Total Protein 7.9 (6.3-8.2) g/dL Albumin 4.8 (3.5-5.0) g/dL Lipase 190 (23-300) U/L Serum Alcohol 254 H* mg/dL 02/09/22 Range/Units 14:28 WBC (3.8-10.6) k/uL RBC (4.30-5.90) m/uL Hgb (13.0-17.5) gm/dL Hct (39.0-53.0) % MCV (80.0-100.0) fL MCH (25.0-35.0) pg MCHC (31.0-37.0) g/dL RDW (11.5-15.5) % Plt Count (150-450) k/uL MPV Neutrophils % % Lymphocytes % % Monocytes % % Eosinophils % % Basophils % % Neutrophils # (1.3-7.7) k/uL Lymphocytes # (1.0-4.8) k/uL Monocytes # (0-1.0) k/uL Eosinophils # (0-0.7) k/uL Basophils # (0-0.2) k/uL PT (9.0-12.0) sec INR (<1.2) APTT (22.0-30.0) sec Sodium (137-145) mmol/L Potassium (3.5-5.1) mmol/L Chloride (98-107) mmol/L Carbon Dioxide (22-30) mmol/L Anion Gap mmol/L BUN (9-20) mg/dL Creatinine (0.66-1.25) mg/dL Est GFR (CKD-EPI)AfAm (>60 ml/min/1.73 sqM) Est GFR (CKD-EPI)NonAf (>60 ml/min/1.73 sqM) Glucose (74-99) mg/dL Calcium (8.4-10.2) mg/dL Magnesium (1.6-2.3) mg/dL Total Bilirubin (0.2-1.3) mg/dL AST (17-59) U/L ALT (4-49) U/L Alkaline Phosphatase (38-126) U/L Troponin I <0.012 (0.000-0.034) ng/mL Total Protein (6.3-8.2) g/dL Albumin (3.5-5.0) g/dL Lipase (23-300) U/L Serum Alcohol mg/dL Disposition Clinical Impression: Alcohol use disorder, Alcohol withdrawal syndrome, Alcoholic intoxication Disposition: ADMITTED IP TO THIS HOSP Condition: Stable Is patient prescribed a controlled substance at d/c from ED?: No Referrals: None,Stated [Primary Care Provider] - 1-2 days Time of Disposition: 15:39
[2022-02-09 14:49] LABS: Basophils % (A) 1 %; Eosinophils % (A) 1 %; HCT 46.9 % (39.0-53.0); HGB 15.7 gm/dL (13.0-17.5); Lymphocytes # (A) 1.5 k/uL (1.0-4.8); Lymphocytes % (A) 31 %; MCH 32.5 pg (25.0-35.0); MCHC 33.5 g/dL (31.0-37.0); MCV 97.2 fL (80.0-100.0); Monocytes # (A) 0.2 k/uL (0-1.0); Monocytes % (A) 5 %; Neutrophils % (A) 61 %; Platelet Count 336 k/uL (150-450); RBC 4.83 m/uL (4.30-5.90); RDW 13.7 % (11.5-15.5); WBC 4.9 k/uL (3.8-10.6)
[2022-02-09 14:56] LABS: INR 1.2 (<1.2); Partial Thromboplastin Time 23.3 sec (22.0-30.0); Prothrombin Time 12.4 sec (9.0-12.0)
[2022-02-09 15:01] LABS: ALT 30 U/L (4-49); AST 44 U/L (17-59); African American GFR (CKD) >90 (>60 ml/min/1.73 sqM); Albumin 4.8 g/dL (3.5-5.0); Alkaline Phosphatase 136 U/L (38-126); Anion Gap 15 mmol/L; Blood Urea Nitrogen 10 mg/dL (9-20); Calcium 9.1 mg/dL (8.4-10.2); Carbon Dioxide 26 mmol/L (22-30); Chloride 100 mmol/L (98-107); Glucose 93 mg/dL (74-99); Lipase 190 U/L (23-300); Magnesium 1.9 mg/dL (1.6-2.3); Non-African American GFR(CKD) >90 (>60 ml/min/1.73 sqM); Potassium 3.7 mmol/L (3.5-5.1); Sodium 141 mmol/L (137-145); Total Bilirubin 0.8 mg/dL (0.2-1.3); Total Protein 7.9 g/dL (6.3-8.2)
[2022-02-09 15:04] LABS: Alcohol 254 mg/dL
--- NOTE | 2022-02-09 15:08 | XR ---
EXAMINATION TYPE: XR chest 2V DATE OF EXAM: 02/09/2022 COMPARISON: Chest x-ray January 29, 2022 HISTORY: Chest pain. TECHNIQUE: Frontal and lateral views of the chest are obtained. FINDINGS: There is no suspicious focal air space opacity, pleural effusion, or pneumothorax seen. T he cardiac silhouette size is stable and within normal limits. The osseous structures are intact. IMPRESSION: No acute process. No significant change from prior.
[2022-02-09] MEDS ORDERED: THIAMINE 100 MG/ML 2 ML VIAL IM STA (15:13)
[2022-02-09] MEDS ORDERED: LORazepam 0.5 MG TAB PO PRN (15:13)
[2022-02-09] MEDS ORDERED: LORazepam 1 MG TAB PO PRN ×3 (15:13)
[2022-02-09] MEDS ORDERED: ACETAMINOPHEN TAB 325 MG TAB PO PRN (15:36)
[2022-02-09] MEDS ORDERED: NALOXONE 0.4 MG/ML 1 ML VIAL IV PRN (15:36)
[2022-02-09] MEDS ORDERED: SODIUM CHLORIDE 0.9% 1,000 ML IV SCH (15:45)
--- NOTE | 2022-02-09 16:03 | P.HPIM ---
History of Present Illness H&P Date: 02/09/22 History of Presenting Illness: Patient is a very pleasant 36-year-old male with a past medical history of alcohol abuse with history of withdrawal seizures, hypertension, anxiety, depression, PTSD, TBI, and nicotine dependence. He presented to the emergency department with the chief complaint of chest pain. Patient reports drinking 1 gallon of vodka daily with last drink of alcohol being around 9 AM. Patient reports pain to left anterior chest in which she describes as a discomfort. He denies having any radiation of pain and denies having any palpitations, shortness of breath, dizziness/lightheadedness, nausea, vomiting, or any other complaints. He underwent full evaluation in the emergency department. EKG completed revealing sinus tachycardia at 104 bpm with no noted T wave or ST abnormality showing no signs of acute ischemia. Chest x-ray negative for acute cardiopulmonary process. CBC and CMP showing no significant abnormalities. Troponin negative at less than 0.012. Serum alcohol 254. Patient admitted to observation unit under our services with consult to cardiology at this time. Review of systems: Pertinent positives and negatives as discussed in HPI, a complete review of systems was performed and all other systems are negative. Physical exam: Vital signs reviewed and stable. General: Nontoxic, no distress and appears stated age. Derm: Skin warm and dry, normal coloration for ethnicity. Head: Atraumatic, normocephalic and symmetric. Eyes: EOMs intact, no lid lag, and anicteric sclera Mouth: no lip lesions, mucus membranes moist Cardiovascular: Tachycardic rate regular rhythm with normal S1S2, no murmur, positive posterior tibial pulses bilaterally, and cap refill < 2 seconds. Lungs: Respirations even, regular, and unlabored on room air. Lungs CTA bilaterally, no rhonchi, no rales, no wheezing, and no accessory muscle usage. Abdominal: soft, nontender to palpation, no guarding, no appreciable organomegaly Ext: ROM intact. No gross muscle atrophy, no edema, no contractures Neuro: Speech clear, face symmetrical and CN II-XII grossly intact with no noted focal neuro deficits. Patient tremulous. Psych: Alert and oriented to person, place, time, and situation. Appropriate and pleasant affect. Assessment and Plan of Care: Alcohol intoxication in an active alcoholic -WA Protocol with symptom triggered medication management with benzodiazepines. -Banana bag 1 dose followed by continuous IV hydration. -Thiamine 100 mg twice a day -Multivitamin daily -Folate 1 mg daily -Seizure, fall, aspiration, and elopement precautions in place. -Urine drug screen -Continued close monitoring of electrolytes and replace as needed. -Telemetry monitoring. Chest pain, rule out acute coronary event -Cardiology consult, appreciate further recommendations -Telemetry monitoring -Trend troponins -Cardiac diet -Aspirin x one dose followed by 81 mg daily. Hypertension -Monitor vital signs and continue daily medication regimen with amlodipine and hydrochlorothiazide The patient is admitted with an anticipated less than 2 midnight stay for evaluation of alcohol intoxication and chest pain CODE STATUS: Full code DVT prophylaxis: Heparin Discussed with: Patient and RN Anticipated discharge date: 1-[address]: home A total of 44 minutes was spent on the care of this complex patient more than 50% of the time was spent in counseling and care coordination. Past Medical History Past Medical History: Hypertension Additional Past Medical History / Comment(s): ETOH abuse, past withdrawals- tremors/nausea. traumatic brain injury History of Any Multi-Drug Resistant Organisms: None Reported Additional Past Surgical History / Comment(s): surgery for testicular torsion Past Anesthesia/Blood Transfusion Reactions: No Reported Reaction Past Psychological History: Anxiety, Depression, PTSD Smoking Status: Current every day smoker Past Alcohol Use History: Abuse Past Drug Use History: None Reported - Past Family History Mother Family Medical History: No Reported History Additional Family Medical History / Comment(s): Mother is healthy Father History Unknown: Yes Family Family Medical History: No Reported History Medications and Allergies Home Medications Medication Instructions Recorded Confirmed Type Baclofen [Lioresal] 10 mg PO Q8H PRN 01/26/22 02/09/22 History Cyanocobalamin (Vitamin B-12) 1,000 mcg PO DAILY 01/26/22 02/09/22 History [Vitamin B-12] Gabapentin 600 mg PO TID 01/26/22 02/09/22 History Melatonin 6 mg PO HS 01/26/22 02/09/22 History Multivitamins, Thera [Multivitamin 1 tab PO DAILY 01/26/22 02/09/22 History (formulary)] Nicotine 21Mg/24Hr Patch [Habitrol] 1 patch TRANSDERM DAILY 01/26/22 02/09/22 History Prazosin HCl [Minipress] 2 mg PO HS 01/26/22 02/09/22 History amLODIPine [Norvasc] 2.5 mg PO DAILY 01/26/22 02/09/22 History hydrOXYzine HCL [Atarax] 50 mg PO Q6H PRN 01/26/22 02/09/22 History hydroCHLOROthiazide 25 mg PO DAILY 01/26/22 02/09/22 History Acetaminophen Tab [Tylenol] 650 mg PO Q6HR PRN tab 01/31/22 02/09/22 Rx Thiamine [Vitamin B-1] 100 mg PO BID-W/MEALS tab 01/31/22 02/09/22 Rx Escitalopram [Lexapro] 20 mg PO DAILY #0 02/03/22 02/09/22 Rx Allergies Allergy/AdvReac Type Severity Reaction Status Date / Time No Known Allergies Allergy Verified 02/09/22 15:59 Physical Exam Vitals: Vital Signs Temp Pulse Resp BP Pulse Ox 02/09/22 13:57 98 F 110 H 20 142/88 99 Intake and Output 02/09/22 02/09/22 02/09/22 06:59 14:59 22:59 Other: Weight 79.379 kg Results CBC & Chem 7: 02/09/22 14:28 02/09/22 14:28 Labs: Abnormal Lab Results - Last 24 Hours (Table) 02/09/22 02/09/22 Range/Units 14:28 14:28 PT 12.4 H (9.0-12.0) sec INR 1.2 H (<1.2) Alkaline Phosphatase 136 H (38-126) U/L Serum Alcohol 254 H* mg/dL
[2022-02-09 16:10] VITALS: BP 175/118; PULSE 120; RESP 18; TEMP 98
[2022-02-09] MEDS ORDERED: ASPIRIN 81 MG PO STA (16:12)
[2022-02-09] MEDS ORDERED: NICOTINE 21MG/24HR PATCH TRANSDERM SCH (16:15)
--- NOTE | 2022-02-09 17:57 | P.DS ---
Providers Date of admission: 02/09/22 15:36 Expected date of discharge: 02/09/22 Attending physician: Anna Villa MD Primary care physician: Stated None Hospital Course: THIS IS NOT A DISCHARGE SUMMARY, BUT A SUMMARY OF CARE PATIENT LEFT AGAINST MEDICAL ADVICE Diagnosis: Alcohol intoxication in an active alcoholic. Pt was strongly encouraged to stay in hospital and undergo detox, but declined. Pt adamant to leave at this time. Pt is still clinically intoxicated but alert and oriented to person, place, time, and situation. But due to clinical intoxiation and reports of chest pain current hypertension with BP 175/118 and tachycardia with HR 120, pt can not be medically clear at this time. Pt's father at bedside to sign him out AMA and assuming care of patient. Pt and his father were informed of risks of signing out AMA up to and including . Chest pain, rule out acute coronary event Hypertensive urgency Tachycardia Hypertension -Monitor vital signs and continue daily medication regimen with amlodipine and hydrochlorothiazide Hospital Course: Patient is a very pleasant 36-year-old male with a past medical history of alcohol abuse with history of withdrawal seizures, hypertension, anxiety, depression, PTSD, TBI, and nicotine dependence. He presented to the emergency department with the chief complaint of chest pain. Patient reported drinking 1 gallon of vodka daily with last drink of alcohol being around 9 AM. Patient reported pain to left anterior chest in which she describes as a discomfort. He denied having any radiation of pain and denies having any palpitations, shortness of breath, dizziness/lightheadedness, nausea, vomiting, or any other complaints. He underwent full evaluation in the emergency department. EKG completed revealing sinus tachycardia at 104 bpm with no noted T wave or ST abnormality showing no signs of acute ischemia. Chest x-ray negative for acute cardiopulmonary process. CBC and CMP showing no significant abnormalities. Troponin negative at less than 0.012. Serum alcohol 254. Patient admitted to observation unit under our services with consult to cardiology at this time. Pt left AGAINST MEDICAL ADVICE on 02/09/22 at 4:43 PM Patient Condition at Discharge: Stable Plan - Discharge Summary New Discharge Prescriptions: No Action Nicotine 21Mg/24Hr Patch [Habitrol] 1 patch TRANSDERM DAILY Multivitamins, Thera [Multivitamin (formulary)] 1 tab PO DAILY Cyanocobalamin (Vitamin B-12) [Vitamin B-12] 1,000 mcg PO DAILY Melatonin 6 mg PO HS Acetaminophen Tab [Tylenol] 650 mg PO Q6HR PRN tab PRN Reason: Mild Pain Or Fever > 100.5 Thiamine [Vitamin B-1] 100 mg PO BID-W/MEALS tab Escitalopram [Lexapro] 20 mg PO DAILY #0 Gabapentin 600 mg PO TID hydroCHLOROthiazide 25 mg PO DAILY amLODIPine [Norvasc] 2.5 mg PO DAILY Prazosin HCl [Minipress] 2 mg PO HS hydrOXYzine HCL [Atarax] 50 mg PO Q6H PRN PRN Reason: ANXIETY/ITCHING/NAUSEA Baclofen [Lioresal] 10 mg PO Q8H PRN PRN Reason: Muscle Spasm Discharge Medication List Baclofen [Lioresal] 10 mg PO Q8H PRN 01/26/22 [History] Cyanocobalamin (Vitamin B-12) [Vitamin B-12] 1,000 mcg PO DAILY 01/26/22 [History] Gabapentin 600 mg PO TID 01/26/22 [History] Melatonin 6 mg PO HS 01/26/22 [History] Multivitamins, Thera [Multivitamin (formulary)] 1 tab PO DAILY 01/26/22 [History] Nicotine 21Mg/24Hr Patch [Habitrol] 1 patch TRANSDERM DAILY 01/26/22 [History] Prazosin HCl [Minipress] 2 mg PO HS 01/26/22 [History] amLODIPine [Norvasc] 2.5 mg PO DAILY 01/26/22 [History] hydrOXYzine HCL [Atarax] 50 mg PO Q6H PRN 01/26/22 [History] hydroCHLOROthiazide 25 mg PO DAILY 01/26/22 [History] Acetaminophen Tab [Tylenol] 650 mg PO Q6HR PRN tab 01/31/22 [Rx] Thiamine [Vitamin B-1] 100 mg PO BID-W/MEALS tab 01/31/22 [Rx] Escitalopram [Lexapro] 20 mg PO DAILY #0 02/03/22 [Rx] Follow up Appointment(s)/Referral(s): [facility] [REFERRING] - 1 Week Discharge Disposition: Left Against Medical Advice
[2022-02-09] MEDS ORDERED: GABAPENTIN 300 MG CAP PO SCH (22:00)
[2022-02-10] MEDS ORDERED: HEPARIN SODIUM,PORCINE/PF 5,000 UNIT/0.5 ML SYRINGE SQ SCH
[2022-02-10] MEDS ORDERED: THIAMINE 100 MG TAB PO SCH ×2 (07:30→09:00)
[2022-02-10] MEDS ORDERED: ASPIRIN 81 MG PO SCH (09:00)
[2022-02-10] MEDS ORDERED: hydroCHLOROthiazide 25 MG TAB PO SCH (09:00)
[2022-02-10] MEDS ORDERED: FOLIC ACID 1 MG TAB PO SCH (09:00)
[2022-02-10] MEDS ORDERED: ESCITALOPRAM 20 MG TAB PO SCH (09:00)
[2022-02-10] MEDS ORDERED: amLODIPine 2.5 MG TAB PO SCH (09:00)
[2022-02-10] MEDS ORDERED: MULTIVITAMINS, THERA 1 EACH TAB PO SCH (09:00)
[2022-02-10] MEDS ORDERED: CYANOCOBALAMIN 500 MCG TAB PO SCH (09:00)
== END 2022-02-09 16:59 | disposition left against medical advice (07) ==
LOC: EC 13:44 → 4SSUR 15:36 → 3SCARD 16:11
PROVIDERS: ADMIT Family Medicine; ATTEND Family Medicine
DX: R07.89 Other chest pain (principal); I16.0 Hypertensive urgency; F10.139 Alcohol abuse with withdrawal, unspecified; F10.129 Alcohol abuse with intoxication, unspecified; I10 Essential (primary) hypertension; R00.0 Tachycardia, unspecified; F32.A Depression, unspecified; F43.10 Post-traumatic stress disorder, unspecified; F41.9 Anxiety disorder, unspecified; F17.200 Nicotine dependence, unspecified, uncomplicated; Z53.29 Procedure and treatment not carried out because of patient's decision for other reasons; Y90.8 Blood alcohol level of 240 mg/100 ml or more; Z79.899 Other long term (current) drug therapy; Z87.820 Personal history of traumatic brain injury; Z98.890 Other specified postprocedural states; Z87.438 Personal history of other diseases of male genital organs
CPT/HCPCS: 36415; 71046; 80053; 80320; 83690; 83735; 84484; 85025; 85610; 85730; 93005; 99285

== ENCOUNTER 2022-03-11 19:50 | Inpatient (IN) | payer OTHER ==
--- NOTE | 2022-03-11 20:32 | ED ---
General Adult HPI - General Source: EMS Mode of arrival: EMS Limitations: no limitations <ToniaNathan D - Last Filed: 03/11/22 22:15> <Brant Klein - Last Filed: 03/13/22 13:29> - General Chief complaint: Psychiatric Symptoms Stated complaint: Overdose Time Seen by Provider: 03/11/22 20:23 - History of Present Illness Initial comments: Dictation was produced using [employer] dictation software. please excuse any grammatical, word or spelling errors. Chief Complaint: 36-year-old male presents emergency department for suicidal overdose and alcoholic intoxication History of Present Illness: 36-year-old male he is a to the . Patient had multiple alcoholic beverages today. Patient also reports that he took 55 Librium 25 mg capsules. Unknown time of ingestion. Patient is a poor historian at this time. He is inebriated. Patient petitioned by [facility]. The ROS documented in this emergency department record has been reviewed and confirmed by me. Those systems with pertinent positive or negative responses have been documented in the HPI. All other systems are other negative and/or noncontributory. PHYSICAL EXAM: General Impression: Drowsy, smells of EtOH HEENT: Normocephalic atraumatic, extra-ocular movements intact, pupils equal and reactive to light bilaterally, mucous membranes moist. Cardiovascular: Heart regular rate and rhythm Chest: Able to complete full sentences, no retractions, no tachypnea Abdomen: abdomen soft, non-tender, non-distended, no organomegaly Musculoskeletal: Pulses present and equal in all extremities, no peripheral edema Motor: no focal deficits noted Neurological: CN II-XII grossly intact, no focal motor or sensory deficits noted Skin: Intact with no visualized rashes Psych: Normal affect and mood ED course: 36-year-old male presents emergency department for suicidal overdose of Librium. And alcoholic intoxication. Vital signs upon arrival are within acceptable limits. Laboratory evaluation obtained. Mild leukopenia of 2.4. Patient has had leukopenia in the past. This likely secondary to bone marrow suppression from alcohol. Platelet count 4. Toprol 9. Coag panel was within acceptable limits. Metabolic panel shows occult hepatitis. Alcohol level was 241. Patient pendi ng sobriety for EPS evaluation. Patient be continued to be monitored in the emergency room until amenable for EPS evaluation. (Nathan Randall) - Related Data Home Medications Medication Instructions Recorded Confirmed Baclofen [Lioresal] 10 mg PO Q8H PRN 01/26/22 03/12/22 Cyanocobalamin (Vitamin B-12) 1,000 mcg PO DAILY 01/26/22 03/12/22 [Vitamin B-12] Gabapentin 600 mg PO TID 01/26/22 03/12/22 Melatonin 6 mg PO HS 01/26/22 03/12/22 Multivitamins, Thera [Multivitamin 1 tab PO DAILY 01/26/22 03/12/22 (formulary)] Nicotine 21Mg/24Hr Patch [Habitrol] 1 patch TRANSDERM DAILY 01/26/22 03/12/22 Prazosin HCl [Minipress] 2 mg PO HS 01/26/22 03/12/22 amLODIPine [Norvasc] 2.5 mg PO DAILY 01/26/22 03/12/22 hydrOXYzine HCL [Atarax] 50 mg PO Q6H PRN 01/26/22 03/12/22 hydroCHLOROthiazide 25 mg PO DAILY 01/26/22 03/12/22 Previous Rx's Medication Instructions Recorded Acetaminophen Tab [Tylenol] 650 mg PO Q6HR PRN tab 01/31/22 Thiamine [Vitamin B-1] 100 mg PO BID-W/MEALS tab 01/31/22 Escitalopram [Lexapro] 20 mg PO DAILY #0 02/03/22 Allergies Allergy/AdvReac Type Severity Reaction Status Date / Time No Known Allergies Allergy Verified 03/12/22 12:05 Review of Systems ROS Other: All systems not noted in ROS Statement are negative. <Nathan Randall - Last Filed: 03/11/22 22:15> ROS Other: All systems not noted in ROS Statement are negative. <Brant Klein - Last Filed: 03/13/22 13:29> ROS Statement: Those systems with pertinent positive or pertinent negative responses have been documented in the HPI. Past Medical History Past Medical History: Hypertension Additional Past Medical History / Comment(s): ETOH abuse, past withdrawals- tremors/nausea. traumatic brain injury History of Any Multi-Drug Resistant Organisms: None Reported Additional Past Surgical History / Comment(s): surgery for testicular torsion Past Anesthesia/Blood Transfusion Reactions: No Reported Reaction Past Psychological History: Anxiety, Depression, PTSD Smoking Status: Current every day smoker Past Alcohol Use History: Abuse Past Drug Use History: None Reported - Past Family History Mother Family Medical History: No Reported History Additional Family Medical History / Comment(s): Mother is healthy Father History Unknown: Yes Family Family Medical History: No Reported History <Nathan Randall - Last Filed: 03/11/22 22:15> General Exam Limitations: no limitations <Nathan Randall - Last Filed: 03/11/22 22:15> Course Vital Signs 03/11/22 03/13/22 20:11 09:16 Temperature 98.1 F 97.9 F Pulse Rate 74 91 Respiratory 15 18 Rate Blood Pressure 136/87 112/75 O2 Sat by Pulse 100 97 Oximetry Procedures - Restraint - Face to Face Restraint Occurrence 1 Patient's Immediate Situation: Endangers self safety, Endangers others' safety Patient's Reaction to the Intervention: Uncooperative Patient's Medical & Behavioral Condition: Awake Need to Continue or Terminate Restraint or Seclusion: Continue Face to Face Eval of Restraint Date: 03/12/22 Face to Face Eval of Restraint Time: 11:11 <Brant Klein - Last Filed: 03/13/22 13:29> Medical Decision Making - Lab Data Result diagrams: 03/11/22 21:16 03/11/22 21:16 <Nathan Randall - Last Filed: 03/11/22 22:15> - Lab Data Result diagrams: 03/11/22 21:16 03/11/22 21:16 <Brant Klein - Last Filed: 03/13/22 13:29> - Medical Decision Making I interpreted the EKG shows a sinus rhythm at 86 bpm NE interval is 142 QRS is 93 Q-T intervals 371 QTC is 414. Patient's EKG shows no ST segment elevation or depression. I filled out a clinical certification for the patient to be admitted. We will try to transfer the patient to the [facility] clinic since he is a . X-ray was read by me. It shows 2 possible rib fractures in the eighth and ninth rib. Patient needs to go to a medical floor because he is COVID positive and psych will be consulted. (Brant Klein) - Lab Data Lab Results 03/11/22 03/11/22 03/11/22 Range/Units 21:16 21:16 21:16 WBC 2.4 L (3.8-10.6) k/uL RBC 4.02 L (4.30-5.90) m/uL Hgb 12.9 L (13.0-17.5) gm/dL Hct 37.6 L (39.0-53.0) % MCV 93.6 (80.0-100.0) fL MCH 32.1 (25.0-35.0) pg MCHC 34.3 (31.0-37.0) g/dL RDW 13.4 (11.5-15.5) % Plt Count 144 L D (150-450) k/uL MPV 8.0 Neutrophils % 54 % Lymphocytes % 37 % Monocytes % 5 % Eosinophils % 2 % Basophils % 1 % Neutrophils # 1.3 (1.3-7.7) k/uL Lymphocytes # 0.9 L (1.0-4.8) k/uL Monocytes # 0.1 (0-1.0) k/uL Eosinophils # 0.0 (0-0.7) k/uL Basophils # 0.0 (0-0.2) k/uL PT 16.1 H (9.0-12.0) sec INR 1.6 H (<1.2) APTT 24.2 (22.0-30.0) sec Sodium (137-145) mmol/L Potassium (3.5-5.1) mmol/L Chloride (98-107) mmol/L Carbon Dioxide (22-30) mmol/L Anion Gap mmol/L BUN (9-20) mg/dL Creatinine (0.66-1.25) mg/dL Est GFR (CKD-EPI)AfAm (>60 ml/min/1.73 sqM) Est GFR (CKD-EPI)NonAf (>60 ml/min/1.73 sqM) Glucose (74-99) mg/dL Osmolality (280-301) mosm/kg Calcium (8.4-10.2) mg/dL Total Bilirubin (0.2-1.3) mg/dL AST (17-59) U/L ALT (4-49) U/L Alkaline Phosphatase (38-126) U/L Total Protein (6.3-8.2) g/dL Albumin (3.5-5.0) g/dL Urine Color Colorless Urine Appearance Clear (Clear) Urine pH 7.0 (5.0-8.0) Ur Specific [place] 1.004 (1.001-1.035) Urine Protein Negative (Negative) Urine Glucose (UA) Negative (Negative) Urine Ketones Negative (Negative) Urine Blood Negative (Negative) Urine Nitrite Negative (Negative) Urine Bilirubin Negative (Negative) Urine Urobilinogen <2.0 (<2.0) mg/dL Ur Leukocyte Esterase Negative (Negative) Salicylates mg/dL Urine Opiates Screen Not Detected (NotDetected) Ur Oxycodone Screen Not Detected (NotDetected) Urine Methadone Screen Not Detected (NotDetected) Ur Propoxyphene Screen Not Detected (NotDetected) Acetaminophen ug/mL Ur Barbiturates Screen Not Detected (NotDetected) U Tricyclic Antidepress Not Detected (NotDetected) Ur Phencyclidine Scrn Not Detected (NotDetected) Ur Amphetamines Screen Not Detected (NotDetected) U Methamphetamines Scrn Not Detected (NotDetected) U Benzodiazepines Scrn Detected H (NotDetected) Urine Cocaine Screen Not Detected (NotDetected) U Marijuana (THC) Screen Not Detected (NotDetected) Serum Alcohol mg/dL Coronavirus (PCR) (Not Detectd) 03/11/22 03/12/22 Range/Units 21:16 10:25 WBC (3.8-10.6) k/uL RBC (4.30-5.90) m/uL Hgb (13.0-17.5) gm/dL Hct (39.0-53.0) % MCV (80.0-100.0) fL MCH (25.0-35.0) pg MCHC (31.0-37.0) g/dL RDW (11.5-15.5) % Plt Count (150-450) k/uL MPV Neutrophils % % Lymphocytes % % Monocytes % % Eosinophils % % Basophils % % Neutrophils # (1.3-7.7) k/uL Lymphocytes # (1.0-4.8) k/uL Monocytes # (0-1.0) k/uL Eosinophils # (0-0.7) k/uL Basophils # (0-0.2) k/uL PT (9.0-12.0) sec INR (<1.2) APTT (22.0-30.0) sec Sodium 143 (137-145) mmol/L Potassium 3.5 (3.5-5.1) mmol/L Chloride 104 (98-107) mmol/L Carbon Dioxide 28 (22-30) mmol/L Anion Gap 11 mmol/L BUN 4 L (9-20) mg/dL Creatinine 0.78 (0.66-1.25) mg/dL Est GFR (CKD-EPI)AfAm >90 (>60 ml/min/1.73 sqM) Est GFR (CKD-EPI)NonAf >90 (>60 ml/min/1.73 sqM) Glucose 108 H (74-99) mg/dL Osmolality 360 H* (280-301) mosm/kg Calcium 8.6 (8.4-10.2) mg/dL Total Bilirubin 0.3 (0.2-1.3) mg/dL AST 172 H (17-59) U/L ALT 141 H (4-49) U/L Alkaline Phosphatase 92 (38-126) U/L Total Protein 5.9 L (6.3-8.2) g/dL Albumin 3.8 (3.5-5.0) g/dL Urine Color Urine Appearance (Clear) Urine pH (5.0-8.0) Ur Specific [place] (1.001-1.035) Urine Protein (Negative) Urine Glucose (UA) (Negative) Urine Ketones (Negative) Urine Blood (Negative) Urine Nitrite (Negative) Urine Bilirubin (Negative) Urine Urobilinogen (<2.0) mg/dL Ur Leukocyte Esterase (Negative) Salicylates <1.0 mg/dL Urine Opiates Screen (NotDetected) Ur Oxycodone Screen (NotDetected) Urine Methadone Screen (NotDetected) Ur Propoxyphene Screen (NotDetected) Acetaminophen <10.0 ug/mL Ur Barbiturates Screen (NotDetected) U Tricyclic Antidepress (NotDetected) Ur Phencyclidine Scrn (NotDetected) Ur Amphetamines Screen (NotDetected) U Methamphetamines Scrn (NotDetected) U Benzodiazepines Scrn (NotDetected) Urine Cocaine Screen (NotDetected) U Marijuana (THC) Screen (NotDetected) Serum Alcohol 241 H* mg/dL Coronavirus (PCR) Detected A (Not Detectd) Disposition <Nathan Randall - Last Filed: 03/11/22 22:15> Time of Disposition: 11:53 <Brant Klein - Last Filed: 03/13/22 13:29> Clinical Impression: Attempted suicide, Alcohol abuse, Overdose, Rib fractures Disposition: TRANSFER TO PSYCH HOSP/UNIT Referrals: [facility],Clinic [Primary Care Provider] - 1-2 days
[2022-03-11 21:27] LABS: Appearance,Urine Clear (Clear); Bilirubin,Urine Negative (Negative); Blood,Urine Negative (Negative); Color,Urine Colorless; Glucose,Urine (UA) Negative (Negative); Ketones,Urine Negative (Negative); Leukocyte Esterase,Urine Negative (Negative); Nitrite,Urine Negative (Negative); Protein,Urine Negative (Negative); Specific Gravity,Urine 1.004 (1.001-1.035); Urobilinogen,Urine <2.0 mg/dL (<2.0)
[2022-03-11 21:32] LABS: Basophils % (A) 1 %; Eosinophils % (A) 2 %; HCT 37.6 % (39.0-53.0); HGB 12.9 gm/dL (13.0-17.5); Lymphocytes # (A) 0.9 k/uL (1.0-4.8); Lymphocytes % (A) 37 %; MCH 32.1 pg (25.0-35.0); MCHC 34.3 g/dL (31.0-37.0); MCV 93.6 fL (80.0-100.0); Monocytes # (A) 0.1 k/uL (0-1.0); Monocytes % (A) 5 %; Neutrophils # (A) 1.3 k/uL (1.3-7.7); Neutrophils % (A) 54 %; RBC 4.02 m/uL (4.30-5.90); RDW 13.4 % (11.5-15.5); WBC 2.4 k/uL (3.8-10.6)
[2022-03-11 21:36] LABS: ALT 141 U/L (4-49); AST 172 U/L (17-59); Acetaminophen <10.0 ug/mL; African American GFR (CKD) >90 (>60 ml/min/1.73 sqM); Albumin 3.8 g/dL (3.5-5.0); Alkaline Phosphatase 92 U/L (38-126); Anion Gap 11 mmol/L; Blood Urea Nitrogen 4 mg/dL (9-20); Calcium 8.6 mg/dL (8.4-10.2); Carbon Dioxide 28 mmol/L (22-30); Chloride 104 mmol/L (98-107); Glucose 108 mg/dL (74-99); Non-African American GFR(CKD) >90 (>60 ml/min/1.73 sqM); Potassium 3.5 mmol/L (3.5-5.1); Salicylate <1.0 mg/dL; Sodium 143 mmol/L (137-145); Total Bilirubin 0.3 mg/dL (0.2-1.3); Total Protein 5.9 g/dL (6.3-8.2)
[2022-03-11 21:38] LABS: Amphetamine Screen,Urine Not Detected (NotDetected); Barbiturate Screen,Urine Not Detected (NotDetected); Benzodiazepines Screen,Urine Detected (NotDetected); Cocaine Screen,Urine Not Detected (NotDetected); INR 1.6 (<1.2); Methadone Screen, Urine Not Detected (NotDetected); Opiate Screen,Urine Not Detected (NotDetected); Oxycodone Screen, Urine Not Detected (NotDetected); Phencyclidine Screen,Urine Not Detected (NotDetected); Prothrombin Time 16.1 sec (9.0-12.0); Tricyclic Antidepressant,Urine Not Detected (NotDetected); Urn Cannabinoid Scrn Not Detected (NotDetected)
[2022-03-11 21:39] LABS: Partial Thromboplastin Time 24.2 sec (22.0-30.0)
[2022-03-11 21:41] LABS: Platelet Count 144 k/uL (150-450)
[2022-03-11 21:43] LABS: Alcohol 241 mg/dL
[2022-03-12] MEDS ORDERED: ACETAMINOPHEN TAB 500 MG TAB PO STA (10:44)
--- NOTE | 2022-03-12 11:04 | XR ---
EXAMINATION TYPE: XR ribs LT w pa chest xray DATE OF EXAM: 03/12/2022 COMPARISON: NONE HISTORY: Pain TECHNIQUE: Frontal view of the chest and 4 views of left ribs are submitted. FINDINGS: Heart size normal. No overt failure or pleural effusion. No pneumothorax. No focal pneumoni a. There are linear lucencies involving the anterior lateral margin of the left eighth and ninth ribs . IMPRESSION: 1. Findings are suspicious for hairline nondisplaced fractures involving the anterior margin left eig hth and ninth rib
[2022-03-13] MEDS ORDERED: ACETAMINOPHEN TAB 325 MG TAB PO PRN (02:25)
[2022-03-13] MEDS ORDERED: ALBUTEROL HFA INHALER INHALATION PRN (02:25)
[2022-03-13] MEDS ORDERED: chlordiazePOXIDE 25 MG CAP PO PRN ×3 (02:27)
--- NOTE | 2022-03-13 02:35 | P.HPIM ---
History of Present Illness H&P Date: 03/12/22 Chief Complaint: COVID possitive 36 year old male denies any significant past medical history patient presented for intentional drug overdose with benzo, with acute alcohol intoxication. admits to depressed mood and alcohol dependance . he was waiting for placement at psych facility , however, tested positive and admitted to medicine he denies any sore throat, cough, chest pain , fever, chills, headache, trouble breathing , nausea , vomiting, abd pain , body aches. changes in taste or smell sensation. mae any changes in bowel or urinary habits. he did not go over details of his overdose, but ED documented that he overdosed on librium Review of Systems Pertinent positives as noted in HPI. All other systems were reviewed and are negative Past Medical History Past Medical History: Hypertension Additional Past Medical History / Comment(s): ETOH abuse, past withdrawals- tremors/nausea. traumatic brain injury History of Any Multi-Drug Resistant Organisms: None Reported Additional Past Surgical History / Comment(s): surgery for testicular torsion Past Anesthesia/Blood Transfusion Reactions: No Reported Reaction Past Psychological History: Anxiety, Depression, PTSD Smoking Status: Current every day smoker Past Alcohol Use History: Abuse Past Drug Use History: None Reported - Past Family History Mother Family Medical History: No Reported History Additional Family Medical History / Comment(s): Mother is healthy Father History Unknown: Yes Family Family Medical History: No Reported History Medications and Allergies Home Medications Medication Instructions Recorded Confirmed Type Baclofen [Lioresal] 10 mg PO Q8H PRN 01/26/22 03/12/22 History Cyanocobalamin (Vitamin B-12) 1,000 mcg PO DAILY 01/26/22 03/12/22 History [Vitamin B-12] Gabapentin 600 mg PO TID 01/26/22 03/12/22 History Melatonin 6 mg PO HS 01/26/22 03/12/22 History Multivitamins, Thera [Multivitamin 1 tab PO DAILY 01/26/22 03/12/22 History (formulary)] Nicotine 21Mg/24Hr Patch [Habitrol] 1 patch TRANSDERM DAILY 01/26/22 03/12/22 History Prazosin HCl [Minipress] 2 mg PO HS 01/26/22 03/12/22 History amLODIPine [Norvasc] 2.5 mg PO DAILY 01/26/22 03/12/22 History hydrOXYzine HCL [Atarax] 50 mg PO Q6H PRN 01/26/22 03/12/22 History hydroCHLOROthiazide 25 mg PO DAILY 01/26/22 03/12/22 History Acetaminophen Tab [Tylenol] 650 mg PO Q6HR PRN tab 01/31/22 03/12/22 Rx Thiamine [Vitamin B-1] 100 mg PO BID-W/MEALS tab 01/31/22 03/12/22 Rx Escitalopram [Lexapro] 20 mg PO DAILY #0 02/03/22 03/12/22 Rx Allergies Allergy/AdvReac Type Severity Reaction Status Date / Time No Known Allergies Allergy Verified 03/12/22 12:05 Physical Exam Constitutional: No acute distress, conversant, pleasant Eyes: Anicteric sclerae, moist conjunctiva, Pupils equal round reactive to light ENMT: NC/AT Oropharynx clear, no erythema, or exudates Neck: Supple, no masses, or JVD No carotid bruits No thyromegaly Lungs: Clear to auscultation Clear to percussion Normal respiratory effort, no accessory muscle use Cardiovascular: Heart regular in rate and rhythm, No murmurs, gallops, or rubs No peripheral edema Abdominal: Soft Nontender, no guarding, rebound or rigidity Abdomen moving with respiration Normoactive bowel sounds No hepatomegaly, No splenomegaly No palpable mass No abdominal wall hernia noted Skin: Normal temperature, tone, texture, turgor No induration No subcutaneous nodules No rash, lesions No ulcers Extremities: No digital cyanosis No clubbing Pedal pulses intact and symmetrical Radial pulses intact and symmetrical No calf tenderness Psychiatric: Alert and oriented to person, place and time Neuro Muscles Strength 5/5 in all 4 extremities Sensation to light touch grossly present throughout Cranial nerves II-XII grossly intact Lymphatics: no palpable cervical or supraclavicular lymph nodes Results CBC & Chem 7: 03/11/22 21:16 03/11/22 21:16 Labs: Abnormal Lab Results - Last 24 Hours (Table) 03/12/22 Range/Units 10:25 Coronavirus (PCR) Detected A (Not Detectd) Assessment and Plan Assessment: COVID infection follow up prognostic labs isolation IVF hydration symptomatic control DVT PPX sc lovenox depression suicidal ideation follow up by psych alcohol dependance monitor for alcohol withdrawal benzo per ciwa thiamine IVF hydration with normal saline full code
[2022-03-13] MEDS ORDERED: NICOTINE 14MG/24HR PATCH TRANSDERM STA (09:26)
[2022-03-13] MEDS: amLODIPine 2.5 MG TAB PO SCH (09:32)
[2022-03-13] MEDS: ENOXAPARIN 40 MG/0.4 ML SYRINGE SQ SCH (09:32)
[2022-03-13] MEDS: ESCITALOPRAM 20 MG TAB PO SCH (09:32)
[2022-03-13] MEDS: THIAMINE 100 MG TAB PO SCH ×2 (09:32→18:30)
--- NOTE | 2022-03-13 12:58 | P.PN ---
Subjective Progress Note Date: 03/13/22 Hospital course: Patient is a very pleasant 36-year-old male with a past medical history of PTSD, anxiety, depression, TBI, alcohol abuse, and nicotine dependence. He is currently in the emergency department awaiting transfer to inpatient psychiatric unit due to reports of suicidal ideation and reported suicidal attempt via overdose of Librium in addition to excessive alcohol consumption. Patient was brought into the hospital by [facility] and upon arrival to the emergency department on 03/11/22 and we were consulted in the evening of 04/08/22 for medical management while patient remains in the emergency department under observation status awaiting transfer [facility]. Imaging: X-ray revealed hairline nondisplaced fractures involving the anterior margin of the left eighth and ninth ribs. Labs: CBC revealing Pancytopenia with WBC 2.4, hemoglobin 12.9, and platelet count of 144. CMP revealing Transaminitis: AST 172, ALT 141, an alkaline phosphatase of 92 with total bili of 0.3. Urinalysis negative for infection. Urine drug screen positive for benzodiazepines. Serum alcohol level 241. Physical exam: Patient seen and fully evaluated at the bedside this morning. Patient sitting up in bed reports mild discomfort to left rib region otherwise denies having any other complaints or concerns at this time. Patient very polite and cooperative at this time. He reports that he has recently cut back on alcohol and has not been drinking "as much as I used to". Vital signs reviewed and stable. General: Nontoxic, no distress and appears stated age. Derm: Skin warm and dry, normal coloration for ethnicity. Head: Atraumatic, normocephalic and symmetric. Eyes: EOMs intact, no lid lag, and anicteric sclera Mouth: no lip lesions, mucus membranes moist Cardiovascular: regular rate and rhythm with normal S1S2, no murmur, positive posterior tibial pulses bilaterally, and cap refill < 2 seconds. Lungs: Respirations even, regular, and unlabored on room air. Lungs CTA bilaterally, no rhonchi, no rales, no wheezing, and no accessory muscle usage. Abdominal: soft, nontender to palpation, no guarding, no appreciable organomegaly Ext: ROM intact. No gross muscle atrophy, no edema, no contractures Neuro: Speech clear, face symmetrical and CN II-XII grossly intact with no noted focal neuro deficits Psych: Alert and oriented to person, place, time, and situation. Appropriate and pleasant affect. Assessment and Plan of Care: Suicidal ideations with reported suicide attempt via ingestion of Librium -Maintain suicide precautions and strict elopement precautions. -Patient remains in emergency department under care of the ER physicians and staff pending transfer to inpatient psychiatric facility. Rib fractures -Symptomatic care and pain management, strongly encourage patient to use in centive spirometry 10-15 times hourly while awake. Transaminitis Pancytopenia -Secondary to chronic alcohol abuse. Polysubstance Abuse Alcohol abuse -[facility] Protocol -IV hydration. -Thiamine 100 mg twice a day -Multivitamin daily -Folate 1 mg daily -Seizure, fall, aspiration, and elopement precautions in place. -Urine drug screen -Continued close monitoring of electrolytes and replace as needed. -Telemetry monitoring. COVID 19 positive an asymptomatic individual -Patient is asymptomatic -Telemetry monitoring. -Continue trending inflammatory markers -Encourage Incentive Spirometry 10-15x hourly while awake -Continue vitamin C, Vitamin D, and Zinc. -DVT prophylaxis with Lovenox. -Strict Droplet plus Contact precautions Thank you for allowing us to participate in the care of this pleasant patient. Do not hesitate to contact us with questions. Someone can be reached from the [facility] hospitalist group all hours of the day at [phone] or via [email or web address]. I reviewed the documentation as provided by the SHAAN above, who is the original author of this note. I agree with the documented assessment and plan, with the following changes: none Objective - Vital Signs Vital signs: Vital Signs Temp 97.9 F 03/13/22 09:16 Pulse 91 03/13/22 09:16 Resp 18 03/13/22 09:16 BP 112/75 03/13/22 09:16 Pulse Ox 97 03/13/22 09:16 FiO2 - Labs CBC & Chem 7: 03/11/22 21:16 03/11/22 21:16
[2022-03-13] MEDS: SODIUM CHLORIDE 0.9% 1,000 ML IV SCH (16:05)
[2022-03-13] MEDS: MELATONIN 3 MG TABLET PO SCH (20:44)
[2022-03-13] MEDS: PRAZOSIN 1 MG CAP PO SCH (21:15)
[2022-03-14] MEDS: SODIUM CHLORIDE 0.9% 1,000 ML IV SCH ×3 (01:27→20:18)
[2022-03-14] MEDS: THIAMINE 100 MG TAB PO SCH ×2 (11:54→17:53)
[2022-03-14] MEDS: ESCITALOPRAM 20 MG TAB PO SCH (11:55)
[2022-03-14] MEDS: CYANOCOBALAMIN 500 MCG TAB PO SCH (11:55)
[2022-03-14] MEDS: amLODIPine 2.5 MG TAB PO SCH (11:55)
[2022-03-14] MEDS: ENOXAPARIN 40 MG/0.4 ML SYRINGE SQ SCH (11:55)
[2022-03-14] MEDS: MULTIVITAMINS, THERA 1 EACH TAB PO SCH (11:55)
--- NOTE | 2022-03-14 14:07 | P.PN ---
Subjective Progress Note Date: 03/14/22 Hospital course: Patient is a very pleasant 36-year-old male with a past medical history of PTSD, anxiety, depression, TBI, alcohol abuse, and nicotine dependence. He is currently in the emergency department awaiting transfer to inpatient psychiatric unit due to reports of suicidal ideation and reported suicidal attempt via overdose of Librium in addition to excessive alcohol consumption. Patient was brought into the hospital by [facility] and upon arrival to the emergency department on 03/11/22. On 03/12/22 we were consulted for medical management while patient remained in the emergency department under observation status awaiting transfer to inpatient [facility]. However due to patient's diagnosis of Covid patient was admitted under our services on 03/13/22 with consultation to psychiatry and patient to be tr ansferred to our inpatient psychiatric unit once medically clear and Covid negative. Imaging: X-ray revealed hairline nondisplaced fractures involving the anterior margin of the left eighth and ninth ribs. Labs: CBC revealing Pancytopenia with WBC 2.4, hemoglobin 12.9, and platelet count of 144. CMP revealing Transaminitis: AST 172, ALT 141, an alkaline phosphatase of 92 with total bili of 0.3. Urinalysis negative for infection. Urine drug screen positive for benzodiazepines. Serum alcohol level 241. Physical exam: Patient seen and fully evaluated at the bedside this morning. Patient sitting up in bed with sitter at bedside. Patient appeared to be doing well, no obvious signs of detox at this time. Patient states "I felt a little rough last night but currently feeling much better". He stated having occasional mild discomfort to left rib region otherwise denies having any other complaints or concerns at this time. Patient remains very polite and cooperative at this time. Vital signs reviewed and stable. General: Nontoxic, no distress and appears stated age. Derm: Skin warm and dry, normal coloration for ethnicity. Head: Atraumatic, normocephalic and symmetric. Eyes: EOMs intact, no lid lag, and anicteric sclera Mouth: no lip lesions, mucus membranes moist Cardiovascular: regular rate and rhythm with normal S1S2, no murmur, positive posterior tibial pulses bilaterally, and cap refill < 2 seconds. Lungs: Respirations even, regular, and unlabored on room air. Lungs CTA bilaterally, no rhonchi, no rales, no wheezing, and no accessory muscle usage. Abdominal: soft, nontender to palpation, no guarding, no appreciable organomegaly Ext: ROM intact. No gross muscle atrophy, no edema, no contractures Neuro: Speech clear, face symmetrical and CN II-XII grossly intact with no noted focal neuro deficits Psych: Alert and oriented to person, place, time, and situation. Appropriate and pleasant affect. Assessment and Plan of Care: Suicidal ideations with reported suicide attempt via ingestion of Librium -Maintain suicide precautions and strict elopement precautions. -Psychiatry following. Rib fractures -Symptomatic care and pain management, strongly encourage patient to use incentive spirometry 10-15 times hourly while awake. Transaminitis Pancytopenia -Secondary to chronic alcohol abuse. Polysubstance Abuse Alcohol abuse -[facility] Protocol with symptom triggered medication management with benzodiazepines -IV hydration. -Thiamine 100 mg twice a day -Multivitamin daily -Folate 1 mg daily -Seizure, fall, aspiration, and elopement precautions in place. -Urine drug screen -Continued close monitoring of electrolytes and replace as needed. -Telemetry monitoring. COVID 19 positive, in an asymptomatic individual -Patient is asymptomatic -Telemetry monitoring. -Continue trending inflammatory markers -Encourage Incentive Spirometry 10-15x hourly while awake -Continue vitamin C, Vitamin D, and Zinc. -DVT prophylaxis with Lovenox. -Strict Droplet plus Contact precautions CODE STATUS: Full code DVT prophylaxis: Lovenox Discussed with: Patient and RN Anticipated discharge date: Clinical course to determine Anticipated discharge place: Inpatient psychiatric unit A total of 35 minutes was spent on the care of this complex patient more than 50% of the time was spent in counseling and care coordination. Objective - Vital Signs Vital signs: Vital Signs Temp 98.4 F 03/14/22 08:00 Pulse 96 03/14/22 08:00 Resp 16 03/14/22 08:00 BP 94/62 03/14/22 08:00 Pulse Ox 96 03/14/22 08:00 FiO2 Intake & Output 03/13/22 03/14/22 03/14/22 18:59 06:59 18:59 Weight 74.843 kg Other: # Voids 1 - Labs CBC & Chem 7: 03/11/22 21:16 03/11/22 21:16
[2022-03-14] MEDS: NICOTINE 14MG/24HR PATCH TRANSDERM SCH (15:23)
[2022-03-14] MEDS: chlordiazePOXIDE 25 MG CAP PO PRN (18:59)
[2022-03-14] MEDS: PRAZOSIN 1 MG CAP PO SCH (20:25)
[2022-03-14] MEDS: MELATONIN 3 MG TABLET PO SCH (20:25)
[2022-03-15] MEDS: SODIUM CHLORIDE 0.9% 1,000 ML IV SCH ×2 (06:07→16:10)
[2022-03-15] MEDS: THIAMINE 100 MG TAB PO SCH ×2 (06:23→18:48)
[2022-03-15 07:53] LABS: INR 1.2 (<1.2); Partial Thromboplastin Time 23.2 sec (22.0-30.0); Prothrombin Time 13.1 sec (9.0-12.0)
[2022-03-15] MEDS: ENOXAPARIN 40 MG/0.4 ML SYRINGE SQ SCH (08:20)
[2022-03-15] MEDS: ESCITALOPRAM 20 MG TAB PO SCH (08:32)
[2022-03-15] MEDS: MULTIVITAMINS, THERA 1 EACH TAB PO SCH (08:32)
[2022-03-15] MEDS: CYANOCOBALAMIN 500 MCG TAB PO SCH (08:32)
[2022-03-15] MEDS: NICOTINE 14MG/24HR PATCH TRANSDERM SCH (08:32)
[2022-03-15] MEDS: amLODIPine 2.5 MG TAB PO SCH (08:32)
--- NOTE | 2022-03-15 08:32 | P.PN ---
Subjective Progress Note Date: 03/15/22 Hospital course: Patient is a very pleasant 36-year-old male with a past medical history of PTSD, anxiety, depression, TBI, alcohol abuse, and nicotine dependence. He is currently in the emergency department awaiting transfer to inpatient psychiatric unit due to reports of suicidal ideation and reported suicidal attempt via overdose of Librium in addition to excessive alcohol consumption. Patient was brought into the hospital by [facility] and upon arrival to the emergency department on 03/11/22. On 03/12/22 we were consulted for medical management while patient remained in the emergency department under observation status awaiting transfer to inpatient [facility]. However due to patient's diagnosis of Covid patient was admitted under our services on 03/13/22 with consultation to psychiatry and patient to be tr ansferred to our inpatient psychiatric unit once medically clear and Covid negative. Imaging: X-ray revealed hairline nondisplaced fractures involving the anterior margin of the left eighth and ninth ribs. Labs: CBC revealing Pancytopenia with WBC 2.4, hemoglobin 12.9, and platelet count of 144. CMP revealing Transaminitis: AST 172, ALT 141, an alkaline phosphatase of 92 with total bili of 0.3. Urinalysis negative for infection. Urine drug screen positive for benzodiazepines. Serum alcohol level 241. Physical exam: Patient seen and fully evaluated at the bedside this morning. Patient sitting up in bed with sitter at bedside. Patient continues to be doing well at this time. Morning labs did reveal elevated d-dimer of 0.82 any critical fibrinogen of 79. Elevated d-dimer is possibly secondary to Covid infection, however patient has had a decreased SpO2 as he was initially 99-100% and is currently maintaining SpO2 at 93%. We will obtain a CTA to rule out PE. Patient does report occasional mild pain to left rib region. Vital signs reviewed and stable. General: Nontoxic, no distress and appears stated age. Derm: Skin warm and dry, normal coloration for ethnicity. Head: Atraumatic, normocephalic and symmetric. Eyes: EOMs intact, no lid lag, and anicteric sclera Mouth: no lip lesions, mucus membranes moist Cardiovascular: regular rate and rhythm with normal S1S2, no murmur, positive posterior tibial pulses bilaterally, and cap refill < 2 seconds. Lungs: Respirations even, regular, and unlabored on room air. Lungs CTA bilaterally, no rhonchi, no rales, no wheezing, and no accessory muscle usage. Abdominal: soft, nontender to palpation, no guarding, no appreciable organomegaly Ext: ROM intact. No gross muscle atrophy, no edema, no contractures Neuro: Speech clear, face symmetrical and CN II-XII grossly intact with no noted focal neuro deficits Psych: Alert and oriented to person, place, time, and situation. Appropriate and pleasant affect. Assessment and Plan of Care: Suicidal ideations with reported suicide attempt via ingestion of Librium -Maintain suicide precautions and strict elopement precautions. -Psychiatry following. Rib fractures -Symptomatic care and pain management, strongly encourage patient to use incentive spirometry 10-15 times hourly while awake. Transaminitis Pancytopenia Low fibrinogen -Secondary to chronic alcohol abuse. Polysubstance Abuse Alcohol abuse -[facility] Protocol with symptom triggered medication management with benzodiazepines -IV hydration. -Thiamine 100 mg twice a day -Multivitamin daily -Folate 1 mg daily -Seizure, fall, aspiration, and elopement precautions in place. -Urine drug screen -Continued close monitoring of electrolytes and replace as needed. -Telemetry monitoring. COVID 19 positive, in an asymptomatic individual -Patient is asymptomatic -Telemetry monitoring. -Continue trending inflammatory markers -Encourage Incentive Spirometry 10-15x hourly while awake -Continue vitamin C, Vitamin D, and Zinc. -DVT prophylaxis with Lovenox. -Strict Droplet plus Contact precautions CODE STATUS: Full code DVT prophylaxis: Lovenox Discussed with: Patient and RN Anticipated discharge date: Clinical course to determine Anticipated discharge place: Inpatient psychiatric unit A total of 33 minutes was spent on the care of this complex patient more than 50% of the time was spent in counseling and care coordination. I reviewed the documentation as provided by the SHAAN above, who is the original author of this note. I agree with the documented assessment and plan, with the following changes: none Objective - Vital Signs Vital signs: Vital Signs Temp 97.6 F 03/15/22 07:54 Pulse 76 03/15/22 07:54 Resp 18 03/15/22 07:54 BP 100/67 03/15/22 07:54 Pulse Ox 93 L 03/15/22 07:54 FiO2 Intake & Output 03/14/22 03/15/22 03/15/22 19:59 06:59 18:59 Intake Total Balance Intake: Oral Other: Voiding Method # Voids # Bowel Movements - Labs CBC & Chem 7: 03/15/22 07:08 03/15/22 07:08 Labs: Abnormal Lab Results - Last 24 Hours (Table) 03/15/22 Range/Units 07:08 PT 13.1 H (9.0-12.0) sec INR 1.2 H (<1.2) Fibrinogen 79 L* (200-500) mg/dL D-Dimer 0.82 H (<0.60) mg/L FEU
[2022-03-15 11:19] LABS: Basophils # (A) 0.02 X 10*3/uL (0.00-0.10); Basophils % (A) 0.5 %; Eosinophils # (A) 0.12 X 10*3/uL (0.04-0.35); Eosinophils % (A) 3.1 %; HCT 36.1 % (39.6-50.0); HGB 12.2 g/dL (13.0-17.0); Immature Grans, Automated 0.5 %; Lymphocytes # (A) 1.29 X 10*3/uL (0.90-5.00); Lymphocytes % (A) 33.9 %; MCH 31.9 pg (27.0-32.0); MCHC 33.8 g/dL (32.0-37.0); MCV 94.3 fL (80.0-97.0); Mean Platelet Volume 10.6 fL (9.5-12.2); Monocytes # (A) 0.38 X 10*3/uL (0.20-1.00); NRBC Per 100 WBC 0 /100 WBCS (0.0-0.0); Neutrophils # (A) 1.98 X 10*3/uL (1.80-7.70); Platelet Count 146 X 10*3/uL (140-440); RBC 3.83 X 10*6/uL (4.40-5.60); RDW 13.6 % (11.5-14.5); WBC 3.81 X 10*3/uL (4.50-10.00)
[2022-03-15 11:57] LABS: C Reactive Protein <0.30 mg/dL (0.00-0.80); LDH 178 U/L (120-246)
[2022-03-15 11:58] LABS: ALT 99 U/L (10-49); AST 85 U/L (14-35); African American GFR (CKD) 138.9 (60.0-200.0); Albumin 3.8 g/dL (3.8-4.9); Albumin/Globulin Ratio 1.72 (1.60-3.17); Alkaline Phosphatase 122 U/L (41-126); BUN/Creat Ratio 9.79 Ratio (12.00-20.00); Blood Urea Nitrogen 7.1 mg/dL (9.0-27.0); Calcium 8.3 mg/dL (8.7-10.3); Carbon Dioxide 22.8 mmol/L (20.0-27.5); Chloride 104 mmol/L (96-109); Globulin 2.2 g/dL (1.6-3.3); Glucose 101 mg/dL (70-110); Magnesium 1.8 mg/dL (1.5-2.4); Non-African American GFR(CKD) 119.9 (60.0-200.0); Potassium 3.8 mmol/L (3.5-5.5); Sodium 138 mmol/L (135-145)
--- NOTE | 2022-03-15 11:58 | CT ---
EXAMINATION TYPE: CT chest angio for PE CT DLP: 333.7 mGycm, Automated exposure control for dose reduction was used. DATE OF EXAM: 03/15/2022 11:28 AM COMPARISON: Chest radiograph from same day. e CLINICAL INDICATION:Male, 36 years old with history of Elevated d-dimer, decreased SPO2, Covid; Francis holguin Ddimer, decreased SPO2, COVID TECHNIQUE/CONTRAST: CTA scan of the thorax is performed with IV Contrast, patient injected with 84 mL of Isovue 370, pulm onary embolism protocol. MIP images are created and reviewed. FINDINGS: Pulmonary Artery: There is no evidence for a filling defect within the pulmonary vasculature to sugge st acute pulmonary embolism. The pulmonary artery is of normal size. Lungs/Pleura: No evidence of focal consolidation, pleural effusion or pneumothorax. Airway: Large airways are patent. Heart: Heart is within normal limits for size.. Vasculature: No evidence of aortic aneurysm. Mediastinum: No gross evidence of adenopathy. Musculoskeletal: No acute osseous abnormalities Soft Tissues: Unremarkable. Lower neck: No significant findings. Upper Abdomen: Diffuse low-attenuation to the liver parenchyma.. IMPRESSION: 1. No evidence of pulmonary embolism.. Hepatic steatosis.
[2022-03-15 14:16] LABS: HCT 38.6 % (39.0-53.0); HGB 13.1 gm/dL (13.0-17.5); MCH 32.5 pg (25.0-35.0); MCHC 33.8 g/dL (31.0-37.0); Mean Platelet Volume 8.5; Platelet Count 154 k/uL (150-450); RBC 4.02 m/uL (4.30-5.90); RDW 13.7 % (11.5-15.5); WBC 3.7 k/uL (3.8-10.6)
[2022-03-15 14:33] LABS: ALT 106 U/L (4-49); AST 102 U/L (17-59); African American GFR (CKD) >90 (>60 ml/min/1.73 sqM); Albumin/Globulin Ratio 1.6; Alkaline Phosphatase 124 U/L (38-126); Anion Gap 9 mmol/L; Blood Urea Nitrogen 7 mg/dL (9-20); Calcium 8.9 mg/dL (8.4-10.2); Carbon Dioxide 20 mmol/L (22-30); Chloride 107 mmol/L (98-107); Globulin 2.5 g/dL; Glucose 130 mg/dL (74-99); Magnesium 1.7 mg/dL (1.6-2.3); Non-African American GFR(CKD) >90 (>60 ml/min/1.73 sqM); Potassium 4.6 mmol/L (3.5-5.1); Sodium 136 mmol/L (137-145); Total Bilirubin 0.5 mg/dL (0.2-1.3); Total Protein 6.5 g/dL (6.3-8.2)
[2022-03-15] MEDS: PRAZOSIN 1 MG CAP PO SCH (19:50)
[2022-03-15] MEDS: MELATONIN 3 MG TABLET PO SCH (19:50)
[2022-03-15] MEDS: chlordiazePOXIDE 25 MG CAP PO PRN (20:21)
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
[2022-03-16] MEDS: SODIUM CHLORIDE 0.9% 1,000 ML IV SCH ×2 (04:20→13:14)
[2022-03-16] MEDS: THIAMINE 100 MG TAB PO SCH (06:45)
[2022-03-16 08:16] LABS: INR 1.2 (<1.2); Partial Thromboplastin Time 23.5 sec (22.0-30.0); Prothrombin Time 12.8 sec (9.0-12.0)
[2022-03-16] MEDS: MULTIVITAMINS, THERA 1 EACH TAB PO SCH (09:40)
[2022-03-16] MEDS: CYANOCOBALAMIN 500 MCG TAB PO SCH (09:40)
[2022-03-16] MEDS: ENOXAPARIN 40 MG/0.4 ML SYRINGE SQ SCH (09:40)
[2022-03-16] MEDS: ESCITALOPRAM 20 MG TAB PO SCH (09:41)
[2022-03-16] MEDS: amLODIPine 2.5 MG TAB PO SCH (09:41)
[2022-03-16] MEDS: NICOTINE 14MG/24HR PATCH TRANSDERM SCH (09:41)
[2022-03-16 10:30] LABS: Basophils # (A) 0.02 X 10*3/uL (0.00-0.10); Basophils % (A) 0.4 %; Eosinophils # (A) 0.15 X 10*3/uL (0.04-0.35); Eosinophils % (A) 3.2 %; HCT 38.2 % (39.6-50.0); HGB 12.6 g/dL (13.0-17.0); Immature Grans, Automated 0.2 %; Lymphocytes % (A) 25.7 %; MCH 31.3 pg (27.0-32.0); MCV 94.8 fL (80.0-97.0); Monocytes # (A) 0.57 X 10*3/uL (0.20-1.00); Monocytes % (A) 12.2 %; NRBC Per 100 WBC 0 /100 WBCS (0.0-0.0); Neutrophils # (A) 2.72 X 10*3/uL (1.80-7.70); Neutrophils % (A) 58.3 %; Platelet Count 169 X 10*3/uL (140-440); RBC 4.03 X 10*6/uL (4.40-5.60); RDW 13.7 % (11.5-14.5); WBC 4.67 X 10*3/uL (4.50-10.00)
[2022-03-16 10:51] LABS: C Reactive Protein <0.30 mg/dL (0.00-0.80); LDH 162 U/L (120-246); Magnesium 1.8 mg/dL (1.5-2.4)
[2022-03-16 10:53] LABS: ALT 90 U/L (10-49); AST 62 U/L (14-35); African American GFR (CKD) 133.2 (60.0-200.0); Albumin 4.1 g/dL (3.8-4.9); Albumin/Globulin Ratio 1.95 (1.60-3.17); Alkaline Phosphatase 114 U/L (41-126); BUN/Creat Ratio 10.25 Ratio (12.00-20.00); Blood Urea Nitrogen 8.2 mg/dL (9.0-27.0); Calcium 8.8 mg/dL (8.7-10.3); Carbon Dioxide 22.3 mmol/L (20.0-27.5); Chloride 104 mmol/L (96-109); Globulin 2.1 g/dL (1.6-3.3); Glucose 107 mg/dL (70-110); Non-African American GFR(CKD) 114.9 (60.0-200.0); Potassium 4.1 mmol/L (3.5-5.5); Sodium 136 mmol/L (135-145); Total Protein 6.2 g/dL (6.2-8.2)
--- NOTE | 2022-03-16 13:00 | P.PN ---
Subjective Progress Note Date: 03/16/22 Hospital course: Patient is a very pleasant 36-year-old male with a past medical history of PTSD, anxiety, depression, TBI, alcohol abuse, and nicotine dependence. He is currently in the emergency department awaiting transfer to inpatient psychiatric unit due to reports of suicidal ideation and reported suicidal attempt via overdose of Librium in addition to excessive alcohol consumption. Patient was brought into the hospital by [facility] Department and upon arrival to the emergency department on 03/11/22. On 03/12/22 we were consulted for medical management while patient remained in the emergency department under observation status awaiting transfer to inpatient [facility]. However due to patient's diagnosis of Covid patient was admitted under our services on 03/13/22 with consultation to psychiatry and patient to be tr ansferred to our inpatient psychiatric unit once medically clear and Covid negative. Imaging: X-ray revealed hairline nondisplaced fractures involving the anterior margin of the left eighth and ninth ribs. Labs: CBC revealing Pancytopenia with WBC 2.4, hemoglobin 12.9, and platelet count of 144. CMP revealing Transaminitis: AST 172, ALT 141, an alkaline phosphatase of 92 with total bili of 0.3. Urinalysis negative for infection. Urine drug screen positive for benzodiazepines. Serum alcohol level 241. Physical exam: Patient seen and fully evaluated at the bedside this morning. Patient sitting up in bed with sitter at bedside. Patient continues to be doing well at this time. Morning labs did reveal elevated d-dimer of 0.82 any critical fibrinogen of 79. Elevated d-dimer is possibly secondary to Covid infection, however patient has had a decreased SpO2 as he was initially 99-100% and is currently maintaining SpO2 at 93%. We will obtain a CTA to rule out PE. Patient does report occasional mild pain to left rib region. Vital signs reviewed and stable. General: Nontoxic, no distress and appears stated age. Derm: Skin warm and dry, normal coloration for ethnicity. Head: Atraumatic, normocephalic and symmetric. Eyes: EOMs intact, no lid lag, and anicteric sclera Mouth: no lip lesions, mucus membranes moist Cardiovascular: regular rate and rhythm with normal S1S2, no murmur, positive posterior tibial pulses bilaterally, and cap refill < 2 seconds. Lungs: Respirations even, regular, and unlabored on room air. Lungs CTA bilaterally, no rhonchi, no rales, no wheezing, and no accessory muscle usage. Abdominal: soft, nontender to palpation, no guarding, no appreciable organomegaly Ext: ROM intact. No gross muscle atrophy, no edema, no contractures Neuro: Speech clear, face symmetrical and CN II-XII grossly intact with no noted focal neuro deficits Psych: Alert and oriented to person, place, time, and situation. Appropriate and pleasant affect. Assessment and Plan of Care: Suicidal ideations with reported suicide attempt via ingestion of Librium -Maintain suicide precautions and strict elopement precautions. -Psychiatry following. Rib fractures -Symptomatic care and pain management, strongly encourage patient to use incentive spirometry 10-15 times hourly while awake. Transaminitis Pancytopenia Low fibrinogen -Secondary to chronic alcohol abuse. Polysubstance Abuse Alcohol abuse -[facility] Protocol with symptom triggered medication management with benzodiazepines -IV hydration. -Thiamine 100 mg twice a day -Multivitamin daily -Folate 1 mg daily -Seizure, fall, aspiration, and elopement precautions in place. -Urine drug screen -Continued close monitoring of electrolytes and replace as needed. -Telemetry monitoring. COVID 19 positive, in an asymptomatic individual -Patient is asymptomatic -Telemetry monitoring. -Continue trending inflammatory markers -Encourage Incentive Spirometry 10-15x hourly while awake -Continue vitamin C, Vitamin D, and Zinc. -DVT prophylaxis with Lovenox. -Strict Droplet plus Contact precautions CODE STATUS: Full code DVT prophylaxis: Lovenox Discussed with: Patient and RN Anticipated discharge date: Clinical course to determine Anticipated discharge place: Inpatient psychiatric unit A total of 33 minutes was spent on the care of this complex patient more than 50% of the time was spent in counseling and care coordination. Objective - Vital Signs Vital signs: Vital Signs Temp 97.7 F 03/16/22 08:00 Pulse 81 03/16/22 08:00 Resp 16 03/16/22 08:00 BP 101/62 03/16/22 08:00 Pulse Ox 96 03/16/22 08:00 FiO2 Intake & Output 03/15/22 03/16/22 03/16/22 18:59 06:59 18:59 Other: Voiding Method Toilet # Voids 3 3 - Labs CBC & Chem 7: 03/16/22 07:48 03/16/22 07:48 Labs: Abnormal Lab Results - Last 24 Hours (Table) 03/15/22 03/15/22 03/16/22 Range/Units 13:57 13:57 07:48 WBC 3.7 L (3.8-10.6) k/uL RBC 4.02 L 4.03 L (4.30-5.90) m/uL Hgb 12.6 L (13.0-17.0) g/dL Hct 38.6 L 38.2 L (39.0-53.0) % PT (9.0-12.0) sec INR (<1.2) Sodium 136 L (137-145) mmol/L Carbon Dioxide 20 L (22-30) mmol/L Anion Gap (10.00-18.00) mmol/L BUN 7 L (9-20) mg/dL BUN/Creatinine Ratio (12.00-20.00) Ratio Glucose 130 H (74-99) mg/dL Total Bilirubin (0.30-1.20) mg/dL AST 102 H (17-59) U/L ALT 106 H (4-49) U/L 03/16/22 03/16/22 Range/Units 07:48 07:48 WBC (3.8-10.6) k/uL RBC (4.30-5.90) m/uL Hgb (13.0-17.0) g/dL Hct (39.0-53.0) % PT 12.8 H (9.0-12.0) sec INR 1.2 H (<1.2) Sodium (137-145) mmol/L Carbon Dioxide (22-30) mmol/L Anion Gap 9.70 L (10.00-18.00) mmol/L BUN 8.2 L (9-20) mg/dL BUN/Creatinine Ratio 10.25 L (12.00-20.00) Ratio Glucose (74-99) mg/dL Total Bilirubin 0.20 L (0.30-1.20) mg/dL AST 62 H (17-59) U/L ALT 90 H (4-49) U/L
--- NOTE | 2022-03-16 14:07 | P.PN ---
Progress Note - Text Progress Note Date: 03/16/22 Interval History: Patient was seen today for psychiatric follow-up regarding patient's depression and alcohol use. Patient was agreeable to speak to record the bedside. He appeared to have a fair affect and claims that he is not feeling depressed any longer. He states that he has been taking his medications and tolerating them well. He claims that he knows he needs to remain on his medications. He states that he was "drunk when I said that" regarding the suicidal ideations. He states that he is looking forward to being discharged and going to a treatment program through [facility] [place] for both PTSD and alcohol use. He claims that his father lives there and he can stay with him as well. He states that he does not have access to guns or weapons at this time. He is kaushik to safety with the technical proposal writer at this time and claims that he wants to live for his daughters and also his "life". He states that he is sleeping better at nighttime denying any nightmares and claims that his anxiety is been improving. Claimed that his appetite is fair. At this time patient denies any suicidal or homical ideations, intent or plan. Patient denies any auditory, visual hallucinations and denies any paranoia or delusions. Patient denies any side effects from the medications and has been compliant with meds. Visual [employer] attempted to call patient's mother Marie at the given number in the chart however it seemed to be a incorrect number. Called Jerel BARBA to inform him of this and inform him of the plan and to also make contact with whomever patient is staying with before going to [place] that they have the environment safe at home including no pill bottles lying around, no weapons or guns and they are okay with having him there and to help him with this treatment plan. Mental Status Exam: General Appearance: Patient appears to be stated age is alert, pleasant, and cooperative. Patient appears to have fair hygiene and grooming wearing hospital gown with fair eye contact. Behavior: Patient is calmly lying in bed without any agitated behavior. Speech: Patient's speech is fluent and non-pressured. Mood/Affect: Patient reports their mood is "good", affect is mood congruent and improved Suicidality/Homicidality: He denies homicidal ideations denies any suicidal ideations intent or plan. Perceptions: Patient denies any visual hallucinations and denies any auditory hallucinations Though content/process: Thoughts are linear and goal-directed. no delusions or paranoia. future oriented. [facility] [place]. Memory and concentration: AOX3, grossly intact for the purposes of this session Judgment and insight: improving IMPRESSIONS: Major depressive disorder, recurrent severe without psychotic features Alcohol use disorder, severe Alcohol withdrawal PTSD Status post suicide attempt by intentional overdose of Librium PLAN: -At this time patient DOES NOT meet criteria for inpatient psychiatric admission and patient is kaushik for safety, denying and SI/HI and future oriented wanting [facility] to [facility] [place]. technical proposal writer completed a negative certificate and placed it in patients chart. -Would recommend the following medication changes/additions: continue Lexapro 20 mg daily and can continue this for depression at this time, Prazosin 2 mg QHS for PTSD nightmares, -CIWA protocol with PRN Librium for alcohol withdrawal. Continue to monitor vital signs. -Communicated plan to patient's nurse and left VM for SW. -Sw to contact mother and plan for discharge including ensuring envt is safe, no guns/weapons or pillsbottles around and if theyre ok having him there. -Patient wants [facility] [place] for program for etoh and PTSD which he claims that he is at this time accepted to. -at this time psychiatry will sign off -Please contact with any questions.
[2022-03-16 15:22] VITALS: BP 117/77; PULSE 70; RESP 18; TEMP 98.3
--- NOTE | 2022-03-16 15:40 | P.DS ---
Providers Date of admission: 03/13/22 13:30 Expected date of discharge: 03/16/22 Attending physician: Ana Rosa Tobias MD Consults: 03/13/22 02:27 Consult Physician Routine Consulting Provider: Bruno Lozano Consult Reason/Comments: suicidal ideation Do you want consulting provider notified?: Yes, Notify in am 03/13/22 12:12 Consult Physician Routine Consulting Provider: Edmundo Friedman Consult Reason/Comments: medical consult Do you want consulting provider notified?: Yes Primary care physician: [facility] Hospital Course: Discharge Diagnosis: Suicidal ideations with reported suicide attempt via ingestion of Librium, after 5 day hospitalization and patient has been cleared by psychiatry team stating patient Does not meet criteria for inpatient psychiatric admission and has contracted for safety denying having any suicidal or homicidal ideations. Patient reportedly has applied to [facility] rehab[facility]PTSD program in [place]. Psychiatry clearing patient from psychological standpoint stating safe for discharge home. Rib fractures, strongly encourage patient to continue use of incentive spirometry and 15 times daily Transaminitis, secondary to alcohol abuse, improved Pancytopenia, secondary to alcohol abuse, improved Low fibrinogen, Secondary to chronic alcohol abuse. Polysubstance Abuse Alcohol abuse, strongly encourage cessation of all alcohol use. COVID 19 positive, in an asymptomatic individual Hospital Course: Patient is a very pleasant 36-year-old male with a past medical history of PTSD, anxiety, depression, TBI, alcohol abuse, and nicotine dependence. He is currently in the emergency department awaiting transfer to inpatient psychiatric unit due to reports of suicidal ideation and reported suicidal attempt via overdose of Librium in addition to excessive alcohol consumption. Patient was brought into the hospital by [facility] and upon arrival to the emergency department on 03/11/22. On 03/12/22 we were consulted for medical management while patient remained in the emergency department under observation status awaiting transfer to inpatient [facility]. However due to patient's diagnosis of Covid patient was admitted under our services on 03/13/22 with consultation to psychiatry and patient to be transferred to our inpatient psychiatric unit once medically clear and Covid negative. Patient seen and evaluated by psychiatry this afternoon. Psychiatry clearing patient from their standpoint stating patient Does not meet criteria for inpatient psychiatric admission and has contracted for safety denying having any suicidal or homicidal ideations. Patient reportedly [facility] [place]. Psychiatry clearing patient from psychological standpoint stating safe for discharge home. Medically patient is stable and is stable for discharge at this time. Imaging: X-ray revealed hairline nondisplaced fractures involving the anterior margin of the left eighth and ninth ribs. Labs: CBC revealing Pancytopenia with WBC 2.4, hemoglobin 12.9, and platelet count of 144. CMP revealing Transaminitis: AST 172, ALT 141, an alkaline phosphatase of 92 with total bili of 0.3. Urinalysis negative for infection. Urine drug screen positive for benzodiazepines. Serum alcohol level 241. Physical exam: Vital signs reviewed and stable. General: Nontoxic, no distress and appears stated age. Derm: Skin warm and dry, normal coloration for ethnicity. Head: Atraumatic, normocephalic and symmetric. Eyes: EOMs intact, no lid lag, and anicteric sclera Mouth: no lip lesions, mucus membranes moist Cardiovascular: regular rate and rhythm with normal S1S2, no murmur, positive posterior tibial pulses bilaterally, and cap refill < 2 seconds. Lungs: Respirations even, regular, and unlabored on room air. Lungs CTA bilaterally, no rhonchi, no rales, no wheezing, and no accessory muscle usage. Abdominal: soft, nontender to palpation, no guarding, no appreciable organomegaly Ext: ROM intact. No gross muscle atrophy, no edema, no contractures Neuro: Speech clear, face symmetrical and CN II-XII grossly intact with no noted focal neuro deficits Psych: Alert and oriented to person, place, time, and situation. Appropriate and pleasant affect. A total of 31 minutes of time were spent preparing this complex discharge summary. Pt was discharged on 03/16/22 at 3:25 PM. Patient Condition at Discharge: Stable Plan - Discharge Summary Discharge Rx Participant: Yes New Discharge Prescriptions: Continue Nicotine 21Mg/24Hr Patch [Habitrol] 1 patch TRANSDERM DAILY Multivitamins, Thera [Multivitamin (formulary)] 1 tab PO DAILY Cyanocobalamin (Vitamin B-12) [Vitamin B-12] 1,000 mcg PO DAILY Melatonin 6 mg PO HS Acetaminophen Tab [Tylenol] 650 mg PO Q6HR PRN tab PRN Reason: Mild Pain Or Fever > 100.5 Thiamine [Vitamin B-1] 100 mg PO BID-W/MEALS tab Escitalopram [Lexapro] 20 mg PO DAILY #0 Gabapentin 600 mg PO TID hydroCHLOROthiazide 25 mg PO DAILY amLODIPine [Norvasc] 2.5 mg PO DAILY Prazosin HCl [Minipress] 2 mg PO HS hydrOXYzine HCL [Atarax] 50 mg PO Q6H PRN PRN Reason: ANXIETY/ITCHING/NAUSEA Baclofen [Lioresal] 10 mg PO Q8H PRN PRN Reason: Muscle Spasm Discharge Medication List Baclofen [Lioresal] 10 mg PO Q8H PRN 01/26/22 [History] Cyanocobalamin (Vitamin B-12) [Vitamin B-12] 1,000 mcg PO DAILY 01/26/22 [History] Gabapentin 600 mg PO TID 01/26/22 [History] Melatonin 6 mg PO HS 01/26/22 [History] Multivitamins, Thera [Multivitamin (formulary)] 1 tab PO DAILY 01/26/22 [History] Nicotine 21Mg/24Hr Patch [Habitrol] 1 patch TRANSDERM DAILY 01/26/22 [History] Prazosin HCl [Minipress] 2 mg PO HS 01/26/22 [History] amLODIPine [Norvasc] 2.5 mg PO DAILY 01/26/22 [History] hydrOXYzine HCL [Atarax] 50 mg PO Q6H PRN 01/26/22 [History] hydroCHLOROthiazide 25 mg PO DAILY 01/26/22 [History] Acetaminophen Tab [Tylenol] 650 mg PO Q6HR PRN tab 01/31/22 [Rx] Thiamine [Vitamin B-1] 100 mg PO BID-W/MEALS tab 01/31/22 [Rx] Escitalopram [Lexapro] 20 mg PO DAILY #0 02/03/22 [Rx] Follow up Appointment(s)/Referral(s): [facility],Clinic [Primary Care Provider] - 1-2 days Patient Instructions/Handouts: Depression (DC), Post Traumatic Stress Disorder (DC), Abuse of Alcohol (DC), Alcohol Withdrawal (DC), Help Prevent Suicide (DC), Suicide Prevention (DC) Activity/Diet/Wound Care/Special Instructions: Activity: As tolerated. Take breaks as needed. Diet: Heart healthy and carb consistent diet. Avoid salts, or foods with hidden salts such as canned or boxed foods and frozen dinners. Extra salt makes your heart work harder and traps the fluid in your body for longer. Special Instructions: Take all of your medications as directed and remember to keep all of your doctor's appointments and follow-up as needed. Good luck on your journey towards sobriety, it is important to stay away from any and all alcoholic beverages. I wish you the best on the soon to be of your new little girl and on your move to [place]. Thank you again for your services, it is always an honor to care for a !!! Thank you for allowing us to participate in your care, it was truly a pleasure having you for our patient!!! Discharge/Stand Alone Forms: AA Meetings [facility], Who Do I Call?, Outpatient Counseling, In Substance Abuse Facilities Discharge Disposition: HOME SELF-CARE
== END 2022-03-16 16:35 | disposition home or self-care (01) | DRG 917 ==
LOC: EC 19:50 → 4SSUR 03-13 13:30
PROVIDERS: ADMIT Internal Medicine; ATTEND Internal Medicine
PROC: HZ2ZZZZ Detoxification Services for Substance Abuse Treatment (ICD-10-PCS; principal; 2022-03-13)
DX: T42.4X2A Poisoning by benzodiazepines, intentional self-harm, initial encounter (principal); U07.1 COVID-19; D61.818 Other pancytopenia; F33.2 Major depressive disorder, recurrent severe without psychotic features; S22.42XA Multiple fractures of ribs, left side, initial encounter for closed fracture; F10.239 Alcohol dependence with withdrawal, unspecified; R45.851 Suicidal ideations; F10.229 Alcohol dependence with intoxication, unspecified; F17.210 Nicotine dependence, cigarettes, uncomplicated; I10 Essential (primary) hypertension; K75.9 Inflammatory liver disease, unspecified; F43.10 Post-traumatic stress disorder, unspecified; Y90.8 Blood alcohol level of 240 mg/100 ml or more; Z79.899 Other long term (current) drug therapy; Z91.51 Personal history of suicidal behavior; Z71.41 Alcohol abuse counseling and surveillance of alcoholic
CPT/HCPCS: 36415; 71275; 80053; 80143; 80179; 80306; 80320; 81003; 82728; 83615; 83735; 83880; 83930; 84484; 85025; 85027; 85379; 85384; 85610; 85730; 86140; 87635; 93005; 94640; 99285

== ENCOUNTER 2024-02-06 16:04 | Observation (INO) | payer OTHER ==
--- NOTE | 2024-02-06 16:18 | ED ---
Alcohol HPI - General Chief Complaint: Alcohol Stated Complaint: CHAPIS, AMS Time Seen by Provider: 02/06/24 16:16 Source: patient, RN notes reviewed Mode of arrival: ambulatory Limitations: no limitations - History of Present Illness Initial Comments: This is a 38-year-old male presents emergency department company by his father chief complaint of generalized bodyaches, fatigue, and alcohol withdrawal. Patient's father states the patient was discharged from [facility] approximately 1 week ago and has been continued to drink at home up to or more than 1 L of alcohol per day. Patient's last drink was about 2 hours before arrival to the emergency department. Currently states that he feels nauseous and slightly anxious. Additionally, patient states that there has been a cold that has been running through his family and he has been experiencing bodyaches, chills, fatigue. - Related Data Home Medications Medication Instructions Recorded Confirmed No Known Home Medications 02/06/24 02/06/24 Allergies Allergy/AdvReac Type Severity Reaction Status Date / Time No Known Allergies Allergy Verified 02/06/24 19:09 Review of Systems ROS Statement: Those systems with pertinent positive or pertinent negative responses have been documented in the HPI. ROS Other: All systems not noted in ROS Statement are negative. Past Medical History Past Medical History: Hypertension Additional Past Medical History / Comment(s): ETOH abuse, past withdrawals- tremors/nausea. traumatic brain injury History of Any Multi-Drug Resistant Organisms: None Reported Additional Past Surgical History / Comment(s): surgery for testicular torsion Past Anesthesia/Blood Transfusion Reactions: No Reported Reaction Past Psychological History: Anxiety, Depression, PTSD Smoking Status: Current every day smoker Past Alcohol Use History: Abuse Past Drug Use History: None Reported - Past Family History Mother Family Medical History: No Reported History Additional Family Medical History / Comment(s): Mother is healthy Father History Unknown: Yes Family Family Medical History: No Reported History General Exam - General Exam Comments Initial Comments: Visual Physical Exam Vital signs reviewed General: Well-appearing, nontoxic, no acute distress. Head: Normocephalic, atraumatic Eyes: PERRLA, EOMI ENT: Airway patent Chest: Nonlabored breathing Skin: No visual rash, normal skin tone Neuro: Alert and oriented 3 Musculoskeletal: No gross abnormalities Limitations: no limitations General appearance: alert, in no apparent distress Head exam: Present: atraumatic, normocephalic, normal inspection Eye exam: Present: normal appearance, PERRL, EOMI. Absent: scleral icterus, conjunctival injection, periorbital swelling Neck exam: Present: normal inspection. Absent: tenderness, meningismus, lymphadenopathy Respiratory exam: Present: normal lung sounds bilaterally. Absent: respiratory distress, wheezes, rales, rhonchi, stridor Cardiovascular Exam: Present: regular rate, normal rhythm, tachycardia, normal heart sounds. Absent: systolic murmur, diastolic murmur, rubs, gallop, clicks GI/Abdominal exam: Present: soft, normal bowel sounds. Absent: distended, tenderness, guarding, rebound, rigid Extremities exam: Present: normal inspection, full ROM, normal capillary refill. Absent: tenderness, pedal edema, joint swelling, calf tenderness Back exam: Present: normal inspection Skin exam: Present: warm, dry, intact, normal color. Absent: rash Course Vital Signs 02/06/24 02/06/24 16:04 18:00 Temperature 97.9 F Pulse Rate 125 H 88 Respiratory 16 17 Rate Blood Pressure 146/94 155/107 O2 Sat by Pulse 97 97 Oximetry Medical Decision Making - Medical Decision Making Was pt. sent in by a medical professional or institution (, PA, TOW DRIVER, urgent c are, hospital, or fci...) When possible be specific @ -No Did you speak to anyone other than the patient for history (EMS, parent, family, police, friend...)? What history was obtained from this source @ -Spoke to the patient's father at bedside who states the patient was recently discharged from [facility] approximately 1 week ago for alcohol abuse. Patient has been consuming large quantities of alcohol while he is at home up to or more than 1 L of alcohol per day. Did you review nursing and triage notes (agree or disagree)? Why? @ -I reviewed and agree with nursing and triage notes Were old charts reviewed (outside hosp., previous admission, EMS record, old EKG, old radiological studies, urgent care reports/EKG's, fci records)? Report findings @ -No old charts were reviewed Differential Diagnosis (chest pain, altered mental status, abdominal pain women, abdominal pain men, vaginal bleeding, weakness, fever, dyspnea, syncope, headache, dizziness, GI bleed, back pain, seizure, CVA, palpatations, mental health, musculoskeletal)? @ -COVID 19, RSV, influenza, pneumonia, acute bronchitis, URI, alcohol intoxication, alcohol abuse, this list is not all inclusive EKG interpreted by me (3pts min.). @ -None X-rays interpreted by me (1pt min.). @ -None done CT interpreted by me (1pt min.). @ -None done U/S interpreted by me (1pt. min.). @ -None done What testing was considered but not performed or refused? (CT, X-rays, U/S, labs)? Why? @ -None What meds were considered but not given or refused? Why? @ -None Did you discuss the management of the patient with other professionals (professionals i.e. , PA, TOW DRIVER, lab, RT, psych nurse, social service coordinator, capacity management specialist, teacher, workplace rehabilitation officer, manager of case)? Give summary @ -I spoke with sound internal medicine physician, Dr. Villa, in regard to the patient's presentation and alcohol intoxication level with correlation and sober time at 7:45 in the morning and patient is excepted for admission with [facility] protocol in place. Was smoking cessation discussed for >3mins.? @ -No Was critical care preformed (if so, how long)? @ -No Were there social determinants of health that impacted care today? How? (Homelessness, low income, unemployed, alcoholism, drug addiction, transportation, low edu. Level, literacy, decrease access to med. care, skilled nursing, rehab)? @ -No Was there de-escalation of care discussed even if they declined (Discuss DNR or withdrawal of care, Hospice)? DNR status @ -No What co-morbidities impacted this encounter? (DM, HTN, Smoking, COPD, CAD, Cancer, CVA, ARF, Chemo, Hep., AIDS, mental health diagnosis, sleep apnea, morbid obesity)? @ -None Was patient admitted / discharged? Hospital course, mention meds given and route, prescriptions, significant lab abnormalities, going to OR and other pertinent info. @ -38-year-old male with alcohol abuse and generalized bodyaches. Patient is noted to be tachycardic on arrival which is likely secondary to symptoms of alcohol withdrawal and or possibly viral infection. He is afebrile. There are no acute physical exam findings. Patient will be symptomatically treated with antiemetics, IV fluids, and Ativan for anxiety for symptoms of alcohol withdrawal pending laboratory results. He is in agreement with this plan. CBC unremarkable, CMP reveals mild elevated liver enzymes AST of 117, ALT 94, lipase elevated at 578, serum alcohol of 341, Cepheid negative. Patient's time till sober correlates to 07 45 on 02/07/2024. Patient will be admitted to internal medicine for observation and placed on [facility] protocol. Discussed with Dr. Mock Undiagnosed new problem with uncertain prognosis? @ -Patient serum alcohol level of 341 at 1730 correlates to a time till sober at 0745 Drug Therapy requiring intensive monitoring for toxicity (Heparin, Nitro, Insulin, Cardizem)? @ -No Were any procedures done? @ -No Diagnosis/symptom? @ -alcohol intoxication, history of alcohol withdrawal Acute, or Chronic, or Acute on Chronic? @ -Acute Uncomplicated (without systemic symptoms) or Complicated (systemic symptoms)? @ -complicated Side effects of treatment? @ -No Exacerbation, Progression, or Severe Exacerbation? @ -No Poses a threat to life or bodily function? How? (Chest pain, [place], [place], pneumonia, PE, COPD, DKA, ARF, appy, cholecystitis, CVA, Diverticulitis, Homicidal, Suicidal, threat to staff... and all critical care pts) @ -No - Lab Data Result diagrams: 02/06/24 17:00 02/06/24 17:00 Lab Results 02/06/24 02/06/24 02/06/24 Range/Units 17:00 17:00 17:00 WBC 6.6 (3.8-10.6) k/uL RBC 5.08 (4.30-5.90) m/uL Hgb 16.3 (13.0-17.5) gm/dL Hct 49.4 (39.0-53.0) % MCV 97.1 (80.0-100.0) fL MCH 32.0 (25.0-35.0) pg MCHC 33.0 (31.0-37.0) g/dL RDW 12.5 (11.5-15.5) % Plt Count 418 (150-450) k/uL MPV 6.8 Neutrophils % 58 % Lymphocytes % 33 % Monocytes % 4 % Eosinophils % 1 % Basophils % 0 % Neutrophils # 3.9 (1.3-7.7) k/uL Lymphocytes # 2.2 (1.0-4.8) k/uL Monocytes # 0.3 (0-1.0) k/uL Eosinophils # 0.1 (0-0.7) k/uL Basophils # 0.0 (0-0.2) k/uL Sodium 144 (137-145) mmol/L Potassium 4.8 (3.5-5.1) mmol/L Chloride 108 H (98-107) mmol/L Carbon Dioxide 23 (22-30) mmol/L Anion Gap 13 mmol/L BUN 4 L (9-20) mg/dL Creatinine 0.65 L (0.66-1.25) mg/dL Est GFR (CKD-EPI)AfAm >90 (>60 ml/min/1.73 sqM) Est GFR (CKD-EPI)NonAf >90 (>60 ml/min/1.73 sqM) Glucose 86 (74-99) mg/dL Calcium 9.3 (8.4-10.2) mg/dL Magnesium 2.1 (1.6-2.3) mg/dL Total Bilirubin 0.9 (0.2-1.3) mg/dL AST 117 H (17-59) U/L ALT 94 H (4-49) U/L Alkaline Phosphatase 115 (38-126) U/L Total Protein 8.2 (6.3-8.2) g/dL Albumin 5.1 H (3.5-5.0) g/dL Lipase 578 H (23-300) U/L Urine Opiates Screen Not Detected (NotDetected) Ur Oxycodone Screen Not Detected (NotDetected) Urine Methadone Screen Not Detected (NotDetected) Ur Barbiturates Screen Not Detected (NotDetected) U Tricyclic Antidepress Not Detected (NotDetected) Ur Phencyclidine Scrn Not Detected (NotDetected) Ur Amphetamines Screen Not Detected (NotDetected) U Methamphetamines Scrn Not Detected (NotDetected) U Benzodiazepines Scrn Not Detected (NotDetected) Urine Cocaine Screen Not Detected (NotDetected) U Marijuana (THC) Screen Not Detected (NotDetected) Serum Alcohol 341 H* mg/dL Influenza Type A (PCR) (Not Detectd) Influenza Type B (PCR) (Not Detectd) RSV (PCR) (Not Detectd) SARS-CoV-2 (PCR) (Not Detectd) 02/06/24 Range/Units 17:00 WBC (3.8-10.6) k/uL RBC (4.30-5.90) m/uL Hgb (13.0-17.5) gm/dL Hct (39.0-53.0) % MCV (80.0-100.0) fL MCH (25.0-35.0) pg MCHC (31.0-37.0) g/dL RDW (11.5-15.5) % Plt Count (150-450) k/uL MPV Neutrophils % % Lymphocytes % % Monocytes % % Eosinophils % % Basophils % % Neutrophils # (1.3-7.7) k/uL Lymphocytes # (1.0-4.8) k/uL Monocytes # (0-1.0) k/uL Eosinophils # (0-0.7) k/uL Basophils # (0-0.2) k/uL Sodium (137-145) mmol/L Potassium (3.5-5.1) mmol/L Chloride (98-107) mmol/L Carbon Dioxide (22-30) mmol/L Anion Gap mmol/L BUN (9-20) mg/dL Creatinine (0.66-1.25) mg/dL Est GFR (CKD-EPI)AfAm (>60 ml/min/1.73 sqM) Est GFR (CKD-EPI)NonAf (>60 ml/min/1.73 sqM) Glucose (74-99) mg/dL Calcium (8.4-10.2) mg/dL Magnesium (1.6-2.3) mg/dL Total Bilirubin (0.2-1.3) mg/dL AST (17-59) U/L ALT (4-49) U/L Alkaline Phosphatase (38-126) U/L Total Protein (6.3-8.2) g/dL Albumin (3.5-5.0) g/dL Lipase (23-300) U/L Urine Opiates Screen (NotDetected) Ur Oxycodone Screen (NotDetected) Urine Methadone Screen (NotDetected) Ur Barbiturates Screen (NotDetected) U Tricyclic Antidepress (NotDetected) Ur Phencyclidine Scrn (NotDetected) Ur Amphetamines Screen (NotDetected) U Methamphetamines Scrn (NotDetected) U Benzodiazepines Scrn (NotDetected) Urine Cocaine Screen (NotDetected) U Marijuana (THC) Screen (NotDetected) Serum Alcohol mg/dL Influenza Type A (PCR) Not Detected (Not Detectd) Influenza Type B (PCR) Not Detected (Not Detectd) RSV (PCR) Not Detected (Not Detectd) SARS-CoV-2 (PCR) Not Detected (Not Detectd) Disposition Clinical Impression: Alcohol intoxication Disposition: ADMITTED IP TO THIS [facility] Condition: Stable Is patient prescribed a controlled substance at d/c from ED?: No Decision to Admit Reason: Admit from EC Decision Date: 02/06/24 Decision Time: 18:13
[2024-02-06] MEDS: SODIUM CHLORIDE 0.9% 1,000 ML IV STA (17:00)
[2024-02-06] MEDS: ONDANSETRON 4 MG/2 ML VIAL IVP STA (17:00)
[2024-02-06] MEDS: LORazepam 2 MG/ML INJ IV STA (17:02)
[2024-02-06 17:10] LABS: Basophils % (A) 0 %; Eosinophils # (A) 0.1 k/uL (0-0.7); Eosinophils % (A) 1 %; HCT 49.4 % (39.0-53.0); HGB 16.3 gm/dL (13.0-17.5); Lymphocytes # (A) 2.2 k/uL (1.0-4.8); Lymphocytes % (A) 33 %; MCV 97.1 fL (80.0-100.0); Mean Platelet Volume 6.8; Monocytes # (A) 0.3 k/uL (0-1.0); Monocytes % (A) 4 %; Neutrophils # (A) 3.9 k/uL (1.3-7.7); Neutrophils % (A) 58 %; Platelet Count 418 k/uL (150-450); RBC 5.08 m/uL (4.30-5.90); RDW 12.5 % (11.5-15.5); WBC 6.6 k/uL (3.8-10.6)
[2024-02-06 17:20] LABS: Amphetamine Screen,Urine Not Detected (NotDetected); Barbiturate Screen,Urine Not Detected (NotDetected); Benzodiazepines Screen,Urine Not Detected (NotDetected); Cocaine Screen,Urine Not Detected (NotDetected); Methadone Screen, Urine Not Detected (NotDetected); Opiate Screen,Urine Not Detected (NotDetected); Oxycodone Screen, Urine Not Detected (NotDetected); Phencyclidine Screen,Urine Not Detected (NotDetected); Tricyclic Antidepressant,Urine Not Detected (NotDetected); Urn Cannabinoid Scrn Not Detected (NotDetected)
[2024-02-06 17:21] LABS: ALT 94 U/L (4-49); African American GFR (CKD) >90 (>60 ml/min/1.73 sqM); Albumin 5.1 g/dL (3.5-5.0); Anion Gap 13 mmol/L; Blood Urea Nitrogen 4 mg/dL (9-20); Calcium 9.3 mg/dL (8.4-10.2); Carbon Dioxide 23 mmol/L (22-30); Chloride 108 mmol/L (98-107); Glucose 86 mg/dL (74-99); Lipase 578 U/L (23-300); Non-African American GFR(CKD) >90 (>60 ml/min/1.73 sqM); Sodium 144 mmol/L (137-145); Total Bilirubin 0.9 mg/dL (0.2-1.3); Total Protein 8.2 g/dL (6.3-8.2)
[2024-02-06 17:30] LABS: AST 117 U/L (17-59); Alkaline Phosphatase 115 U/L (38-126); Magnesium 2.1 mg/dL (1.6-2.3); Potassium 4.8 mmol/L (3.5-5.1)
[2024-02-06 17:32] LABS: Alcohol 341 mg/dL
[2024-02-06] MEDS ORDERED: IBUPROFEN 400 MG TAB PO PRN (18:11)
[2024-02-06] MEDS ORDERED: NALOXONE 0.4 MG/ML 1 ML VIAL IV PRN (18:11)
[2024-02-06] MEDS ORDERED: ONDANSETRON 4 MG/2 ML VIAL IVP PRN (18:11)
[2024-02-06] MEDS ORDERED: LORazepam 1 MG TAB PO PRN (18:12)
[2024-02-06] MEDS: SODIUM CHLORIDE 0.9% 1,000 ML IV SCH (18:47)
[2024-02-06] MEDS: LORazepam 0.5 MG TAB PO PRN (21:44)
--- NOTE | 2024-02-07 00:45 | P.HPIM ---
History of Present Illness H&P Date: 02/06/24 Chief Complaint: nausea vomiting 38-year-old male with alcohol abuse Patient coming in for repeated nausea vomiting and epigastric abdominal pain of 1 day duration, patient was recently at [facility] for rehab from alcohol dependence and abuse, he was discharged about 2 weeks ago and per his family he started drinking again, last drink was about 2 hours prior to his presentation to the ED patient indicates that his nausea vomiting became so severe he cannot keep anything down not even alcohol for which she decided to come into the hospital as he started to become agitated and shaky and he believes he is already going through alcohol withdrawal denies any bleeding. Patient reports diffuse bodyaches denies any fevers chills upper respiratory infection symptoms chest pain trouble breathing Patient denies any history of stomach ulcers GI bleeding denies any diabetes mellitus hypertension review of systems Pertinent positives as noted in HPI. All other systems were reviewed and are negative on exam Constitutional: No acute distress, cooperative Eyes: Anicteric sclerae, moist conjunctiva, Pupils equal round reactive to light ENMT: NC/AT Oropharynx clear, no erythema, or exudates Neck: Supple, no masses, or JVD No carotid bruits No thyromegaly Lungs: Clear to auscultation Clear to percussion Normal respiratory effort, no accessory muscle use Cardiovascular: Normal S1-S2 tachycardia, No murmurs, gallops, or rubs No peripheral edema Abdominal: Soft Nontender, no guarding, rebound or rigidity Abdomen moving with respiration Normoactive bowel sounds Extremities: No digital cyanosis No clubbing Pedal pulses intact and symmetrical Radial pulses intact and symmetrical No calf tenderness Psychiatric: Alert and oriented to person, place and time Neuro Muscles Strength 5/5 in all 4 extremities Sensation to light touch grossly present throughout Cranial nerves II-XII grossly intact Past Medical History Past Medical History: Hypertension Additional Past Medical History / Comment(s): ETOH abuse, past withdrawals- tremors/nausea. traumatic brain injury 2008 History of Any Multi-Drug Resistant Organisms: None Reported Additional Past Surgical History / Comment(s): surgery for testicular torsion Past Anesthesia/Blood Transfusion Reactions: No Reported Reaction Past Psychological History: Anxiety, Depression, PTSD Smoking Status: Current every day smoker Past Alcohol Use History: Abuse Additional Past Alcohol Use History / Comment(s): last drink 02/06/2024, would have 2- 5th a day on an normal day Past Drug Use History: None Reported Additional Drug Use History / Comment(s): Occasional marijuana use. - Past Family History Mother Family Medical History: No Reported History Additional Family Medical History / Comment(s): Mother is healthy Father History Unknown: Yes Family Family Medical History: No Reported History Medications and Allergies Home Medications Medication Instructions Recorded Confirmed Type No Known Home Medications 02/06/24 02/06/24 History Allergies Allergy/AdvReac Type Severity Reaction Status Date / Time No Known Allergies Allergy Verified 02/06/24 19:09 Physical Exam Vitals: Vital Signs Temp Pulse Pulse Resp BP Pulse Ox 02/06/24 23:48 106 H 02/06/24 20:47 87 19 120/83 98 02/06/24 19:30 97.9 F 93 22 131/92 99 02/06/24 18:00 88 17 155/107 97 02/06/24 16:04 97.9 F 125 H 16 146/94 97 Intake and Output 02/06/24 02/06/24 02/07/24 14:59 22:59 06:59 Other: Weight 77.111 kg 77.111 kg Results CBC & Chem 7: 02/06/24 17:00 02/06/24 17:00 Labs: Abnormal Lab Results - Last 24 Hours (Table) 02/06/24 Range/Units 17:00 Chloride 108 H (98-107) mmol/L BUN 4 L (9-20) mg/dL Creatinine 0.65 L (0.66-1.25) mg/dL AST 117 H (17-59) U/L ALT 94 H (4-49) U/L Albumin 5.1 H (3.5-5.0) g/dL Lipase 578 H (23-300) U/L Serum Alcohol 341 H* mg/dL Assessment and Plan Assessment: 38-year-old male with alcohol dependence and abuse coming in with repeated nausea vomiting and intolerance to alcohol I discussed case with ED doctor and accepted the admission for alcohol abuse and dependence with potential alcohol withdrawal with anticipated length of stay more than 2 midnights Acute severe alcohol intoxication with pending alcohol withdrawal Seizure precautions Benzos per CIWA scale Librium 50 mg p.o. once IV fluid hydration normal saline 2 L boluses then continue with 120 cc/h Thiamine 100 mg p.o. daily Elevated alcohol level of 341 Blood work showing white count 6.6 hemoglobin 16 unremarkable Renal function unremarkable with BUN 4 creatinine 0.6 sodium 144 potassium 4.8 Transaminitis secondary to alcohol abuse AST 117 ALT 94 both elevated Continue to monitor Acute respiratory viral panel negative for COVID influenza and RSV Full code DVT prophylaxis Lovenox subcu daily 40 mg GI prophylaxis Protonix 40 mg p.o. twice daily
[2024-02-07] MEDS: chlordiazePOXIDE 25 MG CAP PO STA (03:23)
[2024-02-07] MEDS: SODIUM CHLORIDE 0.9% 1,000 ML IV ONE (03:23)
[2024-02-07] MEDS: PANTOPRAZOLE 40 MG TABLET PO SCH (07:31)
[2024-02-07] MEDS: LORazepam 1 MG TAB PO PRN ×3 (08:00→11:57)
[2024-02-07] MEDS: KETOROLAC 15 MG/ML 1 ML VIAL IVP PRN (08:00)
[2024-02-07 09:02] LABS: Basophils # (A) 0.04 X 10*3/uL (0.00-0.10); Basophils % (A) 0.8 %; Eosinophils # (A) 0.11 X 10*3/uL (0.04-0.35); Eosinophils % (A) 2.2 %; HGB 12.5 g/dL (13.0-17.0); Lymphocytes # (A) 1.11 X 10*3/uL (0.90-5.00); Lymphocytes % (A) 22.1 %; MCH 32.3 pg (27.0-32.0); MCHC 33.8 g/dL (32.0-37.0); MCV 95.6 FL (80.0-97.0); Mean Platelet Volume 9.6 FL (9.5-12.2); Monocytes # (A) 0.38 X 10*3/uL (0.20-1.00); Monocytes % (A) 7.6 %; NRBC Per 100 WBC 0 X 10*3/uL (0.00-0.01); Neutrophils # (A) 3.37 X 10*3/uL (1.80-7.70); Neutrophils % (A) 67.1 %; Platelet Count 266 X 10*3/uL (140-440); RBC 3.87 X 10*6/uL (4.40-5.60); RDW 12.5 % (11.5-14.5); WBC 5.02 X 10*3/uL (4.50-10.00)
[2024-02-07 09:09] LABS: ALT 67 U/L (10-49); AST 73 U/L (14-35); Albumin 3.6 g/dL (3.8-4.9); Albumin/Globulin Ratio 1.71 Ratio (1.60-3.17); Alkaline Phosphatase 101 U/L (41-126); BUN/Creat Ratio 8.88 Ratio (12.00-20.00); Blood Urea Nitrogen 7.1 mg/dL (9.0-27.0); Calcium 7.4 mg/dL (8.7-10.3); Carbon Dioxide 23.9 mmol/L (21.6-31.8); Chloride 104 mmol/L (96-109); Globulin 2.1 g/dL (1.6-3.3); Glucose 87 mg/dL (70-110); Potassium 4.2 mmol/L (3.5-5.5); Sodium 139 mmol/L (135-145); Total Bilirubin 0.5 mg/dL (0.3-1.2); Total Protein 5.7 g/dL (6.2-8.2)
[2024-02-07] MEDS: ENOXAPARIN 40 MG/0.4 ML SYRINGE SQ SCH (09:17)
[2024-02-07] MEDS: THIAMINE 100 MG TAB PO SCH (09:18)
--- NOTE | 2024-02-07 10:48 | P.PN ---
Subjective Progress Note Date: 02/07/24 38 year old M with PMH of EtOH abuse presents to the ED for epigastric pain, nausea and vomiting. Recently admitted at [facility] and discharged 2 weeks ago. Patient reports starting to drink almost immediately after discharge. Last drink was 2 hours prior to presentation to the ED. In the ED he underwent extensive evaluation. BP 146/94, HR 125, T 97.0F, RR 16, 97% on RA. CBC, Coag panel, CMP significant for Cl 108, BUN 4, Cr 0.65, AST 117, ALT 94, alb 5.1. Lipase 578. UDS negative. EtOH 341. COVID/RSV/Flu negative. Patient is admitted for further workup and management. 02/06 Patient was seen and examined. He reports feeling shaky. He reports nausea but no vomiting. He intends to quit drinking but does not want to go back to [facility] at this time. Received 3.5 mg PO + 2 mg IV Ativan and 50 mg PO Librium overnight. Most recent CIWA is 8. CBC and CMP significant for RBC 3.87, Hg 12.5, Hct 37, BUN 7.1, Ca 7.4, AST 73, ALT 67, total protein 5.7, alb 3.6. General: non toxic, no distress, appears at stated age Derm: warm, dry Head: atraumatic, normocephalic, symmetric Eyes: EOMI, no lid lag, anicteric sclera Mouth: no lip lesion, mucus membranes moist Cardiovascular: S1S2 regular, no murmur Lungs: Clear to auscultation bilateral, no rhonchi, no rales , no accessory muscle use Ext: no gross muscle atrophy, no edema, no contractures Neuro: No focal neurologic deficits Psych: Alert and oriented Based on my assessment of this patient, this patient meets a high complexity level of care. Acute alcohol intoxication with impending withdrawal: CIWA protocol with Ativan PO PRN per scale. Start Librium 25 mg PO TID. Continue NS at 120 cc/hr. Telemetry monitoring. Seizure precautions. Gastritis: Protonix 40 mg PO BID. Zofran 4 mg IV TID PRN N/V. Transaminitis likely due to EtOH abuse Elevated Lipase with no clinical signs of pancreatitis. CODE STATUS: FULL CODE. DVT Prophylaxis: Lovenox GI Prophylaxis: Protonix PO Designated medical POA if patient is not able to make medical decisions for themselves: Dispo: Hopeful discharge home tomorrow if withdrawal symptoms better controlled. I have reviewed the following corporate consultant notes: I have reviewed the results of the following tests: CBC, CMP. I have ordered the following tests: I have discussed the care of this patient with the following independent historian: I have independently interpreted the following test below: I have discussed the management of this patient with the following physician: Objective - Vital Signs Vital signs: Vital Signs Temp 98.2 F 02/07/24 07:28 Pulse 98 02/07/24 10:27 Resp 17 02/07/24 10:27 BP 148/96 02/07/24 10:27 Pulse Ox 96 02/07/24 10:27 FiO2 Intake & Output 02/06/24 02/07/24 02/07/24 18:59 06:59 18:59 Intake Total 2710 Balance 2710 Weight 77.111 kg 77.111 kg Intake: Intake, IV Titration 1960 Amount Sodium Chloride 0.9% 1, 960 000 ml @ 120 mls/hr IV . Q8H20M ON LICENSE OF [facility] Rx#:[id number] Sodium Chloride 0.9% 1, 1000 000 ml @ 999 mls/hr IV . Q1H1M ONE Rx#:[id number] Oral 750 Other: # Voids 1 - Labs CBC & Chem 7: 02/07/24 06:03 02/07/24 06:03 Labs: Abnormal Lab Results - Last 24 Hours (Table) 02/06/24 02/07/24 02/07/24 Range/Units 17:00 06:03 06:03 RBC 3.87 L (4.40-5.60) X 10*6/uL Hgb 12.5 L (13.0-17.0) g/dL Hct 37.0 L (39.6-50.0) % MCH 32.3 H (27.0-32.0) pg Chloride 108 H (98-107) mmol/L BUN 4 L 7.1 L (9-20) mg/dL Creatinine 0.65 L (0.66-1.25) mg/dL BUN/Creatinine Ratio 8.88 L (12.00-20.00) Ratio Calcium 7.4 L (8.7-10.3) mg/dL AST 117 H 73 H (17-59) U/L ALT 94 H 67 H (4-49) U/L Total Protein 5.7 L (6.2-8.2) g/dL Albumin 5.1 H 3.6 L (3.5-5.0) g/dL Lipase 578 H (23-300) U/L Serum Alcohol 341 H* mg/dL
[2024-02-07] MEDS: chlordiazePOXIDE 25 MG CAP PO SCH (11:52)
[2024-02-07] MEDS: NICOTINE 21MG/24HR PATCH TRANSDERM SCH (17:05)
[2024-02-08 08:35] VITALS: BP 141/94; PULSE 83; RESP 16; TEMP 97.8
--- NOTE | 2024-02-08 09:51 | P.DS ---
Providers Date of admission: 02/06/24 17:56 Expected date of discharge: 02/08/24 Attending physician: Jessika Rose MD Primary care physician: [facility] Hospital Course: Discharge Diagnosis: Alcohol withdraw in active alcoholic, strongly recommend cessation of any and all alcohol use Intractable nausea and vomiting with epigastric pain accompanied by elevated lipase, likely secondary to beginning stages of alcoholic pancreatitis Transaminitis, secondary to alcohol abuse, improved Alcohol intoxication upon arrival Hospital Course: Patient is a very pleasant 38-year-old male with a past medical history of PTSD, anxiety, depression, TBI, alcohol abuse, and nicotine dependence. He presented to the hospital on 02/06/2024 with a chief complaint of intractable nausea, vomiting, and epigastric pain. Patient was recently discharged from [facility] and began drinking again just prior to onset of the symptoms. Upon arrival to our facility, patient underwent evaluation in the emergency department. Vital signs upon arrival show blood pressure 146/94, heart rate 125, respiratory rate 16, temp 97.9 F, and SpO2 of 97% on room air. Labs were completed and reviewed. CBC unremarkable. BMP showing high anion gap metabolic acidosis with chloride of 108, bicarb 23, and anion gap of 13. Blood glucose was 86. Magnesium 2.1. Liver profile showing elevated AST of 117 and ALT of 94 with alkaline phosphatase of 115. Lipase was elevated at 578. Urine drug screen negative. Serum alcohol level was elevated at 341. Influenza A, influenza B, RSV, and COVID PCR were negative. Patient was admitted under our services and treated with vigorous IV fluid hydration. He was placed on CIWA protocol with symptom triggered medication management with benzodiazepines. Patient reports full resolution of abdominal/epigastric pain and has had no further episodes of nausea or vomiting and tolerating oral intake well. Symptoms of withdrawal improved. Patient reports feeling ready to go home and is medically stable for discharge at this time. Patient strongly encouraged to avoid any and all alcohol use. Physical exam: Patient seen and examined at bedside. Vital signs reviewed and stable. General: Nontoxic, no distress and appears stated age. Derm: Skin warm and dry, normal coloration for ethnicity. Head: Atraumatic, normocephalic and symmetric. Eyes: EOM's intact, no lid lag, and anicteric sclera Mouth: no lip lesions, mucus membranes moist Cardiovascular: regular rate and rhythm with normal S1S2, no murmur, positive posterior tibial pulses bilaterally, and cap refill < 2 seconds. Lungs: Respirations even, regular, and unlabored on room air. Lungs CTA bilaterally, no rhonchi, no rales, no wheezing, and no accessory muscle usage. Abdominal: soft, nontender to palpation, no guarding, no appreciable organomegaly Ext: ROM intact. No gross muscle atrophy, no edema, no contractures Neuro: Speech clear, face symmetrical and CN II-XII grossly intact with no noted focal neuro deficits Psych: Alert and oriented to person, place, time, and situation. Appropriate and pleasant affect. A total of 34 minutes of time were spent preparing this complex discharge summary. Pt was discharged on 02/08/2024 at 9:50 AM Patient was seen independently by Nurse Practitioner. This document was prepared using [employer] dictation software. Please allow for errors in apn while rare they do occur. .Lupillo De Leon NP rendered care for this patient independently, reviewed the findings and plan as documented in the note above. I did not physically speak with or examine the patient on this date. Patient Condition at Discharge: Stable Plan - Discharge Summary Discharge Rx Participant: No New Discharge Prescriptions: No Action No Known Home Medications Discharge Medication List No Known Home Medications 02/06/24 [History] Follow up Appointment(s)/Referral(s): [facility],Clinic [Primary Care Provider] - 1-2 days (Spoke with Brii at [facility] - Patient to call and set up appointment) Activity/Diet/Wound Care/Special Instructions: Activity: As tolerated. Diet: Regular Diet Special Instructions: Good luck on your journey towards sobriety, it is important to stay away from any and all alcoholic beverages. Thank you again for your service, it is always an honor to care for a !!! Thank you for allowing us to participate in your care, it was truly a pleasure having you for our patient!!! . Discharge/Stand Alone Forms: AA Meetings [address] - [facility], AA Meetings [place], Who Do I Call?, Community Resources, Outpatient Counseling, Inp Substance Abuse Facilities, Outpatient Therapy List Discharge Disposition: HOME SELF-CARE
== END 2024-02-08 10:30 | disposition home or self-care (01) ==
LOC: EC 16:04 → 5NMEDONC 17:56 → 1SOBS 02-07 11:33
PROVIDERS: ADMIT Internal Medicine; ATTEND Internal Medicine
DX: F10.229 Alcohol dependence with intoxication, unspecified (principal); F10.239 Alcohol dependence with withdrawal, unspecified; E87.20 Acidosis, unspecified; K29.70 Gastritis, unspecified, without bleeding; Y90.8 Blood alcohol level of 240 mg/100 ml or more; R74.01 Elevation of levels of liver transaminase levels; R74.8 Abnormal levels of other serum enzymes; F32.A Depression, unspecified; F41.9 Anxiety disorder, unspecified; F43.10 Post-traumatic stress disorder, unspecified; F17.200 Nicotine dependence, unspecified, uncomplicated; Z11.52 Encounter for screening for COVID-19; Z11.59 Encounter for screening for other viral diseases; Z87.820 Personal history of traumatic brain injury
CPT/HCPCS: 96361 ×2; 96372; 96374; 96375 ×2; 99285; 36415; 80053 ×2; 83690; 83735; 85025 ×2; 80306; 80320; 87636; G0378 ×4; S4990; J2060; J2405; J1650; J1885